=== PATIENT | female | born 1955 | race Caucasian/White ===

== ENCOUNTER 2020-06-19 12:56 | Inpatient (IN) | payer OTHER ==
[2020-06-19 14:29] LABS: BASO % 1.3 % (0-2.0); EOS % 0.1 % (0-4.5); HEMATOCRIT 44.3 % (32.4-45.2); HEMOGLOBIN 14.6 GM/dL (10.7-15.3); LYMPH % 11.9 % (8-40); MCH 26.6 pg (25.7-33.7); MCHC 32.8 g/dl (32.0-36.0); MEAN PLT VOLUME 9.9 fl (7.5-11.1); MONO % 4.5 % (3.8-10.2); NEUT % 82.2 % (42.8-82.8); PLATELET COUNT 181 K/MM3 (134-434); RBC 5.48 M/mm3 (3.60-5.2); RDW 16.2 % (11.6-15.6); WHITE BLOOD COUNT 8.1 K/mm3 (4.0-10.0)
[2020-06-19 14:37] LABS: INR 1.2 (0.83-1.09); PROTHROMBIN TIME (PATIENT) 14.4 SEC (9.7-13.0)
[2020-06-19 14:40] LABS: ACTIVATED PTT 38.9 SECONDS (25.2-36.5)
[2020-06-19 14:49] LABS: CHLORIDE 103 mmol/L (98-107); SODIUM 138 mmol/L (136-145)
[2020-06-19] MEDS ORDERED: POTASSIUM CHLORIDE ORAL LIQUID 20 MEQ/15 ML PO ONE (14:51)
[2020-06-19 14:52] LABS: ANION GAP 8 MMOL/L (8-16); BLOOD UREA NITROGEN 17.9 mg/dL (7-18); CALCIUM 7.7 mg/dL (8.5-10.1); CO2 27 mmol/L (21-32); GLUCOSE,RANDOM 138 mg/dL (74-106)
[2020-06-19 14:55] LABS: BILIRUBIN,DIRECT 0.3 mg/dL (0.0-0.2); CREATININE 1.3 mg/dL (0.55-1.3); SGOT/AST 43 U/L (15-37); SGPT/ALT 28 U/L (13-61)
[2020-06-19 14:57] LABS: BILIRUBIN,TOTAL 0.6 mg/dL (0.2-1); TOT PROT 6.7 g/dl (6.4-8.2)
[2020-06-19 14:58] LABS: ALK PHOS 88 U/L (45-117)
[2020-06-19 15:00] LABS: LDH 408 U/L (84-246)
[2020-06-19] MEDS ORDERED: DEXAMETHASONE SOD PHOSPHATE 4 MG/1 ML VIAL IVPUSH ONE (16:02)
[2020-06-19] MEDS ORDERED: POTASSIUM CHLORIDE ORAL LIQUID 20 MEQ/15 ML ONE (16:12)
[2020-06-19] MEDS ORDERED: DEXAMETHASONE SOD PHOSPHATE 10 MG/1 ML VIAL ONE (16:12)
[2020-06-19 18:26] LABS: N-TERMINAL BNP 674.1 pg/ml (5-125)
[2020-06-19] MEDS ORDERED: ALBUTEROL SO4 HFA INHALER IH PRN (21:41)
[2020-06-19] MEDS ORDERED: ACETAMINOPHEN 325 MG TABLET (FP) PO PRN (21:43)
[2020-06-19] MEDS ORDERED: AZITHROMYCIN IVPB 500 MG/250 ML BAG IVPB ONE ×2 (21:47→22:12)
[2020-06-19] MEDS ORDERED: REMDESIVIR 200 MG in SODIUM CHLORIDE 210 ML IVPB ONE (22:00)
[2020-06-19] MEDS ORDERED: ASCORBIC ACID 500 MG TABLET (FP) ONE (22:11)
[2020-06-19] MEDS ORDERED: ZINC SULFATE 220 MG CAPSULE (FP) ONE (22:12)
[2020-06-19] MEDS ORDERED: CHOLECALCIFEROL (VIT D3) 1,000 UNIT (25 MCG) TABLET ONE (22:12)
[2020-06-19] MEDS: CHOLECALCIFEROL (VIT D3) 1,000 UNIT (25 MCG) TABLET PO SCH (22:50)
[2020-06-19] MEDS: ZINC SULFATE 220 MG CAPSULE (FP) PO SCH (22:50)
[2020-06-19] MEDS: ASCORBIC ACID 500 MG TABLET (FP) PO SCH (22:51)
[2020-06-20] MEDS: BUDESONIDE/FORMETEROL FUMARATE 160/4.5 mcg INHALER IH SCH ×3 (02:57→23:19)
[2020-06-20 07:35] LABS: BASO % 0.2 % (0-2.0); HEMATOCRIT 41.9 % (32.4-45.2); MCHC 33.5 g/dl (32.0-36.0); MEAN CELL VOLUME 80.6 fl (80-96); MEAN PLT VOLUME 10.2 fl (7.5-11.1); MONO % 6.3 % (3.8-10.2); NEUT % 81.5 % (42.8-82.8); PLATELET COUNT 204 K/MM3 (134-434); RDW 16.3 % (11.6-15.6); WHITE BLOOD COUNT 8.4 K/mm3 (4.0-10.0)
[2020-06-20 08:03] LABS: CALCIUM 8.1 mg/dL (8.5-10.1)
[2020-06-20 08:04] LABS: BLOOD UREA NITROGEN 37.6 mg/dL (7-18)
[2020-06-20 08:06] LABS: CREATININE 1.5 mg/dL (0.55-1.3)
[2020-06-20 08:07] LABS: PHOSPHOROUS 3.1 mg/dL (2.5-4.9)
[2020-06-20 08:08] LABS: BILIRUBIN,TOTAL 0.6 mg/dL (0.2-1); TOT PROT 6.6 g/dl (6.4-8.2)
[2020-06-20] MEDS ORDERED: ENOXAPARIN NA (PORCINE) 40 MG/0.4 ML DISP.SYRIN SQ SCH (10:00)
[2020-06-20] MEDS: DEXAMETHASONE SOD PHOSPHATE 4 MG/1 ML VIAL IVPUSH SCH (10:04)
[2020-06-20] MEDS: ASCORBIC ACID 500 MG TABLET (FP) PO SCH ×2 (10:04→23:20)
[2020-06-20] MEDS: ZINC SULFATE 220 MG CAPSULE (FP) PO SCH ×2 (10:04→23:19)
[2020-06-20] MEDS: CHOLECALCIFEROL (VIT D3) 1,000 UNIT (25 MCG) TABLET PO SCH (10:04)
[2020-06-20] MEDS: ALBUTEROL SO4 HFA INHALER IH SCH ×4 (10:06→23:19)
[2020-06-20] MEDS ORDERED: DEXTROSE 5%-WATER - 50 ML IVPB ONE (17:09)
[2020-06-20] MEDS ORDERED: cefTRIAXone SODIUM 1 GM VIAL ONE (17:09)
[2020-06-20] MEDS: AZITHROMYCIN IVPB 500 MG/250 ML BAG IVPB SCH (17:12)
[2020-06-20] MEDS: CEFTRIAXONE 1 GM in DEXTROSE 5%-WATER - 50 ML IVPB SCH (17:12)
[2020-06-20] MEDS ORDERED: LACTATED RINGERS SOLUTION 1,000 ML/1,000 ML INFUS.BAG IV SCH ×2 (17:45→17:46)
[2020-06-20] MEDS: REMDESIVIR 100 MG in SODIUM CHLORIDE 230 ML IVPB SCH (23:19)
[2020-06-21 08:12] LABS: BASO % 0.1 % (0-2.0); HEMATOCRIT 40.7 % (32.4-45.2); HEMOGLOBIN 13.5 GM/dL (10.7-15.3); LYMPH % 6.3 % (8-40); MCH 26.7 pg (25.7-33.7); MCHC 33.2 g/dl (32.0-36.0); MEAN CELL VOLUME 80.4 fl (80-96); MEAN PLT VOLUME 10.2 fl (7.5-11.1); MONO % 6.3 % (3.8-10.2); NEUT % 87.3 % (42.8-82.8); PLATELET COUNT 223 K/MM3 (134-434); RBC 5.06 M/mm3 (3.60-5.2); RDW 16.4 % (11.6-15.6); WHITE BLOOD COUNT 14.6 K/mm3 (4.0-10.0)
[2020-06-21 08:21] LABS: CALCIUM 8.5 mg/dL (8.5-10.1)
[2020-06-21 08:22] LABS: ALBUMIN 2.9 g/dl (3.4-5.0); BLOOD UREA NITROGEN 57.3 mg/dL (7-18)
[2020-06-21 08:25] LABS: CREATININE 1.2 mg/dL (0.55-1.3)
[2020-06-21 08:26] LABS: BILIRUBIN,TOTAL 0.4 mg/dL (0.2-1); TOT PROT 6.5 g/dl (6.4-8.2)
[2020-06-21] MEDS ORDERED: DEXTROSE 5%-WATER - 50 ML IVPB ONE (09:51)
[2020-06-21] MEDS ORDERED: cefTRIAXone SODIUM 1 GM VIAL ONE (09:51)
[2020-06-21] MEDS: AZITHROMYCIN IVPB 500 MG/250 ML BAG IVPB SCH (10:06)
[2020-06-21] MEDS: ALBUTEROL SO4 HFA INHALER IH SCH ×4 (10:06→20:00)
[2020-06-21] MEDS: CEFTRIAXONE 1 GM in DEXTROSE 5%-WATER - 50 ML IVPB SCH (10:07)
[2020-06-21] MEDS: APIXABAN 5 MG TABLET PO SCH ×2 (10:07→21:55)
[2020-06-21] MEDS: CHOLECALCIFEROL (VIT D3) 1,000 UNIT (25 MCG) TABLET PO SCH (10:07)
[2020-06-21] MEDS: ASCORBIC ACID 500 MG TABLET (FP) PO SCH ×2 (10:07→21:55)
[2020-06-21] MEDS: DEXAMETHASONE SOD PHOSPHATE 4 MG/1 ML VIAL IVPUSH SCH (10:07)
[2020-06-21] MEDS: ZINC SULFATE 220 MG CAPSULE (FP) PO SCH ×2 (10:07→21:55)
[2020-06-21] MEDS: BUDESONIDE/FORMETEROL FUMARATE 160/4.5 mcg INHALER IH SCH ×2 (10:21→22:14)
[2020-06-21] MEDS: AZITHROMYCIN IVPB 250 MG in DEXTROSE 5%-WATER - 250 ML IVPB SCH (13:03)
[2020-06-21] MEDS ORDERED: PT OWN MED DRAWER 7, Y5N ONE (20:21)
[2020-06-21] MEDS: REMDESIVIR 100 MG in SODIUM CHLORIDE 230 ML IVPB SCH (21:56)
[2020-06-22 08:45] LABS: HEMATOCRIT 38.6 % (32.4-45.2); HEMOGLOBIN 12.9 GM/dL (10.7-15.3); MCH 26.9 pg (25.7-33.7); MCHC 33.4 g/dl (32.0-36.0); MEAN CELL VOLUME 80.6 fl (80-96); MEAN PLT VOLUME 10.2 fl (7.5-11.1); PLATELET COUNT 204 K/MM3 (134-434); RBC 4.79 M/mm3 (3.60-5.2); RDW 16.1 % (11.6-15.6); WHITE BLOOD COUNT 10.8 K/mm3 (4.0-10.0)
[2020-06-22 09:33] LABS: CALCIUM 8.2 mg/dL (8.5-10.1)
[2020-06-22 09:36] LABS: CREATININE 0.8 mg/dL (0.55-1.3)
[2020-06-22 09:42] LABS: BLOOD UREA NITROGEN 30.9 mg/dL (7-18)
[2020-06-22] MEDS ORDERED: cefTRIAXone SODIUM 1 GM VIAL ONE (10:07)
[2020-06-22] MEDS ORDERED: DEXTROSE 5%-WATER - 50 ML IVPB ONE (10:07)
[2020-06-22 10:10] LABS: ERYTHROCYTE SEDIMENTATION RATE 39 mm/hr (0-30)
[2020-06-22] MEDS: CEFTRIAXONE 1 GM in DEXTROSE 5%-WATER - 50 ML IVPB SCH (10:38)
[2020-06-22] MEDS: ZINC SULFATE 220 MG CAPSULE (FP) PO SCH ×2 (10:38→22:59)
[2020-06-22] MEDS: CHOLECALCIFEROL (VIT D3) 1,000 UNIT (25 MCG) TABLET PO SCH (10:38)
[2020-06-22] MEDS: ASCORBIC ACID 500 MG TABLET (FP) PO SCH ×2 (10:38→22:59)
[2020-06-22] MEDS: DULoxetine HCL 30 MG CAPSULE.DR PO SCH (10:38)
[2020-06-22] MEDS: APIXABAN 5 MG TABLET PO SCH ×2 (10:38→22:59)
[2020-06-22] MEDS: DEXAMETHASONE SOD PHOSPHATE 4 MG/1 ML VIAL IVPUSH SCH (10:38)
[2020-06-22] MEDS: COLCHICINE 0.6 MG CAP PO SCH (10:39)
[2020-06-22] MEDS: BUDESONIDE/FORMETEROL FUMARATE 160/4.5 mcg INHALER IH SCH ×2 (10:39→22:59)
[2020-06-22] MEDS: AZITHROMYCIN IVPB 250 MG in DEXTROSE 5%-WATER - 250 ML IVPB SCH (10:39)
[2020-06-22] MEDS: ALBUTEROL SO4 HFA INHALER IH SCH ×4 (10:40→22:59)
[2020-06-22] MEDS ORDERED: metoPROLOL SUCCINATE 25 MG TAB.SR.24H (FP) PO SCH (18:00)
[2020-06-22] MEDS: metoPROLOL SUCCINATE 25 MG TAB.SR.24H (FP) PO SCH (18:44)
[2020-06-22] MEDS: PANTOPRAZOLE 40 MG TABLET PO SCH (18:46)
[2020-06-22] MEDS: REMDESIVIR 100 MG in SODIUM CHLORIDE 230 ML IVPB SCH (22:59)
[2020-06-22] MEDS: ATORVASTATIN CA 20 MG TABLET (FP) PO SCH (22:59)
[2020-06-23] MEDS ORDERED: morphine CARPU-JECT 2 MG/1 ML DISP.SYRIN IVPUSH ONE (01:14)
[2020-06-23] MEDS ORDERED: MORPHINE SULFATE 2 MG/ML VIAL IVPUSH ONE ×2 (01:14→02:29)
[2020-06-23] MEDS ORDERED: MORPHINE SULFATE 2 MG/ML VIAL ONE (01:18)
[2020-06-23] MEDS ORDERED: FUROSEMIDE 40 MG/4 ML INJECTABLE VIAL IVPUSH ONE (02:29)
[2020-06-23] MEDS ORDERED: TOCILIZUMAB (ACTEMRA) 200 MG/10 ML VIAL IVPB ONE (02:50)
[2020-06-23] MEDS ORDERED: TOCILIZUMAB 800 MG in SODIUM CHLORIDE 60 ML IVPB ONE (03:15)
[2020-06-23] MEDS: ALBUTEROL SO4 HFA INHALER IH SCH ×4 (08:00→20:30)
[2020-06-23 08:18] LABS: BASO % 0.1 % (0-2.0); HEMATOCRIT 39.6 % (32.4-45.2); HEMOGLOBIN 13.1 GM/dL (10.7-15.3); LYMPH % 8.1 % (8-40); MCH 26.8 pg (25.7-33.7); MCHC 33.1 g/dl (32.0-36.0); MEAN CELL VOLUME 80.8 fl (80-96); MEAN PLT VOLUME 9.7 fl (7.5-11.1); NEUT % 83.8 % (42.8-82.8); PLATELET COUNT 235 K/MM3 (134-434); RDW 16.2 % (11.6-15.6); WHITE BLOOD COUNT 11.4 K/mm3 (4.0-10.0)
[2020-06-23 08:31] LABS: ALBUMIN 2.6 g/dl (3.4-5.0); BLOOD UREA NITROGEN 23.5 mg/dL (7-18); CALCIUM 8.1 mg/dL (8.5-10.1)
[2020-06-23 08:34] LABS: CREATININE 0.7 mg/dL (0.55-1.3)
[2020-06-23 08:36] LABS: TOT PROT 6.1 g/dl (6.4-8.2)
[2020-06-23 08:38] LABS: BILIRUBIN,TOTAL 0.6 mg/dL (0.2-1)
[2020-06-23] MEDS ORDERED: DEXTROSE 5%-WATER - 50 ML IVPB ONE (09:26)
[2020-06-23] MEDS ORDERED: cefTRIAXone SODIUM 1 GM VIAL ONE (09:26)
[2020-06-23] MEDS: metoPROLOL SUCCINATE 25 MG TAB.SR.24H (FP) PO SCH (09:29)
[2020-06-23] MEDS: CHOLECALCIFEROL (VIT D3) 1,000 UNIT (25 MCG) TABLET PO SCH (09:29)
[2020-06-23] MEDS: DULoxetine HCL 30 MG CAPSULE.DR PO SCH (09:29)
[2020-06-23] MEDS: APIXABAN 5 MG TABLET PO SCH ×2 (09:29→21:19)
[2020-06-23] MEDS: ASCORBIC ACID 500 MG TABLET (FP) PO SCH ×2 (09:29→21:20)
[2020-06-23] MEDS: PANTOPRAZOLE 40 MG TABLET PO SCH (09:30)
[2020-06-23] MEDS: DEXAMETHASONE SOD PHOSPHATE 4 MG/1 ML VIAL IVPUSH SCH (09:30)
[2020-06-23] MEDS: ZINC SULFATE 220 MG CAPSULE (FP) PO SCH ×2 (09:30→21:19)
[2020-06-23] MEDS: CEFTRIAXONE 1 GM in DEXTROSE 5%-WATER - 50 ML IVPB SCH (09:30)
[2020-06-23] MEDS: COLCHICINE 0.6 MG CAP PO SCH (10:00)
[2020-06-23] MEDS: BUDESONIDE/FORMETEROL FUMARATE 160/4.5 mcg INHALER IH SCH ×2 (11:00→21:20)
[2020-06-23] MEDS: ALPRAZolam 0.25 MG TABLET PO PRN (14:30)
[2020-06-23] MEDS: ATORVASTATIN CA 20 MG TABLET (FP) PO SCH (21:19)
[2020-06-23] MEDS: REMDESIVIR 100 MG in SODIUM CHLORIDE 230 ML IVPB SCH (21:20)
[2020-06-23] MEDS: DEXMEDETOMIDINE IN 0.9 % NACL 400 MCG/100 ML VIAL IVPB SCH (23:30)
[2020-06-24] MEDS ORDERED: FUROSEMIDE 40 MG/4 ML INJECTABLE VIAL IVPUSH ONE ×2 (04:39→13:30)
[2020-06-24] MEDS ORDERED: ENOXAPARIN NA (PORCINE) 80 MG/0.8 ML DISP.SYRIN SQ SCH (06:30)
[2020-06-24] MEDS ORDERED: morphine SULFATE 4 MG/ML VIAL IVPUSH ONE (06:39)
[2020-06-24] MEDS ORDERED: morphine SULFATE 4 MG/ML VIAL ONE (06:41)
[2020-06-24 07:26] LABS: HEMATOCRIT 41.3 % (32.4-45.2); HEMOGLOBIN 13.8 GM/dL (10.7-15.3); MCH 26.8 pg (25.7-33.7); MCHC 33.5 g/dl (32.0-36.0); MEAN PLT VOLUME 9.1 fl (7.5-11.1); PLATELET COUNT 163 K/MM3 (134-434); RBC 5.16 M/mm3 (3.60-5.2); RDW 15.8 % (11.6-15.6)
[2020-06-24 08:04] LABS: ALBUMIN 2.6 g/dl (3.4-5.0); BLOOD UREA NITROGEN 28.4 mg/dL (7-18); CALCIUM 8.3 mg/dL (8.5-10.1); MAGNESIUM 1.9 mg/dL (1.8-2.4)
[2020-06-24 08:08] LABS: BILIRUBIN,TOTAL 0.9 mg/dL (0.2-1); CREATININE 0.7 mg/dL (0.55-1.3); PHOSPHOROUS 3.6 mg/dL (2.5-4.9)
[2020-06-24] MEDS: DULoxetine HCL 30 MG CAPSULE.DR PO SCH (09:38)
[2020-06-24] MEDS: ZINC SULFATE 220 MG CAPSULE (FP) PO SCH ×2 (09:38→22:04)
[2020-06-24] MEDS: COLCHICINE 0.6 MG CAP PO SCH (09:38)
[2020-06-24] MEDS: PANTOPRAZOLE 40 MG TABLET PO SCH (09:38)
[2020-06-24] MEDS ORDERED: cefTRIAXone SODIUM 1 GM VIAL ONE (09:43)
[2020-06-24] MEDS ORDERED: DEXTROSE 5%-WATER - 50 ML IVPB ONE (09:43)
[2020-06-24] MEDS: BUDESONIDE/FORMETEROL FUMARATE 160/4.5 mcg INHALER IH SCH ×2 (09:44→22:04)
[2020-06-24] MEDS: CEFTRIAXONE 1 GM in DEXTROSE 5%-WATER - 50 ML IVPB SCH (09:44)
[2020-06-24] MEDS: CHOLECALCIFEROL (VIT D3) 1,000 UNIT (25 MCG) TABLET PO SCH (09:46)
[2020-06-24] MEDS: ASCORBIC ACID 500 MG TABLET (FP) PO SCH ×2 (09:46→22:04)
[2020-06-24] MEDS: metoPROLOL SUCCINATE 25 MG TAB.SR.24H (FP) PO SCH (09:46)
[2020-06-24] MEDS: ALBUTEROL SO4 HFA INHALER IH SCH ×4 (09:48→20:05)
[2020-06-24] MEDS: ENOXAPARIN NA (PORCINE) 80 MG/0.8 ML DISP.SYRIN SQ SCH ×2 (09:50→22:04)
[2020-06-24] MEDS: DEXAMETHASONE SOD PHOSPHATE 4 MG/1 ML VIAL IVPUSH SCH (09:50)
[2020-06-24] MEDS: ALPRAZolam 0.25 MG TABLET PO PRN ×2 (09:56→22:04)
[2020-06-24] MEDS ORDERED: RAPID SEQUENCE INTUBATION KIT NR ONE (10:35)
[2020-06-24] MEDS: DEXMEDETOMIDINE IN 0.9 % NACL 400 MCG/100 ML VIAL IVPB SCH ×2 (12:31→18:17)
[2020-06-24] MEDS ORDERED: PT OWN MED DRAWER 7, Y5N ONE (17:06)
[2020-06-24] MEDS: ATORVASTATIN CA 20 MG TABLET (FP) PO SCH (22:03)
[2020-06-25] MEDS: DEXMEDETOMIDINE IN 0.9 % NACL 400 MCG/100 ML VIAL IVPB SCH ×2 (00:12→13:32)
[2020-06-25 07:29] LABS: MCH 26.7 pg (25.7-33.7); MCHC 33.2 g/dl (32.0-36.0)
[2020-06-25 07:44] LABS: CALCIUM 8.2 mg/dL (8.5-10.1)
[2020-06-25 07:45] LABS: ALBUMIN 2.6 g/dl (3.4-5.0); BLOOD UREA NITROGEN 37.3 mg/dL (7-18)
[2020-06-25 07:46] LABS: MAGNESIUM 1.9 mg/dL (1.8-2.4)
[2020-06-25 07:48] LABS: CREATININE 0.9 mg/dL (0.55-1.3); PHOSPHOROUS 4.5 mg/dL (2.5-4.9)
[2020-06-25 07:49] LABS: BILIRUBIN,TOTAL 0.5 mg/dL (0.2-1); TOT PROT 6.1 g/dl (6.4-8.2)
[2020-06-25 08:29] LABS: BASO % 0.2 % (0-2.0); HEMATOCRIT 41.8 % (32.4-45.2); HEMOGLOBIN 13.9 GM/dL (10.7-15.3); LYMPH % 6.4 % (8-40); MEAN CELL VOLUME 80.3 fl (80-96); MEAN PLT VOLUME 9.2 fl (7.5-11.1); MONO % 4.5 % (3.8-10.2); NEUT % 87.9 % (42.8-82.8); PLATELET COUNT 168 K/MM3 (134-434); RDW 16.1 % (11.6-15.6); WHITE BLOOD COUNT 11.7 K/mm3 (4.0-10.0)
[2020-06-25] MEDS: ALBUTEROL SO4 HFA INHALER IH SCH ×4 (09:00→22:39)
[2020-06-25] MEDS ORDERED: PROPOFOL 1,000,000 MCG/100 ML VIAL ONE (09:13)
[2020-06-25] MEDS ORDERED: cefTRIAXone SODIUM 1 GM VIAL ONE (10:21)
[2020-06-25] MEDS ORDERED: DEXTROSE 5%-WATER - 50 ML IVPB ONE (10:22)
[2020-06-25] MEDS: DEXAMETHASONE SOD PHOSPHATE 4 MG/1 ML VIAL IVPUSH SCH (10:24)
[2020-06-25] MEDS: COLCHICINE 0.6 MG CAP PO SCH (10:24)
[2020-06-25] MEDS: FUROSEMIDE 40 MG/4 ML INJECTABLE VIAL IVPUSH SCH ×2 (10:24→15:13)
[2020-06-25] MEDS: ASCORBIC ACID 500 MG TABLET (FP) PO SCH ×2 (10:25→22:39)
[2020-06-25] MEDS: CHOLECALCIFEROL (VIT D3) 1,000 UNIT (25 MCG) TABLET PO SCH (10:25)
[2020-06-25] MEDS: PANTOPRAZOLE 40 MG TABLET PO SCH (10:25)
[2020-06-25] MEDS: metoPROLOL SUCCINATE 25 MG TAB.SR.24H (FP) PO SCH (10:25)
[2020-06-25] MEDS: ENOXAPARIN NA (PORCINE) 80 MG/0.8 ML DISP.SYRIN SQ SCH ×2 (10:25→22:39)
[2020-06-25] MEDS: ALPRAZolam 0.25 MG TABLET PO PRN ×3 (10:25→23:00)
[2020-06-25] MEDS: ZINC SULFATE 220 MG CAPSULE (FP) PO SCH ×2 (10:26→22:39)
[2020-06-25] MEDS: CEFTRIAXONE 1 GM in DEXTROSE 5%-WATER - 50 ML IVPB SCH (10:26)
[2020-06-25] MEDS: BUDESONIDE/FORMETEROL FUMARATE 160/4.5 mcg INHALER IH SCH ×2 (10:26→22:39)
[2020-06-25] MEDS: DULoxetine HCL 30 MG CAPSULE.DR PO SCH (10:27)
[2020-06-25] MEDS ORDERED: PT OWN MED DRAWER 7, Y5N ONE (10:51)
[2020-06-25] MEDS ORDERED: SIMETHICONE 80 MG TAB.CHEW (FP) PO ONE (15:54)
[2020-06-25] MEDS: ATORVASTATIN CA 20 MG TABLET (FP) PO SCH (22:38)
[2020-06-26 01:42] LABS: ARTERIAL BLD GAS O2 SATURATION 91.8 mmHg (95-98); ARTERIAL BLOOD GAS BASE EXCESS 7.6 mmol/L (-2-2); ARTERIAL BLOOD GAS PO2 58.1 mmHg (80-100); ARTERIAL BLOOD GAS pH 7.481 (7.350-7.450)
[2020-06-26 01:44] LABS: ALLENS TEST POSITIVE
[2020-06-26 01:45] LABS: VENT MODE SPONTANEOUS; VENT RATE 16
[2020-06-26] MEDS: FUROSEMIDE 40 MG/4 ML INJECTABLE VIAL IVPUSH SCH ×2 (05:33→13:07)
[2020-06-26 07:19] LABS: BASO % 0.1 % (0-2.0); EOS % 2.4 % (0-4.5); HEMATOCRIT 43.6 % (32.4-45.2); HEMOGLOBIN 14.3 GM/dL (10.7-15.3); LYMPH % 5.4 % (8-40); MCH 26.4 pg (25.7-33.7); MCHC 32.8 g/dl (32.0-36.0); MEAN CELL VOLUME 80.7 fl (80-96); MEAN PLT VOLUME 9.3 fl (7.5-11.1); MONO % 2.9 % (3.8-10.2); NEUT % 89.2 % (42.8-82.8); PLATELET COUNT 163 K/MM3 (134-434); RDW 16.3 % (11.6-15.6); WHITE BLOOD COUNT 13.4 K/mm3 (4.0-10.0)
[2020-06-26 07:34] LABS: ALBUMIN 2.6 g/dl (3.4-5.0); BLOOD UREA NITROGEN 35.7 mg/dL (7-18); MAGNESIUM 2.1 mg/dL (1.8-2.4)
[2020-06-26 07:37] LABS: CREATININE 0.9 mg/dL (0.55-1.3); PHOSPHOROUS 3.8 mg/dL (2.5-4.9)
[2020-06-26 07:38] LABS: BILIRUBIN,TOTAL 0.6 mg/dL (0.2-1)
[2020-06-26] MEDS: ALBUTEROL SO4 HFA INHALER IH SCH ×4 (08:00→23:27)
[2020-06-26] MEDS ORDERED: DEXTROSE 5%-WATER - 50 ML IVPB ONE (09:19)
[2020-06-26] MEDS ORDERED: cefTRIAXone SODIUM 1 GM VIAL ONE (09:19)
[2020-06-26] MEDS ORDERED: PT OWN MED DRAWER 7, Y5N ONE ×2 (09:19→12:40)
[2020-06-26] MEDS: DULoxetine HCL 30 MG CAPSULE.DR PO SCH (09:26)
[2020-06-26] MEDS: DEXAMETHASONE SOD PHOSPHATE 4 MG/1 ML VIAL IVPUSH SCH (09:30)
[2020-06-26] MEDS: ZINC SULFATE 220 MG CAPSULE (FP) PO SCH ×2 (09:31→21:13)
[2020-06-26] MEDS: metoPROLOL SUCCINATE 25 MG TAB.SR.24H (FP) PO SCH (09:31)
[2020-06-26] MEDS: ENOXAPARIN NA (PORCINE) 80 MG/0.8 ML DISP.SYRIN SQ SCH ×2 (09:31→21:13)
[2020-06-26] MEDS: CHOLECALCIFEROL (VIT D3) 1,000 UNIT (25 MCG) TABLET PO SCH (09:32)
[2020-06-26] MEDS: ASCORBIC ACID 500 MG TABLET (FP) PO SCH ×2 (09:32→21:13)
[2020-06-26] MEDS: CEFTRIAXONE 1 GM in DEXTROSE 5%-WATER - 50 ML IVPB SCH (09:33)
[2020-06-26] MEDS: PANTOPRAZOLE 40 MG TABLET PO SCH (09:33)
[2020-06-26] MEDS: BUDESONIDE/FORMETEROL FUMARATE 160/4.5 mcg INHALER IH SCH ×2 (11:00→23:27)
[2020-06-26] MEDS: COLCHICINE 0.6 MG CAP PO SCH (13:04)
[2020-06-26] MEDS: KCL 10 MEQ IVPB 10 MEQ/100 ML INFUS.BAG IVPB SCH ×2 (13:06→15:00)
[2020-06-26] MEDS ORDERED: POTASSIUM CHLORIDE TABS 20 MEQ TABLET.ER (FP) PO ONE (14:30)
[2020-06-26] MEDS: ALPRAZolam 1 MG TABLET PO PRN ×2 (15:45→21:13)
[2020-06-26] MEDS: DEXMEDETOMIDINE IN 0.9 % NACL 400 MCG/100 ML VIAL IVPB SCH (16:08)
[2020-06-26] MEDS: CEFAZOLIN 1 GM/D5W 1 GM/50 ML BAG IVPB SCH (18:06)
[2020-06-26 19:15] LABS: EPI CELLS 4 /uL (0-25.1); HYALINE CASTS 1 /uL (0-3.1); URINE APPEARANCE CLEAR; URINE BACTERIA 48 /uL (0-1359); URINE BILIRUBIN NEGATIVE (NEGATIVE); URINE COLOR YELLOW; URINE GLUCOSE (UA) NEGATIVE (NEGATIVE); URINE KETONE NEGATIVE (NEGATIVE); URINE LEUK ESTERASE NEGATIVE (NEGATIVE); URINE NITRITE NEGATIVE (NEGATIVE); URINE PROTEIN NEGATIVE (NEGATIVE); URINE RBC 26 /uL (0-23.9); URINE UROBILINOGEN 0.2 mg/dL (0.2-1.0); URINE WBC 6 /uL (0-25.8)
[2020-06-26] MEDS: ATORVASTATIN CA 20 MG TABLET (FP) PO SCH (21:13)
[2020-06-27] MEDS ORDERED: ACETAMINOPHEN 1000 MG/100 ML VIAL (NON FORMULARY) IVPB ONE (00:17)
[2020-06-27] MEDS: KCL 10 MEQ IVPB 10 MEQ/100 ML INFUS.BAG IVPB SCH ×3 (01:47→05:07)
[2020-06-27] MEDS: CEFAZOLIN 1 GM/D5W 1 GM/50 ML BAG IVPB SCH ×3 (02:50→17:14)
[2020-06-27] MEDS: ALPRAZolam 1 MG TABLET PO PRN ×4 (05:27→22:34)
[2020-06-27] MEDS: FUROSEMIDE 40 MG/4 ML INJECTABLE VIAL IVPUSH SCH (05:29)
[2020-06-27 07:09] LABS: BASO % 0.2 % (0-2.0); EOS % 2.6 % (0-4.5); HEMATOCRIT 43.7 % (32.4-45.2); HEMOGLOBIN 14.4 GM/dL (10.7-15.3); LYMPH % 4.3 % (8-40); MCH 26.6 pg (25.7-33.7); MCHC 32.9 g/dl (32.0-36.0); MEAN CELL VOLUME 80.6 fl (80-96); MEAN PLT VOLUME 9.7 fl (7.5-11.1); MONO % 2.6 % (3.8-10.2); NEUT % 90.3 % (42.8-82.8); PLATELET COUNT 174 K/MM3 (134-434); RBC 5.42 M/mm3 (3.60-5.2); RDW 16.1 % (11.6-15.6); WHITE BLOOD COUNT 15.9 K/mm3 (4.0-10.0)
[2020-06-27] MEDS: DEXMEDETOMIDINE IN 0.9 % NACL 400 MCG/100 ML VIAL IVPB SCH ×2 (08:00→22:29)
[2020-06-27 08:16] LABS: ALBUMIN 2.7 g/dl (3.4-5.0); BLOOD UREA NITROGEN 41.3 mg/dL (7-18); MAGNESIUM 2.2 mg/dL (1.8-2.4)
[2020-06-27 08:19] LABS: CREATININE 0.9 mg/dL (0.55-1.3); PHOSPHOROUS 3.8 mg/dL (2.5-4.9)
[2020-06-27 08:20] LABS: BILIRUBIN,TOTAL 0.6 mg/dL (0.2-1)
[2020-06-27 08:21] LABS: TOT PROT 6.2 g/dl (6.4-8.2)
[2020-06-27] MEDS ORDERED: PT OWN MED DRAWER 7, Y5N ONE ×3 (10:07→16:17)
[2020-06-27] MEDS: ENOXAPARIN NA (PORCINE) 80 MG/0.8 ML DISP.SYRIN SQ SCH (10:21)
[2020-06-27] MEDS: PANTOPRAZOLE 40 MG TABLET PO SCH (10:21)
[2020-06-27] MEDS: metoPROLOL SUCCINATE 25 MG TAB.SR.24H (FP) PO SCH ×2 (10:21→11:40)
[2020-06-27] MEDS: ASCORBIC ACID 500 MG TABLET (FP) PO SCH ×2 (10:21→22:34)
[2020-06-27] MEDS: ZINC SULFATE 220 MG CAPSULE (FP) PO SCH ×2 (10:21→22:34)
[2020-06-27] MEDS: DEXAMETHASONE SOD PHOSPHATE 4 MG/1 ML VIAL IVPUSH SCH (10:22)
[2020-06-27] MEDS: CHOLECALCIFEROL (VIT D3) 1,000 UNIT (25 MCG) TABLET PO SCH (10:23)
[2020-06-27] MEDS: DULoxetine HCL 30 MG CAPSULE.DR PO SCH (10:23)
[2020-06-27] MEDS: COLCHICINE 0.6 MG CAP PO SCH (10:24)
[2020-06-27] MEDS: BUDESONIDE/FORMETEROL FUMARATE 160/4.5 mcg INHALER IH SCH (10:55)
[2020-06-27] MEDS: ALBUTEROL SO4 HFA INHALER IH SCH ×3 (10:56→16:50)
[2020-06-27] MEDS: FUROSEMIDE INJECTION 100 MG in DEXTROSE 5%-WATER - 90 ML IVPB SCH (17:14)
[2020-06-27] MEDS: ATORVASTATIN CA 20 MG TABLET (FP) PO SCH (22:33)
[2020-06-27] MEDS: ENOXAPARIN NA (PORCINE) 120 MG/0.8 ML DISP.SYRIN SQ SCH (22:34)
[2020-06-28] MEDS: CEFAZOLIN 1 GM/D5W 1 GM/50 ML BAG IVPB SCH ×3 (03:15→18:23)
[2020-06-28] MEDS: DEXMEDETOMIDINE IN 0.9 % NACL 400 MCG/100 ML VIAL IVPB SCH ×3 (04:14→12:18)
[2020-06-28] MEDS: ALBUTEROL SO4 HFA INHALER IH SCH (04:14)
[2020-06-28] MEDS: BUDESONIDE/FORMETEROL FUMARATE 160/4.5 mcg INHALER IH SCH ×3 (04:15→21:23)
[2020-06-28] MEDS ORDERED: INSULIN REGULAR HUMAN 100 UNITS/ML *VIAL ONE (06:07)
[2020-06-28 07:29] LABS: BASO % 0.4 % (0-2.0); EOS % 4.7 % (0-4.5); HEMATOCRIT 43.6 % (32.4-45.2); HEMOGLOBIN 14.4 GM/dL (10.7-15.3); LYMPH % 4.9 % (8-40); MCH 26.5 pg (25.7-33.7); MCHC 32.9 g/dl (32.0-36.0); MEAN CELL VOLUME 80.5 fl (80-96); MEAN PLT VOLUME 9.1 fl (7.5-11.1); MONO % 2.3 % (3.8-10.2); NEUT % 87.7 % (42.8-82.8); PLATELET COUNT 183 K/MM3 (134-434); RBC 5.42 M/mm3 (3.60-5.2); RDW 16.2 % (11.6-15.6); WHITE BLOOD COUNT 13.8 K/mm3 (4.0-10.0)
[2020-06-28 08:19] LABS: ALBUMIN 2.6 g/dl (3.4-5.0); BILIRUBIN,TOTAL 0.5 mg/dL (0.2-1); BLOOD UREA NITROGEN 34.2 mg/dL (7-18); CALCIUM 7.9 mg/dL (8.5-10.1); CREATININE 0.8 mg/dL (0.55-1.3); TOT PROT 5.9 g/dl (6.4-8.2)
[2020-06-28] MEDS: ENOXAPARIN NA (PORCINE) 120 MG/0.8 ML DISP.SYRIN SQ SCH ×2 (11:00→21:24)
[2020-06-28] MEDS: COLCHICINE 0.6 MG CAP PO SCH (11:00)
[2020-06-28] MEDS: ZINC SULFATE 220 MG CAPSULE (FP) PO SCH ×2 (11:08→21:23)
[2020-06-28] MEDS: DEXAMETHASONE SOD PHOSPHATE 4 MG/1 ML VIAL IVPUSH SCH (11:08)
[2020-06-28] MEDS: PANTOPRAZOLE 40 MG TABLET PO SCH (11:09)
[2020-06-28] MEDS: DULoxetine HCL 30 MG CAPSULE.DR PO SCH (11:09)
[2020-06-28] MEDS: metoPROLOL SUCCINATE 25 MG TAB.SR.24H (FP) PO SCH (11:09)
[2020-06-28] MEDS: ASCORBIC ACID 500 MG TABLET (FP) PO SCH ×2 (11:09→21:24)
[2020-06-28] MEDS: CHOLECALCIFEROL (VIT D3) 1,000 UNIT (25 MCG) TABLET PO SCH (11:09)
[2020-06-28] MEDS: FUROSEMIDE INJECTION 100 MG in DEXTROSE 5%-WATER - 90 ML IVPB SCH (12:00)
[2020-06-28] MEDS ORDERED: PANTOPRAZOLE SODIUM 40 MG VIAL IVPUSH ONE (12:35)
[2020-06-28] MEDS: ALPRAZolam 1 MG TABLET PO PRN (13:09)
[2020-06-28] MEDS ORDERED: POTASSIUM CHLORIDE TABS 20 MEQ TABLET.ER (FP) PO ONE (13:45)
[2020-06-28] MEDS ORDERED: POTASSIUM CHLORIDE ORAL LIQUID 20 MEQ/15 ML PO ONE (14:47)
[2020-06-28] MEDS ORDERED: LORazepam 2 MG/ML SDV VIAL ONE (21:02)
[2020-06-28] MEDS ORDERED: LORazepam 2 MG/ML SDV VIAL IVPB ONE (21:07)
[2020-06-28] MEDS: ATORVASTATIN CA 20 MG TABLET (FP) PO SCH (21:23)
[2020-06-28] MEDS ORDERED: MORPHINE SULFATE 2 MG/ML VIAL IVPUSH ONE (23:06)
[2020-06-29] MEDS: CEFAZOLIN 1 GM/D5W 1 GM/50 ML BAG IVPB SCH ×3 (03:14→17:27)
[2020-06-29] MEDS: DEXMEDETOMIDINE IN 0.9 % NACL 400 MCG/100 ML VIAL IVPB SCH (03:14)
[2020-06-29] MEDS: ALPRAZolam 1 MG TABLET PO PRN (04:02)
[2020-06-29] MEDS ORDERED: FAMOTIDINE 20 MG/50 ML IVPB 20 MG/50 ML MG IVPB ONE (04:05)
[2020-06-29] MEDS ORDERED: LORazepam 2 MG/ML SDV VIAL IVPB ONE (05:56)
[2020-06-29] MEDS ORDERED: MORPHINE SULFATE 2 MG/ML VIAL IVPUSH ONE (06:04)
[2020-06-29 07:30] LABS: BASO % 0.4 % (0-2.0); EOS % 3.6 % (0-4.5); HEMATOCRIT 44.1 % (32.4-45.2); HEMOGLOBIN 14.3 GM/dL (10.7-15.3); LYMPH % 4.3 % (8-40); MCH 26.3 pg (25.7-33.7); MCHC 32.4 g/dl (32.0-36.0); MEAN CELL VOLUME 81.1 fl (80-96); MEAN PLT VOLUME 9.6 fl (7.5-11.1); MONO % 2.7 % (3.8-10.2); PLATELET COUNT 198 K/MM3 (134-434); RBC 5.45 M/mm3 (3.60-5.2); RDW 16.1 % (11.6-15.6); WHITE BLOOD COUNT 15.4 K/mm3 (4.0-10.0)
[2020-06-29 07:57] LABS: BLOOD UREA NITROGEN 31.4 mg/dL (7-18); CALCIUM 7.8 mg/dL (8.5-10.1)
[2020-06-29 08:01] LABS: CREATININE 0.8 mg/dL (0.55-1.3)
[2020-06-29 08:02] LABS: PHOSPHOROUS 3.3 mg/dL (2.5-4.9)
[2020-06-29] MEDS ORDERED: PT OWN MED DRAWER 7, Y5N ONE ×2 (08:44→20:10)
[2020-06-29] MEDS: DULoxetine HCL 30 MG CAPSULE.DR PO SCH (09:09)
[2020-06-29] MEDS: ASCORBIC ACID 500 MG TABLET (FP) PO SCH ×2 (09:10→23:12)
[2020-06-29] MEDS: CHOLECALCIFEROL (VIT D3) 1,000 UNIT (25 MCG) TABLET PO SCH (09:10)
[2020-06-29] MEDS: ZINC SULFATE 220 MG CAPSULE (FP) PO SCH ×2 (09:10→23:11)
[2020-06-29] MEDS: metoPROLOL SUCCINATE 25 MG TAB.SR.24H (FP) PO SCH (09:10)
[2020-06-29] MEDS: DEXAMETHASONE SOD PHOSPHATE 4 MG/1 ML VIAL IVPUSH SCH (09:10)
[2020-06-29] MEDS: BUDESONIDE/FORMETEROL FUMARATE 160/4.5 mcg INHALER IH SCH ×2 (09:11→23:12)
[2020-06-29] MEDS: COLCHICINE 0.6 MG CAP PO SCH (09:11)
[2020-06-29] MEDS: LIDOCAINE 5% TOPICAL PATCH TP SCH (09:11)
[2020-06-29] MEDS: ENOXAPARIN NA (PORCINE) 120 MG/0.8 ML DISP.SYRIN SQ SCH ×2 (09:22→23:11)
[2020-06-29] MEDS ORDERED: POTASSIUM CHLORIDE TABS 20 MEQ TABLET.ER (FP) PO ONE (09:50)
[2020-06-29] MEDS: KCL 10 MEQ IVPB 10 MEQ/100 ML INFUS.BAG IVPB SCH ×3 (10:44→12:46)
[2020-06-29] MEDS ORDERED: MORPHINE SULFATE 2 MG/ML VIAL IVPUSH PRN (12:44)
[2020-06-29] MEDS: FUROSEMIDE INJECTION 100 MG in DEXTROSE 5%-WATER - 90 ML IVPB SCH (13:00)
[2020-06-29] MEDS ORDERED: POTASSIUM CHLORIDE 20 MEQ PREMIX IVPB 100 ML IVPB ONE (20:30)
[2020-06-29 20:43] LABS: ARTERIAL BLOOD GAS BASE EXCESS 6.9 mmol/L (-2-2); ARTERIAL BLOOD GAS PO2 66.6 mmHg (80-100)
[2020-06-29 20:45] LABS: ALLENS TEST POSITIVE; VENT MODE S/T; VENT RATE 16
[2020-06-29] MEDS ORDERED: KCL 10 MEQ IVPB 20 MEQ/200 ML INFUS.BAG IVPB ONE ×2 (21:00→23:45)
[2020-06-29] MEDS: ATORVASTATIN CA 20 MG TABLET (FP) PO SCH (23:11)
[2020-06-29] MEDS: FAMOTIDINE 20 MG/50 ML IVPB 20 MG/50 ML MG IVPB SCH (23:11)
[2020-06-29] MEDS: LIDOCAINE PATCH REMOVAL MC SCH (23:11)
[2020-06-30] MEDS: DEXMEDETOMIDINE IN 0.9 % NACL 400 MCG/100 ML VIAL IVPB SCH ×3 (04:00→18:44)
[2020-06-30] MEDS: KCL 10 MEQ IVPB 10 MEQ/100 ML INFUS.BAG IVPB SCH ×2 (04:01→06:45)
[2020-06-30] MEDS: CEFAZOLIN 1 GM/D5W 1 GM/50 ML BAG IVPB SCH ×3 (04:01→17:58)
[2020-06-30] MEDS: ALPRAZolam 1 MG TABLET PO PRN ×3 (04:03→20:40)
[2020-06-30 07:18] LABS: BASO % 0.2 % (0-2.0); EOS % 1.6 % (0-4.5); HEMATOCRIT 46.6 % (32.4-45.2); LYMPH % 4.4 % (8-40); MCH 26.5 pg (25.7-33.7); MCHC 32.3 g/dl (32.0-36.0); MEAN CELL VOLUME 82.2 fl (80-96); MEAN PLT VOLUME 9.9 fl (7.5-11.1); MONO % 3.1 % (3.8-10.2); NEUT % 90.7 % (42.8-82.8); PLATELET COUNT 193 K/MM3 (134-434); RBC 5.67 M/mm3 (3.60-5.2); RDW 16.4 % (11.6-15.6); WHITE BLOOD COUNT 17.4 K/mm3 (4.0-10.0)
[2020-06-30 07:40] LABS: CALCIUM 8.3 mg/dL (8.5-10.1)
[2020-06-30 07:41] LABS: ALBUMIN 2.9 g/dl (3.4-5.0); BLOOD UREA NITROGEN 31.3 mg/dL (7-18)
[2020-06-30 07:43] LABS: BILIRUBIN,TOTAL 0.5 mg/dL (0.2-1)
[2020-06-30 07:44] LABS: CREATININE 0.8 mg/dL (0.55-1.3)
[2020-06-30] MEDS ORDERED: PT OWN MED DRAWER 7, Y5N ONE ×2 (09:54→12:51)
[2020-06-30] MEDS ORDERED: MORPHINE SULFATE 2 MG/ML VIAL IVPUSH PRN (09:56)
[2020-06-30] MEDS: FAMOTIDINE 20 MG/50 ML IVPB 20 MG/50 ML MG IVPB SCH ×2 (10:00→22:35)
[2020-06-30] MEDS: ENOXAPARIN NA (PORCINE) 120 MG/0.8 ML DISP.SYRIN SQ SCH ×2 (10:00→22:35)
[2020-06-30] MEDS: ZINC SULFATE 220 MG CAPSULE (FP) PO SCH ×2 (10:02→22:35)
[2020-06-30] MEDS: BUDESONIDE/FORMETEROL FUMARATE 160/4.5 mcg INHALER IH SCH ×2 (10:03→22:35)
[2020-06-30] MEDS: ASCORBIC ACID 500 MG TABLET (FP) PO SCH ×2 (10:03→22:35)
[2020-06-30] MEDS: metoPROLOL SUCCINATE 25 MG TAB.SR.24H (FP) PO SCH (10:03)
[2020-06-30] MEDS: CHOLECALCIFEROL (VIT D3) 1,000 UNIT (25 MCG) TABLET PO SCH (10:04)
[2020-06-30] MEDS: FUROSEMIDE INJECTION 100 MG in DEXTROSE 5%-WATER - 90 ML IVPB SCH ×2 (10:05→14:30)
[2020-06-30] MEDS: DEXAMETHASONE SOD PHOSPHATE 4 MG/1 ML VIAL IVPUSH SCH (10:08)
[2020-06-30] MEDS: COLCHICINE 0.6 MG CAP PO SCH (10:09)
[2020-06-30] MEDS: DULoxetine HCL 30 MG CAPSULE.DR PO SCH (10:09)
[2020-06-30] MEDS: LIDOCAINE 5% TOPICAL PATCH TP SCH (10:31)
[2020-06-30] MEDS: LIDOCAINE PATCH REMOVAL MC SCH (22:35)
[2020-06-30] MEDS: ATORVASTATIN CA 20 MG TABLET (FP) PO SCH (22:35)
[2020-07-01] MEDS: CEFAZOLIN 1 GM/D5W 1 GM/50 ML BAG IVPB SCH ×3 (01:41→17:16)
[2020-07-01] MEDS: DEXMEDETOMIDINE IN 0.9 % NACL 400 MCG/100 ML VIAL IVPB SCH ×2 (06:31→23:11)
[2020-07-01] MEDS: LIDOCAINE 5% TOPICAL PATCH TP SCH (09:39)
[2020-07-01] MEDS: ENOXAPARIN NA (PORCINE) 120 MG/0.8 ML DISP.SYRIN SQ SCH ×2 (09:58→22:30)
[2020-07-01] MEDS: DULoxetine HCL 30 MG CAPSULE.DR PO SCH (09:59)
[2020-07-01] MEDS: ZINC SULFATE 220 MG CAPSULE (FP) PO SCH ×2 (09:59→22:30)
[2020-07-01] MEDS: DEXAMETHASONE SOD PHOSPHATE 4 MG/1 ML VIAL IVPUSH SCH (09:59)
[2020-07-01] MEDS: FAMOTIDINE 20 MG/50 ML IVPB 20 MG/50 ML MG IVPB SCH ×2 (10:00→22:30)
[2020-07-01] MEDS: ASCORBIC ACID 500 MG TABLET (FP) PO SCH ×2 (10:02→22:30)
[2020-07-01] MEDS: metoPROLOL SUCCINATE 25 MG TAB.SR.24H (FP) PO SCH (10:05)
[2020-07-01] MEDS: CHOLECALCIFEROL (VIT D3) 1,000 UNIT (25 MCG) TABLET PO SCH (10:05)
[2020-07-01] MEDS: BUDESONIDE/FORMETEROL FUMARATE 160/4.5 mcg INHALER IH SCH (10:06)
[2020-07-01] MEDS: COLCHICINE 0.6 MG CAP PO SCH (10:08)
[2020-07-01 11:08] LABS: MCH 26.9 pg (25.7-33.7)
[2020-07-01 11:19] LABS: BASO % 0.6 % (0-2.0); HEMATOCRIT 46.2 % (32.4-45.2); HEMOGLOBIN 15.1 GM/dL (10.7-15.3); LYMPH % 5.4 % (8-40); MCHC 32.7 g/dl (32.0-36.0); MEAN CELL VOLUME 82.2 fl (80-96); MEAN PLT VOLUME 9.9 fl (7.5-11.1); MONO % 3.2 % (3.8-10.2); NEUT % 88.8 % (42.8-82.8); PLATELET COUNT 186 K/MM3 (134-434); RBC 5.62 M/mm3 (3.60-5.2); RDW 16.5 % (11.6-15.6); WHITE BLOOD COUNT 16.3 K/mm3 (4.0-10.0)
[2020-07-01 11:33] LABS: ALBUMIN 2.9 g/dl (3.4-5.0); BLOOD UREA NITROGEN 32.5 mg/dL (7-18); CALCIUM 8.4 mg/dL (8.5-10.1)
[2020-07-01 11:34] LABS: MAGNESIUM 2.3 mg/dL (1.8-2.4)
[2020-07-01 11:36] LABS: CREATININE 0.7 mg/dL (0.55-1.3)
[2020-07-01 11:38] LABS: BILIRUBIN,TOTAL 0.6 mg/dL (0.2-1); TOT PROT 5.8 g/dl (6.4-8.2)
[2020-07-01] MEDS ORDERED: PT OWN MED DRAWER 7, Y5N ONE (11:45)
[2020-07-01] MEDS: ATORVASTATIN CA 20 MG TABLET (FP) PO SCH (20:30)
[2020-07-01] MEDS: LIDOCAINE PATCH REMOVAL MC SCH (23:09)
[2020-07-01] MEDS: ALBUTEROL SO4 HFA INHALER IH SCH ×2 (23:12→23:13)
[2020-07-01] MEDS ORDERED: INSULIN REGULAR HUMAN 100 UNITS/ML *VIAL ONE (23:51)
[2020-07-02] MEDS: CEFAZOLIN 1 GM/D5W 1 GM/50 ML BAG IVPB SCH ×3 (03:10→17:43)
[2020-07-02] MEDS: DEXMEDETOMIDINE IN 0.9 % NACL 400 MCG/100 ML VIAL IVPB SCH ×2 (06:53→21:50)
[2020-07-02 06:59] LABS: BASO % 0.5 % (0-2.0); EOS % 1.7 % (0-4.5); HEMATOCRIT 46.3 % (32.4-45.2); HEMOGLOBIN 15.1 GM/dL (10.7-15.3); MCH 26.9 pg (25.7-33.7); MCHC 32.5 g/dl (32.0-36.0); MEAN CELL VOLUME 82.8 fl (80-96); MEAN PLT VOLUME 10.4 fl (7.5-11.1); MONO % 2.8 % (3.8-10.2); PLATELET COUNT 200 K/MM3 (134-434); RBC 5.59 M/mm3 (3.60-5.2); RDW 16.6 % (11.6-15.6); WHITE BLOOD COUNT 14.8 K/mm3 (4.0-10.0)
[2020-07-02 07:29] LABS: BLOOD UREA NITROGEN 27.4 mg/dL (7-18)
[2020-07-02 07:31] LABS: BILIRUBIN,TOTAL 0.7 mg/dL (0.2-1); CREATININE 0.6 mg/dL (0.55-1.3); PHOSPHOROUS 3.1 mg/dL (2.5-4.9)
[2020-07-02 07:32] LABS: TOT PROT 4.7 g/dl (6.4-8.2)
[2020-07-02 07:34] LABS: ALBUMIN 2.2 g/dl (3.4-5.0)
[2020-07-02 07:35] LABS: CALCIUM 6.8 mg/dL (8.5-10.1)
[2020-07-02] MEDS: ALBUTEROL SO4 HFA INHALER IH SCH ×5 (08:00→21:38)
[2020-07-02] MEDS ORDERED: POTASSIUM CHLORIDE ORAL LIQUID 20 MEQ/15 ML PO ONE (08:27)
[2020-07-02] MEDS ORDERED: PT OWN MED DRAWER 7, Y5N ONE ×2 (08:40→10:12)
[2020-07-02] MEDS: ENOXAPARIN NA (PORCINE) 120 MG/0.8 ML DISP.SYRIN SQ SCH ×2 (09:37→21:04)
[2020-07-02] MEDS: DULoxetine HCL 30 MG CAPSULE.DR PO SCH (09:37)
[2020-07-02] MEDS: DEXAMETHASONE SOD PHOSPHATE 4 MG/1 ML VIAL IVPUSH SCH (09:37)
[2020-07-02] MEDS: ZINC SULFATE 220 MG CAPSULE (FP) PO SCH ×2 (09:38→21:04)
[2020-07-02] MEDS: ASCORBIC ACID 500 MG TABLET (FP) PO SCH ×2 (09:39→21:04)
[2020-07-02] MEDS: CHOLECALCIFEROL (VIT D3) 1,000 UNIT (25 MCG) TABLET PO SCH (09:39)
[2020-07-02] MEDS: metoPROLOL SUCCINATE 25 MG TAB.SR.24H (FP) PO SCH (09:39)
[2020-07-02] MEDS: BUDESONIDE/FORMETEROL FUMARATE 160/4.5 mcg INHALER IH SCH ×2 (10:00→21:03)
[2020-07-02] MEDS: COLCHICINE 0.6 MG CAP PO SCH (10:18)
[2020-07-02] MEDS: FAMOTIDINE 20 MG/50 ML IVPB 20 MG/50 ML MG IVPB SCH ×2 (10:20→21:04)
[2020-07-02 11:07] LABS: MAGNESIUM 1.9 mg/dL (1.8-2.4)
[2020-07-02 16:36] LABS: BLOOD UREA NITROGEN 37.1 mg/dL (7-18)
[2020-07-02 16:39] LABS: CALCIUM 8.6 mg/dL (8.5-10.1); CREATININE 0.9 mg/dL (0.55-1.3)
[2020-07-02] MEDS: ATORVASTATIN CA 20 MG TABLET (FP) PO SCH (21:04)
[2020-07-02] MEDS: LIDOCAINE 5% TOPICAL PATCH TP SCH (21:04)
[2020-07-02] MEDS: LIDOCAINE PATCH REMOVAL MC SCH (21:04)
[2020-07-03] MEDS ORDERED: INSULIN REGULAR HUMAN 100 UNITS/ML *VIAL ONE ×3 (01:17→19:38)
[2020-07-03] MEDS: CEFAZOLIN 1 GM/D5W 1 GM/50 ML BAG IVPB SCH ×3 (02:45→18:51)
[2020-07-03] MEDS: DEXMEDETOMIDINE IN 0.9 % NACL 400 MCG/100 ML VIAL IVPB SCH ×2 (03:25→07:39)
[2020-07-03] MEDS: BUDESONIDE/FORMETEROL FUMARATE 160/4.5 mcg INHALER IH SCH ×3 (05:19→22:50)
[2020-07-03] MEDS: ALBUTEROL SO4 HFA INHALER IH SCH ×5 (05:19→22:50)
[2020-07-03 07:32] LABS: HEMOGLOBIN 13.8 GM/dL (10.7-15.3); MCH 26.6 pg (25.7-33.7); MEAN CELL VOLUME 82.9 fl (80-96); MEAN PLT VOLUME 10.3 fl (7.5-11.1); PLATELET COUNT 217 K/MM3 (134-434); RBC 5.19 M/mm3 (3.60-5.2); RDW 16.5 % (11.6-15.6); WHITE BLOOD COUNT 13.3 K/mm3 (4.0-10.0)
[2020-07-03 08:11] LABS: CALCIUM 8.1 mg/dL (8.5-10.1)
[2020-07-03 08:12] LABS: ALBUMIN 2.6 g/dl (3.4-5.0); BLOOD UREA NITROGEN 28.2 mg/dL (7-18); MAGNESIUM 2.2 mg/dL (1.8-2.4)
[2020-07-03 08:14] LABS: BILIRUBIN,TOTAL 0.5 mg/dL (0.2-1); TOT PROT 5.3 g/dl (6.4-8.2)
[2020-07-03 08:15] LABS: CREATININE 0.7 mg/dL (0.55-1.3); PHOSPHOROUS 2.8 mg/dL (2.5-4.9)
[2020-07-03] MEDS ORDERED: PT OWN MED DRAWER 7, Y5N ONE (10:53)
[2020-07-03] MEDS: ZINC SULFATE 220 MG CAPSULE (FP) PO SCH ×2 (11:25→21:26)
[2020-07-03] MEDS: DULoxetine HCL 30 MG CAPSULE.DR PO SCH (11:25)
[2020-07-03] MEDS: COLCHICINE 0.6 MG CAP PO SCH (11:27)
[2020-07-03] MEDS: metoPROLOL SUCCINATE 25 MG TAB.SR.24H (FP) PO SCH (11:27)
[2020-07-03] MEDS: CHOLECALCIFEROL (VIT D3) 1,000 UNIT (25 MCG) TABLET PO SCH (11:28)
[2020-07-03] MEDS: ASCORBIC ACID 500 MG TABLET (FP) PO SCH ×2 (11:28→21:26)
[2020-07-03] MEDS: FAMOTIDINE 20 MG/50 ML IVPB 20 MG/50 ML MG IVPB SCH ×2 (11:29→21:26)
[2020-07-03] MEDS: ENOXAPARIN NA (PORCINE) 120 MG/0.8 ML DISP.SYRIN SQ SCH ×2 (11:30→21:25)
[2020-07-03] MEDS: DEXAMETHASONE SOD PHOSPHATE 4 MG/1 ML VIAL IVPUSH SCH (11:46)
[2020-07-03] MEDS: LIDOCAINE 5% TOPICAL PATCH TP SCH (11:58)
[2020-07-03] MEDS: LIDOCAINE PATCH REMOVAL MC SCH (21:25)
[2020-07-03] MEDS: ATORVASTATIN CA 20 MG TABLET (FP) PO SCH (21:25)
[2020-07-04] MEDS: DEXMEDETOMIDINE IN 0.9 % NACL 400 MCG/100 ML VIAL IVPB SCH (03:00)
[2020-07-04] MEDS: CEFAZOLIN 1 GM/D5W 1 GM/50 ML BAG IVPB SCH ×2 (03:10→09:23)
[2020-07-04 07:18] LABS: BASO % 0.2 % (0-2.0); EOS % 1.1 % (0-4.5); HEMATOCRIT 43.3 % (32.4-45.2); LYMPH % 8.5 % (8-40); MCH 26.6 pg (25.7-33.7); MCHC 32.3 g/dl (32.0-36.0); MEAN CELL VOLUME 82.2 fl (80-96); MEAN PLT VOLUME 10.5 fl (7.5-11.1); MONO % 3.8 % (3.8-10.2); NEUT % 86.4 % (42.8-82.8); PLATELET COUNT 205 K/MM3 (134-434); RBC 5.27 M/mm3 (3.60-5.2); RDW 16.7 % (11.6-15.6); WHITE BLOOD COUNT 13.6 K/mm3 (4.0-10.0)
[2020-07-04 07:49] LABS: ALBUMIN 2.6 g/dl (3.4-5.0); BLOOD UREA NITROGEN 18.4 mg/dL (7-18); CALCIUM 8.2 mg/dL (8.5-10.1); MAGNESIUM 2.1 mg/dL (1.8-2.4)
[2020-07-04 07:52] LABS: CREATININE 0.5 mg/dL (0.55-1.3); PHOSPHOROUS 2.5 mg/dL (2.5-4.9)
[2020-07-04 07:53] LABS: BILIRUBIN,TOTAL 0.5 mg/dL (0.2-1)
[2020-07-04 07:54] LABS: TOT PROT 5.2 g/dl (6.4-8.2)
[2020-07-04] MEDS: ALBUTEROL SO4 HFA INHALER IH SCH ×4 (08:55→22:00)
[2020-07-04] MEDS ORDERED: PT OWN MED DRAWER 7, Y5N ONE (09:18)
[2020-07-04] MEDS: DEXAMETHASONE SOD PHOSPHATE 4 MG/1 ML VIAL IVPUSH SCH (09:24)
[2020-07-04] MEDS: DULoxetine HCL 30 MG CAPSULE.DR PO SCH (09:24)
[2020-07-04] MEDS: COLCHICINE 0.6 MG CAP PO SCH (09:24)
[2020-07-04] MEDS: ENOXAPARIN NA (PORCINE) 120 MG/0.8 ML DISP.SYRIN SQ SCH (09:25)
[2020-07-04] MEDS: ASCORBIC ACID 500 MG TABLET (FP) PO SCH ×2 (09:26→21:58)
[2020-07-04] MEDS: CHOLECALCIFEROL (VIT D3) 1,000 UNIT (25 MCG) TABLET PO SCH (09:26)
[2020-07-04] MEDS: ZINC SULFATE 220 MG CAPSULE (FP) PO SCH ×2 (09:27→21:58)
[2020-07-04] MEDS: FAMOTIDINE 20 MG/50 ML IVPB 20 MG/50 ML MG IVPB SCH ×2 (09:27→21:58)
[2020-07-04] MEDS: LIDOCAINE 5% TOPICAL PATCH TP SCH (10:04)
[2020-07-04] MEDS: metoPROLOL SUCCINATE 25 MG TAB.SR.24H (FP) PO SCH (10:05)
[2020-07-04] MEDS: BUDESONIDE/FORMETEROL FUMARATE 160/4.5 mcg INHALER IH SCH ×2 (10:05→21:58)
[2020-07-04] MEDS: LIDOCAINE PATCH REMOVAL MC SCH (21:57)
[2020-07-04] MEDS: ATORVASTATIN CA 20 MG TABLET (FP) PO SCH (21:58)
[2020-07-05 07:05] LABS: HEMOGLOBIN 14.5 GM/dL (10.7-15.3); MCH 26.9 pg (25.7-33.7); MCHC 32.2 g/dl (32.0-36.0); MEAN CELL VOLUME 83.5 fl (80-96); MEAN PLT VOLUME 10.2 fl (7.5-11.1); PLATELET COUNT 221 K/MM3 (134-434); RBC 5.39 M/mm3 (3.60-5.2); RDW 17.1 % (11.6-15.6); WHITE BLOOD COUNT 13.3 K/mm3 (4.0-10.0)
[2020-07-05 07:44] LABS: ALBUMIN 2.8 g/dl (3.4-5.0); CALCIUM 8.7 mg/dL (8.5-10.1)
[2020-07-05 07:45] LABS: BLOOD UREA NITROGEN 19.8 mg/dL (7-18); MAGNESIUM 2.2 mg/dL (1.8-2.4)
[2020-07-05 07:48] LABS: CREATININE 0.7 mg/dL (0.55-1.3); PHOSPHOROUS 3.4 mg/dL (2.5-4.9)
[2020-07-05 07:49] LABS: BILIRUBIN,TOTAL 0.6 mg/dL (0.2-1); TOT PROT 5.7 g/dl (6.4-8.2)
[2020-07-05] MEDS: DEXMEDETOMIDINE IN 0.9 % NACL 400 MCG/100 ML VIAL IVPB SCH (09:05)
[2020-07-05] MEDS ORDERED: PT OWN MED DRAWER 7, Y5N ONE (09:18)
[2020-07-05] MEDS: COLCHICINE 0.6 MG CAP PO SCH (09:20)
[2020-07-05] MEDS: DULoxetine HCL 30 MG CAPSULE.DR PO SCH (09:20)
[2020-07-05] MEDS: ALBUTEROL SO4 HFA INHALER IH SCH ×4 (09:20→21:11)
[2020-07-05] MEDS: ZINC SULFATE 220 MG CAPSULE (FP) PO SCH ×2 (09:21→21:12)
[2020-07-05] MEDS: FAMOTIDINE 20 MG/50 ML IVPB 20 MG/50 ML MG IVPB SCH ×2 (09:21→21:12)
[2020-07-05] MEDS: DEXAMETHASONE SOD PHOSPHATE 4 MG/1 ML VIAL IVPUSH SCH (09:21)
[2020-07-05] MEDS: CHOLECALCIFEROL (VIT D3) 1,000 UNIT (25 MCG) TABLET PO SCH (09:22)
[2020-07-05] MEDS: ASCORBIC ACID 500 MG TABLET (FP) PO SCH ×2 (09:22→21:12)
[2020-07-05] MEDS: BUDESONIDE/FORMETEROL FUMARATE 160/4.5 mcg INHALER IH SCH ×2 (09:22→21:12)
[2020-07-05] MEDS: metoPROLOL SUCCINATE 25 MG TAB.SR.24H (FP) PO SCH (09:22)
[2020-07-05] MEDS: LIDOCAINE 5% TOPICAL PATCH TP SCH (09:38)
[2020-07-05] MEDS: LIDOCAINE PATCH REMOVAL MC SCH (21:11)
[2020-07-05] MEDS: ATORVASTATIN CA 20 MG TABLET (FP) PO SCH (21:12)
[2020-07-06] MEDS: DEXMEDETOMIDINE IN 0.9 % NACL 400 MCG/100 ML VIAL IVPB SCH (07:00)
[2020-07-06] MEDS: ALBUTEROL SO4 HFA INHALER IH SCH ×4 (08:00→20:15)
[2020-07-06] MEDS: DULoxetine HCL 30 MG CAPSULE.DR PO SCH (09:59)
[2020-07-06] MEDS: metoPROLOL SUCCINATE 25 MG TAB.SR.24H (FP) PO SCH (09:59)
[2020-07-06] MEDS: CHOLECALCIFEROL (VIT D3) 1,000 UNIT (25 MCG) TABLET PO SCH (09:59)
[2020-07-06] MEDS: ASCORBIC ACID 500 MG TABLET (FP) PO SCH ×2 (09:59→22:20)
[2020-07-06] MEDS: COLCHICINE 0.6 MG CAP PO SCH (10:00)
[2020-07-06] MEDS: DEXAMETHASONE SOD PHOSPHATE 4 MG/1 ML VIAL IVPUSH SCH (10:00)
[2020-07-06] MEDS: ZINC SULFATE 220 MG CAPSULE (FP) PO SCH ×2 (10:00→22:20)
[2020-07-06] MEDS: LIDOCAINE 5% TOPICAL PATCH TP SCH (10:00)
[2020-07-06] MEDS: FAMOTIDINE 20 MG/50 ML IVPB 20 MG/50 ML MG IVPB SCH ×2 (10:01→22:20)
[2020-07-06] MEDS: BUDESONIDE/FORMETEROL FUMARATE 160/4.5 mcg INHALER IH SCH ×2 (10:15→22:21)
[2020-07-06 20:49] VITALS: BMI 42.7
[2020-07-06] MEDS: ATORVASTATIN CA 20 MG TABLET (FP) PO SCH (22:20)
[2020-07-06] MEDS: LIDOCAINE PATCH REMOVAL MC SCH (22:21)
[2020-07-07 06:31] LABS: BASO % 0.4 % (0-2.0); EOS % 0.8 % (0-4.5); HEMATOCRIT 46.3 % (32.4-45.2); HEMOGLOBIN 15.1 GM/dL (10.7-15.3); LYMPH % 9.4 % (8-40); MCHC 32.5 g/dl (32.0-36.0); MEAN CELL VOLUME 83.1 fl (80-96); MEAN PLT VOLUME 9.6 fl (7.5-11.1); MONO % 6.5 % (3.8-10.2); NEUT % 82.9 % (42.8-82.8); PLATELET COUNT 189 K/MM3 (134-434); RBC 5.58 M/mm3 (3.60-5.2); WHITE BLOOD COUNT 18.3 K/mm3 (4.0-10.0)
[2020-07-07 07:00] LABS: CALCIUM 8.8 mg/dL (8.5-10.1)
[2020-07-07 07:01] LABS: ALBUMIN 2.9 g/dl (3.4-5.0); BLOOD UREA NITROGEN 19.3 mg/dL (7-18)
[2020-07-07 07:04] LABS: CREATININE 0.6 mg/dL (0.55-1.3)
[2020-07-07 07:05] LABS: BILIRUBIN,TOTAL 0.9 mg/dL (0.2-1); TOT PROT 5.6 g/dl (6.4-8.2)
[2020-07-07] MEDS: FAMOTIDINE 20 MG/50 ML IVPB 20 MG/50 ML MG IVPB SCH ×2 (10:30→21:34)
[2020-07-07] MEDS: LIDOCAINE 5% TOPICAL PATCH TP SCH (10:30)
[2020-07-07] MEDS: CHOLECALCIFEROL (VIT D3) 1,000 UNIT (25 MCG) TABLET PO SCH (10:31)
[2020-07-07] MEDS: DULoxetine HCL 30 MG CAPSULE.DR PO SCH (10:31)
[2020-07-07] MEDS: ZINC SULFATE 220 MG CAPSULE (FP) PO SCH ×2 (10:31→21:34)
[2020-07-07] MEDS: ASCORBIC ACID 500 MG TABLET (FP) PO SCH ×2 (10:31→21:34)
[2020-07-07] MEDS: DEXAMETHASONE SOD PHOSPHATE 4 MG/1 ML VIAL IVPUSH SCH (10:31)
[2020-07-07] MEDS: BUDESONIDE/FORMETEROL FUMARATE 160/4.5 mcg INHALER IH SCH ×2 (10:32→21:10)
[2020-07-07] MEDS: ALBUTEROL SO4 HFA INHALER IH SCH ×4 (10:32→21:10)
[2020-07-07] MEDS ORDERED: PT OWN MED DRAWER 7, Y5N ONE (10:35)
[2020-07-07] MEDS: COLCHICINE 0.6 MG CAP PO SCH (10:36)
[2020-07-07] MEDS: metoPROLOL SUCCINATE 25 MG TAB.SR.24H (FP) PO SCH (10:38)
[2020-07-07] MEDS: ATORVASTATIN CA 20 MG TABLET (FP) PO SCH (21:34)
[2020-07-08 06:46] LABS: HEMATOCRIT 44.1 % (32.4-45.2); HEMOGLOBIN 14.4 GM/dL (10.7-15.3); MCH 27.2 pg (25.7-33.7); MCHC 32.8 g/dl (32.0-36.0); MEAN CELL VOLUME 82.8 fl (80-96); MEAN PLT VOLUME 9.9 fl (7.5-11.1); PLATELET COUNT 156 K/MM3 (134-434); RBC 5.32 M/mm3 (3.60-5.2); RDW 17.3 % (11.6-15.6); WHITE BLOOD COUNT 17.5 K/mm3 (4.0-10.0)
[2020-07-08 06:57] LABS: BLOOD UREA NITROGEN 21.8 mg/dL (7-18); CALCIUM 8.5 mg/dL (8.5-10.1)
[2020-07-08 07:00] LABS: CREATININE 0.6 mg/dL (0.55-1.3)
[2020-07-08 07:01] LABS: PHOSPHOROUS 3.7 mg/dL (2.5-4.9)
[2020-07-08] MEDS ORDERED: PT OWN MED DRAWER 7, Y5N ONE (09:23)
[2020-07-08] MEDS: DULoxetine HCL 30 MG CAPSULE.DR PO SCH (09:38)
[2020-07-08] MEDS: ALBUTEROL SO4 HFA INHALER IH SCH ×3 (09:38→16:39)
[2020-07-08] MEDS: ASCORBIC ACID 500 MG TABLET (FP) PO SCH ×2 (09:39→22:07)
[2020-07-08] MEDS: ZINC SULFATE 220 MG CAPSULE (FP) PO SCH ×2 (09:39→22:08)
[2020-07-08] MEDS: metoPROLOL SUCCINATE 25 MG TAB.SR.24H (FP) PO SCH (09:39)
[2020-07-08] MEDS: BUDESONIDE/FORMETEROL FUMARATE 160/4.5 mcg INHALER IH SCH ×2 (09:40→22:07)
[2020-07-08] MEDS: COLCHICINE 0.6 MG CAP PO SCH (09:40)
[2020-07-08] MEDS: CHOLECALCIFEROL (VIT D3) 1,000 UNIT (25 MCG) TABLET PO SCH (09:41)
[2020-07-08] MEDS: DEXAMETHASONE SOD PHOSPHATE 4 MG/1 ML VIAL IVPUSH SCH (09:41)
[2020-07-08] MEDS: FAMOTIDINE 20 MG/50 ML IVPB 20 MG/50 ML MG IVPB SCH ×2 (09:43→22:08)
[2020-07-08] MEDS: LIDOCAINE 5% TOPICAL PATCH TP SCH (10:06)
[2020-07-08] MEDS ORDERED: ACETAMINOPHEN 325 MG TABLET (FP) PO PRN (18:42)
[2020-07-08] MEDS: ATORVASTATIN CA 20 MG TABLET (FP) PO SCH (22:08)
[2020-07-08] MEDS: LIDOCAINE PATCH REMOVAL MC SCH (22:08)
[2020-07-09 07:21] LABS: BASO % 0.3 % (0-2.0); EOS % 1.7 % (0-4.5); HEMATOCRIT 42.3 % (32.4-45.2); HEMOGLOBIN 13.8 GM/dL (10.7-15.3); LYMPH % 9.2 % (8-40); MCH 27.1 pg (25.7-33.7); MCHC 32.7 g/dl (32.0-36.0); MEAN CELL VOLUME 82.8 fl (80-96); MEAN PLT VOLUME 9.5 fl (7.5-11.1); MONO % 6.5 % (3.8-10.2); NEUT % 82.3 % (42.8-82.8); PLATELET COUNT 122 K/MM3 (134-434); RBC 5.11 M/mm3 (3.60-5.2); RDW 16.9 % (11.6-15.6); WHITE BLOOD COUNT 16.3 K/mm3 (4.0-10.0)
[2020-07-09 07:54] LABS: CALCIUM 8.6 mg/dL (8.5-10.1)
[2020-07-09 07:55] LABS: ALBUMIN 2.7 g/dl (3.4-5.0); MAGNESIUM 1.9 mg/dL (1.8-2.4)
[2020-07-09 07:56] LABS: CREATININE 0.5 mg/dL (0.55-1.3)
[2020-07-09 07:57] LABS: BILIRUBIN,TOTAL 0.9 mg/dL (0.2-1); TOT PROT 5.3 g/dl (6.4-8.2)
[2020-07-09 07:58] LABS: PHOSPHOROUS 3.7 mg/dL (2.5-4.9)
[2020-07-09] MEDS: FAMOTIDINE 20 MG/50 ML IVPB 20 MG/50 ML MG IVPB SCH ×2 (09:34→20:59)
[2020-07-09] MEDS: ASCORBIC ACID 500 MG TABLET (FP) PO SCH ×2 (09:34→20:59)
[2020-07-09] MEDS: metoPROLOL SUCCINATE 25 MG TAB.SR.24H (FP) PO SCH (09:34)
[2020-07-09] MEDS: CHOLECALCIFEROL (VIT D3) 1,000 UNIT (25 MCG) TABLET PO SCH (09:34)
[2020-07-09] MEDS: LIDOCAINE 5% TOPICAL PATCH TP SCH (09:34)
[2020-07-09] MEDS: DEXAMETHASONE SOD PHOSPHATE 4 MG/1 ML VIAL IVPUSH SCH (09:34)
[2020-07-09] MEDS: DULoxetine HCL 30 MG CAPSULE.DR PO SCH (09:34)
[2020-07-09] MEDS: ZINC SULFATE 220 MG CAPSULE (FP) PO SCH ×2 (09:34→20:59)
[2020-07-09] MEDS: ALBUTEROL SO4 HFA INHALER IH SCH ×5 (09:35→20:19)
[2020-07-09] MEDS: BUDESONIDE/FORMETEROL FUMARATE 160/4.5 mcg INHALER IH SCH ×2 (09:36→20:59)
[2020-07-09] MEDS: COLCHICINE 0.6 MG CAP PO SCH (09:36)
[2020-07-09] MEDS ORDERED: PT OWN MED DRAWER 7, Y5N ONE ×2 (12:52→20:13)
[2020-07-09] MEDS: ENOXAPARIN NA (PORCINE) 80 MG/0.8 ML DISP.SYRIN SQ SCH (18:44)
[2020-07-09] MEDS: ATORVASTATIN CA 20 MG TABLET (FP) PO SCH (20:59)
[2020-07-09] MEDS: LIDOCAINE PATCH REMOVAL MC SCH (22:06)
[2020-07-10] MEDS: ENOXAPARIN NA (PORCINE) 80 MG/0.8 ML DISP.SYRIN SQ SCH ×2 (05:29→17:16)
[2020-07-10 07:07] LABS: BASO % 0.4 % (0-2.0); EOS % 1.1 % (0-4.5); HEMATOCRIT 40.9 % (32.4-45.2); HEMOGLOBIN 13.5 GM/dL (10.7-15.3); LYMPH % 9.2 % (8-40); MCH 27.7 pg (25.7-33.7); MEAN CELL VOLUME 83.8 fl (80-96); MEAN PLT VOLUME 9.7 fl (7.5-11.1); MONO % 6.7 % (3.8-10.2); NEUT % 82.6 % (42.8-82.8); PLATELET COUNT 119 K/MM3 (134-434); RBC 4.88 M/mm3 (3.60-5.2); RDW 17.2 % (11.6-15.6); WHITE BLOOD COUNT 15.8 K/mm3 (4.0-10.0)
[2020-07-10 07:39] LABS: ALBUMIN 2.6 g/dl (3.4-5.0); CALCIUM 8.8 mg/dL (8.5-10.1)
[2020-07-10 07:43] LABS: CREATININE 0.5 mg/dL (0.55-1.3)
[2020-07-10 07:44] LABS: BILIRUBIN,TOTAL 0.7 mg/dL (0.2-1); TOT PROT 5.2 g/dl (6.4-8.2)
[2020-07-10] MEDS: ALBUTEROL SO4 HFA INHALER IH SCH ×4 (08:51→20:00)
[2020-07-10] MEDS: metoPROLOL SUCCINATE 25 MG TAB.SR.24H (FP) PO SCH (09:48)
[2020-07-10] MEDS: ASCORBIC ACID 500 MG TABLET (FP) PO SCH ×2 (09:49→21:38)
[2020-07-10] MEDS: ZINC SULFATE 220 MG CAPSULE (FP) PO SCH ×2 (09:49→21:38)
[2020-07-10] MEDS: CHOLECALCIFEROL (VIT D3) 1,000 UNIT (25 MCG) TABLET PO SCH (09:49)
[2020-07-10] MEDS: DULoxetine HCL 30 MG CAPSULE.DR PO SCH (09:49)
[2020-07-10] MEDS: COLCHICINE 0.6 MG CAP PO SCH (09:50)
[2020-07-10] MEDS: FAMOTIDINE 20 MG/50 ML IVPB 20 MG/50 ML MG IVPB SCH ×2 (09:50→21:38)
[2020-07-10] MEDS: BUDESONIDE/FORMETEROL FUMARATE 160/4.5 mcg INHALER IH SCH ×2 (09:50→21:38)
[2020-07-10] MEDS: DEXAMETHASONE SOD PHOSPHATE 4 MG/1 ML VIAL IVPUSH SCH (09:51)
[2020-07-10] MEDS: LIDOCAINE 5% TOPICAL PATCH TP SCH (09:52)
[2020-07-10] MEDS: AMINO ACIDS/PROTEIN HYDROLYS 30 ML LIQUID.PKT PO SCH (17:15)
[2020-07-10] MEDS: ATORVASTATIN CA 20 MG TABLET (FP) PO SCH (21:38)
[2020-07-10] MEDS: LIDOCAINE PATCH REMOVAL MC SCH (21:39)
[2020-07-11] MEDS: ENOXAPARIN NA (PORCINE) 80 MG/0.8 ML DISP.SYRIN SQ SCH ×2 (06:17→17:21)
[2020-07-11] MEDS: AMINO ACIDS/PROTEIN HYDROLYS 30 ML LIQUID.PKT PO SCH ×2 (07:56→17:21)
[2020-07-11] MEDS: ALBUTEROL SO4 HFA INHALER IH SCH ×4 (07:56→23:23)
[2020-07-11] MEDS: CHOLECALCIFEROL (VIT D3) 1,000 UNIT (25 MCG) TABLET PO SCH (09:14)
[2020-07-11] MEDS: DULoxetine HCL 30 MG CAPSULE.DR PO SCH (09:14)
[2020-07-11] MEDS: COLCHICINE 0.6 MG CAP PO SCH (09:14)
[2020-07-11] MEDS: metoPROLOL SUCCINATE 25 MG TAB.SR.24H (FP) PO SCH (09:15)
[2020-07-11] MEDS: ZINC SULFATE 220 MG CAPSULE (FP) PO SCH ×2 (09:15→23:23)
[2020-07-11] MEDS: DEXAMETHASONE SOD PHOSPHATE 4 MG/1 ML VIAL IVPUSH SCH (09:15)
[2020-07-11] MEDS: ASCORBIC ACID 500 MG TABLET (FP) PO SCH ×2 (09:15→23:23)
[2020-07-11] MEDS: LIDOCAINE 5% TOPICAL PATCH TP SCH (09:16)
[2020-07-11] MEDS: FAMOTIDINE 20 MG/50 ML IVPB 20 MG/50 ML MG IVPB SCH ×2 (09:16→23:22)
[2020-07-11] MEDS: MULTIVITAMINS THER W-MINERALS COMBO TABLET (FP) PO SCH (09:17)
[2020-07-11] MEDS: BUDESONIDE/FORMETEROL FUMARATE 160/4.5 mcg INHALER IH SCH ×2 (09:17→23:23)
[2020-07-11] MEDS: ATORVASTATIN CA 20 MG TABLET (FP) PO SCH (23:22)
[2020-07-11] MEDS: LIDOCAINE PATCH REMOVAL MC SCH (23:23)
[2020-07-12] MEDS: ENOXAPARIN NA (PORCINE) 80 MG/0.8 ML DISP.SYRIN SQ SCH ×2 (07:28→16:42)
[2020-07-12] MEDS: AMINO ACIDS/PROTEIN HYDROLYS 30 ML LIQUID.PKT PO SCH ×2 (08:09→16:42)
[2020-07-12] MEDS: ALBUTEROL SO4 HFA INHALER IH SCH ×4 (08:09→22:37)
[2020-07-12] MEDS: FAMOTIDINE 20 MG/50 ML IVPB 20 MG/50 ML MG IVPB SCH ×2 (09:22→22:37)
[2020-07-12] MEDS: DEXAMETHASONE SOD PHOSPHATE 4 MG/1 ML VIAL IVPUSH SCH (09:22)
[2020-07-12] MEDS: LIDOCAINE 5% TOPICAL PATCH TP SCH (09:22)
[2020-07-12] MEDS: CHOLECALCIFEROL (VIT D3) 1,000 UNIT (25 MCG) TABLET PO SCH (09:23)
[2020-07-12] MEDS: ZINC SULFATE 220 MG CAPSULE (FP) PO SCH ×2 (09:24→22:37)
[2020-07-12] MEDS: MULTIVITAMINS THER W-MINERALS COMBO TABLET (FP) PO SCH (09:24)
[2020-07-12] MEDS: DULoxetine HCL 30 MG CAPSULE.DR PO SCH (09:24)
[2020-07-12] MEDS: metoPROLOL SUCCINATE 25 MG TAB.SR.24H (FP) PO SCH (09:24)
[2020-07-12] MEDS: ASCORBIC ACID 500 MG TABLET (FP) PO SCH ×2 (09:24→22:37)
[2020-07-12] MEDS: COLCHICINE 0.6 MG CAP PO SCH (09:24)
[2020-07-12] MEDS: BUDESONIDE/FORMETEROL FUMARATE 160/4.5 mcg INHALER IH SCH ×2 (09:24→22:37)
[2020-07-12] MEDS: LIDOCAINE PATCH REMOVAL MC SCH (22:37)
[2020-07-12] MEDS: ATORVASTATIN CA 20 MG TABLET (FP) PO SCH (22:37)
[2020-07-13 07:53] LABS: BASO % 0.2 % (0-2.0); EOS % 2.7 % (0-4.5); HEMATOCRIT 42.4 % (32.4-45.2); HEMOGLOBIN 13.9 GM/dL (10.7-15.3); LYMPH % 10.1 % (8-40); MCH 27.4 pg (25.7-33.7); MCHC 32.7 g/dl (32.0-36.0); MEAN CELL VOLUME 83.8 fl (80-96); MEAN PLT VOLUME 9.7 fl (7.5-11.1); MONO % 5.5 % (3.8-10.2); NEUT % 81.5 % (42.8-82.8); PLATELET COUNT 154 K/MM3 (134-434); RBC 5.06 M/mm3 (3.60-5.2); RDW 18.1 % (11.6-15.6); WHITE BLOOD COUNT 13.9 K/mm3 (4.0-10.0)
[2020-07-13] MEDS: ENOXAPARIN NA (PORCINE) 80 MG/0.8 ML DISP.SYRIN SQ SCH ×2 (08:03→18:04)
[2020-07-13 08:47] LABS: ALBUMIN 2.9 g/dl (3.4-5.0); BLOOD UREA NITROGEN 18.6 mg/dL (7-18)
[2020-07-13 08:48] LABS: BILIRUBIN,TOTAL 0.6 mg/dL (0.2-1); TOT PROT 5.8 g/dl (6.4-8.2)
[2020-07-13 08:49] LABS: CALCIUM 8.8 mg/dL (8.5-10.1)
[2020-07-13 08:50] LABS: CREATININE 0.5 mg/dL (0.55-1.3)
[2020-07-13] MEDS ORDERED: PT OWN MED DRAWER 7, Y5N ONE (10:25)
[2020-07-13] MEDS: FAMOTIDINE 20 MG/50 ML IVPB 20 MG/50 ML MG IVPB SCH ×2 (10:34→21:51)
[2020-07-13] MEDS: AMINO ACIDS/PROTEIN HYDROLYS 30 ML LIQUID.PKT PO SCH ×2 (10:34→18:03)
[2020-07-13] MEDS: LIDOCAINE 5% TOPICAL PATCH TP SCH ×2 (10:34→11:47)
[2020-07-13] MEDS: DULoxetine HCL 30 MG CAPSULE.DR PO SCH (10:35)
[2020-07-13] MEDS: MULTIVITAMINS THER W-MINERALS COMBO TABLET (FP) PO SCH (10:35)
[2020-07-13] MEDS: ASCORBIC ACID 500 MG TABLET (FP) PO SCH ×2 (10:35→21:51)
[2020-07-13] MEDS: ALBUTEROL SO4 HFA INHALER IH SCH ×4 (10:36→20:10)
[2020-07-13] MEDS: metoPROLOL SUCCINATE 25 MG TAB.SR.24H (FP) PO SCH (10:36)
[2020-07-13] MEDS: ZINC SULFATE 220 MG CAPSULE (FP) PO SCH ×2 (10:38→21:51)
[2020-07-13] MEDS: COLCHICINE 0.6 MG CAP PO SCH (10:38)
[2020-07-13] MEDS: DEXAMETHASONE SOD PHOSPHATE 4 MG/1 ML VIAL IVPUSH SCH (10:39)
[2020-07-13] MEDS: CHOLECALCIFEROL (VIT D3) 1,000 UNIT (25 MCG) TABLET PO SCH (10:39)
[2020-07-13] MEDS: BUDESONIDE/FORMETEROL FUMARATE 160/4.5 mcg INHALER IH SCH ×2 (11:46→21:55)
[2020-07-13] MEDS: ATORVASTATIN CA 20 MG TABLET (FP) PO SCH (21:51)
[2020-07-13] MEDS: LIDOCAINE PATCH REMOVAL MC SCH (22:02)
[2020-07-14] MEDS: ENOXAPARIN NA (PORCINE) 80 MG/0.8 ML DISP.SYRIN SQ SCH ×2 (05:53→17:31)
[2020-07-14 07:19] LABS: BASO % 0.4 % (0-2.0); EOS % 2.3 % (0-4.5); HEMATOCRIT 39.7 % (32.4-45.2); HEMOGLOBIN 12.9 GM/dL (10.7-15.3); LYMPH % 9.5 % (8-40); MCH 27.5 pg (25.7-33.7); MCHC 32.6 g/dl (32.0-36.0); MEAN CELL VOLUME 84.4 fl (80-96); MEAN PLT VOLUME 9.6 fl (7.5-11.1); MONO % 4.3 % (3.8-10.2); NEUT % 83.5 % (42.8-82.8); PLATELET COUNT 125 K/MM3 (134-434); RDW 18.6 % (11.6-15.6); WHITE BLOOD COUNT 10.3 K/mm3 (4.0-10.0)
[2020-07-14 07:40] LABS: ALBUMIN 2.6 g/dl (3.4-5.0); BLOOD UREA NITROGEN 19.6 mg/dL (7-18); CALCIUM 8.7 mg/dL (8.5-10.1)
[2020-07-14 07:44] LABS: CREATININE 0.5 mg/dL (0.55-1.3)
[2020-07-14 07:45] LABS: BILIRUBIN,TOTAL 0.5 mg/dL (0.2-1); TOT PROT 5.1 g/dl (6.4-8.2)
[2020-07-14] MEDS: ALBUTEROL SO4 HFA INHALER IH SCH ×4 (08:30→20:15)
[2020-07-14] MEDS: ZINC SULFATE 220 MG CAPSULE (FP) PO SCH ×2 (10:14→22:17)
[2020-07-14] MEDS: ASCORBIC ACID 500 MG TABLET (FP) PO SCH ×2 (10:15→22:17)
[2020-07-14] MEDS: CHOLECALCIFEROL (VIT D3) 1,000 UNIT (25 MCG) TABLET PO SCH (10:15)
[2020-07-14] MEDS: metoPROLOL SUCCINATE 25 MG TAB.SR.24H (FP) PO SCH (10:15)
[2020-07-14] MEDS: MULTIVITAMINS THER W-MINERALS COMBO TABLET (FP) PO SCH (10:15)
[2020-07-14] MEDS: DULoxetine HCL 30 MG CAPSULE.DR PO SCH (10:15)
[2020-07-14] MEDS: BUDESONIDE/FORMETEROL FUMARATE 160/4.5 mcg INHALER IH SCH ×2 (10:15→22:19)
[2020-07-14] MEDS: FAMOTIDINE 20 MG/50 ML IVPB 20 MG/50 ML MG IVPB SCH ×2 (10:15→22:17)
[2020-07-14] MEDS: LIDOCAINE 5% TOPICAL PATCH TP SCH (10:15)
[2020-07-14] MEDS: COLCHICINE 0.6 MG CAP PO SCH (10:16)
[2020-07-14] MEDS: DEXAMETHASONE SOD PHOSPHATE 4 MG/1 ML VIAL IVPUSH SCH (10:16)
[2020-07-14] MEDS: AMINO ACIDS/PROTEIN HYDROLYS 30 ML LIQUID.PKT PO SCH ×2 (10:16→17:31)
[2020-07-14] MEDS: ATORVASTATIN CA 20 MG TABLET (FP) PO SCH (22:17)
[2020-07-14] MEDS: LIDOCAINE PATCH REMOVAL MC SCH (22:51)
[2020-07-15] MEDS: ENOXAPARIN NA (PORCINE) 80 MG/0.8 ML DISP.SYRIN SQ SCH ×2 (05:07→18:49)
[2020-07-15 08:00] LABS: BASO % 0.2 % (0-2.0); EOS % 1.6 % (0-4.5); HEMATOCRIT 37.8 % (32.4-45.2); HEMOGLOBIN 12.5 GM/dL (10.7-15.3); LYMPH % 9.4 % (8-40); MCH 27.9 pg (25.7-33.7); MCHC 33.1 g/dl (32.0-36.0); MEAN CELL VOLUME 84.4 fl (80-96); MEAN PLT VOLUME 10.1 fl (7.5-11.1); MONO % 5.6 % (3.8-10.2); NEUT % 83.2 % (42.8-82.8); PLATELET COUNT 136 K/MM3 (134-434); RBC 4.48 M/mm3 (3.60-5.2); RDW 18.8 % (11.6-15.6); WHITE BLOOD COUNT 10.1 K/mm3 (4.0-10.0)
[2020-07-15] MEDS: AMINO ACIDS/PROTEIN HYDROLYS 30 ML LIQUID.PKT PO SCH ×2 (10:43→18:49)
[2020-07-15] MEDS: ALBUTEROL SO4 HFA INHALER IH SCH ×4 (11:03→22:19)
[2020-07-15] MEDS: ZINC SULFATE 220 MG CAPSULE (FP) PO SCH ×2 (11:04→22:20)
[2020-07-15] MEDS: FAMOTIDINE 20 MG/50 ML IVPB 20 MG/50 ML MG IVPB SCH ×2 (11:04→22:20)
[2020-07-15] MEDS: BUDESONIDE/FORMETEROL FUMARATE 160/4.5 mcg INHALER IH SCH ×2 (11:04→22:20)
[2020-07-15] MEDS: DEXAMETHASONE SOD PHOSPHATE 4 MG/1 ML VIAL IVPUSH SCH (11:04)
[2020-07-15] MEDS: COLCHICINE 0.6 MG CAP PO SCH (11:04)
[2020-07-15] MEDS: LIDOCAINE 5% TOPICAL PATCH TP SCH (11:04)
[2020-07-15] MEDS: DULoxetine HCL 30 MG CAPSULE.DR PO SCH (11:04)
[2020-07-15] MEDS: CHOLECALCIFEROL (VIT D3) 1,000 UNIT (25 MCG) TABLET PO SCH (11:05)
[2020-07-15] MEDS: MULTIVITAMINS THER W-MINERALS COMBO TABLET (FP) PO SCH (11:05)
[2020-07-15] MEDS: ASCORBIC ACID 500 MG TABLET (FP) PO SCH ×2 (11:05→22:20)
[2020-07-15] MEDS: metoPROLOL SUCCINATE 25 MG TAB.SR.24H (FP) PO SCH (11:05)
[2020-07-15 13:44] LABS: BASO % 0.1 % (0-2.0); EOS % 3.2 % (0-4.5); HEMATOCRIT 39.1 % (32.4-45.2); HEMOGLOBIN 12.5 GM/dL (10.7-15.3); LYMPH % 4.5 % (8-40); MCHC 31.9 g/dl (32.0-36.0); MEAN CELL VOLUME 84.7 fl (80-96); MEAN PLT VOLUME 9.8 fl (7.5-11.1); MONO % 2.7 % (3.8-10.2); NEUT % 89.5 % (42.8-82.8); PLATELET COUNT 142 K/MM3 (134-434); RBC 4.61 M/mm3 (3.60-5.2); RDW 18.3 % (11.6-15.6); WHITE BLOOD COUNT 12.1 K/mm3 (4.0-10.0)
[2020-07-15] MEDS: LIDOCAINE PATCH REMOVAL MC SCH (22:19)
[2020-07-15] MEDS: ATORVASTATIN CA 20 MG TABLET (FP) PO SCH (22:19)
[2020-07-16] MEDS: ENOXAPARIN NA (PORCINE) 80 MG/0.8 ML DISP.SYRIN SQ SCH (07:04)
[2020-07-16 07:50] LABS: CALCIUM 8.7 mg/dL (8.5-10.1)
[2020-07-16 07:51] LABS: BLOOD UREA NITROGEN 17.2 mg/dL (7-18)
[2020-07-16 07:54] LABS: CREATININE 0.4 mg/dL (0.55-1.3)
[2020-07-16] MEDS: metoPROLOL SUCCINATE 25 MG TAB.SR.24H (FP) PO SCH (10:03)
[2020-07-16] MEDS: DEXAMETHASONE SOD PHOSPHATE 4 MG/1 ML VIAL IVPUSH SCH (10:04)
[2020-07-16] MEDS: MULTIVITAMINS THER W-MINERALS COMBO TABLET (FP) PO SCH (10:04)
[2020-07-16] MEDS: FAMOTIDINE 20 MG/50 ML IVPB 20 MG/50 ML MG IVPB SCH ×2 (10:04→22:27)
[2020-07-16] MEDS: DULoxetine HCL 30 MG CAPSULE.DR PO SCH (10:04)
[2020-07-16] MEDS: ASCORBIC ACID 500 MG TABLET (FP) PO SCH ×2 (10:04→22:27)
[2020-07-16] MEDS: ZINC SULFATE 220 MG CAPSULE (FP) PO SCH ×2 (10:04→22:27)
[2020-07-16] MEDS: CHOLECALCIFEROL (VIT D3) 1,000 UNIT (25 MCG) TABLET PO SCH (10:04)
[2020-07-16] MEDS: ALBUTEROL SO4 HFA INHALER IH SCH ×4 (10:05→22:27)
[2020-07-16] MEDS: LIDOCAINE 5% TOPICAL PATCH TP SCH (10:05)
[2020-07-16] MEDS: AMINO ACIDS/PROTEIN HYDROLYS 30 ML LIQUID.PKT PO SCH ×2 (10:05→17:36)
[2020-07-16] MEDS: BUDESONIDE/FORMETEROL FUMARATE 160/4.5 mcg INHALER IH SCH ×2 (10:05→22:28)
[2020-07-16] MEDS: COLCHICINE 0.6 MG CAP PO SCH (10:07)
[2020-07-16] MEDS: ATORVASTATIN CA 20 MG TABLET (FP) PO SCH (22:27)
[2020-07-16] MEDS: LIDOCAINE PATCH REMOVAL MC SCH (22:28)
[2020-07-17] MEDS ORDERED: PT OWN MED DRAWER 7, Y5N ONE (09:38)
[2020-07-17] MEDS: DEXAMETHASONE SOD PHOSPHATE 4 MG/1 ML VIAL IVPUSH SCH (09:42)
[2020-07-17] MEDS: metoPROLOL SUCCINATE 25 MG TAB.SR.24H (FP) PO SCH (09:43)
[2020-07-17] MEDS: MULTIVITAMINS THER W-MINERALS COMBO TABLET (FP) PO SCH (09:43)
[2020-07-17] MEDS: ASCORBIC ACID 500 MG TABLET (FP) PO SCH ×2 (09:43→21:13)
[2020-07-17] MEDS: ZINC SULFATE 220 MG CAPSULE (FP) PO SCH ×2 (09:43→21:13)
[2020-07-17] MEDS: CHOLECALCIFEROL (VIT D3) 1,000 UNIT (25 MCG) TABLET PO SCH (09:43)
[2020-07-17] MEDS: APIXABAN 5 MG TABLET PO SCH ×2 (09:43→21:13)
[2020-07-17] MEDS: DULoxetine HCL 30 MG CAPSULE.DR PO SCH (09:43)
[2020-07-17] MEDS: ALBUTEROL SO4 HFA INHALER IH SCH ×4 (09:44→22:25)
[2020-07-17] MEDS: LIDOCAINE 5% TOPICAL PATCH TP SCH (09:44)
[2020-07-17] MEDS: NYSTATIN POWDER 100,000 UNITS/GM - 15 GM TOPICAL POWDER TP SCH ×2 (09:44→21:14)
[2020-07-17] MEDS: AMINO ACIDS/PROTEIN HYDROLYS 30 ML LIQUID.PKT PO SCH (09:44)
[2020-07-17] MEDS: FAMOTIDINE 20 MG TABLET PO SCH ×2 (09:44→21:13)
[2020-07-17] MEDS: COLCHICINE 0.6 MG CAP PO SCH (09:44)
[2020-07-17] MEDS: BUDESONIDE/FORMETEROL FUMARATE 160/4.5 mcg INHALER IH SCH ×2 (09:45→21:13)
[2020-07-17] MEDS: ATORVASTATIN CA 20 MG TABLET (FP) PO SCH (21:13)
[2020-07-17] MEDS: LIDOCAINE PATCH REMOVAL MC SCH (21:14)
[2020-07-18] MEDS: ALBUTEROL SO4 HFA INHALER IH SCH ×2 (09:30→22:25)
[2020-07-18] MEDS: LIDOCAINE 5% TOPICAL PATCH TP SCH ×2 (11:20→11:36)
[2020-07-18] MEDS: APIXABAN 5 MG TABLET PO SCH ×2 (11:27→22:15)
[2020-07-18] MEDS: metoPROLOL SUCCINATE 25 MG TAB.SR.24H (FP) PO SCH (11:28)
[2020-07-18] MEDS: DULoxetine HCL 30 MG CAPSULE.DR PO SCH (11:28)
[2020-07-18] MEDS: CHOLECALCIFEROL (VIT D3) 1,000 UNIT (25 MCG) TABLET PO SCH (11:28)
[2020-07-18] MEDS: MULTIVITAMINS THER W-MINERALS COMBO TABLET (FP) PO SCH (11:28)
[2020-07-18] MEDS: FAMOTIDINE 20 MG TABLET PO SCH ×2 (11:28→22:15)
[2020-07-18] MEDS: ASCORBIC ACID 500 MG TABLET (FP) PO SCH ×2 (11:29→22:15)
[2020-07-18] MEDS: ZINC SULFATE 220 MG CAPSULE (FP) PO SCH ×2 (11:30→22:15)
[2020-07-18] MEDS: DEXAMETHASONE SOD PHOSPHATE 4 MG/1 ML VIAL IVPUSH SCH (11:30)
[2020-07-18] MEDS: COLCHICINE 0.6 MG CAP PO SCH (11:31)
[2020-07-18] MEDS: NYSTATIN POWDER 100,000 UNITS/GM - 15 GM TOPICAL POWDER TP SCH ×2 (11:32→22:15)
[2020-07-18] MEDS: BUDESONIDE/FORMETEROL FUMARATE 160/4.5 mcg INHALER IH SCH ×2 (11:32→22:15)
[2020-07-18] MEDS: ATORVASTATIN CA 20 MG TABLET (FP) PO SCH (22:15)
[2020-07-18] MEDS: LIDOCAINE PATCH REMOVAL MC SCH (22:15)
[2020-07-19 07:47] LABS: BASO % 0.5 % (0-2.0); EOS % 1.8 % (0-4.5); HEMATOCRIT 41.4 % (32.4-45.2); HEMOGLOBIN 13.7 GM/dL (10.7-15.3); LYMPH % 11.7 % (8-40); MCH 27.9 pg (25.7-33.7); MEAN CELL VOLUME 84.4 fl (80-96); MEAN PLT VOLUME 9.6 fl (7.5-11.1); MONO % 6.6 % (3.8-10.2); NEUT % 79.4 % (42.8-82.8); PLATELET COUNT 190 K/MM3 (134-434); RDW 18.8 % (11.6-15.6); WHITE BLOOD COUNT 9.5 K/mm3 (4.0-10.0)
[2020-07-19 08:01] LABS: ALBUMIN 2.8 g/dl (3.4-5.0)
[2020-07-19 08:02] LABS: BLOOD UREA NITROGEN 16.7 mg/dL (7-18)
[2020-07-19 08:04] LABS: CREATININE 0.5 mg/dL (0.55-1.3)
[2020-07-19 08:05] LABS: BILIRUBIN,TOTAL 0.6 mg/dL (0.2-1); TOT PROT 5.4 g/dl (6.4-8.2)
[2020-07-19] MEDS: FAMOTIDINE 20 MG TABLET PO SCH ×2 (10:19→21:04)
[2020-07-19] MEDS: DEXAMETHASONE SOD PHOSPHATE 4 MG/1 ML VIAL IVPUSH SCH (10:19)
[2020-07-19] MEDS: LIDOCAINE 5% TOPICAL PATCH TP SCH (10:19)
[2020-07-19] MEDS: APIXABAN 5 MG TABLET PO SCH ×2 (10:20→21:04)
[2020-07-19] MEDS: CHOLECALCIFEROL (VIT D3) 1,000 UNIT (25 MCG) TABLET PO SCH (10:20)
[2020-07-19] MEDS: ASCORBIC ACID 500 MG TABLET (FP) PO SCH ×2 (10:20→21:04)
[2020-07-19] MEDS: NYSTATIN POWDER 100,000 UNITS/GM - 15 GM TOPICAL POWDER TP SCH ×2 (10:20→21:04)
[2020-07-19] MEDS: ZINC SULFATE 220 MG CAPSULE (FP) PO SCH ×2 (10:20→21:04)
[2020-07-19] MEDS: ALBUTEROL SO4 HFA INHALER IH SCH ×2 (10:20→13:36)
[2020-07-19] MEDS: metoPROLOL SUCCINATE 25 MG TAB.SR.24H (FP) PO SCH (10:20)
[2020-07-19] MEDS: MULTIVITAMINS THER W-MINERALS COMBO TABLET (FP) PO SCH (10:20)
[2020-07-19] MEDS: DULoxetine HCL 30 MG CAPSULE.DR PO SCH (10:20)
[2020-07-19] MEDS: COLCHICINE 0.6 MG CAP PO SCH (10:20)
[2020-07-19] MEDS: BUDESONIDE/FORMETEROL FUMARATE 160/4.5 mcg INHALER IH SCH ×2 (10:21→21:04)
[2020-07-19] MEDS: ATORVASTATIN CA 20 MG TABLET (FP) PO SCH (21:04)
[2020-07-20] MEDS: LIDOCAINE PATCH REMOVAL MC SCH ×2 (05:51→21:48)
[2020-07-20] MEDS ORDERED: PT OWN MED DRAWER 7, Y5N ONE ×2 (09:12→10:34)
[2020-07-20] MEDS: APIXABAN 5 MG TABLET PO SCH ×2 (10:16→21:42)
[2020-07-20] MEDS: metoPROLOL SUCCINATE 25 MG TAB.SR.24H (FP) PO SCH (10:16)
[2020-07-20] MEDS: ZINC SULFATE 220 MG CAPSULE (FP) PO SCH ×2 (10:17→21:42)
[2020-07-20] MEDS: FAMOTIDINE 20 MG TABLET PO SCH ×2 (10:17→21:42)
[2020-07-20] MEDS: CHOLECALCIFEROL (VIT D3) 1,000 UNIT (25 MCG) TABLET PO SCH (10:17)
[2020-07-20] MEDS: MULTIVITAMINS THER W-MINERALS COMBO TABLET (FP) PO SCH (10:17)
[2020-07-20] MEDS: ASCORBIC ACID 500 MG TABLET (FP) PO SCH ×2 (10:17→21:42)
[2020-07-20] MEDS: DEXAMETHASONE SOD PHOSPHATE 4 MG/1 ML VIAL IVPUSH SCH (10:17)
[2020-07-20] MEDS: COLCHICINE 0.6 MG CAP PO SCH (10:18)
[2020-07-20] MEDS: ALBUTEROL SO4 HFA INHALER IH SCH ×4 (10:19→20:42)
[2020-07-20] MEDS: BUDESONIDE/FORMETEROL FUMARATE 160/4.5 mcg INHALER IH SCH ×2 (10:19→21:43)
[2020-07-20] MEDS: NYSTATIN POWDER 100,000 UNITS/GM - 15 GM TOPICAL POWDER TP SCH ×2 (10:20→21:48)
[2020-07-20] MEDS: DULoxetine HCL 30 MG CAPSULE.DR PO SCH (10:37)
[2020-07-20] MEDS: LIDOCAINE 5% TOPICAL PATCH TP SCH (10:38)
[2020-07-20] MEDS: ATORVASTATIN CA 20 MG TABLET (FP) PO SCH (21:42)
[2020-07-21] MEDS: ALBUTEROL SO4 HFA INHALER IH SCH ×4 (09:00→21:06)
[2020-07-21] MEDS ORDERED: PT OWN MED DRAWER 7, Y5N ONE (09:12)
[2020-07-21] MEDS: DULoxetine HCL 30 MG CAPSULE.DR PO SCH (10:52)
[2020-07-21] MEDS: ZINC SULFATE 220 MG CAPSULE (FP) PO SCH ×2 (10:52→22:05)
[2020-07-21] MEDS: FAMOTIDINE 20 MG TABLET PO SCH ×2 (10:52→22:05)
[2020-07-21] MEDS: MULTIVITAMINS THER W-MINERALS COMBO TABLET (FP) PO SCH (10:52)
[2020-07-21] MEDS: ASCORBIC ACID 500 MG TABLET (FP) PO SCH ×2 (10:53→22:06)
[2020-07-21] MEDS: CHOLECALCIFEROL (VIT D3) 1,000 UNIT (25 MCG) TABLET PO SCH (10:53)
[2020-07-21] MEDS: APIXABAN 5 MG TABLET PO SCH ×2 (10:53→22:06)
[2020-07-21] MEDS: BUDESONIDE/FORMETEROL FUMARATE 160/4.5 mcg INHALER IH SCH ×2 (10:54→22:06)
[2020-07-21] MEDS: COLCHICINE 0.6 MG CAP PO SCH (10:54)
[2020-07-21] MEDS: DEXAMETHASONE SOD PHOSPHATE 4 MG/1 ML VIAL IVPUSH SCH (10:54)
[2020-07-21] MEDS: LIDOCAINE 5% TOPICAL PATCH TP SCH (10:55)
[2020-07-21] MEDS: NYSTATIN POWDER 100,000 UNITS/GM - 15 GM TOPICAL POWDER TP SCH ×2 (11:00→22:06)
[2020-07-21] MEDS: metoPROLOL SUCCINATE 25 MG TAB.SR.24H (FP) PO SCH (11:00)
[2020-07-21] MEDS: ATORVASTATIN CA 20 MG TABLET (FP) PO SCH (22:05)
[2020-07-21] MEDS: LIDOCAINE PATCH REMOVAL MC SCH (22:08)
[2020-07-22 09:23] LABS: BASO % 0.5 % (0-2.0); EOS % 1.4 % (0-4.5); HEMATOCRIT 40.4 % (32.4-45.2); HEMOGLOBIN 13.2 GM/dL (10.7-15.3); LYMPH % 9.7 % (8-40); MCH 27.5 pg (25.7-33.7); MCHC 32.8 g/dl (32.0-36.0); MEAN CELL VOLUME 83.8 fl (80-96); MEAN PLT VOLUME 9.6 fl (7.5-11.1); MONO % 5.3 % (3.8-10.2); NEUT % 83.1 % (42.8-82.8); PLATELET COUNT 194 K/MM3 (134-434); RBC 4.82 M/mm3 (3.60-5.2); RDW 19.3 % (11.6-15.6); WHITE BLOOD COUNT 11.8 K/mm3 (4.0-10.0)
[2020-07-22] MEDS ORDERED: PT OWN MED DRAWER 7, Y5N ONE (09:53)
[2020-07-22 09:59] LABS: ALBUMIN 2.7 g/dl (3.4-5.0); CALCIUM 8.9 mg/dL (8.5-10.1)
[2020-07-22 10:00] LABS: BLOOD UREA NITROGEN 20.2 mg/dL (7-18)
[2020-07-22] MEDS: LIDOCAINE 5% TOPICAL PATCH TP SCH (10:00)
[2020-07-22] MEDS: FAMOTIDINE 20 MG TABLET PO SCH ×2 (10:00→22:05)
[2020-07-22] MEDS: ASCORBIC ACID 500 MG TABLET (FP) PO SCH ×2 (10:00→22:05)
[2020-07-22] MEDS: DULoxetine HCL 30 MG CAPSULE.DR PO SCH (10:00)
[2020-07-22] MEDS: MULTIVITAMINS THER W-MINERALS COMBO TABLET (FP) PO SCH (10:00)
[2020-07-22] MEDS: ZINC SULFATE 220 MG CAPSULE (FP) PO SCH ×2 (10:00→22:04)
[2020-07-22] MEDS: CHOLECALCIFEROL (VIT D3) 1,000 UNIT (25 MCG) TABLET PO SCH (10:00)
[2020-07-22] MEDS: NYSTATIN POWDER 100,000 UNITS/GM - 15 GM TOPICAL POWDER TP SCH (10:01)
[2020-07-22] MEDS: APIXABAN 5 MG TABLET PO SCH ×2 (10:01→22:04)
[2020-07-22] MEDS: metoPROLOL SUCCINATE 25 MG TAB.SR.24H (FP) PO SCH (10:01)
[2020-07-22] MEDS: COLCHICINE 0.6 MG CAP PO SCH (10:01)
[2020-07-22] MEDS: DEXAMETHASONE SOD PHOSPHATE 4 MG/1 ML VIAL IVPUSH SCH (10:01)
[2020-07-22] MEDS: BUDESONIDE/FORMETEROL FUMARATE 160/4.5 mcg INHALER IH SCH ×2 (10:02→22:05)
[2020-07-22 10:04] LABS: CREATININE 0.5 mg/dL (0.55-1.3)
[2020-07-22 10:05] LABS: BILIRUBIN,TOTAL 0.5 mg/dL (0.2-1); TOT PROT 5.2 g/dl (6.4-8.2)
[2020-07-22 11:47] LABS: ANISOCYTOSIS 1+; MACROCYTOSIS 0; PLATELET ESTIMATE NORMAL
[2020-07-22] MEDS: ALBUTEROL SO4 HFA INHALER IH SCH (21:05)
[2020-07-22] MEDS: ATORVASTATIN CA 20 MG TABLET (FP) PO SCH (22:05)
[2020-07-22] MEDS: LIDOCAINE PATCH REMOVAL MC SCH (22:35)
[2020-07-23] MEDS: NYSTATIN POWDER 100,000 UNITS/GM - 15 GM TOPICAL POWDER TP SCH ×3 (00:05→21:51)
[2020-07-23] MEDS ORDERED: PT OWN MED DRAWER 7, Y5N ONE (09:17)
[2020-07-23] MEDS: MULTIVITAMINS THER W-MINERALS COMBO TABLET (FP) PO SCH (09:25)
[2020-07-23] MEDS: APIXABAN 5 MG TABLET PO SCH ×2 (09:25→21:50)
[2020-07-23] MEDS: FAMOTIDINE 20 MG TABLET PO SCH ×2 (09:25→21:50)
[2020-07-23] MEDS: ASCORBIC ACID 500 MG TABLET (FP) PO SCH ×2 (09:25→21:50)
[2020-07-23] MEDS: metoPROLOL SUCCINATE 25 MG TAB.SR.24H (FP) PO SCH (09:25)
[2020-07-23] MEDS: ZINC SULFATE 220 MG CAPSULE (FP) PO SCH ×2 (09:25→21:50)
[2020-07-23] MEDS: CHOLECALCIFEROL (VIT D3) 1,000 UNIT (25 MCG) TABLET PO SCH (09:25)
[2020-07-23] MEDS: DEXAMETHASONE SOD PHOSPHATE 4 MG/1 ML VIAL IVPUSH SCH (09:26)
[2020-07-23] MEDS: LIDOCAINE 5% TOPICAL PATCH TP SCH (09:26)
[2020-07-23] MEDS: DULoxetine HCL 30 MG CAPSULE.DR PO SCH (09:26)
[2020-07-23] MEDS: COLCHICINE 0.6 MG CAP PO SCH (09:26)
[2020-07-23] MEDS: BUDESONIDE/FORMETEROL FUMARATE 160/4.5 mcg INHALER IH SCH ×2 (09:27→21:52)
[2020-07-23] MEDS: ALBUTEROL SO4 HFA INHALER IH SCH (15:54)
[2020-07-23] MEDS: ATORVASTATIN CA 20 MG TABLET (FP) PO SCH (21:50)
[2020-07-23] MEDS: LIDOCAINE PATCH REMOVAL MC SCH (22:49)
[2020-07-24] MEDS: ALBUTEROL SO4 HFA INHALER IH SCH ×4 (06:48→20:26)
[2020-07-24] MEDS: metoPROLOL SUCCINATE 25 MG TAB.SR.24H (FP) PO SCH (10:20)
[2020-07-24] MEDS: DEXAMETHASONE SOD PHOSPHATE 4 MG/1 ML VIAL IVPUSH SCH (10:20)
[2020-07-24] MEDS: APIXABAN 5 MG TABLET PO SCH ×2 (10:20→21:21)
[2020-07-24] MEDS: MULTIVITAMINS THER W-MINERALS COMBO TABLET (FP) PO SCH (10:20)
[2020-07-24] MEDS: CHOLECALCIFEROL (VIT D3) 1,000 UNIT (25 MCG) TABLET PO SCH (10:21)
[2020-07-24] MEDS: COLCHICINE 0.6 MG CAP PO SCH (10:21)
[2020-07-24] MEDS: DULoxetine HCL 30 MG CAPSULE.DR PO SCH (10:21)
[2020-07-24] MEDS: ZINC SULFATE 220 MG CAPSULE (FP) PO SCH ×2 (10:21→21:21)
[2020-07-24] MEDS: ASCORBIC ACID 500 MG TABLET (FP) PO SCH ×2 (10:21→21:21)
[2020-07-24] MEDS: NYSTATIN POWDER 100,000 UNITS/GM - 15 GM TOPICAL POWDER TP SCH ×2 (10:22→21:22)
[2020-07-24] MEDS: BUDESONIDE/FORMETEROL FUMARATE 160/4.5 mcg INHALER IH SCH ×2 (10:22→21:26)
[2020-07-24] MEDS: FAMOTIDINE 20 MG TABLET PO SCH ×2 (10:22→21:21)
[2020-07-24] MEDS: LIDOCAINE 5% TOPICAL PATCH TP SCH ×2 (10:22→11:01)
[2020-07-24] MEDS: ATORVASTATIN CA 20 MG TABLET (FP) PO SCH (21:21)
[2020-07-24] MEDS: LIDOCAINE PATCH REMOVAL MC SCH (21:26)
[2020-07-25] MEDS: DEXAMETHASONE SOD PHOSPHATE 4 MG/1 ML VIAL IVPUSH SCH (10:57)
[2020-07-25] MEDS: FAMOTIDINE 20 MG TABLET PO SCH ×2 (10:57→21:29)
[2020-07-25] MEDS: ALBUTEROL SO4 HFA INHALER IH SCH ×2 (10:58→21:33)
[2020-07-25] MEDS: COLCHICINE 0.6 MG CAP PO SCH (10:58)
[2020-07-25] MEDS: ZINC SULFATE 220 MG CAPSULE (FP) PO SCH ×2 (10:58→21:29)
[2020-07-25] MEDS: MULTIVITAMINS THER W-MINERALS COMBO TABLET (FP) PO SCH (10:58)
[2020-07-25] MEDS: metoPROLOL SUCCINATE 25 MG TAB.SR.24H (FP) PO SCH (10:59)
[2020-07-25] MEDS: BUDESONIDE/FORMETEROL FUMARATE 160/4.5 mcg INHALER IH SCH ×2 (10:59→21:30)
[2020-07-25] MEDS: ASCORBIC ACID 500 MG TABLET (FP) PO SCH ×2 (10:59→21:29)
[2020-07-25] MEDS: NYSTATIN POWDER 100,000 UNITS/GM - 15 GM TOPICAL POWDER TP SCH ×2 (10:59→21:29)
[2020-07-25] MEDS: LIDOCAINE 5% TOPICAL PATCH TP SCH (10:59)
[2020-07-25] MEDS: CHOLECALCIFEROL (VIT D3) 1,000 UNIT (25 MCG) TABLET PO SCH (10:59)
[2020-07-25] MEDS: APIXABAN 5 MG TABLET PO SCH ×2 (11:00→21:29)
[2020-07-25] MEDS: DULoxetine HCL 30 MG CAPSULE.DR PO SCH (11:00)
[2020-07-25] MEDS: ATORVASTATIN CA 20 MG TABLET (FP) PO SCH (21:29)
[2020-07-25] MEDS: LIDOCAINE PATCH REMOVAL MC SCH (21:30)
[2020-07-26] MEDS: ALBUTEROL SO4 HFA INHALER IH SCH ×4 (08:30→20:15)
[2020-07-26] MEDS: FAMOTIDINE 20 MG TABLET PO SCH ×2 (10:24→21:14)
[2020-07-26] MEDS: DEXAMETHASONE SOD PHOSPHATE 4 MG/1 ML VIAL IVPUSH SCH (10:24)
[2020-07-26] MEDS: CHOLECALCIFEROL (VIT D3) 1,000 UNIT (25 MCG) TABLET PO SCH (10:24)
[2020-07-26] MEDS: APIXABAN 5 MG TABLET PO SCH ×2 (10:24→21:14)
[2020-07-26] MEDS: metoPROLOL SUCCINATE 25 MG TAB.SR.24H (FP) PO SCH (10:24)
[2020-07-26] MEDS: ASCORBIC ACID 500 MG TABLET (FP) PO SCH ×2 (10:24→21:14)
[2020-07-26] MEDS: MULTIVITAMINS THER W-MINERALS COMBO TABLET (FP) PO SCH (10:24)
[2020-07-26] MEDS: ZINC SULFATE 220 MG CAPSULE (FP) PO SCH ×2 (10:24→21:14)
[2020-07-26] MEDS: BUDESONIDE/FORMETEROL FUMARATE 160/4.5 mcg INHALER IH SCH ×2 (10:25→21:14)
[2020-07-26] MEDS: NYSTATIN POWDER 100,000 UNITS/GM - 15 GM TOPICAL POWDER TP SCH ×2 (10:25→21:14)
[2020-07-26] MEDS: LIDOCAINE 5% TOPICAL PATCH TP SCH (10:25)
[2020-07-26] MEDS: COLCHICINE 0.6 MG CAP PO SCH (10:26)
[2020-07-26] MEDS: DULoxetine HCL 30 MG CAPSULE.DR PO SCH (10:27)
[2020-07-26] MEDS: ATORVASTATIN CA 20 MG TABLET (FP) PO SCH (21:14)
[2020-07-26] MEDS: LIDOCAINE PATCH REMOVAL MC SCH (21:15)
[2020-07-27] MEDS: ALBUTEROL SO4 HFA INHALER IH SCH ×4 (09:00→22:10)
[2020-07-27 09:34] LABS: BASO % 0.6 % (0-2.0); HEMATOCRIT 42.7 % (32.4-45.2); HEMOGLOBIN 13.8 GM/dL (10.7-15.3); LYMPH % 11.3 % (8-40); MCH 27.6 pg (25.7-33.7); MCHC 32.4 g/dl (32.0-36.0); MEAN CELL VOLUME 85.3 fl (80-96); MEAN PLT VOLUME 9.2 fl (7.5-11.1); MONO % 5.2 % (3.8-10.2); NEUT % 81.9 % (42.8-82.8); PLATELET COUNT 243 K/MM3 (134-434); RBC 5.01 M/mm3 (3.60-5.2); WHITE BLOOD COUNT 14.3 K/mm3 (4.0-10.0)
[2020-07-27 10:01] LABS: ANISOCYTOSIS 0; MACROCYTOSIS 0; PLATELET ESTIMATE NORMAL
[2020-07-27] MEDS ORDERED: PT OWN MED DRAWER 7, Y5N ONE (11:12)
[2020-07-27] MEDS: ASCORBIC ACID 500 MG TABLET (FP) PO SCH ×2 (11:18→22:02)
[2020-07-27] MEDS: ZINC SULFATE 220 MG CAPSULE (FP) PO SCH ×2 (11:18→22:02)
[2020-07-27] MEDS: COLCHICINE 0.6 MG CAP PO SCH (11:19)
[2020-07-27] MEDS: metoPROLOL SUCCINATE 25 MG TAB.SR.24H (FP) PO SCH (11:19)
[2020-07-27] MEDS: FAMOTIDINE 20 MG TABLET PO SCH ×2 (11:20→22:03)
[2020-07-27] MEDS: APIXABAN 5 MG TABLET PO SCH ×2 (11:20→22:02)
[2020-07-27] MEDS: CHOLECALCIFEROL (VIT D3) 1,000 UNIT (25 MCG) TABLET PO SCH (11:20)
[2020-07-27] MEDS: BUDESONIDE/FORMETEROL FUMARATE 160/4.5 mcg INHALER IH SCH ×2 (11:20→22:11)
[2020-07-27] MEDS: MULTIVITAMINS THER W-MINERALS COMBO TABLET (FP) PO SCH (11:20)
[2020-07-27] MEDS: DULoxetine HCL 30 MG CAPSULE.DR PO SCH (11:21)
[2020-07-27] MEDS: LIDOCAINE 5% TOPICAL PATCH TP SCH (11:32)
[2020-07-27 11:38] LABS: CALCIUM 8.9 mg/dL (8.5-10.1)
[2020-07-27 11:39] LABS: BLOOD UREA NITROGEN 23.6 mg/dL (7-18)
[2020-07-27 11:42] LABS: CREATININE 0.6 mg/dL (0.55-1.3)
[2020-07-27 11:43] LABS: BILIRUBIN,TOTAL 0.6 mg/dL (0.2-1); TOT PROT 5.9 g/dl (6.4-8.2)
[2020-07-27] MEDS: DEXAMETHASONE SOD PHOSPHATE 4 MG/1 ML VIAL IVPUSH SCH (11:55)
[2020-07-27] MEDS: NYSTATIN POWDER 100,000 UNITS/GM - 15 GM TOPICAL POWDER TP SCH ×2 (16:14→22:15)
[2020-07-27] MEDS: ATORVASTATIN CA 20 MG TABLET (FP) PO SCH (22:02)
[2020-07-27] MEDS: LIDOCAINE PATCH REMOVAL MC SCH (22:14)
[2020-07-28] MEDS: ALBUTEROL SO4 HFA INHALER IH SCH ×2 (08:38→21:39)
[2020-07-28] MEDS ORDERED: PT OWN MED DRAWER 7, Y5N ONE (10:31)
[2020-07-28] MEDS: DULoxetine HCL 30 MG CAPSULE.DR PO SCH (10:39)
[2020-07-28] MEDS: ZINC SULFATE 220 MG CAPSULE (FP) PO SCH ×2 (10:40→21:32)
[2020-07-28] MEDS: CHOLECALCIFEROL (VIT D3) 1,000 UNIT (25 MCG) TABLET PO SCH (10:41)
[2020-07-28] MEDS: APIXABAN 5 MG TABLET PO SCH ×2 (10:41→21:32)
[2020-07-28] MEDS: COLCHICINE 0.6 MG CAP PO SCH (10:41)
[2020-07-28] MEDS: MULTIVITAMINS THER W-MINERALS COMBO TABLET (FP) PO SCH (10:41)
[2020-07-28] MEDS: ASCORBIC ACID 500 MG TABLET (FP) PO SCH ×2 (10:41→21:32)
[2020-07-28] MEDS: FAMOTIDINE 20 MG TABLET PO SCH ×2 (10:42→21:32)
[2020-07-28] MEDS: metoPROLOL SUCCINATE 25 MG TAB.SR.24H (FP) PO SCH (10:42)
[2020-07-28] MEDS: DEXAMETHASONE SOD PHOSPHATE 4 MG/1 ML VIAL IVPUSH SCH (10:43)
[2020-07-28] MEDS: BUDESONIDE/FORMETEROL FUMARATE 160/4.5 mcg INHALER IH SCH ×2 (10:43→21:40)
[2020-07-28] MEDS: LIDOCAINE 5% TOPICAL PATCH TP SCH (11:13)
[2020-07-28] MEDS: NYSTATIN POWDER 100,000 UNITS/GM - 15 GM TOPICAL POWDER TP SCH ×2 (11:14→21:33)
[2020-07-28] MEDS: ATORVASTATIN CA 20 MG TABLET (FP) PO SCH (21:32)
[2020-07-28] MEDS: LIDOCAINE PATCH REMOVAL MC SCH (21:33)
[2020-07-29 08:55] LABS: BASO % 0.4 % (0-2.0); EOS % 0.6 % (0-4.5); HEMATOCRIT 41.7 % (32.4-45.2); HEMOGLOBIN 13.7 GM/dL (10.7-15.3); LYMPH % 13.2 % (8-40); MCH 27.9 pg (25.7-33.7); MCHC 32.8 g/dl (32.0-36.0); MEAN CELL VOLUME 84.9 fl (80-96); MEAN PLT VOLUME 9.2 fl (7.5-11.1); MONO % 7.3 % (3.8-10.2); NEUT % 78.5 % (42.8-82.8); PLATELET COUNT 192 K/MM3 (134-434); RBC 4.91 M/mm3 (3.60-5.2); RDW 19.5 % (11.6-15.6); WHITE BLOOD COUNT 12.5 K/mm3 (4.0-10.0)
[2020-07-29 09:23] LABS: CALCIUM 8.9 mg/dL (8.5-10.1)
[2020-07-29 09:24] LABS: ALBUMIN 2.9 g/dl (3.4-5.0); BLOOD UREA NITROGEN 20.8 mg/dL (7-18)
[2020-07-29 09:27] LABS: CREATININE 0.6 mg/dL (0.55-1.3)
[2020-07-29 09:29] LABS: BILIRUBIN,TOTAL 0.5 mg/dL (0.2-1); TOT PROT 5.9 g/dl (6.4-8.2)
[2020-07-29 10:46] LABS: ANISOCYTOSIS 1+; MACROCYTOSIS 0; PLATELET ESTIMATE NORMAL
[2020-07-29] MEDS: COLCHICINE 0.6 MG CAP PO SCH (10:48)
[2020-07-29] MEDS: ALBUTEROL SO4 HFA INHALER IH SCH ×3 (10:48→20:47)
[2020-07-29] MEDS: LIDOCAINE 5% TOPICAL PATCH TP SCH (10:48)
[2020-07-29] MEDS: DEXAMETHASONE SOD PHOSPHATE 4 MG/1 ML VIAL IVPUSH SCH (10:48)
[2020-07-29] MEDS: NYSTATIN POWDER 100,000 UNITS/GM - 15 GM TOPICAL POWDER TP SCH ×2 (10:48→21:47)
[2020-07-29] MEDS: APIXABAN 5 MG TABLET PO SCH ×2 (10:48→21:47)
[2020-07-29] MEDS: DULoxetine HCL 30 MG CAPSULE.DR PO SCH (10:48)
[2020-07-29] MEDS: ZINC SULFATE 220 MG CAPSULE (FP) PO SCH ×2 (10:49→21:47)
[2020-07-29] MEDS: BUDESONIDE/FORMETEROL FUMARATE 160/4.5 mcg INHALER IH SCH ×2 (10:49→21:47)
[2020-07-29] MEDS: ASCORBIC ACID 500 MG TABLET (FP) PO SCH ×2 (10:49→21:47)
[2020-07-29] MEDS: FAMOTIDINE 20 MG TABLET PO SCH ×2 (10:49→21:47)
[2020-07-29] MEDS: MULTIVITAMINS THER W-MINERALS COMBO TABLET (FP) PO SCH (10:49)
[2020-07-29] MEDS: metoPROLOL SUCCINATE 25 MG TAB.SR.24H (FP) PO SCH (10:49)
[2020-07-29] MEDS: CHOLECALCIFEROL (VIT D3) 1,000 UNIT (25 MCG) TABLET PO SCH (10:49)
[2020-07-29] MEDS: ATORVASTATIN CA 20 MG TABLET (FP) PO SCH (21:47)
[2020-07-29] MEDS: LIDOCAINE PATCH REMOVAL MC SCH (21:47)
[2020-07-30] MEDS ORDERED: PT OWN MED DRAWER 7, Y5N ONE (10:09)
[2020-07-30] MEDS: ASCORBIC ACID 500 MG TABLET (FP) PO SCH ×2 (10:42→21:10)
[2020-07-30] MEDS: CHOLECALCIFEROL (VIT D3) 1,000 UNIT (25 MCG) TABLET PO SCH (10:42)
[2020-07-30] MEDS: MULTIVITAMINS THER W-MINERALS COMBO TABLET (FP) PO SCH (10:42)
[2020-07-30] MEDS: DULoxetine HCL 30 MG CAPSULE.DR PO SCH (10:42)
[2020-07-30] MEDS: metoPROLOL SUCCINATE 25 MG TAB.SR.24H (FP) PO SCH (10:42)
[2020-07-30] MEDS: ZINC SULFATE 220 MG CAPSULE (FP) PO SCH ×2 (10:42→21:10)
[2020-07-30] MEDS: LIDOCAINE 5% TOPICAL PATCH TP SCH (10:43)
[2020-07-30] MEDS: COLCHICINE 0.6 MG CAP PO SCH (10:43)
[2020-07-30] MEDS: APIXABAN 5 MG TABLET PO SCH ×2 (10:43→21:10)
[2020-07-30] MEDS: DEXAMETHASONE SOD PHOSPHATE 4 MG/1 ML VIAL IVPUSH SCH (10:43)
[2020-07-30] MEDS: FAMOTIDINE 20 MG TABLET PO SCH ×2 (10:43→21:10)
[2020-07-30] MEDS: NYSTATIN POWDER 100,000 UNITS/GM - 15 GM TOPICAL POWDER TP SCH ×2 (10:43→21:11)
[2020-07-30] MEDS: ALBUTEROL SO4 HFA INHALER IH SCH ×2 (10:44→20:11)
[2020-07-30] MEDS: BUDESONIDE/FORMETEROL FUMARATE 160/4.5 mcg INHALER IH SCH ×2 (10:44→21:11)
[2020-07-30] MEDS: LIDOCAINE PATCH REMOVAL MC SCH (21:10)
[2020-07-30] MEDS: ATORVASTATIN CA 20 MG TABLET (FP) PO SCH (21:10)
[2020-07-31] MEDS: ALBUTEROL SO4 HFA INHALER IH SCH ×2 (08:50→21:31)
[2020-07-31] MEDS: COLCHICINE 0.6 MG CAP PO SCH (10:51)
[2020-07-31] MEDS: DULoxetine HCL 30 MG CAPSULE.DR PO SCH (10:52)
[2020-07-31] MEDS: DEXAMETHASONE SOD PHOSPHATE 4 MG/1 ML VIAL IVPUSH SCH (10:53)
[2020-07-31] MEDS: LIDOCAINE 5% TOPICAL PATCH TP SCH (10:54)
[2020-07-31] MEDS: APIXABAN 5 MG TABLET PO SCH ×2 (10:54→21:27)
[2020-07-31] MEDS: ZINC SULFATE 220 MG CAPSULE (FP) PO SCH ×2 (10:54→21:28)
[2020-07-31] MEDS: metoPROLOL SUCCINATE 25 MG TAB.SR.24H (FP) PO SCH (10:55)
[2020-07-31] MEDS: BUDESONIDE/FORMETEROL FUMARATE 160/4.5 mcg INHALER IH SCH ×2 (10:55→21:28)
[2020-07-31] MEDS: MULTIVITAMINS THER W-MINERALS COMBO TABLET (FP) PO SCH (10:55)
[2020-07-31] MEDS: FAMOTIDINE 20 MG TABLET PO SCH ×2 (10:55→21:28)
[2020-07-31] MEDS: ASCORBIC ACID 500 MG TABLET (FP) PO SCH ×2 (10:56→21:28)
[2020-07-31] MEDS: CHOLECALCIFEROL (VIT D3) 1,000 UNIT (25 MCG) TABLET PO SCH (10:56)
[2020-07-31] MEDS: NYSTATIN POWDER 100,000 UNITS/GM - 15 GM TOPICAL POWDER TP SCH ×2 (10:59→21:28)
[2020-07-31] MEDS ORDERED: PT OWN MED DRAWER 7, Y5N ONE (21:26)
[2020-07-31] MEDS: ATORVASTATIN CA 20 MG TABLET (FP) PO SCH (21:28)
[2020-07-31] MEDS: LIDOCAINE PATCH REMOVAL MC SCH (21:47)
[2020-08-01] MEDS ORDERED: PT OWN MED DRAWER 7, Y5N ONE (10:27)
[2020-08-01] MEDS: MULTIVITAMINS THER W-MINERALS COMBO TABLET (FP) PO SCH (10:35)
[2020-08-01] MEDS: DEXAMETHASONE SOD PHOSPHATE 4 MG/1 ML VIAL IVPUSH SCH (10:35)
[2020-08-01] MEDS: ASCORBIC ACID 500 MG TABLET (FP) PO SCH ×2 (10:36→21:58)
[2020-08-01] MEDS: DULoxetine HCL 30 MG CAPSULE.DR PO SCH (10:36)
[2020-08-01] MEDS: COLCHICINE 0.6 MG CAP PO SCH (10:36)
[2020-08-01] MEDS: ZINC SULFATE 220 MG CAPSULE (FP) PO SCH ×2 (10:36→21:59)
[2020-08-01] MEDS: ALBUTEROL SO4 HFA INHALER IH SCH ×2 (10:36→20:05)
[2020-08-01] MEDS: metoPROLOL SUCCINATE 25 MG TAB.SR.24H (FP) PO SCH (10:36)
[2020-08-01] MEDS: APIXABAN 5 MG TABLET PO SCH ×2 (10:36→21:59)
[2020-08-01] MEDS: CHOLECALCIFEROL (VIT D3) 1,000 UNIT (25 MCG) TABLET PO SCH (10:36)
[2020-08-01] MEDS: FAMOTIDINE 20 MG TABLET PO SCH ×2 (10:37→21:58)
[2020-08-01] MEDS: BUDESONIDE/FORMETEROL FUMARATE 160/4.5 mcg INHALER IH SCH ×2 (10:38→21:59)
[2020-08-01] MEDS: NYSTATIN POWDER 100,000 UNITS/GM - 15 GM TOPICAL POWDER TP SCH ×2 (10:38→21:59)
[2020-08-01] MEDS: LIDOCAINE 5% TOPICAL PATCH TP SCH (10:38)
[2020-08-01] MEDS: ATORVASTATIN CA 20 MG TABLET (FP) PO SCH (21:59)
[2020-08-01] MEDS: LIDOCAINE PATCH REMOVAL MC SCH (22:15)
[2020-08-02] MEDS: ZINC SULFATE 220 MG CAPSULE (FP) PO SCH ×2 (11:00→21:43)
[2020-08-02] MEDS: MULTIVITAMINS THER W-MINERALS COMBO TABLET (FP) PO SCH (11:00)
[2020-08-02] MEDS: FAMOTIDINE 20 MG TABLET PO SCH ×2 (11:00→21:43)
[2020-08-02] MEDS: ASCORBIC ACID 500 MG TABLET (FP) PO SCH ×2 (11:00→21:43)
[2020-08-02] MEDS: APIXABAN 5 MG TABLET PO SCH ×2 (11:00→21:43)
[2020-08-02] MEDS: CHOLECALCIFEROL (VIT D3) 1,000 UNIT (25 MCG) TABLET PO SCH (11:00)
[2020-08-02] MEDS: LIDOCAINE 5% TOPICAL PATCH TP SCH (11:01)
[2020-08-02] MEDS: metoPROLOL SUCCINATE 25 MG TAB.SR.24H (FP) PO SCH (11:01)
[2020-08-02] MEDS: BUDESONIDE/FORMETEROL FUMARATE 160/4.5 mcg INHALER IH SCH ×2 (11:02→21:43)
[2020-08-02] MEDS: COLCHICINE 0.6 MG CAP PO SCH (11:02)
[2020-08-02] MEDS: ALBUTEROL SO4 HFA INHALER IH SCH ×3 (11:02→21:44)
[2020-08-02] MEDS: DULoxetine HCL 30 MG CAPSULE.DR PO SCH (11:03)
[2020-08-02] MEDS: NYSTATIN POWDER 100,000 UNITS/GM - 15 GM TOPICAL POWDER TP SCH ×2 (11:22→21:43)
[2020-08-02] MEDS ORDERED: DEXAMETHASONE 4 MG TABLET (FP) PO SCH (11:54)
[2020-08-02] MEDS: DEXAMETHASONE SOD PHOSPHATE 4 MG/1 ML VIAL IVPUSH SCH (11:55)
[2020-08-02] MEDS: DEXAMETHASONE 4 MG TABLET (FP) PO SCH (13:35)
[2020-08-02] MEDS: LIDOCAINE PATCH REMOVAL MC SCH (21:43)
[2020-08-02] MEDS: ATORVASTATIN CA 20 MG TABLET (FP) PO SCH (21:43)
[2020-08-03 09:33] LABS: BASO % 0.4 % (0-2.0); EOS % 0.1 % (0-4.5); HEMATOCRIT 41.8 % (32.4-45.2); HEMOGLOBIN 13.7 GM/dL (10.7-15.3); LYMPH % 10.4 % (8-40); MCH 27.8 pg (25.7-33.7); MCHC 32.7 g/dl (32.0-36.0); MEAN CELL VOLUME 85.1 fl (80-96); MEAN PLT VOLUME 9.3 fl (7.5-11.1); MONO % 6.7 % (3.8-10.2); NEUT % 82.4 % (42.8-82.8); PLATELET COUNT 188 K/MM3 (134-434); RBC 4.91 M/mm3 (3.60-5.2); RDW 19.8 % (11.6-15.6); WHITE BLOOD COUNT 11.6 K/mm3 (4.0-10.0)
[2020-08-03] MEDS: ZINC SULFATE 220 MG CAPSULE (FP) PO SCH ×2 (10:04→21:55)
[2020-08-03] MEDS: ASCORBIC ACID 500 MG TABLET (FP) PO SCH ×2 (10:04→21:55)
[2020-08-03] MEDS: MULTIVITAMINS THER W-MINERALS COMBO TABLET (FP) PO SCH (10:04)
[2020-08-03] MEDS: COLCHICINE 0.6 MG CAP PO SCH (10:05)
[2020-08-03] MEDS: FAMOTIDINE 20 MG TABLET PO SCH ×2 (10:05→21:55)
[2020-08-03] MEDS: DULoxetine HCL 30 MG CAPSULE.DR PO SCH (10:05)
[2020-08-03] MEDS: metoPROLOL SUCCINATE 25 MG TAB.SR.24H (FP) PO SCH (10:05)
[2020-08-03] MEDS: CHOLECALCIFEROL (VIT D3) 1,000 UNIT (25 MCG) TABLET PO SCH (10:05)
[2020-08-03] MEDS: APIXABAN 5 MG TABLET PO SCH ×2 (10:05→21:55)
[2020-08-03] MEDS: DEXAMETHASONE 4 MG TABLET (FP) PO SCH (10:05)
[2020-08-03] MEDS: BUDESONIDE/FORMETEROL FUMARATE 160/4.5 mcg INHALER IH SCH ×2 (10:06→21:55)
[2020-08-03] MEDS: LIDOCAINE 5% TOPICAL PATCH TP SCH (10:06)
[2020-08-03] MEDS: ALBUTEROL SO4 HFA INHALER IH SCH ×2 (10:06→21:55)
[2020-08-03] MEDS: NYSTATIN POWDER 100,000 UNITS/GM - 15 GM TOPICAL POWDER TP SCH ×2 (10:06→21:55)
[2020-08-03 10:09] LABS: ALBUMIN 2.9 g/dl (3.4-5.0); BLOOD UREA NITROGEN 17.7 mg/dL (7-18)
[2020-08-03 10:13] LABS: CREATININE 0.5 mg/dL (0.55-1.3)
[2020-08-03 10:14] LABS: BILIRUBIN,TOTAL 0.5 mg/dL (0.2-1); TOT PROT 5.7 g/dl (6.4-8.2)
[2020-08-03 13:05] LABS: ANISOCYTOSIS 0; MACROCYTOSIS 0; PLATELET ESTIMATE NORMAL
[2020-08-03] MEDS ORDERED: PT OWN MED DRAWER 7, Y5N ONE (20:35)
[2020-08-03] MEDS: ATORVASTATIN CA 20 MG TABLET (FP) PO SCH (21:55)
[2020-08-03] MEDS: LIDOCAINE PATCH REMOVAL MC SCH (21:55)
[2020-08-04] MEDS: ALBUTEROL SO4 HFA INHALER IH SCH ×4 (08:10→22:14)
[2020-08-04] MEDS: COLCHICINE 0.6 MG CAP PO SCH (11:04)
[2020-08-04] MEDS: DEXAMETHASONE 4 MG TABLET (FP) PO SCH (11:05)
[2020-08-04] MEDS: CHOLECALCIFEROL (VIT D3) 1,000 UNIT (25 MCG) TABLET PO SCH (11:05)
[2020-08-04] MEDS: ASCORBIC ACID 500 MG TABLET (FP) PO SCH ×2 (11:05→22:13)
[2020-08-04] MEDS: FAMOTIDINE 20 MG TABLET PO SCH ×2 (11:05→22:13)
[2020-08-04] MEDS: ZINC SULFATE 220 MG CAPSULE (FP) PO SCH ×2 (11:05→22:13)
[2020-08-04] MEDS: APIXABAN 5 MG TABLET PO SCH ×2 (11:05→22:13)
[2020-08-04] MEDS: BUDESONIDE/FORMETEROL FUMARATE 160/4.5 mcg INHALER IH SCH ×2 (11:05→22:13)
[2020-08-04] MEDS: MULTIVITAMINS THER W-MINERALS COMBO TABLET (FP) PO SCH (11:06)
[2020-08-04] MEDS: NYSTATIN POWDER 100,000 UNITS/GM - 15 GM TOPICAL POWDER TP SCH ×2 (11:07→22:14)
[2020-08-04] MEDS: metoPROLOL SUCCINATE 25 MG TAB.SR.24H (FP) PO SCH (11:07)
[2020-08-04] MEDS: LIDOCAINE 5% TOPICAL PATCH TP SCH (11:08)
[2020-08-04] MEDS: DULoxetine HCL 30 MG CAPSULE.DR PO SCH (11:14)
[2020-08-04] MEDS: ATORVASTATIN CA 20 MG TABLET (FP) PO SCH (22:13)
[2020-08-04] MEDS: ALPRAZolam 0.25 MG TABLET PO PRN (22:13)
[2020-08-04] MEDS: LIDOCAINE PATCH REMOVAL MC SCH (22:14)
[2020-08-05] MEDS ORDERED: metoPROLOL SUCCINATE 25 MG TAB.SR.24H (FP) PO ONE (05:32)
[2020-08-05] MEDS: ALBUTEROL SO4 HFA INHALER IH SCH ×4 (08:30→20:05)
[2020-08-05] MEDS ORDERED: PT OWN MED DRAWER 7, Y5N ONE (09:12)
[2020-08-05] MEDS: DULoxetine HCL 30 MG CAPSULE.DR PO SCH (09:39)
[2020-08-05] MEDS: FAMOTIDINE 20 MG TABLET PO SCH ×2 (09:40→21:05)
[2020-08-05] MEDS: DEXAMETHASONE 4 MG TABLET (FP) PO SCH (09:40)
[2020-08-05] MEDS: COLCHICINE 0.6 MG CAP PO SCH (09:40)
[2020-08-05] MEDS: ZINC SULFATE 220 MG CAPSULE (FP) PO SCH ×2 (09:40→21:05)
[2020-08-05] MEDS: CHOLECALCIFEROL (VIT D3) 1,000 UNIT (25 MCG) TABLET PO SCH (09:40)
[2020-08-05] MEDS: ASCORBIC ACID 500 MG TABLET (FP) PO SCH ×2 (09:40→21:05)
[2020-08-05] MEDS: MULTIVITAMINS THER W-MINERALS COMBO TABLET (FP) PO SCH (09:40)
[2020-08-05] MEDS: APIXABAN 5 MG TABLET PO SCH ×2 (09:40→21:05)
[2020-08-05] MEDS: NYSTATIN POWDER 100,000 UNITS/GM - 15 GM TOPICAL POWDER TP SCH ×2 (09:54→21:06)
[2020-08-05] MEDS: BUDESONIDE/FORMETEROL FUMARATE 160/4.5 mcg INHALER IH SCH ×2 (09:55→21:05)
[2020-08-05] MEDS: metoPROLOL SUCCINATE 25 MG TAB.SR.24H (FP) PO SCH (10:31)
[2020-08-05] MEDS: ATORVASTATIN CA 20 MG TABLET (FP) PO SCH (21:05)
[2020-08-05] MEDS: LIDOCAINE PATCH REMOVAL MC SCH (21:06)
[2020-08-06] MEDS: ALPRAZolam 0.25 MG TABLET PO PRN (02:31)
[2020-08-06] MEDS ORDERED: PT OWN MED DRAWER 7, Y5N ONE (09:34)
[2020-08-06] MEDS: LIDOCAINE 5% TOPICAL PATCH TP SCH (10:02)
[2020-08-06] MEDS: CHOLECALCIFEROL (VIT D3) 1,000 UNIT (25 MCG) TABLET PO SCH (10:03)
[2020-08-06] MEDS: APIXABAN 5 MG TABLET PO SCH ×2 (10:03→21:55)
[2020-08-06] MEDS: ZINC SULFATE 220 MG CAPSULE (FP) PO SCH ×2 (10:03→21:55)
[2020-08-06] MEDS: ASCORBIC ACID 500 MG TABLET (FP) PO SCH ×2 (10:03→21:55)
[2020-08-06] MEDS: DEXAMETHASONE 4 MG TABLET (FP) PO SCH (10:03)
[2020-08-06] MEDS: MULTIVITAMINS THER W-MINERALS COMBO TABLET (FP) PO SCH (10:03)
[2020-08-06] MEDS: DULoxetine HCL 30 MG CAPSULE.DR PO SCH (10:03)
[2020-08-06] MEDS: BUDESONIDE/FORMETEROL FUMARATE 160/4.5 mcg INHALER IH SCH ×2 (10:04→21:58)
[2020-08-06] MEDS: NYSTATIN POWDER 100,000 UNITS/GM - 15 GM TOPICAL POWDER TP SCH ×2 (10:04→21:58)
[2020-08-06] MEDS: COLCHICINE 0.6 MG CAP PO SCH (10:04)
[2020-08-06] MEDS: metoPROLOL SUCCINATE 25 MG TAB.SR.24H (FP) PO SCH (10:04)
[2020-08-06] MEDS: FAMOTIDINE 20 MG TABLET PO SCH ×2 (10:04→21:55)
[2020-08-06] MEDS: ALBUTEROL SO4 HFA INHALER IH SCH (20:00)
[2020-08-06] MEDS: ATORVASTATIN CA 20 MG TABLET (FP) PO SCH (21:55)
[2020-08-06] MEDS: LIDOCAINE PATCH REMOVAL MC SCH (21:58)
[2020-08-07] MEDS ORDERED: PT OWN MED DRAWER 7, Y5N ONE (09:54)
[2020-08-07] MEDS: LIDOCAINE 5% TOPICAL PATCH TP SCH (09:57)
[2020-08-07] MEDS: ZINC SULFATE 220 MG CAPSULE (FP) PO SCH ×2 (09:58→21:18)
[2020-08-07] MEDS: DULoxetine HCL 30 MG CAPSULE.DR PO SCH (09:58)
[2020-08-07] MEDS: DEXAMETHASONE 4 MG TABLET (FP) PO SCH (09:58)
[2020-08-07] MEDS: APIXABAN 5 MG TABLET PO SCH ×2 (09:58→21:18)
[2020-08-07] MEDS: FAMOTIDINE 20 MG TABLET PO SCH ×2 (09:58→21:18)
[2020-08-07] MEDS: ASCORBIC ACID 500 MG TABLET (FP) PO SCH ×2 (09:58→21:18)
[2020-08-07] MEDS: metoPROLOL SUCCINATE 25 MG TAB.SR.24H (FP) PO SCH (09:58)
[2020-08-07] MEDS: NYSTATIN POWDER 100,000 UNITS/GM - 15 GM TOPICAL POWDER TP SCH ×2 (09:59→22:18)
[2020-08-07] MEDS: CHOLECALCIFEROL (VIT D3) 1,000 UNIT (25 MCG) TABLET PO SCH (09:59)
[2020-08-07] MEDS: MULTIVITAMINS THER W-MINERALS COMBO TABLET (FP) PO SCH (09:59)
[2020-08-07] MEDS: BUDESONIDE/FORMETEROL FUMARATE 160/4.5 mcg INHALER IH SCH ×2 (09:59→21:19)
[2020-08-07] MEDS: COLCHICINE 0.6 MG CAP PO SCH (09:59)
[2020-08-07] MEDS: ALBUTEROL SO4 HFA INHALER IH SCH (21:18)
[2020-08-07] MEDS: LIDOCAINE PATCH REMOVAL MC SCH (21:18)
[2020-08-07] MEDS: ATORVASTATIN CA 20 MG TABLET (FP) PO SCH (21:18)
[2020-08-08] MEDS: ALBUTEROL SO4 HFA INHALER IH SCH ×7 (09:00→22:28)
[2020-08-08] MEDS ORDERED: PT OWN MED DRAWER 7, Y5N ONE (10:32)
[2020-08-08] MEDS: BUDESONIDE/FORMETEROL FUMARATE 160/4.5 mcg INHALER IH SCH ×3 (10:47→22:27)
[2020-08-08] MEDS: COLCHICINE 0.6 MG CAP PO SCH (10:47)
[2020-08-08] MEDS: MULTIVITAMINS THER W-MINERALS COMBO TABLET (FP) PO SCH (10:47)
[2020-08-08] MEDS: ZINC SULFATE 220 MG CAPSULE (FP) PO SCH ×2 (10:47→22:21)
[2020-08-08] MEDS: APIXABAN 5 MG TABLET PO SCH ×2 (10:48→22:21)
[2020-08-08] MEDS: DEXAMETHASONE 4 MG TABLET (FP) PO SCH (10:48)
[2020-08-08] MEDS: NYSTATIN POWDER 100,000 UNITS/GM - 15 GM TOPICAL POWDER TP SCH ×2 (10:48→22:21)
[2020-08-08] MEDS: FAMOTIDINE 20 MG TABLET PO SCH ×2 (10:48→22:21)
[2020-08-08] MEDS: CHOLECALCIFEROL (VIT D3) 1,000 UNIT (25 MCG) TABLET PO SCH (10:48)
[2020-08-08] MEDS: DULoxetine HCL 30 MG CAPSULE.DR PO SCH (10:48)
[2020-08-08] MEDS: metoPROLOL SUCCINATE 25 MG TAB.SR.24H (FP) PO SCH (10:49)
[2020-08-08] MEDS: ASCORBIC ACID 500 MG TABLET (FP) PO SCH ×2 (10:50→22:21)
[2020-08-08] MEDS: LIDOCAINE 5% TOPICAL PATCH TP SCH (11:07)
[2020-08-08] MEDS: LIDOCAINE PATCH REMOVAL MC SCH (22:21)
[2020-08-08] MEDS: ATORVASTATIN CA 20 MG TABLET (FP) PO SCH (22:21)
[2020-08-09] MEDS: ALBUTEROL SO4 HFA INHALER IH SCH ×5 (09:00→23:10)
[2020-08-09] MEDS ORDERED: PT OWN MED DRAWER 7, Y5N ONE (11:43)
[2020-08-09] MEDS: HYDROCHLOROTHIAZIDE 25 MG TABLET (FP) PO SCH (11:53)
[2020-08-09] MEDS: COLCHICINE 0.6 MG CAP PO SCH (11:53)
[2020-08-09] MEDS: DULoxetine HCL 30 MG CAPSULE.DR PO SCH (11:54)
[2020-08-09] MEDS: CHOLECALCIFEROL (VIT D3) 1,000 UNIT (25 MCG) TABLET PO SCH (11:54)
[2020-08-09] MEDS: FAMOTIDINE 20 MG TABLET PO SCH ×2 (11:54→23:09)
[2020-08-09] MEDS: DEXAMETHASONE 4 MG TABLET (FP) PO SCH (11:54)
[2020-08-09] MEDS: metoPROLOL SUCCINATE 25 MG TAB.SR.24H (FP) PO SCH (11:54)
[2020-08-09] MEDS: ZINC SULFATE 220 MG CAPSULE (FP) PO SCH ×2 (11:55→23:09)
[2020-08-09] MEDS: MULTIVITAMINS THER W-MINERALS COMBO TABLET (FP) PO SCH (11:55)
[2020-08-09] MEDS: APIXABAN 5 MG TABLET PO SCH ×2 (11:55→23:09)
[2020-08-09] MEDS: NYSTATIN POWDER 100,000 UNITS/GM - 15 GM TOPICAL POWDER TP SCH ×2 (11:55→23:09)
[2020-08-09] MEDS: BUDESONIDE/FORMETEROL FUMARATE 160/4.5 mcg INHALER IH SCH ×2 (11:55→23:10)
[2020-08-09] MEDS: ASCORBIC ACID 500 MG TABLET (FP) PO SCH ×2 (11:56→23:09)
[2020-08-09] MEDS: LIDOCAINE 5% TOPICAL PATCH TP SCH ×2 (12:18→20:56)
[2020-08-09] MEDS: LIDOCAINE PATCH REMOVAL MC SCH (23:09)
[2020-08-09] MEDS: ATORVASTATIN CA 20 MG TABLET (FP) PO SCH (23:09)
[2020-08-10] MEDS: ALBUTEROL SO4 HFA INHALER IH SCH ×4 (08:37→20:20)
[2020-08-10] MEDS ORDERED: PT OWN MED DRAWER 7, Y5N ONE (09:28)
[2020-08-10] MEDS: APIXABAN 5 MG TABLET PO SCH ×2 (09:36→21:20)
[2020-08-10] MEDS: CHOLECALCIFEROL (VIT D3) 1,000 UNIT (25 MCG) TABLET PO SCH (09:36)
[2020-08-10] MEDS: ZINC SULFATE 220 MG CAPSULE (FP) PO SCH ×2 (09:36→21:20)
[2020-08-10] MEDS: HYDROCHLOROTHIAZIDE 25 MG TABLET (FP) PO SCH (09:36)
[2020-08-10] MEDS: DULoxetine HCL 30 MG CAPSULE.DR PO SCH (09:36)
[2020-08-10] MEDS: FAMOTIDINE 20 MG TABLET PO SCH ×2 (09:36→21:20)
[2020-08-10] MEDS: metoPROLOL SUCCINATE 25 MG TAB.SR.24H (FP) PO SCH (09:36)
[2020-08-10] MEDS: MULTIVITAMINS THER W-MINERALS COMBO TABLET (FP) PO SCH (09:37)
[2020-08-10] MEDS: ASCORBIC ACID 500 MG TABLET (FP) PO SCH ×2 (09:37→21:20)
[2020-08-10] MEDS: DEXAMETHASONE 4 MG TABLET (FP) PO SCH (09:37)
[2020-08-10] MEDS: COLCHICINE 0.6 MG CAP PO SCH (09:38)
[2020-08-10] MEDS: NYSTATIN POWDER 100,000 UNITS/GM - 15 GM TOPICAL POWDER TP SCH ×2 (09:39→21:21)
[2020-08-10] MEDS: BUDESONIDE/FORMETEROL FUMARATE 160/4.5 mcg INHALER IH SCH ×2 (09:39→21:21)
[2020-08-10] MEDS: LIDOCAINE 5% TOPICAL PATCH TP SCH (09:50)
[2020-08-10] MEDS: ATORVASTATIN CA 20 MG TABLET (FP) PO SCH (21:20)
[2020-08-11] MEDS: LIDOCAINE PATCH REMOVAL MC SCH (06:01)
[2020-08-11] MEDS: ALBUTEROL SO4 HFA INHALER IH SCH ×4 (09:35→21:14)
[2020-08-11] MEDS: metoPROLOL SUCCINATE 25 MG TAB.SR.24H (FP) PO SCH (10:49)
[2020-08-11] MEDS: MULTIVITAMINS THER W-MINERALS COMBO TABLET (FP) PO SCH (10:50)
[2020-08-11] MEDS: APIXABAN 5 MG TABLET PO SCH ×2 (10:51→21:14)
[2020-08-11] MEDS: ASCORBIC ACID 500 MG TABLET (FP) PO SCH ×2 (10:51→21:14)
[2020-08-11] MEDS: FAMOTIDINE 20 MG TABLET PO SCH ×2 (10:51→21:14)
[2020-08-11] MEDS: CHOLECALCIFEROL (VIT D3) 1,000 UNIT (25 MCG) TABLET PO SCH (10:51)
[2020-08-11] MEDS: ZINC SULFATE 220 MG CAPSULE (FP) PO SCH ×2 (10:51→21:14)
[2020-08-11] MEDS: COLCHICINE 0.6 MG CAP PO SCH (10:52)
[2020-08-11] MEDS: DULoxetine HCL 30 MG CAPSULE.DR PO SCH (10:52)
[2020-08-11] MEDS: HYDROCHLOROTHIAZIDE 25 MG TABLET (FP) PO SCH (10:53)
[2020-08-11] MEDS: BUDESONIDE/FORMETEROL FUMARATE 160/4.5 mcg INHALER IH SCH ×2 (10:53→22:51)
[2020-08-11] MEDS: NYSTATIN POWDER 100,000 UNITS/GM - 15 GM TOPICAL POWDER TP SCH ×2 (10:53→21:15)
[2020-08-11] MEDS: DEXAMETHASONE 4 MG TABLET (FP) PO SCH (10:53)
[2020-08-11] MEDS: ATORVASTATIN CA 20 MG TABLET (FP) PO SCH (21:14)
[2020-08-12] MEDS: LIDOCAINE PATCH REMOVAL MC SCH ×2 (02:52→22:16)
[2020-08-12] MEDS: ALBUTEROL SO4 HFA INHALER IH SCH ×4 (08:45→22:15)
[2020-08-12] MEDS ORDERED: metoPROLOL SUCCINATE 25 MG TAB.SR.24H (FP) PO SCH (10:00)
[2020-08-12] MEDS ORDERED: PT OWN MED DRAWER 7, Y5N ONE (10:10)
[2020-08-12 10:37] LABS: BASO % 0.5 % (0-2.0); EOS % 1.4 % (0-4.5); HEMOGLOBIN 15.1 GM/dL (10.7-15.3); LYMPH % 17.4 % (8-40); MCH 28.2 pg (25.7-33.7); MCHC 32.8 g/dl (32.0-36.0); MEAN CELL VOLUME 86.1 fl (80-96); MONO % 7.5 % (3.8-10.2); NEUT % 73.2 % (42.8-82.8); PLATELET COUNT 183 K/MM3 (134-434); RBC 5.34 M/mm3 (3.60-5.2); RDW 20.7 % (11.6-15.6); WHITE BLOOD COUNT 13.8 K/mm3 (4.0-10.0)
[2020-08-12] MEDS: LIDOCAINE 5% TOPICAL PATCH TP SCH ×2 (10:45→10:48)
[2020-08-12] MEDS: DULoxetine HCL 30 MG CAPSULE.DR PO SCH (10:48)
[2020-08-12] MEDS: ZINC SULFATE 220 MG CAPSULE (FP) PO SCH ×2 (10:48→22:16)
[2020-08-12] MEDS: APIXABAN 5 MG TABLET PO SCH ×2 (10:48→22:16)
[2020-08-12] MEDS: MULTIVITAMINS THER W-MINERALS COMBO TABLET (FP) PO SCH (10:48)
[2020-08-12] MEDS: ASCORBIC ACID 500 MG TABLET (FP) PO SCH ×2 (10:48→22:16)
[2020-08-12] MEDS: HYDROCHLOROTHIAZIDE 25 MG TABLET (FP) PO SCH (10:48)
[2020-08-12] MEDS: NYSTATIN POWDER 100,000 UNITS/GM - 15 GM TOPICAL POWDER TP SCH ×2 (10:48→22:16)
[2020-08-12] MEDS: CHOLECALCIFEROL (VIT D3) 1,000 UNIT (25 MCG) TABLET PO SCH (10:48)
[2020-08-12] MEDS: DEXAMETHASONE 4 MG TABLET (FP) PO SCH (10:49)
[2020-08-12] MEDS: COLCHICINE 0.6 MG CAP PO SCH (10:49)
[2020-08-12] MEDS: FAMOTIDINE 20 MG TABLET PO SCH ×2 (10:50→22:17)
[2020-08-12] MEDS: BUDESONIDE/FORMETEROL FUMARATE 160/4.5 mcg INHALER IH SCH ×2 (10:50→22:17)
[2020-08-12 10:54] LABS: CALCIUM 9.1 mg/dL (8.5-10.1)
[2020-08-12 10:55] LABS: ALBUMIN 3.3 g/dl (3.4-5.0); BLOOD UREA NITROGEN 22.4 mg/dL (7-18)
[2020-08-12 10:58] LABS: CREATININE 0.6 mg/dL (0.55-1.3)
[2020-08-12 11:00] LABS: BILIRUBIN,TOTAL 0.6 mg/dL (0.2-1); TOT PROT 5.9 g/dl (6.4-8.2)
[2020-08-12 15:03] LABS: ANISOCYTOSIS 1+; MACROCYTOSIS 0; PLATELET ESTIMATE NORMAL; TEAR DROP CELLS 1+
[2020-08-12] MEDS ORDERED: POTASSIUM CHLORIDE TABS 10 MEQ TABLET.ER (FP) PO ONE (15:36)
[2020-08-12] MEDS ORDERED: metoPROLOL SUCCINATE 25 MG TAB.SR.24H (FP) PO ONE (21:40)
[2020-08-12] MEDS ORDERED: POTASSIUM CHLORIDE TABS 20 MEQ TABLET.ER (FP) PO ONE (21:41)
[2020-08-12] MEDS: ATORVASTATIN CA 20 MG TABLET (FP) PO SCH (22:16)
[2020-08-13] MEDS: ALBUTEROL SO4 HFA INHALER IH SCH ×4 (08:21→21:26)
[2020-08-13] MEDS: ASCORBIC ACID 500 MG TABLET (FP) PO SCH ×2 (09:08→21:27)
[2020-08-13] MEDS: APIXABAN 5 MG TABLET PO SCH ×2 (09:08→21:27)
[2020-08-13] MEDS: MULTIVITAMINS THER W-MINERALS COMBO TABLET (FP) PO SCH (09:08)
[2020-08-13] MEDS: CHOLECALCIFEROL (VIT D3) 1,000 UNIT (25 MCG) TABLET PO SCH (09:08)
[2020-08-13] MEDS: DEXAMETHASONE 4 MG TABLET (FP) PO SCH (09:09)
[2020-08-13] MEDS: COLCHICINE 0.6 MG CAP PO SCH (09:09)
[2020-08-13] MEDS: ZINC SULFATE 220 MG CAPSULE (FP) PO SCH ×2 (09:10→21:27)
[2020-08-13] MEDS: NYSTATIN POWDER 100,000 UNITS/GM - 15 GM TOPICAL POWDER TP SCH ×2 (09:10→21:28)
[2020-08-13] MEDS: FAMOTIDINE 20 MG TABLET PO SCH ×2 (09:10→21:28)
[2020-08-13] MEDS: BUDESONIDE/FORMETEROL FUMARATE 160/4.5 mcg INHALER IH SCH ×2 (09:10→21:28)
[2020-08-13] MEDS: HYDROCHLOROTHIAZIDE 25 MG TABLET (FP) PO SCH (09:19)
[2020-08-13] MEDS: LIDOCAINE 5% TOPICAL PATCH TP SCH (09:20)
[2020-08-13] MEDS: DULoxetine HCL 30 MG CAPSULE.DR PO SCH (09:56)
[2020-08-13] MEDS: LISINOPRIL 10 MG TABLET PO SCH (09:56)
[2020-08-13 10:17] LABS: BLOOD UREA NITROGEN 20.3 mg/dL (7-18); CALCIUM 9.2 mg/dL (8.5-10.1)
[2020-08-13 10:18] LABS: ALBUMIN 3.2 g/dl (3.4-5.0); MAGNESIUM 1.8 mg/dL (1.8-2.4)
[2020-08-13 10:21] LABS: CREATININE 0.5 mg/dL (0.55-1.3)
[2020-08-13 10:23] LABS: BILIRUBIN,TOTAL 0.6 mg/dL (0.2-1); TOT PROT 5.9 g/dl (6.4-8.2)
[2020-08-13 10:51] LABS: PHOSPHOROUS 3.5 mg/dL (2.5-4.9)
[2020-08-13] MEDS: CHLORTHALIDONE 25 MG TABLET PO SCH (10:57)
[2020-08-13] MEDS: LIDOCAINE PATCH REMOVAL MC SCH (21:27)
[2020-08-13] MEDS: ATORVASTATIN CA 20 MG TABLET (FP) PO SCH (21:27)
[2020-08-14] MEDS: ALBUTEROL SO4 HFA INHALER IH SCH ×4 (08:22→22:23)
[2020-08-14] MEDS: ZINC SULFATE 220 MG CAPSULE (FP) PO SCH ×2 (10:23→22:21)
[2020-08-14] MEDS: DEXAMETHASONE 4 MG TABLET (FP) PO SCH (10:23)
[2020-08-14] MEDS: MULTIVITAMINS THER W-MINERALS COMBO TABLET (FP) PO SCH (10:23)
[2020-08-14] MEDS: LIDOCAINE 5% TOPICAL PATCH TP SCH (10:24)
[2020-08-14] MEDS: APIXABAN 5 MG TABLET PO SCH ×2 (10:24→22:21)
[2020-08-14] MEDS: CHOLECALCIFEROL (VIT D3) 1,000 UNIT (25 MCG) TABLET PO SCH (10:24)
[2020-08-14] MEDS: CHLORTHALIDONE 25 MG TABLET PO SCH (10:24)
[2020-08-14] MEDS: NYSTATIN POWDER 100,000 UNITS/GM - 15 GM TOPICAL POWDER TP SCH ×2 (10:24→22:22)
[2020-08-14] MEDS: ASCORBIC ACID 500 MG TABLET (FP) PO SCH ×2 (10:24→22:21)
[2020-08-14] MEDS: DULoxetine HCL 30 MG CAPSULE.DR PO SCH (10:24)
[2020-08-14] MEDS: FAMOTIDINE 20 MG TABLET PO SCH ×2 (10:25→22:22)
[2020-08-14] MEDS: LISINOPRIL 10 MG TABLET PO SCH (10:25)
[2020-08-14] MEDS: BUDESONIDE/FORMETEROL FUMARATE 160/4.5 mcg INHALER IH SCH ×2 (10:25→22:24)
[2020-08-14] MEDS: ATORVASTATIN CA 20 MG TABLET (FP) PO SCH (22:21)
[2020-08-14] MEDS: LIDOCAINE PATCH REMOVAL MC SCH (22:23)
[2020-08-15] MEDS ORDERED: PT OWN MED DRAWER 7, Y5N ONE (09:25)
[2020-08-15] MEDS: LIDOCAINE 5% TOPICAL PATCH TP SCH (09:30)
[2020-08-15] MEDS: LISINOPRIL 10 MG TABLET PO SCH (09:30)
[2020-08-15] MEDS: DULoxetine HCL 30 MG CAPSULE.DR PO SCH (09:30)
[2020-08-15] MEDS: APIXABAN 5 MG TABLET PO SCH ×2 (09:30→21:29)
[2020-08-15] MEDS: MULTIVITAMINS THER W-MINERALS COMBO TABLET (FP) PO SCH (09:30)
[2020-08-15] MEDS: ASCORBIC ACID 500 MG TABLET (FP) PO SCH ×2 (09:31→21:29)
[2020-08-15] MEDS: ALBUTEROL SO4 HFA INHALER IH SCH ×4 (09:31→21:00)
[2020-08-15] MEDS: ZINC SULFATE 220 MG CAPSULE (FP) PO SCH ×2 (09:31→21:29)
[2020-08-15] MEDS: CHOLECALCIFEROL (VIT D3) 1,000 UNIT (25 MCG) TABLET PO SCH (09:31)
[2020-08-15] MEDS: CHLORTHALIDONE 25 MG TABLET PO SCH (09:32)
[2020-08-15] MEDS: FAMOTIDINE 20 MG TABLET PO SCH ×2 (09:32→21:29)
[2020-08-15] MEDS: DEXAMETHASONE 4 MG TABLET (FP) PO SCH (09:32)
[2020-08-15] MEDS: NYSTATIN POWDER 100,000 UNITS/GM - 15 GM TOPICAL POWDER TP SCH ×2 (09:32→21:42)
[2020-08-15] MEDS: BUDESONIDE/FORMETEROL FUMARATE 160/4.5 mcg INHALER IH SCH ×2 (09:32→21:30)
[2020-08-15] MEDS: ATORVASTATIN CA 20 MG TABLET (FP) PO SCH (21:29)
[2020-08-15] MEDS: LIDOCAINE PATCH REMOVAL MC SCH (21:38)
[2020-08-16] MEDS ORDERED: LISINOPRIL 10 MG TABLET PO SCH (06:05)
[2020-08-16] MEDS ORDERED: PT OWN MED DRAWER 7, Y5N ONE (09:37)
[2020-08-16] MEDS: APIXABAN 5 MG TABLET PO SCH (09:55)
[2020-08-16] MEDS: DULoxetine HCL 30 MG CAPSULE.DR PO SCH (09:55)
[2020-08-16] MEDS: ALBUTEROL SO4 HFA INHALER IH SCH ×3 (09:55→18:22)
[2020-08-16] MEDS: FAMOTIDINE 20 MG TABLET PO SCH (09:55)
[2020-08-16] MEDS: MULTIVITAMINS THER W-MINERALS COMBO TABLET (FP) PO SCH (09:55)
[2020-08-16] MEDS: CHLORTHALIDONE 25 MG TABLET PO SCH (09:55)
[2020-08-16] MEDS: ASCORBIC ACID 500 MG TABLET (FP) PO SCH (09:56)
[2020-08-16] MEDS: ZINC SULFATE 220 MG CAPSULE (FP) PO SCH (09:56)
[2020-08-16] MEDS: CHOLECALCIFEROL (VIT D3) 1,000 UNIT (25 MCG) TABLET PO SCH (09:56)
[2020-08-16] MEDS: LIDOCAINE 5% TOPICAL PATCH TP SCH (09:56)
[2020-08-16] MEDS: NYSTATIN POWDER 100,000 UNITS/GM - 15 GM TOPICAL POWDER TP SCH (09:56)
[2020-08-16] MEDS: DEXAMETHASONE 4 MG TABLET (FP) PO SCH (09:56)
[2020-08-16] MEDS: BUDESONIDE/FORMETEROL FUMARATE 160/4.5 mcg INHALER IH SCH (09:57)
[2020-08-16 11:41] LABS: CALCIUM 8.7 mg/dL (8.5-10.1)
[2020-08-16 11:42] LABS: ALBUMIN 3.3 g/dl (3.4-5.0); BLOOD UREA NITROGEN 20.5 mg/dL (7-18)
[2020-08-16 11:45] LABS: CREATININE 0.6 mg/dL (0.55-1.3)
[2020-08-16 11:46] LABS: BILIRUBIN,TOTAL 0.8 mg/dL (0.2-1)
[2020-08-16] MEDS ORDERED: POTASSIUM CHLORIDE TABS 20 MEQ TABLET.ER (FP) PO ONE (13:55)
[2020-08-16] MEDS ORDERED: ALPRAZolam 0.25 MG TABLET PO ONE (15:30)
[2020-08-16 20:48] VITALS: BP 133/71; PULSE 98; TEMP 97.5
== END 2020-08-16 20:22 | DRG 177 ==
LOC: JER 12:56 → JERBED 13:49 → J4W 06-20 04:13 → JICU 06-23 04:18 → J4W 07-08 21:19 → J5S 07-19 15:33
PROVIDERS: ADMIT Internal Medicine; ATTEND Internal Medicine
PROC: XW033E5 Introduction of Remdesivir Anti-infective into Peripheral Vein, Percutaneous Approach, New Technology Group 5 (ICD-10-PCS; 2020-06-19)
PROC: 8E0ZXY6 Isolation (ICD-10-PCS; 2020-06-19)
PROC: XW13325 Transfusion of Convalescent Plasma (Nonautologous) into Peripheral Vein, Percutaneous Approach, New Technology Group 5 (ICD-10-PCS; 2020-06-20)
PROC: XW033H5 Introduction of Tocilizumab into Peripheral Vein, Percutaneous Approach, New Technology Group 5 (ICD-10-PCS; principal; 2020-06-23)
PROC: 5A09557 Assistance with Respiratory Ventilation, Greater than 96 Consecutive Hours, Continuous Positive Airway Pressure (ICD-10-PCS; 2020-06-23)
DX: U07.1 COVID-19 (principal); J12.82 Pneumonia due to coronavirus disease 2019; J80 Acute respiratory distress syndrome; Z68.41 Body mass index [BMI] 40.0-44.9, adult; N17.9 Acute kidney failure, unspecified; I13.0 Hypertensive heart and chronic kidney disease with heart failure and stage 1 through stage 4 chronic kidney disease, or unspecified chronic kidney disease; N39.0 Urinary tract infection, site not specified; E87.0 Hyperosmolality and hypernatremia; J44.9 Chronic obstructive pulmonary disease, unspecified; Z88.0 Allergy status to penicillin; E66.01 Morbid (severe) obesity due to excess calories; I11.0 Hypertensive heart disease with heart failure; I50.9 Heart failure, unspecified; F41.9 Anxiety disorder, unspecified; Z86.711 Personal history of pulmonary embolism; Z85.3 Personal history of malignant neoplasm of breast; N18.9 Chronic kidney disease, unspecified; E86.0 Dehydration; E87.6 Hypokalemia; R73.03 Prediabetes; D69.6 Thrombocytopenia, unspecified; K59.00 Constipation, unspecified; R00.0 Tachycardia, unspecified
CPT/HCPCS: 36415; 36430; 36600; 70450-TC; 71045-TC-FY; 71275-TC; 80048; 80053; 80061; 80074; 81003; 82248; 82550; 82553; 82728; 82803; 82962; 83036; 83605; 83615; 83721; 83735; 83880; 84100; 84132; 84443; 84484; 85025; 85027; 85379; 85610; 85651; 85730; 86140; 86480; 86769; 86850; 86900; 86901; 87040; 87070; 87086; 87186; 87205; 87324; 87449; 87804; 87899; 93005; 93010; 93306-TC; 94010; 94660; 97116-GP; 97161-GP; 97163-GP; 99285-25; C9399; C9803; J0131; J3262; P9017; Q9967; U0003; U0005

== ENCOUNTER 2020-09-04 10:43 | Inpatient (IN) | payer OTHER ==
[2020-09-04 13:31] LABS: BASO % 0.4 % (0-2.0); EOS % 0.4 % (0-4.5); HEMATOCRIT 46.6 % (32.4-45.2); HEMOGLOBIN 15.8 GM/dL (10.7-15.3); MCH 28.9 pg (25.7-33.7); MEAN CELL VOLUME 85.2 fl (80-96); MEAN PLT VOLUME 9.1 fl (7.5-11.1); MONO % 6.1 % (3.8-10.2); NEUT % 82.1 % (42.8-82.8); PLATELET COUNT 266 K/MM3 (134-434); RBC 5.47 M/mm3 (3.60-5.2); RDW 19.5 % (11.6-15.6); WHITE BLOOD COUNT 19.2 K/mm3 (4.0-10.0)
[2020-09-04 13:42] LABS: INR 1.13 (0.83-1.09); PROTHROMBIN TIME (PATIENT) 13.6 SEC (9.7-13.0)
[2020-09-04 13:52] LABS: CHLORIDE 85 mmol/L (98-107); SODIUM 132 mmol/L (136-145)
[2020-09-04 13:55] LABS: CALCIUM 9.3 mg/dL (8.5-10.1)
[2020-09-04 13:56] LABS: ALBUMIN 3.4 g/dl (3.4-5.0); GLUCOSE,RANDOM 98 mg/dL (74-106)
[2020-09-04 13:59] LABS: CREATININE 0.6 mg/dL (0.55-1.3); SGOT/AST 36 U/L (15-37); SGPT/ALT 102 U/L (13-61)
[2020-09-04 14:00] LABS: BILIRUBIN,TOTAL 0.8 mg/dL (0.2-1)
[2020-09-04 14:01] LABS: TOT PROT 6.6 g/dl (6.4-8.2)
[2020-09-04 14:02] LABS: ALK PHOS 70 U/L (45-117)
[2020-09-04 14:04] LABS: ANISOCYTOSIS 1+; MACROCYTOSIS 0; PLATELET ESTIMATE NORMAL
[2020-09-04 14:21] LABS: ANION GAP 7 MMOL/L (8-16); CO2 40 mmol/L (21-32)
[2020-09-04] MEDS ORDERED: POTASSIUM CHLORIDE TABS 10 MEQ TABLET.ER (FP) PO ONE (14:24)
[2020-09-04] MEDS ORDERED: POTASSIUM CHLORIDE TABS 20 MEQ TABLET.ER (FP) PO ONE (14:36)
[2020-09-04 15:03] LABS: MAGNESIUM 1.8 mg/dL (1.8-2.4)
[2020-09-04] MEDS ORDERED: KCL 10 MEQ IVPB 30 MEQ/300 ML INFUS.BAG IVPB ONE (15:23)
[2020-09-04] MEDS: KCL 10 MEQ IVPB 10 MEQ/100 ML INFUS.BAG IVPB SCH ×3 (15:36→20:50)
[2020-09-04] MEDS: BUDESONIDE/FORMETEROL FUMARATE 160/4.5 mcg INHALER IH SCH (23:18)
[2020-09-04] MEDS: ZINC SULFATE 220 MG CAPSULE (FP) PO SCH (23:18)
[2020-09-04] MEDS: ASCORBIC ACID 500 MG TABLET (FP) PO SCH (23:18)
[2020-09-04] MEDS: APIXABAN 5 MG TABLET PO SCH (23:18)
[2020-09-04] MEDS: ATORVASTATIN CA 20 MG TABLET (FP) PO SCH (23:18)
[2020-09-05 07:43] LABS: BASO % 0.3 % (0-2.0); EOS % 0.9 % (0-4.5); HEMATOCRIT 43.2 % (32.4-45.2); HEMOGLOBIN 14.5 GM/dL (10.7-15.3); LYMPH % 14.4 % (8-40); MCH 28.8 pg (25.7-33.7); MCHC 33.6 g/dl (32.0-36.0); MEAN CELL VOLUME 85.7 fl (80-96); MEAN PLT VOLUME 8.6 fl (7.5-11.1); MONO % 5.9 % (3.8-10.2); NEUT % 78.5 % (42.8-82.8); PLATELET COUNT 210 K/MM3 (134-434); RBC 5.04 M/mm3 (3.60-5.2); RDW 19.4 % (11.6-15.6); WHITE BLOOD COUNT 15.2 K/mm3 (4.0-10.0)
[2020-09-05 08:00] LABS: CHLORIDE 90 mmol/L (98-107); SODIUM 136 mmol/L (136-145)
[2020-09-05 08:02] LABS: CALCIUM 8.3 mg/dL (8.5-10.1)
[2020-09-05 08:03] LABS: ANION GAP 6 MMOL/L (8-16); BLOOD UREA NITROGEN 22.1 mg/dL (7-18); CO2 39 mmol/L (21-32); GLUCOSE,RANDOM 95 mg/dL (74-106)
[2020-09-05 08:06] LABS: CREATININE 0.6 mg/dL (0.55-1.3); SGOT/AST 26 U/L (15-37); SGPT/ALT 82 U/L (13-61)
[2020-09-05 08:08] LABS: BILIRUBIN,TOTAL 0.8 mg/dL (0.2-1); TOT PROT 5.6 g/dl (6.4-8.2)
[2020-09-05 08:09] LABS: ALK PHOS 59 U/L (45-117)
[2020-09-05] MEDS ORDERED: FUROSEMIDE 40 MG/4 ML INJECTABLE VIAL IVPUSH SCH (10:00)
[2020-09-05] MEDS: ZINC SULFATE 220 MG CAPSULE (FP) PO SCH ×2 (10:58→21:48)
[2020-09-05] MEDS: LISINOPRIL 10 MG TABLET PO SCH (10:58)
[2020-09-05] MEDS: DEXAMETHASONE 4 MG TABLET (FP) PO SCH (10:58)
[2020-09-05] MEDS: APIXABAN 5 MG TABLET PO SCH ×2 (10:58→21:48)
[2020-09-05] MEDS: ASCORBIC ACID 500 MG TABLET (FP) PO SCH ×2 (10:58→21:48)
[2020-09-05] MEDS: PANTOPRAZOLE 40 MG TABLET PO SCH (10:58)
[2020-09-05] MEDS: POTASSIUM CHLORIDE TABS 20 MEQ TABLET.ER (FP) PO SCH ×2 (10:59→21:49)
[2020-09-05] MEDS: DULoxetine HCL 30 MG CAPSULE.DR PO SCH (10:59)
[2020-09-05] MEDS: TIOTROPIUM BROMIDE 2.5 MCG (SPIRIVA) RESPIMAT INHALER IH SCH (11:34)
[2020-09-05] MEDS: BUDESONIDE/FORMETEROL FUMARATE 160/4.5 mcg INHALER IH SCH ×2 (11:34→22:00)
[2020-09-05] MEDS: ALBUTEROL SO4 HFA INHALER IH SCH ×4 (11:35→20:00)
[2020-09-05 12:42] LABS: ANISOCYTOSIS 1+; MACROCYTOSIS 0; PLATELET ESTIMATE NORMAL
[2020-09-05] MEDS ORDERED: POTASSIUM CHLORIDE ORAL LIQUID 20 MEQ/15 ML PO ONE (14:25)
[2020-09-05] MEDS ORDERED: FUROSEMIDE 40 MG/4 ML INJECTABLE VIAL IVPUSH ONE (14:26)
[2020-09-05] MEDS: KCL 10 MEQ IVPB 10 MEQ/100 ML INFUS.BAG IVPB SCH ×3 (16:05→19:21)
[2020-09-05] MEDS: ATORVASTATIN CA 20 MG TABLET (FP) PO SCH (21:48)
[2020-09-06 07:16] LABS: BASO % 0.3 % (0-2.0); EOS % 0.7 % (0-4.5); HEMATOCRIT 43.6 % (32.4-45.2); HEMOGLOBIN 14.7 GM/dL (10.7-15.3); LYMPH % 13.6 % (8-40); MCH 29.2 pg (25.7-33.7); MCHC 33.8 g/dl (32.0-36.0); MEAN CELL VOLUME 86.6 fl (80-96); MEAN PLT VOLUME 8.6 fl (7.5-11.1); MONO % 6.3 % (3.8-10.2); NEUT % 79.1 % (42.8-82.8); PLATELET COUNT 226 K/MM3 (134-434); RBC 5.03 M/mm3 (3.60-5.2); RDW 19.6 % (11.6-15.6); WHITE BLOOD COUNT 17.2 K/mm3 (4.0-10.0)
[2020-09-06 07:39] LABS: ALBUMIN 2.9 g/dl (3.4-5.0); CALCIUM 8.5 mg/dL (8.5-10.1)
[2020-09-06 07:40] LABS: BLOOD UREA NITROGEN 20.4 mg/dL (7-18); MAGNESIUM 1.8 mg/dL (1.8-2.4)
[2020-09-06 07:43] LABS: BILIRUBIN,TOTAL 0.8 mg/dL (0.2-1); CREATININE 0.6 mg/dL (0.55-1.3); TOT PROT 5.7 g/dl (6.4-8.2)
[2020-09-06] MEDS: ALBUTEROL SO4 HFA INHALER IH SCH ×4 (08:44→21:21)
[2020-09-06 10:29] LABS: ANISOCYTOSIS 1+; PLATELET ESTIMATE NORMAL
[2020-09-06] MEDS ORDERED: PT OWN MED DRAWER 7, Y5N ONE (10:49)
[2020-09-06] MEDS: ASCORBIC ACID 500 MG TABLET (FP) PO SCH ×2 (10:50→21:48)
[2020-09-06] MEDS: DULoxetine HCL 30 MG CAPSULE.DR PO SCH (10:50)
[2020-09-06] MEDS: DEXAMETHASONE 4 MG TABLET (FP) PO SCH (10:50)
[2020-09-06] MEDS: LISINOPRIL 10 MG TABLET PO SCH (10:50)
[2020-09-06] MEDS: PANTOPRAZOLE 40 MG TABLET PO SCH (10:50)
[2020-09-06] MEDS: ZINC SULFATE 220 MG CAPSULE (FP) PO SCH ×2 (10:50→21:48)
[2020-09-06] MEDS: APIXABAN 5 MG TABLET PO SCH ×2 (10:50→21:48)
[2020-09-06] MEDS: FUROSEMIDE 40 MG/4 ML INJECTABLE VIAL IVPUSH SCH (10:50)
[2020-09-06] MEDS: TIOTROPIUM BROMIDE 2.5 MCG (SPIRIVA) RESPIMAT INHALER IH SCH (10:51)
[2020-09-06] MEDS: BUDESONIDE/FORMETEROL FUMARATE 160/4.5 mcg INHALER IH SCH ×2 (10:51→21:52)
[2020-09-06] MEDS: ACETAMINOPHEN 325 MG TABLET (FP) PO PRN ×2 (12:40→23:12)
[2020-09-06] MEDS: PREGABALIN 25 MG CAPSULE PO SCH ×2 (12:41→21:48)
[2020-09-06] MEDS: MINERAL OIL/PET HY-PHL TOPICAL OINTMENT 454 GM JAR TP SCH ×2 (17:14→21:52)
[2020-09-06] MEDS: NYSTATIN POWDER 100,000 UNITS/GM - 15 GM TOPICAL POWDER TP SCH ×2 (17:15→21:53)
[2020-09-06] MEDS: POTASSIUM CHLORIDE TABS 20 MEQ TABLET.ER (FP) PO SCH (17:16)
[2020-09-06] MEDS: ATORVASTATIN CA 20 MG TABLET (FP) PO SCH (21:48)
[2020-09-07 08:41] LABS: ALBUMIN 2.8 g/dl (3.4-5.0); CALCIUM 8.3 mg/dL (8.5-10.1)
[2020-09-07 08:42] LABS: BLOOD UREA NITROGEN 20.2 mg/dL (7-18)
[2020-09-07 08:45] LABS: CREATININE 0.5 mg/dL (0.55-1.3)
[2020-09-07 08:46] LABS: TOT PROT 5.4 g/dl (6.4-8.2)
[2020-09-07 08:47] LABS: BILIRUBIN,TOTAL 0.8 mg/dL (0.2-1)
[2020-09-07] MEDS: POTASSIUM CHLORIDE TABS 20 MEQ TABLET.ER (FP) PO SCH (09:21)
[2020-09-07] MEDS: DEXAMETHASONE 4 MG TABLET (FP) PO SCH (09:21)
[2020-09-07] MEDS: FUROSEMIDE 40 MG/4 ML INJECTABLE VIAL IVPUSH SCH (09:21)
[2020-09-07] MEDS: ZINC SULFATE 220 MG CAPSULE (FP) PO SCH ×2 (09:22→21:17)
[2020-09-07] MEDS: LISINOPRIL 10 MG TABLET PO SCH (09:22)
[2020-09-07] MEDS: APIXABAN 5 MG TABLET PO SCH ×2 (09:22→21:17)
[2020-09-07] MEDS: ALBUTEROL SO4 HFA INHALER IH SCH ×4 (09:23→21:23)
[2020-09-07] MEDS: MINERAL OIL/PET HY-PHL TOPICAL OINTMENT 454 GM JAR TP SCH ×2 (09:23→21:25)
[2020-09-07] MEDS: DULoxetine HCL 30 MG CAPSULE.DR PO SCH (09:24)
[2020-09-07] MEDS: PANTOPRAZOLE 40 MG TABLET PO SCH (09:24)
[2020-09-07] MEDS: PREGABALIN 25 MG CAPSULE PO SCH ×2 (09:24→21:20)
[2020-09-07] MEDS: ASCORBIC ACID 500 MG TABLET (FP) PO SCH ×2 (09:24→21:17)
[2020-09-07] MEDS: TIOTROPIUM BROMIDE 2.5 MCG (SPIRIVA) RESPIMAT INHALER IH SCH (09:25)
[2020-09-07] MEDS: BUDESONIDE/FORMETEROL FUMARATE 160/4.5 mcg INHALER IH SCH ×2 (09:25→21:23)
[2020-09-07] MEDS: NYSTATIN POWDER 100,000 UNITS/GM - 15 GM TOPICAL POWDER TP SCH ×2 (09:25→21:25)
[2020-09-07] MEDS: ATORVASTATIN CA 20 MG TABLET (FP) PO SCH (21:17)
[2020-09-08 07:50] LABS: BASO % 0.3 % (0-2.0); EOS % 1.9 % (0-4.5); HEMATOCRIT 41.4 % (32.4-45.2); HEMOGLOBIN 14.1 GM/dL (10.7-15.3); LYMPH % 14.8 % (8-40); MCH 29.1 pg (25.7-33.7); MEAN CELL VOLUME 85.7 fl (80-96); MEAN PLT VOLUME 8.4 fl (7.5-11.1); MONO % 6.3 % (3.8-10.2); NEUT % 76.7 % (42.8-82.8); PLATELET COUNT 207 K/MM3 (134-434); RBC 4.83 M/mm3 (3.60-5.2)
[2020-09-08 08:02] LABS: CALCIUM 8.3 mg/dL (8.5-10.1)
[2020-09-08 08:03] LABS: BLOOD UREA NITROGEN 17.9 mg/dL (7-18)
[2020-09-08 08:06] LABS: CREATININE 0.5 mg/dL (0.55-1.3)
[2020-09-08 08:07] LABS: BILIRUBIN,TOTAL 0.6 mg/dL (0.2-1); TOT PROT 5.6 g/dl (6.4-8.2)
[2020-09-08] MEDS ORDERED: PT OWN MED DRAWER 7, Y5N ONE (08:44)
[2020-09-08] MEDS: ALBUTEROL SO4 HFA INHALER IH SCH ×4 (08:57→20:41)
[2020-09-08] MEDS: LISINOPRIL 10 MG TABLET PO SCH (09:08)
[2020-09-08] MEDS: MINERAL OIL/PET HY-PHL TOPICAL OINTMENT 454 GM JAR TP SCH ×2 (09:08→21:25)
[2020-09-08] MEDS: ASCORBIC ACID 500 MG TABLET (FP) PO SCH ×2 (09:09→21:24)
[2020-09-08] MEDS: PANTOPRAZOLE 40 MG TABLET PO SCH (09:09)
[2020-09-08] MEDS: DEXAMETHASONE 4 MG TABLET (FP) PO SCH (09:09)
[2020-09-08] MEDS: ZINC SULFATE 220 MG CAPSULE (FP) PO SCH ×2 (09:09→21:24)
[2020-09-08] MEDS: APIXABAN 5 MG TABLET PO SCH ×2 (09:09→21:24)
[2020-09-08] MEDS: POTASSIUM CHLORIDE TABS 20 MEQ TABLET.ER (FP) PO SCH (09:10)
[2020-09-08] MEDS: DULoxetine HCL 30 MG CAPSULE.DR PO SCH (09:10)
[2020-09-08] MEDS: PREGABALIN 25 MG CAPSULE PO SCH ×2 (09:10→21:25)
[2020-09-08] MEDS: FUROSEMIDE 40 MG/4 ML INJECTABLE VIAL IVPUSH SCH (09:10)
[2020-09-08] MEDS: TIOTROPIUM BROMIDE 2.5 MCG (SPIRIVA) RESPIMAT INHALER IH SCH (09:11)
[2020-09-08] MEDS: NYSTATIN POWDER 100,000 UNITS/GM - 15 GM TOPICAL POWDER TP SCH ×2 (09:11→21:26)
[2020-09-08] MEDS: BUDESONIDE/FORMETEROL FUMARATE 160/4.5 mcg INHALER IH SCH ×2 (09:11→21:26)
[2020-09-08 10:10] LABS: ANISOCYTOSIS 1+; MACROCYTOSIS 0; PLATELET ESTIMATE NORMAL
[2020-09-08] MEDS: ATORVASTATIN CA 20 MG TABLET (FP) PO SCH (21:24)
[2020-09-09] MEDS: ALBUTEROL SO4 HFA INHALER IH SCH ×4 (08:03→20:57)
[2020-09-09] MEDS ORDERED: PT OWN MED DRAWER 7, Y5N ONE (09:25)
[2020-09-09] MEDS: DULoxetine HCL 30 MG CAPSULE.DR PO SCH (09:33)
[2020-09-09] MEDS: DEXAMETHASONE 4 MG TABLET (FP) PO SCH (09:34)
[2020-09-09] MEDS: LISINOPRIL 10 MG TABLET PO SCH (09:35)
[2020-09-09] MEDS: APIXABAN 5 MG TABLET PO SCH ×2 (09:35→22:01)
[2020-09-09] MEDS: PREGABALIN 25 MG CAPSULE PO SCH ×2 (09:35→22:01)
[2020-09-09] MEDS: ZINC SULFATE 220 MG CAPSULE (FP) PO SCH ×2 (09:35→22:01)
[2020-09-09] MEDS: FUROSEMIDE 40 MG/4 ML INJECTABLE VIAL IVPUSH SCH (09:36)
[2020-09-09] MEDS: PANTOPRAZOLE 40 MG TABLET PO SCH (09:36)
[2020-09-09] MEDS: BUDESONIDE/FORMETEROL FUMARATE 160/4.5 mcg INHALER IH SCH ×2 (09:36→22:03)
[2020-09-09] MEDS: ASCORBIC ACID 500 MG TABLET (FP) PO SCH ×2 (09:36→22:01)
[2020-09-09] MEDS: TIOTROPIUM BROMIDE 2.5 MCG (SPIRIVA) RESPIMAT INHALER IH SCH (09:36)
[2020-09-09] MEDS: MINERAL OIL/PET HY-PHL TOPICAL OINTMENT 454 GM JAR TP SCH ×2 (09:37→22:03)
[2020-09-09] MEDS: NYSTATIN POWDER 100,000 UNITS/GM - 15 GM TOPICAL POWDER TP SCH ×2 (09:37→22:03)
[2020-09-09] MEDS: FLUTICASONE PROP 0.05% 16 GM NASAL SPRAY NS SCH (12:02)
[2020-09-09] MEDS: LORATADINE 10 MG TABLET PO SCH (12:03)
[2020-09-09] MEDS: POTASSIUM CHLORIDE TABS 20 MEQ TABLET.ER (FP) PO SCH (15:27)
[2020-09-09] MEDS: ATORVASTATIN CA 20 MG TABLET (FP) PO SCH (22:01)
[2020-09-10 09:03] LABS: BASO % 0.5 % (0-2.0); EOS % 1.6 % (0-4.5); HEMATOCRIT 44.2 % (32.4-45.2); HEMOGLOBIN 14.9 GM/dL (10.7-15.3); LYMPH % 15.8 % (8-40); MCH 29.1 pg (25.7-33.7); MCHC 33.7 g/dl (32.0-36.0); MEAN CELL VOLUME 86.2 fl (80-96); MEAN PLT VOLUME 8.2 fl (7.5-11.1); MONO % 5.9 % (3.8-10.2); NEUT % 76.2 % (42.8-82.8); PLATELET COUNT 232 K/MM3 (134-434); RBC 5.13 M/mm3 (3.60-5.2); RDW 19.7 % (11.6-15.6); WHITE BLOOD COUNT 16.9 K/mm3 (4.0-10.0)
[2020-09-10 09:42] LABS: ANISOCYTOSIS 0; MACROCYTOSIS 0; PLATELET ESTIMATE NORMAL
[2020-09-10] MEDS: FUROSEMIDE 40 MG/4 ML INJECTABLE VIAL IVPUSH SCH (10:33)
[2020-09-10] MEDS: DEXAMETHASONE 4 MG TABLET (FP) PO SCH (10:33)
[2020-09-10] MEDS: POTASSIUM CHLORIDE TABS 20 MEQ TABLET.ER (FP) PO SCH (10:33)
[2020-09-10] MEDS: PREGABALIN 25 MG CAPSULE PO SCH ×2 (10:34→21:05)
[2020-09-10] MEDS: ASCORBIC ACID 500 MG TABLET (FP) PO SCH ×2 (10:34→21:05)
[2020-09-10] MEDS: DULoxetine HCL 30 MG CAPSULE.DR PO SCH (10:34)
[2020-09-10] MEDS: APIXABAN 5 MG TABLET PO SCH ×2 (10:35→21:05)
[2020-09-10] MEDS: LORATADINE 10 MG TABLET PO SCH (10:35)
[2020-09-10] MEDS: PANTOPRAZOLE 40 MG TABLET PO SCH (10:35)
[2020-09-10] MEDS: LISINOPRIL 10 MG TABLET PO SCH (10:35)
[2020-09-10] MEDS: ZINC SULFATE 220 MG CAPSULE (FP) PO SCH ×2 (10:35→21:05)
[2020-09-10] MEDS: BUDESONIDE/FORMETEROL FUMARATE 160/4.5 mcg INHALER IH SCH ×2 (10:36→21:06)
[2020-09-10] MEDS: TIOTROPIUM BROMIDE 2.5 MCG (SPIRIVA) RESPIMAT INHALER IH SCH (10:36)
[2020-09-10] MEDS: FLUTICASONE PROP 0.05% 16 GM NASAL SPRAY NS SCH (10:37)
[2020-09-10] MEDS: ALBUTEROL SO4 HFA INHALER IH SCH ×4 (10:37→21:05)
[2020-09-10 14:14] LABS: ALBUMIN 2.9 g/dl (3.4-5.0); BILIRUBIN,TOTAL 0.5 mg/dL (0.2-1); CALCIUM 8.4 mg/dL (8.5-10.1); CREATININE 0.5 mg/dL (0.55-1.3); MAGNESIUM 1.7 mg/dL (1.8-2.4); TOT PROT 5.7 g/dl (6.4-8.2)
[2020-09-10] MEDS: NYSTATIN POWDER 100,000 UNITS/GM - 15 GM TOPICAL POWDER TP SCH ×2 (16:31→21:07)
[2020-09-10] MEDS: MINERAL OIL/PET HY-PHL TOPICAL OINTMENT 454 GM JAR TP SCH ×2 (16:31→21:06)
[2020-09-10] MEDS: ATORVASTATIN CA 20 MG TABLET (FP) PO SCH (21:05)
[2020-09-11] MEDS: ACETAMINOPHEN 325 MG TABLET (FP) PO PRN (06:13)
[2020-09-11 07:51] LABS: CALCIUM 8.4 mg/dL (8.5-10.1)
[2020-09-11 07:52] LABS: ALBUMIN 2.8 g/dl (3.4-5.0)
[2020-09-11 07:54] LABS: CREATININE 0.5 mg/dL (0.55-1.3)
[2020-09-11 07:56] LABS: BILIRUBIN,TOTAL 0.8 mg/dL (0.2-1); TOT PROT 5.6 g/dl (6.4-8.2)
[2020-09-11] MEDS: ALBUTEROL SO4 HFA INHALER IH SCH ×4 (09:00→23:19)
[2020-09-11] MEDS: DULoxetine HCL 30 MG CAPSULE.DR PO SCH (10:41)
[2020-09-11 10:42] VITALS: BMI 39.9
[2020-09-11] MEDS: FUROSEMIDE 40 MG TABLET (FP) PO SCH (10:42)
[2020-09-11] MEDS: PANTOPRAZOLE 40 MG TABLET PO SCH (10:42)
[2020-09-11] MEDS: LISINOPRIL 10 MG TABLET PO SCH (10:42)
[2020-09-11] MEDS: ZINC SULFATE 220 MG CAPSULE (FP) PO SCH ×2 (10:45→23:20)
[2020-09-11] MEDS: ASCORBIC ACID 500 MG TABLET (FP) PO SCH ×2 (10:46→23:20)
[2020-09-11] MEDS: MINERAL OIL/PET HY-PHL TOPICAL OINTMENT 454 GM JAR TP SCH ×2 (10:46→23:19)
[2020-09-11] MEDS: LORATADINE 10 MG TABLET PO SCH (10:46)
[2020-09-11] MEDS: PREGABALIN 25 MG CAPSULE PO SCH ×2 (10:46→23:20)
[2020-09-11] MEDS: POTASSIUM CHLORIDE TABS 20 MEQ TABLET.ER (FP) PO SCH (10:47)
[2020-09-11] MEDS: DEXAMETHASONE 4 MG TABLET (FP) PO SCH (10:47)
[2020-09-11] MEDS: APIXABAN 5 MG TABLET PO SCH ×2 (10:47→23:20)
[2020-09-11] MEDS: TIOTROPIUM BROMIDE 2.5 MCG (SPIRIVA) RESPIMAT INHALER IH SCH (10:50)
[2020-09-11] MEDS: NYSTATIN POWDER 100,000 UNITS/GM - 15 GM TOPICAL POWDER TP SCH ×2 (10:50→23:20)
[2020-09-11] MEDS: FLUTICASONE PROP 0.05% 16 GM NASAL SPRAY NS SCH (10:50)
[2020-09-11] MEDS: BUDESONIDE/FORMETEROL FUMARATE 160/4.5 mcg INHALER IH SCH ×2 (10:50→23:20)
[2020-09-11] MEDS: AMINO ACIDS/PROTEIN HYDROLYS 30 ML LIQUID.PKT PO SCH (18:47)
[2020-09-11] MEDS ORDERED: PT OWN MED DRAWER 7, Y5N ONE (23:11)
[2020-09-11] MEDS: ATORVASTATIN CA 20 MG TABLET (FP) PO SCH (23:20)
[2020-09-12 07:04] VITALS: BP 136/90; PULSE 124; TEMP 98.3
[2020-09-12] MEDS: ALBUTEROL SO4 HFA INHALER IH SCH ×3 (08:20→18:39)
[2020-09-12] MEDS ORDERED: PT OWN MED DRAWER 7, Y5N ONE (09:29)
[2020-09-12] MEDS: ZINC SULFATE 220 MG CAPSULE (FP) PO SCH (09:30)
[2020-09-12] MEDS: MINERAL OIL/PET HY-PHL TOPICAL OINTMENT 454 GM JAR TP SCH (09:30)
[2020-09-12] MEDS: POTASSIUM CHLORIDE TABS 20 MEQ TABLET.ER (FP) PO SCH (09:30)
[2020-09-12] MEDS: LORATADINE 10 MG TABLET PO SCH (09:30)
[2020-09-12] MEDS: DULoxetine HCL 30 MG CAPSULE.DR PO SCH (09:30)
[2020-09-12] MEDS: LISINOPRIL 10 MG TABLET PO SCH (09:30)
[2020-09-12] MEDS: AMINO ACIDS/PROTEIN HYDROLYS 30 ML LIQUID.PKT PO SCH ×2 (09:30→18:40)
[2020-09-12] MEDS: FLUTICASONE PROP 0.05% 16 GM NASAL SPRAY NS SCH (09:31)
[2020-09-12] MEDS: APIXABAN 5 MG TABLET PO SCH (09:31)
[2020-09-12] MEDS: TIOTROPIUM BROMIDE 2.5 MCG (SPIRIVA) RESPIMAT INHALER IH SCH (09:31)
[2020-09-12] MEDS: PREGABALIN 25 MG CAPSULE PO SCH (09:31)
[2020-09-12] MEDS: PANTOPRAZOLE 40 MG TABLET PO SCH (09:31)
[2020-09-12] MEDS: BUDESONIDE/FORMETEROL FUMARATE 160/4.5 mcg INHALER IH SCH (09:31)
[2020-09-12] MEDS: ASCORBIC ACID 500 MG TABLET (FP) PO SCH (09:31)
[2020-09-12] MEDS: NYSTATIN POWDER 100,000 UNITS/GM - 15 GM TOPICAL POWDER TP SCH (09:31)
[2020-09-12] MEDS: FUROSEMIDE 40 MG TABLET (FP) PO SCH (09:31)
[2020-09-12] MEDS: DEXAMETHASONE 4 MG TABLET (FP) PO SCH (09:31)
[2020-09-12] MEDS ORDERED: MULTIVIT-MINERALS ORAL LIQUID PO SCH (10:00)
== END 2020-09-12 19:41 | disposition home health service (06) | DRG 177 ==
LOC: JER 10:43 → JERBED 15:16 → J8W 20:12
PROVIDERS: ADMIT Internal Medicine; ATTEND Internal Medicine
PROC: 0HBRXZZ Excision of Toe Nail, External Approach (ICD-10-PCS; principal; 2020-09-10)
DX: U07.1 COVID-19 (principal); J96.20 Acute and chronic respiratory failure, unspecified whether with hypoxia or hypercapnia; I50.33 Acute on chronic diastolic (congestive) heart failure; E87.1 Hypo-osmolality and hyponatremia; Z68.41 Body mass index [BMI] 40.0-44.9, adult; E78.5 Hyperlipidemia, unspecified; I10 Essential (primary) hypertension; G62.9 Polyneuropathy, unspecified; E87.6 Hypokalemia; E87.70 Fluid overload, unspecified; D64.9 Anemia, unspecified; Z85.3 Personal history of malignant neoplasm of breast; J44.9 Chronic obstructive pulmonary disease, unspecified; B35.1 Tinea unguium; E66.01 Morbid (severe) obesity due to excess calories; F41.8 Other specified anxiety disorders
CPT/HCPCS: 36415; 71045-TC-FY; 73630-TC-LT; 80053; 82550; 83735; 83880; 84484; 85025; 85379; 85610; 86850; 86900; 86901; 93005; 93010; 93970-TC; 94761; 97116-GP; 97161-GP; 99285-25; C9803; U0003; U0005

== ENCOUNTER 2020-12-01 21:35 | Inpatient (IN) | payer OTHER ==
[2020-12-01] MEDS ORDERED: FUROSEMIDE 40 MG/4 ML INJECTABLE VIAL IVPUSH ONE ×3 (22:08→23:10)
[2020-12-01] MEDS ORDERED: LACTATED RINGERS SOLUTION 1000 ML INFUS.BAG IV ONE ×2 (22:15→23:15)
[2020-12-01] MEDS ORDERED: FUROSEMIDE 40 MG/4 ML INJECTABLE VIAL ONE ×2 (22:16→23:17)
[2020-12-01 22:36] LABS: BASO % 1.1 % (0-2.0); EOS % 1.7 % (0-4.5); HEMATOCRIT 32.8 % (32.4-45.2); HEMOGLOBIN 10.5 GM/dL (10.7-15.3); MCH 28.4 pg (25.7-33.7); MCHC 32.1 g/dl (32.0-36.0); MEAN CELL VOLUME 88.5 fl (80-96); MEAN PLT VOLUME 9.1 fl (7.5-11.1); MONO % 5.2 % (3.8-10.2); PLATELET COUNT 244 10^3/uL (134-434); RDW 18.3 % (11.6-15.6); WHITE BLOOD COUNT 11.9 K/mm3 (4.0-10.0)
[2020-12-01 22:43] LABS: INR 1.38 (0.83-1.09); PROTHROMBIN TIME (PATIENT) 16.8 SEC (9.7-13.0)
[2020-12-01 22:57] LABS: CHLORIDE 105 mmol/L (98-107); SODIUM 147 mmol/L (136-145)
[2020-12-01 22:59] LABS: CALCIUM 8.5 mg/dL (8.5-10.1)
[2020-12-01 23:00] LABS: ANION GAP 7 MMOL/L (8-16); BLOOD UREA NITROGEN 15.9 mg/dL (7-18); CO2 35 mmol/L (21-32); GLUCOSE,RANDOM 121 mg/dL (74-106); MAGNESIUM 1.7 mg/dL (1.8-2.4)
[2020-12-01 23:03] LABS: CREATININE 0.9 mg/dL (0.55-1.3); SGOT/AST 17 U/L (15-37); SGPT/ALT 17 U/L (13-61)
[2020-12-01 23:04] LABS: BILIRUBIN,TOTAL 0.3 mg/dL (0.2-1); TOT PROT 6.9 g/dl (6.4-8.2)
[2020-12-01 23:06] LABS: ALK PHOS 85 U/L (45-117)
[2020-12-02 00:25] LABS: VENOUS BASE EXCESS 5.1 mmol/L (-2-2); VENOUS O2 SATURATION 77.8 % (70-80); VENOUS PH 7.209 (7.310-7.410)
[2020-12-02 00:26] LABS: VENOUS PCO2 91.5 mmHg (38-52)
[2020-12-02 02:14] LABS: ARTERIAL BLD GAS O2 SATURATION 99.3 % (95-98); ARTERIAL BLOOD GAS BASE EXCESS 2.8 mmol/L (-2-2); ARTERIAL BLOOD GAS PO2 239.6 mmHg (80-100)
[2020-12-02 02:16] LABS: ALLENS TEST POSITIVE
[2020-12-02 02:17] LABS: VENT MODE S/T; VENT RATE 16
[2020-12-02 02:19] LABS: ARTERIAL BLOOD GAS pH 7.167 (7.350-7.450)
[2020-12-02] MEDS ORDERED: ALBUTEROL SO4 2.5/IPRATROPIUM 0.5 INH SOL 3 ML VIAL.NEB. NEB ONE ×2 (02:56→03:26)
[2020-12-02] MEDS ORDERED: methylPREDNISolone NA SUCC 125 MG/2 ML VIAL IVPUSH ONE (02:57)
[2020-12-02] MEDS ORDERED: methylPREDNISolone NA SUCC 125 MG/2 ML VIAL ONE (03:52)
[2020-12-02] MEDS ORDERED: AZITHROMYCIN IVPB 500 MG/250 ML BAG IVPB ONE (04:08)
[2020-12-02 06:27] LABS: BASO % 0.8 % (0-2.0); EOS % 0.4 % (0-4.5); HEMATOCRIT 32.8 % (32.4-45.2); HEMOGLOBIN 10.3 GM/dL (10.7-15.3); LYMPH % 9.5 % (8-40); MCHC 31.5 g/dl (32.0-36.0); MEAN CELL VOLUME 92.2 fl (80-96); MONO % 7.7 % (3.8-10.2); NEUT % 81.6 % (42.8-82.8); PLATELET COUNT 259 10^3/uL (134-434); RBC 3.56 M/mm3 (3.60-5.2); RDW 18.4 % (11.6-15.6); WHITE BLOOD COUNT 14.3 K/mm3 (4.0-10.0)
[2020-12-02 06:40] LABS: INR 1.26 (0.83-1.09); PROTHROMBIN TIME (PATIENT) 15.4 SEC (9.7-13.0)
[2020-12-02 06:43] LABS: ACTIVATED PTT 31.9 SECONDS (25.2-36.5)
[2020-12-02 06:55] LABS: CHLORIDE 103 mmol/L (98-107); SODIUM 147 mmol/L (136-145)
[2020-12-02 06:56] LABS: CALCIUM 8.5 mg/dL (8.5-10.1)
[2020-12-02 06:57] LABS: ALBUMIN 3.4 g/dl (3.4-5.0); ANION GAP 8 MMOL/L (8-16); BLOOD UREA NITROGEN 15.2 mg/dL (7-18); CO2 37 mmol/L (21-32); GLUCOSE,RANDOM 115 mg/dL (74-106); MAGNESIUM 1.7 mg/dL (1.8-2.4)
[2020-12-02] MEDS ORDERED: ALBUTEROL SO4 2.5/IPRATROPIUM 0.5 INH SOL 3 ML VIAL.NEB. NEB PRN (06:58)
[2020-12-02 07:00] LABS: CREATININE 0.9 mg/dL (0.55-1.3); PHOSPHOROUS 6.9 mg/dL (2.5-4.9); SGOT/AST 31 U/L (15-37); SGPT/ALT 29 U/L (13-61)
[2020-12-02 07:01] LABS: BILIRUBIN,TOTAL 0.4 mg/dL (0.2-1)
[2020-12-02 07:02] LABS: TOT PROT 7.8 g/dl (6.4-8.2)
[2020-12-02 07:03] LABS: ALK PHOS 100 U/L (45-117)
[2020-12-02] MEDS ORDERED: MAGNESIUM SULF 50% (8.12 MEQ/2 ML-1 GM VIAL) IVPB ONE (08:16)
[2020-12-02] MEDS ORDERED: MAGNESIUM OXIDE 400 MG TABLET (FP) PO ONE (08:23)
[2020-12-02] MEDS ORDERED: PT OWN MED DRAWER 7, Y5N ONE (09:15)
[2020-12-02] MEDS: MUPIROCIN 2% TOPICAL OINTMENT FOR DECOLONIZATION NS SCH ×2 (09:16→21:48)
[2020-12-02] MEDS: PANTOPRAZOLE 40 MG TABLET PO SCH (09:17)
[2020-12-02] MEDS: PREGABALIN 25 MG CAPSULE PO SCH ×2 (09:17→21:48)
[2020-12-02] MEDS: DULoxetine HCL 30 MG CAPSULE.DR PO SCH (09:17)
[2020-12-02] MEDS: methylPREDNISolone NA SUCC 40 MG/1 ML VIAL IVPUSH SCH ×2 (09:41→17:23)
[2020-12-02] MEDS ORDERED: AZITHROMYCIN IVPB 250 MG in DEXTROSE 5%-WATER - 250 ML IVPB SCH (10:00)
[2020-12-02] MEDS ORDERED: FUROSEMIDE 40 MG/4 ML INJECTABLE VIAL IVPUSH SCH (10:00)
[2020-12-02] MEDS ORDERED: APIXABAN 5 MG TABLET PO SCH (10:00)
[2020-12-02] MEDS ORDERED: TIOTROPIUM BROMIDE 2.5 MCG (SPIRIVA) RESPIMAT INHALER IH SCH (10:00)
[2020-12-02] MEDS ORDERED: ENOXAPARIN NA (PORCINE) 40 MG/0.4 ML DISP.SYRIN SQ SCH (10:00)
[2020-12-02] MEDS: BUDESONIDE/FORMETEROL FUMARATE 160/4.5 mcg INHALER IH SCH ×2 (10:08→21:48)
[2020-12-02 10:24] LABS: ALLENS TEST POSITIVE; ARTERIAL BLOOD GAS BASE EXCESS 7.2 mmol/L (-2-2); ARTERIAL BLOOD GAS PO2 98.9 mmHg (80-100); ARTERIAL BLOOD GAS pH 7.507 (7.350-7.450)
[2020-12-02 10:25] LABS: PT'S TEMP 98.6; VENT RATE 20
[2020-12-02] MEDS ORDERED: METOPROLOL TARTRATE 5 MG/5 ML VIAL IVPUSH PRN (10:30)
[2020-12-02] MEDS: ALBUTEROL SO4 2.5/IPRATROPIUM 0.5 INH SOL 3 ML VIAL.NEB. NEB SCH ×3 (11:37→20:06)
[2020-12-02] MEDS: ENOXAPARIN NA (PORCINE) 40 MG/0.4 ML DISP.SYRIN SQ SCH (12:37)
[2020-12-02] MEDS: FUROSEMIDE 40 MG/4 ML INJECTABLE VIAL IVPUSH SCH (14:10)
[2020-12-02] MEDS ORDERED: DEXTROSE 5%-WATER 100 ML IVPB ONE (16:51)
[2020-12-02] MEDS: CEFTRIAXONE 2 GM in DEXTROSE 5%-WATER 2 GM/100 ML BAG IVPB SCH (17:22)
[2020-12-02] MEDS: ATORVASTATIN CA 20 MG TABLET (FP) PO SCH (21:48)
[2020-12-02] MEDS: CHLORHEXIDINE GLUCONATE 4% CLEANSER FOR DECOLONIZATION TP SCH (21:48)
[2020-12-02] MEDS ORDERED: LACTATED RINGERS SOLUTION 1000 ML INFUS.BAG IV ONE (22:45)
[2020-12-02] MEDS ORDERED: MORPHINE SULFATE 2 MG/ML VIAL IVPUSH ONE (23:14)
[2020-12-02] MEDS ORDERED: diphenhydrAMINE HCL 25 MG CAPSULE (FP) PO ONE (23:25)
[2020-12-03] MEDS: methylPREDNISolone NA SUCC 40 MG/1 ML VIAL IVPUSH SCH ×3 (02:05→17:05)
[2020-12-03] MEDS: FUROSEMIDE 40 MG/4 ML INJECTABLE VIAL IVPUSH SCH ×2 (06:53→10:05)
[2020-12-03 07:13] LABS: BASO % 0.2 % (0-2.0); HEMATOCRIT 31.3 % (32.4-45.2); HEMOGLOBIN 9.9 GM/dL (10.7-15.3); LYMPH % 6.6 % (8-40); MCH 28.9 pg (25.7-33.7); MCHC 31.7 g/dl (32.0-36.0); MEAN CELL VOLUME 91.3 fl (80-96); MEAN PLT VOLUME 9.6 fl (7.5-11.1); MONO % 4.9 % (3.8-10.2); NEUT % 88.3 % (42.8-82.8); PLATELET COUNT 236 10^3/uL (134-434); RBC 3.43 M/mm3 (3.60-5.2); RDW 18.3 % (11.6-15.6); WHITE BLOOD COUNT 10.6 K/mm3 (4.0-10.0)
[2020-12-03 07:33] LABS: BLOOD UREA NITROGEN 19.1 mg/dL (7-18); CALCIUM 8.2 mg/dL (8.5-10.1)
[2020-12-03 07:34] LABS: MAGNESIUM 2.1 mg/dL (1.8-2.4)
[2020-12-03 07:36] LABS: CREATININE 0.7 mg/dL (0.55-1.3)
[2020-12-03 07:37] LABS: BILIRUBIN,TOTAL 0.2 mg/dL (0.2-1); PHOSPHOROUS 3.6 mg/dL (2.5-4.9)
[2020-12-03] MEDS: ALBUTEROL SO4 2.5/IPRATROPIUM 0.5 INH SOL 3 ML VIAL.NEB. NEB SCH ×4 (08:16→20:49)
[2020-12-03] MEDS ORDERED: PT OWN MED DRAWER 7, Y5N ONE (09:03)
[2020-12-03] MEDS ORDERED: DEXTROSE 5%-WATER 100 ML IVPB ONE (09:04)
[2020-12-03] MEDS: CEFTRIAXONE 2 GM in DEXTROSE 5%-WATER 2 GM/100 ML BAG IVPB SCH (09:13)
[2020-12-03] MEDS: ENOXAPARIN NA (PORCINE) 40 MG/0.4 ML DISP.SYRIN SQ SCH (09:14)
[2020-12-03] MEDS: DULoxetine HCL 30 MG CAPSULE.DR PO SCH (09:14)
[2020-12-03] MEDS: AZITHROMYCIN IVPB 500 MG/250 ML BAG IVPB SCH (09:14)
[2020-12-03] MEDS: PANTOPRAZOLE 40 MG TABLET PO SCH (09:14)
[2020-12-03] MEDS: PREGABALIN 25 MG CAPSULE PO SCH ×2 (09:14→22:21)
[2020-12-03] MEDS: MUPIROCIN 2% TOPICAL OINTMENT FOR DECOLONIZATION NS SCH ×2 (09:16→22:22)
[2020-12-03] MEDS: BUDESONIDE/FORMETEROL FUMARATE 160/4.5 mcg INHALER IH SCH ×2 (09:16→22:22)
[2020-12-03 09:28] LABS: ALLENS TEST POSITIVE; ARTERIAL BLD GAS O2 SATURATION 92.7 % (95-98); ARTERIAL BLOOD GAS BASE EXCESS 12.5 mmol/L (-2-2); ARTERIAL BLOOD GAS PO2 66.9 mmHg (80-100); ARTERIAL BLOOD GAS pH 7.405 (7.350-7.450)
[2020-12-03] MEDS: ARIPiprazole 5 MG TABLET PO SCH (10:05)
[2020-12-03] MEDS: ATORVASTATIN CA 20 MG TABLET (FP) PO SCH (22:21)
[2020-12-03] MEDS: CHLORHEXIDINE GLUCONATE 4% CLEANSER FOR DECOLONIZATION TP SCH (22:22)
[2020-12-04] MEDS: methylPREDNISolone NA SUCC 40 MG/1 ML VIAL IVPUSH SCH ×3 (01:08→16:59)
[2020-12-04 03:05] LABS: ARTERIAL BLOOD GAS BASE EXCESS 9.1 mmol/L (-2-2); ARTERIAL BLOOD GAS PO2 89.2 mmHg (80-100); ARTERIAL BLOOD GAS pH 7.341 (7.350-7.450)
[2020-12-04 03:06] LABS: ALLENS TEST POSITIVE
[2020-12-04 03:07] LABS: VENT MODE NON INVASIVE; VENT RATE 14
[2020-12-04 04:35] LABS: ARTERIAL BLD GAS O2 SATURATION 96.7 % (95-98); ARTERIAL BLOOD GAS BASE EXCESS 13.8 mmol/L (-2-2); ARTERIAL BLOOD GAS pH 7.345 (7.350-7.450)
[2020-12-04 04:45] LABS: ALLENS TEST POSITIVE; VENT MODE S/T
[2020-12-04 04:46] LABS: VENT RATE 14
[2020-12-04] MEDS ORDERED: methylPREDNISolone NA SUCC 125 MG/2 ML VIAL IVPUSH ONE (04:51)
[2020-12-04 07:31] LABS: BASO % 0.2 % (0-2.0); HEMATOCRIT 32.4 % (32.4-45.2); HEMOGLOBIN 10.3 GM/dL (10.7-15.3); LYMPH % 5.9 % (8-40); MCH 28.6 pg (25.7-33.7); MCHC 31.8 g/dl (32.0-36.0); MEAN PLT VOLUME 9.4 fl (7.5-11.1); MONO % 4.7 % (3.8-10.2); NEUT % 89.2 % (42.8-82.8); PLATELET COUNT 249 10^3/uL (134-434); RDW 18.2 % (11.6-15.6); WHITE BLOOD COUNT 11.6 K/mm3 (4.0-10.0)
[2020-12-04 07:49] LABS: CALCIUM 8.8 mg/dL (8.5-10.1)
[2020-12-04 07:50] LABS: ALBUMIN 3.3 g/dl (3.4-5.0); BLOOD UREA NITROGEN 24.6 mg/dL (7-18); MAGNESIUM 2.2 mg/dL (1.8-2.4)
[2020-12-04 07:53] LABS: CREATININE 0.7 mg/dL (0.55-1.3); PHOSPHOROUS 3.6 mg/dL (2.5-4.9)
[2020-12-04 07:55] LABS: BILIRUBIN,TOTAL 0.3 mg/dL (0.2-1); TOT PROT 7.4 g/dl (6.4-8.2)
[2020-12-04] MEDS: ALBUTEROL SO4 2.5/IPRATROPIUM 0.5 INH SOL 3 ML VIAL.NEB. NEB SCH ×4 (08:00→19:48)
[2020-12-04 08:50] LABS: ARTERIAL BLD GAS O2 SATURATION 91.2 % (95-98); ARTERIAL BLOOD GAS BASE EXCESS 12.5 mmol/L (-2-2); ARTERIAL BLOOD GAS PO2 63.6 mmHg (80-100); ARTERIAL BLOOD GAS pH 7.385 (7.350-7.450)
[2020-12-04 08:59] LABS: ALLENS TEST POSITIVE
[2020-12-04 09:02] LABS: VENT MODE S/T
[2020-12-04 09:04] LABS: VENT RATE 20
[2020-12-04] MEDS ORDERED: DEXTROSE 5%-WATER 100 ML IVPB ONE (09:14)
[2020-12-04] MEDS: FUROSEMIDE 40 MG/4 ML INJECTABLE VIAL IVPUSH SCH (09:17)
[2020-12-04] MEDS: CEFTRIAXONE 2 GM in DEXTROSE 5%-WATER 2 GM/100 ML BAG IVPB SCH (09:23)
[2020-12-04] MEDS: AZITHROMYCIN IVPB 500 MG/250 ML BAG IVPB SCH (09:24)
[2020-12-04] MEDS: PREGABALIN 25 MG CAPSULE PO SCH ×2 (09:29→22:14)
[2020-12-04] MEDS: PANTOPRAZOLE 40 MG TABLET PO SCH (09:29)
[2020-12-04] MEDS: ARIPiprazole 5 MG TABLET PO SCH (09:29)
[2020-12-04] MEDS: ENOXAPARIN NA (PORCINE) 40 MG/0.4 ML DISP.SYRIN SQ SCH (09:29)
[2020-12-04] MEDS: DULoxetine HCL 30 MG CAPSULE.DR PO SCH (09:29)
[2020-12-04] MEDS: BUDESONIDE/FORMETEROL FUMARATE 160/4.5 mcg INHALER IH SCH ×2 (09:30→22:15)
[2020-12-04] MEDS: MUPIROCIN 2% TOPICAL OINTMENT FOR DECOLONIZATION NS SCH ×2 (09:31→22:15)
[2020-12-04] MEDS ORDERED: POTASSIUM CHLORIDE TABS 20 MEQ TABLET.ER (FP) PO ONE (14:00)
[2020-12-04] MEDS ORDERED: METOPROLOL TARTRATE 5 MG/5 ML VIAL IVPUSH PRN (14:35)
[2020-12-04] MEDS ORDERED: LORazepam 2 MG/ML SDV VIAL IVPUSH ONE (15:00)
[2020-12-04] MEDS ORDERED: HALOPERIDOL LACTATE 5 MG/ML IM ONE (16:42)
[2020-12-04 17:59] LABS: ALLENS TEST POSITIVE; ARTERIAL BLD GAS O2 SATURATION 95.4 % (95-98); ARTERIAL BLOOD GAS BASE EXCESS 14.7 mmol/L (-2-2); ARTERIAL BLOOD GAS PO2 77.4 mmHg (80-100); ARTERIAL BLOOD GAS pH 7.432 (7.350-7.450)
[2020-12-04 18:01] LABS: VENT MODE S/T; VENT RATE 20
[2020-12-04] MEDS: ATORVASTATIN CA 20 MG TABLET (FP) PO SCH (22:14)
[2020-12-04] MEDS: CHLORHEXIDINE GLUCONATE 4% CLEANSER FOR DECOLONIZATION TP SCH (22:15)
[2020-12-05] MEDS ORDERED: HALOPERIDOL LACTATE 5 MG/ML IM ONE (00:27)
[2020-12-05] MEDS ORDERED: QUEtiapine FUMARATE 25 MG TABLET PO ONE (00:34)
[2020-12-05] MEDS: methylPREDNISolone NA SUCC 40 MG/1 ML VIAL IVPUSH SCH ×3 (01:03→17:01)
[2020-12-05] MEDS: ALBUTEROL SO4 2.5/IPRATROPIUM 0.5 INH SOL 3 ML VIAL.NEB. NEB SCH ×4 (08:35→20:00)
[2020-12-05] MEDS ORDERED: DEXTROSE 5%-WATER 100 ML IVPB ONE (09:09)
[2020-12-05] MEDS: MUPIROCIN 2% TOPICAL OINTMENT FOR DECOLONIZATION NS SCH ×2 (09:11→21:05)
[2020-12-05] MEDS: ARIPiprazole 5 MG TABLET PO SCH (09:11)
[2020-12-05] MEDS: PANTOPRAZOLE 40 MG TABLET PO SCH (09:11)
[2020-12-05] MEDS: ENOXAPARIN NA (PORCINE) 40 MG/0.4 ML DISP.SYRIN SQ SCH (09:11)
[2020-12-05] MEDS: DULoxetine HCL 30 MG CAPSULE.DR PO SCH (09:11)
[2020-12-05] MEDS: PREGABALIN 25 MG CAPSULE PO SCH ×2 (09:11→21:05)
[2020-12-05] MEDS: FUROSEMIDE 40 MG/4 ML INJECTABLE VIAL IVPUSH SCH (09:12)
[2020-12-05] MEDS: BUDESONIDE/FORMETEROL FUMARATE 160/4.5 mcg INHALER IH SCH ×2 (09:12→21:11)
[2020-12-05] MEDS: AZITHROMYCIN IVPB 500 MG/250 ML BAG IVPB SCH (09:13)
[2020-12-05] MEDS: CEFTRIAXONE 2 GM in DEXTROSE 5%-WATER 2 GM/100 ML BAG IVPB SCH (09:14)
[2020-12-05 11:06] LABS: HEMATOCRIT 35.3 % (32.4-45.2); HEMOGLOBIN 11.3 GM/dL (10.7-15.3); LYMPH % 9.1 % (8-40); MCH 28.9 pg (25.7-33.7); MCHC 32.1 g/dl (32.0-36.0); MEAN CELL VOLUME 90.2 fl (80-96); MEAN PLT VOLUME 9.8 fl (7.5-11.1); MONO % 8.7 % (3.8-10.2); NEUT % 82.2 % (42.8-82.8); PLATELET COUNT 251 10^3/uL (134-434); RBC 3.91 M/mm3 (3.60-5.2); RDW 17.9 % (11.6-15.6); WHITE BLOOD COUNT 7.7 K/mm3 (4.0-10.0)
[2020-12-05 11:31] LABS: ALBUMIN 3.3 g/dl (3.4-5.0)
[2020-12-05 11:32] LABS: BLOOD UREA NITROGEN 25.9 mg/dL (7-18); MAGNESIUM 2.6 mg/dL (1.8-2.4)
[2020-12-05 11:36] LABS: CREATININE 0.7 mg/dL (0.55-1.3); PHOSPHOROUS 3.8 mg/dL (2.5-4.9)
[2020-12-05 11:37] LABS: BILIRUBIN,TOTAL 0.3 mg/dL (0.2-1); TOT PROT 7.1 g/dl (6.4-8.2)
[2020-12-05] MEDS: QUEtiapine FUMARATE 25 MG TABLET PO SCH ×2 (12:29→21:05)
[2020-12-05] MEDS ORDERED: LORazepam 2 MG/ML SDV VIAL ONE (17:06)
[2020-12-05] MEDS ORDERED: LORazepam 2 MG/ML SDV VIAL IVPUSH ONE ×2 (17:09→20:05)
[2020-12-05] MEDS: LORazepam 2 MG/ML SDV VIAL IVPUSH PRN (18:28)
[2020-12-05] MEDS: ATORVASTATIN CA 20 MG TABLET (FP) PO SCH (21:05)
[2020-12-05] MEDS: CHLORHEXIDINE GLUCONATE 4% CLEANSER FOR DECOLONIZATION TP SCH (21:05)
[2020-12-06] MEDS: LORazepam 2 MG/ML SDV VIAL IVPUSH PRN ×2 (00:26→04:20)
[2020-12-06] MEDS: methylPREDNISolone NA SUCC 40 MG/1 ML VIAL IVPUSH SCH ×3 (02:45→17:00)
[2020-12-06 08:15] LABS: HEMATOCRIT 37.3 % (32.4-45.2); MCH 28.9 pg (25.7-33.7); MCHC 32.1 g/dl (32.0-36.0); MEAN CELL VOLUME 89.8 fl (80-96); MEAN PLT VOLUME 9.3 fl (7.5-11.1); PLATELET COUNT 232 10^3/uL (134-434); RBC 4.16 M/mm3 (3.60-5.2); RDW 17.4 % (11.6-15.6); WHITE BLOOD COUNT 6.9 K/mm3 (4.0-10.0)
[2020-12-06] MEDS: ALBUTEROL SO4 2.5/IPRATROPIUM 0.5 INH SOL 3 ML VIAL.NEB. NEB SCH ×4 (08:15→20:10)
[2020-12-06 08:34] LABS: CALCIUM 8.7 mg/dL (8.5-10.1)
[2020-12-06 08:35] LABS: MAGNESIUM 2.5 mg/dL (1.8-2.4)
[2020-12-06 08:37] LABS: ALBUMIN 3.1 g/dl (3.4-5.0); BLOOD UREA NITROGEN 25.9 mg/dL (7-18)
[2020-12-06 08:39] LABS: CREATININE 0.7 mg/dL (0.55-1.3)
[2020-12-06 08:40] LABS: PHOSPHOROUS 4.3 mg/dL (2.5-4.9); TOT PROT 6.9 g/dl (6.4-8.2)
[2020-12-06 08:42] LABS: BILIRUBIN,TOTAL 0.3 mg/dL (0.2-1)
[2020-12-06] MEDS ORDERED: DEXTROSE 5%-WATER 100 ML IVPB ONE (09:03)
[2020-12-06] MEDS: CEFTRIAXONE 2 GM in DEXTROSE 5%-WATER 2 GM/100 ML BAG IVPB SCH (09:53)
[2020-12-06] MEDS: AZITHROMYCIN IVPB 500 MG/250 ML BAG IVPB SCH (09:53)
[2020-12-06] MEDS: ENOXAPARIN NA (PORCINE) 40 MG/0.4 ML DISP.SYRIN SQ SCH (09:57)
[2020-12-06 10:19] LABS: ARTERIAL BLD GAS O2 SATURATION 96.2 % (95-98); ARTERIAL BLOOD GAS BASE EXCESS 16.9 mmol/L (-2-2); ARTERIAL BLOOD GAS PO2 92.9 mmHg (80-100); ARTERIAL BLOOD GAS pH 7.348 (7.350-7.450)
[2020-12-06 10:21] LABS: ALLENS TEST POSITIVE; VENT MODE S/T; VENT RATE 20
[2020-12-06] MEDS: ARIPiprazole 5 MG TABLET PO SCH (11:44)
[2020-12-06] MEDS: DULoxetine HCL 30 MG CAPSULE.DR PO SCH (11:45)
[2020-12-06] MEDS: PANTOPRAZOLE 40 MG TABLET PO SCH (11:45)
[2020-12-06] MEDS: PREGABALIN 25 MG CAPSULE PO SCH ×2 (11:45→21:31)
[2020-12-06] MEDS: MUPIROCIN 2% TOPICAL OINTMENT FOR DECOLONIZATION NS SCH ×2 (11:45→21:32)
[2020-12-06] MEDS: BUDESONIDE/FORMETEROL FUMARATE 160/4.5 mcg INHALER IH SCH ×2 (11:46→21:31)
[2020-12-06] MEDS: QUEtiapine FUMARATE 25 MG TABLET PO SCH ×2 (11:46→21:31)
[2020-12-06] MEDS ORDERED: PT OWN MED DRAWER 7, Y5N ONE (16:22)
[2020-12-06] MEDS: ATORVASTATIN CA 20 MG TABLET (FP) PO SCH (21:31)
[2020-12-06] MEDS: CHLORHEXIDINE GLUCONATE 4% CLEANSER FOR DECOLONIZATION TP SCH (21:32)
[2020-12-07] MEDS: methylPREDNISolone NA SUCC 40 MG/1 ML VIAL IVPUSH SCH ×3 (02:15→18:13)
[2020-12-07 07:28] LABS: BASO % 0.2 % (0-2.0); EOS % 0.1 % (0-4.5); HEMATOCRIT 39.8 % (32.4-45.2); HEMOGLOBIN 12.5 GM/dL (10.7-15.3); LYMPH % 9.4 % (8-40); MCH 28.4 pg (25.7-33.7); MCHC 31.5 g/dl (32.0-36.0); MEAN CELL VOLUME 90.2 fl (80-96); MEAN PLT VOLUME 9.8 fl (7.5-11.1); MONO % 6.5 % (3.8-10.2); NEUT % 83.8 % (42.8-82.8); PLATELET COUNT 217 10^3/uL (134-434); RBC 4.42 M/mm3 (3.60-5.2); RDW 17.2 % (11.6-15.6); WHITE BLOOD COUNT 8.7 K/mm3 (4.0-10.0)
[2020-12-07 07:52] LABS: ALBUMIN 3.1 g/dl (3.4-5.0); BLOOD UREA NITROGEN 25.1 mg/dL (7-18); CALCIUM 8.9 mg/dL (8.5-10.1)
[2020-12-07 07:53] LABS: MAGNESIUM 2.8 mg/dL (1.8-2.4)
[2020-12-07 07:55] LABS: CREATININE 0.6 mg/dL (0.55-1.3)
[2020-12-07 07:57] LABS: BILIRUBIN,TOTAL 0.3 mg/dL (0.2-1); TOT PROT 6.8 g/dl (6.4-8.2)
[2020-12-07] MEDS: ALBUTEROL SO4 2.5/IPRATROPIUM 0.5 INH SOL 3 ML VIAL.NEB. NEB SCH ×4 (08:10→20:10)
[2020-12-07] MEDS ORDERED: DEXTROSE 5%-WATER 100 ML IVPB ONE (08:58)
[2020-12-07] MEDS ORDERED: PT OWN MED DRAWER 7, Y5N ONE ×2 (08:58→15:02)
[2020-12-07] MEDS: CEFTRIAXONE 2 GM in DEXTROSE 5%-WATER 2 GM/100 ML BAG IVPB SCH (09:25)
[2020-12-07] MEDS: DULoxetine HCL 30 MG CAPSULE.DR PO SCH (09:25)
[2020-12-07] MEDS: PREGABALIN 25 MG CAPSULE PO SCH ×2 (09:25→22:05)
[2020-12-07] MEDS: ENOXAPARIN NA (PORCINE) 40 MG/0.4 ML DISP.SYRIN SQ SCH (09:25)
[2020-12-07] MEDS: PANTOPRAZOLE 40 MG TABLET PO SCH (09:25)
[2020-12-07] MEDS: ARIPiprazole 5 MG TABLET PO SCH (09:25)
[2020-12-07] MEDS: MUPIROCIN 2% TOPICAL OINTMENT FOR DECOLONIZATION NS SCH ×2 (09:25→22:04)
[2020-12-07] MEDS: QUEtiapine FUMARATE 25 MG TABLET PO SCH ×2 (09:26→22:05)
[2020-12-07] MEDS: AZITHROMYCIN IVPB 500 MG/250 ML BAG IVPB SCH (09:26)
[2020-12-07] MEDS: KCL 10 MEQ IVPB 10 MEQ/100 ML INFUS.BAG IVPB SCH ×3 (10:19→12:58)
[2020-12-07] MEDS: BUDESONIDE/FORMETEROL FUMARATE 160/4.5 mcg INHALER IH SCH ×2 (11:19→22:06)
[2020-12-07] MEDS: FUROSEMIDE 40 MG/4 ML INJECTABLE VIAL IVPUSH SCH (11:19)
[2020-12-07] MEDS ORDERED: VANCOMYCIN/WATER BAGS 1,250 MG/250 ML BAG IVPB SCH (13:15)
[2020-12-07] MEDS: VANCOMYCIN/WATER BAGS 1,250 MG/250 ML BAG IVPB SCH (15:20)
[2020-12-07 16:11] LABS: CHLORIDE 98 mmol/L (98-107); SODIUM 149 mmol/L (136-145)
[2020-12-07 16:13] LABS: CALCIUM 8.6 mg/dL (8.5-10.1)
[2020-12-07 16:14] LABS: BLOOD UREA NITROGEN 22.4 mg/dL (7-18); GLUCOSE,RANDOM 146 mg/dL (74-106)
[2020-12-07 16:17] LABS: CREATININE 0.6 mg/dL (0.55-1.3)
[2020-12-07 16:57] LABS: ANION GAP 6 MMOL/L (8-16); CO2 > 45 mmol/L (21-32)
[2020-12-07 17:10] LABS: CHLORIDE 100 mmol/L (98-107); SODIUM 150 mmol/L (136-145)
[2020-12-07 17:11] LABS: CALCIUM 8.2 mg/dL (8.5-10.1)
[2020-12-07 17:12] LABS: BLOOD UREA NITROGEN 22.8 mg/dL (7-18); GLUCOSE,RANDOM 137 mg/dL (74-106)
[2020-12-07 17:16] LABS: CREATININE 0.6 mg/dL (0.55-1.3)
[2020-12-07 17:18] LABS: ANION GAP 5 MMOL/L (8-16); CO2 > 45 mmol/L (21-32)
[2020-12-07] MEDS: CHLORHEXIDINE GLUCONATE 4% CLEANSER FOR DECOLONIZATION TP SCH (22:05)
[2020-12-07] MEDS: ATORVASTATIN CA 20 MG TABLET (FP) PO SCH (22:05)
[2020-12-08] MEDS: VANCOMYCIN/WATER BAGS 1,250 MG/250 ML BAG IVPB SCH (02:19)
[2020-12-08] MEDS: methylPREDNISolone NA SUCC 40 MG/1 ML VIAL IVPUSH SCH ×3 (02:20→17:32)
[2020-12-08] MEDS: DEXTROSE 5%-WATER - 1,000 ML IV SCH ×2 (02:39→08:30)
[2020-12-08] MEDS ORDERED: PT OWN MED DRAWER 7, Y5N ONE (03:05)
[2020-12-08 06:51] LABS: BASO % 0.1 % (0-2.0); HEMATOCRIT 38.5 % (32.4-45.2); HEMOGLOBIN 12.5 GM/dL (10.7-15.3); MCH 28.8 pg (25.7-33.7); MCHC 32.5 g/dl (32.0-36.0); MEAN CELL VOLUME 88.6 fl (80-96); MEAN PLT VOLUME 9.2 fl (7.5-11.1); MONO % 6.8 % (3.8-10.2); NEUT % 86.1 % (42.8-82.8); PLATELET COUNT 229 10^3/uL (134-434); RBC 4.34 M/mm3 (3.60-5.2); RDW 17.1 % (11.6-15.6); WHITE BLOOD COUNT 9.2 K/mm3 (4.0-10.0)
[2020-12-08 07:04] LABS: CHLORIDE 98 mmol/L (98-107); SODIUM 148 mmol/L (136-145)
[2020-12-08 07:14] LABS: CALCIUM 8.6 mg/dL (8.5-10.1)
[2020-12-08 07:15] LABS: ALBUMIN 2.8 g/dl (3.4-5.0); BLOOD UREA NITROGEN 25.2 mg/dL (7-18); GLUCOSE,RANDOM 143 mg/dL (74-106); MAGNESIUM 2.5 mg/dL (1.8-2.4)
[2020-12-08 07:18] LABS: CREATININE 0.7 mg/dL (0.55-1.3); PHOSPHOROUS 3.3 mg/dL (2.5-4.9); SGOT/AST 13 U/L (15-37)
[2020-12-08 07:19] LABS: BILIRUBIN,TOTAL 0.4 mg/dL (0.2-1); SGPT/ALT 30 U/L (13-61)
[2020-12-08 07:20] LABS: TOT PROT 6.1 g/dl (6.4-8.2)
[2020-12-08 07:21] LABS: ALK PHOS 65 U/L (45-117)
[2020-12-08 07:34] LABS: ANION GAP 5 MMOL/L (8-16); CO2 > 45 mmol/L (21-32)
[2020-12-08] MEDS: ALBUTEROL SO4 2.5/IPRATROPIUM 0.5 INH SOL 3 ML VIAL.NEB. NEB SCH ×4 (08:11→20:11)
[2020-12-08] MEDS ORDERED: KCL 10 MEQ IVPB 10 MEQ/100 ML INFUS.BAG IVPB SCH (08:15)
[2020-12-08] MEDS ORDERED: DEXTROSE 5%-WATER 100 ML IVPB ONE (09:09)
[2020-12-08] MEDS: CEFTRIAXONE 2 GM in DEXTROSE 5%-WATER 2 GM/100 ML BAG IVPB SCH (09:34)
[2020-12-08] MEDS: KCL 10 MEQ IVPB 10 MEQ/100 ML INFUS.BAG IVPB SCH ×2 (09:34→10:36)
[2020-12-08] MEDS: PANTOPRAZOLE 40 MG TABLET PO SCH (09:40)
[2020-12-08] MEDS: DULoxetine HCL 30 MG CAPSULE.DR PO SCH (09:41)
[2020-12-08] MEDS: ARIPiprazole 5 MG TABLET PO SCH (09:41)
[2020-12-08] MEDS: PREGABALIN 25 MG CAPSULE PO SCH ×2 (09:41→22:30)
[2020-12-08] MEDS: ENOXAPARIN NA (PORCINE) 40 MG/0.4 ML DISP.SYRIN SQ SCH (09:42)
[2020-12-08] MEDS: FUROSEMIDE 40 MG/4 ML INJECTABLE VIAL IVPUSH SCH (09:42)
[2020-12-08] MEDS: QUEtiapine FUMARATE 25 MG TABLET PO SCH ×2 (09:42→22:30)
[2020-12-08] MEDS: BUDESONIDE/FORMETEROL FUMARATE 160/4.5 mcg INHALER IH SCH ×2 (10:21→22:30)
[2020-12-08] MEDS: MUPIROCIN 2% TOPICAL OINTMENT FOR DECOLONIZATION NS SCH ×2 (10:21→22:30)
[2020-12-08] MEDS: AZITHROMYCIN IVPB 500 MG/250 ML BAG IVPB SCH (10:50)
[2020-12-08 21:05] LABS: CALCIUM 8.3 mg/dL (8.5-10.1)
[2020-12-08 21:07] LABS: ALBUMIN 2.8 g/dl (3.4-5.0); BLOOD UREA NITROGEN 25.2 mg/dL (7-18)
[2020-12-08 21:10] LABS: CREATININE 0.8 mg/dL (0.55-1.3)
[2020-12-08 21:11] LABS: BILIRUBIN,TOTAL 0.3 mg/dL (0.2-1); TOT PROT 6.3 g/dl (6.4-8.2)
[2020-12-08 22:13] LABS: ALBUMIN 2.7 g/dl (3.4-5.0)
[2020-12-08 22:14] LABS: BLOOD UREA NITROGEN 24.7 mg/dL (7-18)
[2020-12-08 22:16] LABS: CREATININE 0.8 mg/dL (0.55-1.3)
[2020-12-08 22:17] LABS: BILIRUBIN,TOTAL 0.3 mg/dL (0.2-1)
[2020-12-08 22:27] LABS: CALCIUM 8.3 mg/dL (8.5-10.1)
[2020-12-08] MEDS: CHLORHEXIDINE GLUCONATE 4% CLEANSER FOR DECOLONIZATION TP SCH (22:30)
[2020-12-08] MEDS: ATORVASTATIN CA 20 MG TABLET (FP) PO SCH (22:30)
[2020-12-08] MEDS ORDERED: POTASSIUM CHLORIDE TABS 20 MEQ TABLET.ER (FP) PO ONE (23:17)
[2020-12-09] MEDS: methylPREDNISolone NA SUCC 40 MG/1 ML VIAL IVPUSH SCH ×3 (02:00→17:10)
[2020-12-09 07:52] LABS: HEMATOCRIT 39.1 % (32.4-45.2); HEMOGLOBIN 12.8 GM/dL (10.7-15.3); MCH 28.8 pg (25.7-33.7); MCHC 32.6 g/dl (32.0-36.0); MEAN CELL VOLUME 88.2 fl (80-96); MEAN PLT VOLUME 9.7 fl (7.5-11.1); PLATELET COUNT 222 10^3/uL (134-434); RBC 4.44 M/mm3 (3.60-5.2); WHITE BLOOD COUNT 9.8 K/mm3 (4.0-10.0)
[2020-12-09 08:21] LABS: CALCIUM 8.3 mg/dL (8.5-10.1)
[2020-12-09 08:22] LABS: ALBUMIN 2.6 g/dl (3.4-5.0); BLOOD UREA NITROGEN 24.4 mg/dL (7-18); MAGNESIUM 1.9 mg/dL (1.8-2.4)
[2020-12-09 08:25] LABS: CREATININE 0.5 mg/dL (0.55-1.3); PHOSPHOROUS 2.2 mg/dL (2.5-4.9)
[2020-12-09 08:26] LABS: BILIRUBIN,TOTAL 0.3 mg/dL (0.2-1); TOT PROT 5.7 g/dl (6.4-8.2)
[2020-12-09] MEDS ORDERED: POTASSIUM CHLORIDE TABS 20 MEQ TABLET.ER (FP) PO ONE ×2 (08:30→20:30)
[2020-12-09] MEDS ORDERED: DEXTROSE 5%-WATER 100 ML IVPB ONE (08:31)
[2020-12-09] MEDS: ALBUTEROL SO4 2.5/IPRATROPIUM 0.5 INH SOL 3 ML VIAL.NEB. NEB SCH ×4 (09:04→20:34)
[2020-12-09] MEDS: CEFTRIAXONE 2 GM in DEXTROSE 5%-WATER 2 GM/100 ML BAG IVPB SCH (09:50)
[2020-12-09] MEDS: AZITHROMYCIN IVPB 500 MG/250 ML BAG IVPB SCH (09:50)
[2020-12-09] MEDS: DULoxetine HCL 30 MG CAPSULE.DR PO SCH (09:51)
[2020-12-09] MEDS: PANTOPRAZOLE 40 MG TABLET PO SCH (09:52)
[2020-12-09] MEDS: ENOXAPARIN NA (PORCINE) 40 MG/0.4 ML DISP.SYRIN SQ SCH (09:52)
[2020-12-09] MEDS: PREGABALIN 25 MG CAPSULE PO SCH ×2 (09:52→22:52)
[2020-12-09] MEDS: FUROSEMIDE 40 MG/4 ML INJECTABLE VIAL IVPUSH SCH (09:52)
[2020-12-09] MEDS: ARIPiprazole 5 MG TABLET PO SCH (09:52)
[2020-12-09] MEDS: QUEtiapine FUMARATE 25 MG TABLET PO SCH ×2 (09:53→22:51)
[2020-12-09] MEDS: BUDESONIDE/FORMETEROL FUMARATE 160/4.5 mcg INHALER IH SCH ×2 (10:51→22:52)
[2020-12-09] MEDS: MUPIROCIN 2% TOPICAL OINTMENT FOR DECOLONIZATION NS SCH (10:52)
[2020-12-09] MEDS ORDERED: KCL 10 MEQ IVPB 10 MEQ/100 ML INFUS.BAG IVPB SCH (13:50)
[2020-12-09] MEDS: NAPH,MB-DB/K PH,MBDB POWDER PACKET PO SCH ×2 (15:58→22:52)
[2020-12-09] MEDS: CHLORHEXIDINE GLUCONATE 4% CLEANSER FOR DECOLONIZATION TP SCH (22:52)
[2020-12-09] MEDS: ATORVASTATIN CA 20 MG TABLET (FP) PO SCH (22:52)
[2020-12-10] MEDS: methylPREDNISolone NA SUCC 40 MG/1 ML VIAL IVPUSH SCH ×3 (02:00→17:59)
[2020-12-10 07:01] LABS: BASO % 0.2 % (0-2.0); EOS % 0.1 % (0-4.5); HEMATOCRIT 40.7 % (32.4-45.2); HEMOGLOBIN 13.3 GM/dL (10.7-15.3); MCH 28.8 pg (25.7-33.7); MCHC 32.7 g/dl (32.0-36.0); MEAN CELL VOLUME 88.1 fl (80-96); MEAN PLT VOLUME 9.7 fl (7.5-11.1); MONO % 7.8 % (3.8-10.2); NEUT % 84.9 % (42.8-82.8); PLATELET COUNT 220 10^3/uL (134-434); RBC 4.62 M/mm3 (3.60-5.2); RDW 17.4 % (11.6-15.6); WHITE BLOOD COUNT 9.6 K/mm3 (4.0-10.0)
[2020-12-10 07:26] LABS: CALCIUM 8.4 mg/dL (8.5-10.1)
[2020-12-10 07:27] LABS: ALBUMIN 2.7 g/dl (3.4-5.0)
[2020-12-10 07:31] LABS: BILIRUBIN,TOTAL 0.3 mg/dL (0.2-1); CREATININE 0.6 mg/dL (0.55-1.3); PHOSPHOROUS 3.2 mg/dL (2.5-4.9)
[2020-12-10 07:32] LABS: TOT PROT 5.8 g/dl (6.4-8.2)
[2020-12-10] MEDS: ALBUTEROL SO4 2.5/IPRATROPIUM 0.5 INH SOL 3 ML VIAL.NEB. NEB SCH ×4 (08:05→20:10)
[2020-12-10] MEDS ORDERED: POTASSIUM CHLORIDE TABS 20 MEQ TABLET.ER (FP) PO ONE (08:06)
[2020-12-10] MEDS ORDERED: DEXTROSE 5%-WATER 100 ML IVPB ONE (09:55)
[2020-12-10] MEDS: FUROSEMIDE 40 MG/4 ML INJECTABLE VIAL IVPUSH SCH ×2 (10:01→10:44)
[2020-12-10] MEDS: CEFTRIAXONE 2 GM in DEXTROSE 5%-WATER 2 GM/100 ML BAG IVPB SCH (10:01)
[2020-12-10] MEDS: PANTOPRAZOLE 40 MG TABLET PO SCH (10:02)
[2020-12-10] MEDS: ENOXAPARIN NA (PORCINE) 40 MG/0.4 ML DISP.SYRIN SQ SCH (10:02)
[2020-12-10] MEDS: DULoxetine HCL 30 MG CAPSULE.DR PO SCH (10:02)
[2020-12-10] MEDS: NAPH,MB-DB/K PH,MBDB POWDER PACKET PO SCH ×2 (10:02→21:14)
[2020-12-10] MEDS: ARIPiprazole 5 MG TABLET PO SCH (10:02)
[2020-12-10] MEDS: BUDESONIDE/FORMETEROL FUMARATE 160/4.5 mcg INHALER IH SCH ×2 (10:03→21:14)
[2020-12-10] MEDS: PREGABALIN 25 MG CAPSULE PO SCH ×2 (10:03→21:14)
[2020-12-10] MEDS: QUEtiapine FUMARATE 25 MG TABLET PO SCH ×2 (10:22→21:14)
[2020-12-10] MEDS: AZITHROMYCIN IVPB 500 MG/250 ML BAG IVPB SCH (10:44)
[2020-12-10 15:10] VITALS: BMI 41.5
[2020-12-10] MEDS: ATORVASTATIN CA 20 MG TABLET (FP) PO SCH (21:13)
[2020-12-10] MEDS: CHLORHEXIDINE GLUCONATE 4% CLEANSER FOR DECOLONIZATION TP SCH (21:14)
[2020-12-11] MEDS: methylPREDNISolone NA SUCC 40 MG/1 ML VIAL IVPUSH SCH ×3 (02:32→17:37)
[2020-12-11] MEDS: ALBUTEROL SO4 2.5/IPRATROPIUM 0.5 INH SOL 3 ML VIAL.NEB. NEB SCH ×4 (07:15→20:11)
[2020-12-11] MEDS ORDERED: PT OWN MED DRAWER 7, Y5N ONE (10:27)
[2020-12-11] MEDS ORDERED: DEXTROSE 5%-WATER 100 ML IVPB ONE (10:27)
[2020-12-11] MEDS: CEFTRIAXONE 2 GM in DEXTROSE 5%-WATER 2 GM/100 ML BAG IVPB SCH (10:36)
[2020-12-11] MEDS: DULoxetine HCL 30 MG CAPSULE.DR PO SCH (10:37)
[2020-12-11] MEDS: NAPH,MB-DB/K PH,MBDB POWDER PACKET PO SCH ×2 (10:37→21:50)
[2020-12-11] MEDS: ENOXAPARIN NA (PORCINE) 40 MG/0.4 ML DISP.SYRIN SQ SCH (10:37)
[2020-12-11] MEDS: PANTOPRAZOLE 40 MG TABLET PO SCH (10:38)
[2020-12-11] MEDS: PREGABALIN 25 MG CAPSULE PO SCH ×2 (10:38→21:50)
[2020-12-11] MEDS: ARIPiprazole 5 MG TABLET PO SCH (10:38)
[2020-12-11] MEDS: BUDESONIDE/FORMETEROL FUMARATE 160/4.5 mcg INHALER IH SCH ×2 (10:39→22:15)
[2020-12-11] MEDS: QUEtiapine FUMARATE 25 MG TABLET PO SCH ×2 (10:39→21:50)
[2020-12-11] MEDS: AZITHROMYCIN IVPB 500 MG/250 ML BAG IVPB SCH (11:50)
[2020-12-11] MEDS: ACETAMINOPHEN 325 MG TABLET (FP) PO PRN (12:29)
[2020-12-11 12:31] LABS: BASO % 0.1 % (0-2.0); EOS % 0.4 % (0-4.5); HEMATOCRIT 42.3 % (32.4-45.2); HEMOGLOBIN 13.3 GM/dL (10.7-15.3); MCH 27.9 pg (25.7-33.7); MCHC 31.5 g/dl (32.0-36.0); MEAN CELL VOLUME 88.6 fl (80-96); MEAN PLT VOLUME 9.7 fl (7.5-11.1); MONO % 7.1 % (3.8-10.2); NEUT % 86.4 % (42.8-82.8); PLATELET COUNT 203 10^3/uL (134-434); RBC 4.77 M/mm3 (3.60-5.2); RDW 17.3 % (11.6-15.6)
[2020-12-11 12:52] LABS: ALBUMIN 2.6 g/dl (3.4-5.0); BLOOD UREA NITROGEN 22.1 mg/dL (7-18); CALCIUM 8.9 mg/dL (8.5-10.1)
[2020-12-11] MEDS: FUROSEMIDE 40 MG/4 ML INJECTABLE VIAL IVPUSH SCH (12:55)
[2020-12-11 12:56] LABS: CREATININE 0.6 mg/dL (0.55-1.3)
[2020-12-11 12:57] LABS: BILIRUBIN,TOTAL 0.3 mg/dL (0.2-1); TOT PROT 5.8 g/dl (6.4-8.2)
[2020-12-11] MEDS ORDERED: METOPROLOL TARTRATE 5 MG/5 ML VIAL IVPUSH PRN (19:56)
[2020-12-11] MEDS: ATORVASTATIN CA 20 MG TABLET (FP) PO SCH (21:50)
[2020-12-11] MEDS ORDERED: CHLORHEXIDINE GLUCONATE 4% CLEANSER FOR DECOLONIZATION TP SCH (22:00)
[2020-12-12] MEDS: methylPREDNISolone NA SUCC 40 MG/1 ML VIAL IVPUSH SCH ×3 (01:52→18:31)
[2020-12-12] MEDS: ALBUTEROL SO4 2.5/IPRATROPIUM 0.5 INH SOL 3 ML VIAL.NEB. NEB SCH ×4 (07:45→20:21)
[2020-12-12 07:46] LABS: BASO % 0.1 % (0-2.0); HEMOGLOBIN 13.1 GM/dL (10.7-15.3); LYMPH % 5.4 % (8-40); MCH 28.2 pg (25.7-33.7); MCHC 31.9 g/dl (32.0-36.0); MEAN CELL VOLUME 88.2 fl (80-96); MEAN PLT VOLUME 10.3 fl (7.5-11.1); MONO % 4.5 % (3.8-10.2); PLATELET COUNT 188 10^3/uL (134-434); RBC 4.65 M/mm3 (3.60-5.2); RDW 17.7 % (11.6-15.6); WHITE BLOOD COUNT 9.9 K/mm3 (4.0-10.0)
[2020-12-12 07:54] LABS: ALBUMIN 2.6 g/dl (3.4-5.0); BLOOD UREA NITROGEN 24.8 mg/dL (7-18); CALCIUM 8.6 mg/dL (8.5-10.1)
[2020-12-12 07:57] LABS: CREATININE 0.6 mg/dL (0.55-1.3)
[2020-12-12 07:59] LABS: BILIRUBIN,TOTAL 0.2 mg/dL (0.2-1); TOT PROT 5.8 g/dl (6.4-8.2)
[2020-12-12] MEDS ORDERED: FUROSEMIDE 40 MG/4 ML INJECTABLE VIAL IVPUSH SCH (10:00)
[2020-12-12] MEDS ORDERED: DEXTROSE 5%-WATER 100 ML IVPB ONE (10:07)
[2020-12-12] MEDS ORDERED: PT OWN MED DRAWER 7, Y5N ONE ×2 (10:19→20:53)
[2020-12-12] MEDS: CEFTRIAXONE 2 GM in DEXTROSE 5%-WATER 2 GM/100 ML BAG IVPB SCH (10:38)
[2020-12-12] MEDS: AZITHROMYCIN IVPB 500 MG/250 ML BAG IVPB SCH (10:38)
[2020-12-12] MEDS: ENOXAPARIN NA (PORCINE) 40 MG/0.4 ML DISP.SYRIN SQ SCH (10:39)
[2020-12-12] MEDS: ARIPiprazole 5 MG TABLET PO SCH (10:39)
[2020-12-12] MEDS: PANTOPRAZOLE 40 MG TABLET PO SCH (10:40)
[2020-12-12] MEDS: PREGABALIN 25 MG CAPSULE PO SCH ×2 (10:40→21:43)
[2020-12-12] MEDS: NAPH,MB-DB/K PH,MBDB POWDER PACKET PO SCH ×2 (10:40→21:43)
[2020-12-12] MEDS: QUEtiapine FUMARATE 25 MG TABLET PO SCH ×2 (10:40→21:42)
[2020-12-12] MEDS: BUDESONIDE/FORMETEROL FUMARATE 160/4.5 mcg INHALER IH SCH ×2 (10:41→22:51)
[2020-12-12] MEDS ORDERED: POTASSIUM CHLORIDE TABS 20 MEQ TABLET.ER (FP) PO ONE (13:15)
[2020-12-12] MEDS: FUROSEMIDE 40 MG/4 ML INJECTABLE VIAL IVPUSH SCH (14:49)
[2020-12-12] MEDS: DULoxetine HCL 30 MG CAPSULE.DR PO SCH (14:50)
[2020-12-12] MEDS: ATORVASTATIN CA 20 MG TABLET (FP) PO SCH (21:43)
[2020-12-13] MEDS: methylPREDNISolone NA SUCC 40 MG/1 ML VIAL IVPUSH SCH ×3 (02:50→22:23)
[2020-12-13] MEDS: FUROSEMIDE 40 MG/4 ML INJECTABLE VIAL IVPUSH SCH (06:03)
[2020-12-13 07:56] LABS: CALCIUM 8.4 mg/dL (8.5-10.1)
[2020-12-13 07:57] LABS: ALBUMIN 2.6 g/dl (3.4-5.0); BLOOD UREA NITROGEN 28.4 mg/dL (7-18)
[2020-12-13 08:00] LABS: CREATININE 0.7 mg/dL (0.55-1.3)
[2020-12-13 08:01] LABS: BILIRUBIN,TOTAL 0.3 mg/dL (0.2-1); TOT PROT 5.7 g/dl (6.4-8.2)
[2020-12-13] MEDS: ALBUTEROL SO4 2.5/IPRATROPIUM 0.5 INH SOL 3 ML VIAL.NEB. NEB SCH ×4 (08:18→20:10)
[2020-12-13] MEDS ORDERED: DEXTROSE 5%-WATER 100 ML IVPB ONE (09:20)
[2020-12-13] MEDS: PANTOPRAZOLE 40 MG TABLET PO SCH (09:35)
[2020-12-13] MEDS: PREGABALIN 25 MG CAPSULE PO SCH ×2 (09:35→22:22)
[2020-12-13] MEDS: NAPH,MB-DB/K PH,MBDB POWDER PACKET PO SCH (09:35)
[2020-12-13] MEDS: DULoxetine HCL 30 MG CAPSULE.DR PO SCH (09:36)
[2020-12-13] MEDS: ENOXAPARIN NA (PORCINE) 40 MG/0.4 ML DISP.SYRIN SQ SCH (09:36)
[2020-12-13] MEDS: QUEtiapine FUMARATE 25 MG TABLET PO SCH ×2 (09:36→22:22)
[2020-12-13] MEDS: CEFTRIAXONE 2 GM in DEXTROSE 5%-WATER 2 GM/100 ML BAG IVPB SCH (09:37)
[2020-12-13] MEDS: AZITHROMYCIN IVPB 500 MG/250 ML BAG IVPB SCH (09:37)
[2020-12-13] MEDS: BUDESONIDE/FORMETEROL FUMARATE 160/4.5 mcg INHALER IH SCH ×2 (09:37→22:00)
[2020-12-13] MEDS: ARIPiprazole 5 MG TABLET PO SCH (12:18)
[2020-12-13] MEDS: SPIRONOLACTONE 25 MG TABLET PO SCH (17:27)
[2020-12-13] MEDS: ATORVASTATIN CA 20 MG TABLET (FP) PO SCH (22:22)
[2020-12-13] MEDS: CEPHALEXIN MONOHYDRATE 500 MG CAPSULE (UD) PO SCH (22:22)
[2020-12-14] MEDS: FUROSEMIDE 40 MG TABLET (FP) PO SCH ×2 (06:42→16:25)
[2020-12-14] MEDS: ALBUTEROL SO4 2.5/IPRATROPIUM 0.5 INH SOL 3 ML VIAL.NEB. NEB SCH ×4 (07:20→20:15)
[2020-12-14 08:30] LABS: CALCIUM 8.6 mg/dL (8.5-10.1)
[2020-12-14 08:31] LABS: ALBUMIN 2.7 g/dl (3.4-5.0); BLOOD UREA NITROGEN 26.2 mg/dL (7-18)
[2020-12-14 08:35] LABS: CREATININE 0.7 mg/dL (0.55-1.3)
[2020-12-14 08:36] LABS: BILIRUBIN,TOTAL 0.4 mg/dL (0.2-1); TOT PROT 5.7 g/dl (6.4-8.2)
[2020-12-14] MEDS: ACETAMINOPHEN 325 MG TABLET (FP) PO PRN ×2 (09:17→21:23)
[2020-12-14] MEDS: ENOXAPARIN NA (PORCINE) 40 MG/0.4 ML DISP.SYRIN SQ SCH (09:18)
[2020-12-14] MEDS: QUEtiapine FUMARATE 25 MG TABLET PO SCH ×2 (09:18→21:22)
[2020-12-14] MEDS: DULoxetine HCL 30 MG CAPSULE.DR PO SCH (09:18)
[2020-12-14] MEDS: PANTOPRAZOLE 40 MG TABLET PO SCH (09:18)
[2020-12-14] MEDS: PREGABALIN 25 MG CAPSULE PO SCH ×2 (09:18→21:22)
[2020-12-14] MEDS: CEPHALEXIN MONOHYDRATE 500 MG CAPSULE (UD) PO SCH ×2 (09:19→21:25)
[2020-12-14] MEDS: ARIPiprazole 5 MG TABLET PO SCH (09:19)
[2020-12-14] MEDS: methylPREDNISolone NA SUCC 40 MG/1 ML VIAL IVPUSH SCH ×2 (09:19→21:31)
[2020-12-14] MEDS: BUDESONIDE/FORMETEROL FUMARATE 160/4.5 mcg INHALER IH SCH ×2 (09:20→21:28)
[2020-12-14] MEDS: ATORVASTATIN CA 20 MG TABLET (FP) PO SCH (21:22)
[2020-12-15] MEDS: FUROSEMIDE 40 MG TABLET (FP) PO SCH ×2 (06:30→14:19)
[2020-12-15] MEDS: ALBUTEROL SO4 2.5/IPRATROPIUM 0.5 INH SOL 3 ML VIAL.NEB. NEB SCH ×4 (08:07→20:15)
[2020-12-15] MEDS: SPIRONOLACTONE 25 MG TABLET PO SCH (10:45)
[2020-12-15] MEDS: PREGABALIN 25 MG CAPSULE PO SCH ×2 (10:45→21:43)
[2020-12-15] MEDS: ENOXAPARIN NA (PORCINE) 40 MG/0.4 ML DISP.SYRIN SQ SCH (10:45)
[2020-12-15] MEDS: CEPHALEXIN MONOHYDRATE 500 MG CAPSULE (UD) PO SCH ×2 (10:45→21:42)
[2020-12-15] MEDS: DULoxetine HCL 30 MG CAPSULE.DR PO SCH (10:45)
[2020-12-15] MEDS: QUEtiapine FUMARATE 25 MG TABLET PO SCH ×2 (10:45→21:43)
[2020-12-15] MEDS: methylPREDNISolone NA SUCC 40 MG/1 ML VIAL IVPUSH SCH (10:45)
[2020-12-15] MEDS: ARIPiprazole 5 MG TABLET PO SCH (10:45)
[2020-12-15] MEDS: PANTOPRAZOLE 40 MG TABLET PO SCH (10:45)
[2020-12-15] MEDS: BUDESONIDE/FORMETEROL FUMARATE 160/4.5 mcg INHALER IH SCH ×2 (10:46→21:51)
[2020-12-15] MEDS: FUROSEMIDE 40 MG/4 ML INJECTABLE VIAL IVPUSH SCH (10:52)
[2020-12-15] MEDS: ATORVASTATIN CA 20 MG TABLET (FP) PO SCH (21:42)
[2020-12-16] MEDS: FUROSEMIDE 40 MG TABLET (FP) PO SCH (06:19)
[2020-12-16 07:31] LABS: HEMATOCRIT 37.8 % (32.4-45.2); HEMOGLOBIN 12.3 GM/dL (10.7-15.3); MCH 28.5 pg (25.7-33.7); MCHC 32.7 g/dl (32.0-36.0); MEAN CELL VOLUME 87.2 fl (80-96); MEAN PLT VOLUME 10.1 fl (7.5-11.1); PLATELET COUNT 174 10^3/uL (134-434); RBC 4.33 M/mm3 (3.60-5.2); RDW 17.6 % (11.6-15.6)
[2020-12-16] MEDS: ALBUTEROL SO4 2.5/IPRATROPIUM 0.5 INH SOL 3 ML VIAL.NEB. NEB SCH ×3 (07:40→15:23)
[2020-12-16 07:58] LABS: ALBUMIN 2.6 g/dl (3.4-5.0); BLOOD UREA NITROGEN 25.4 mg/dL (7-18); CALCIUM 8.4 mg/dL (8.5-10.1)
[2020-12-16 07:59] LABS: CREATININE 0.7 mg/dL (0.55-1.3)
[2020-12-16 08:00] LABS: TOT PROT 5.3 g/dl (6.4-8.2)
[2020-12-16 08:03] LABS: BILIRUBIN,TOTAL 0.3 mg/dL (0.2-1)
[2020-12-16 09:17] LABS: ANISOCYTOSIS 0; HELMET CELLS 0; HOWELL-JOLLY BODIES 0; MACROCYTOSIS 0; OVALOCYTE 0; PLATELET ESTIMATE NORMAL; ROULEAU 0; SICKELED CELLS 0; TARGET CELLS 0; TEAR DROP CELLS 0; TOXIC GRANULATION 0
[2020-12-16] MEDS ORDERED: predniSONE 20 MG TABLET (UD) PO SCH (10:00)
[2020-12-16] MEDS: PANTOPRAZOLE 40 MG TABLET PO SCH (10:12)
[2020-12-16] MEDS: ARIPiprazole 5 MG TABLET PO SCH (10:12)
[2020-12-16] MEDS: QUEtiapine FUMARATE 25 MG TABLET PO SCH ×2 (10:12→21:15)
[2020-12-16] MEDS: CEPHALEXIN MONOHYDRATE 500 MG CAPSULE (UD) PO SCH ×2 (10:12→21:15)
[2020-12-16] MEDS: DULoxetine HCL 30 MG CAPSULE.DR PO SCH (10:12)
[2020-12-16] MEDS: ENOXAPARIN NA (PORCINE) 40 MG/0.4 ML DISP.SYRIN SQ SCH (10:13)
[2020-12-16] MEDS: BUDESONIDE/FORMETEROL FUMARATE 160/4.5 mcg INHALER IH SCH ×2 (10:13→21:22)
[2020-12-16] MEDS: PREGABALIN 25 MG CAPSULE PO SCH ×2 (10:13→21:15)
[2020-12-16] MEDS ORDERED: FUROSEMIDE 40 MG TABLET (FP) PO SCH (13:25)
[2020-12-16] MEDS ORDERED: POTASSIUM CHLORIDE TABS 20 MEQ TABLET.ER (FP) PO SCH (13:30)
[2020-12-16] MEDS: ATORVASTATIN CA 20 MG TABLET (FP) PO SCH (21:15)
[2020-12-16 23:38] VITALS: BP 117/61; PULSE 83; TEMP 98.3
== END 2020-12-16 23:55 | disposition home or self-care (01) | DRG 291 ==
LOC: JER 21:35 → JERBED 22:17 → JICU 12-02 05:28 → J4W 12-11 18:43
PROVIDERS: ADMIT Internal Medicine; ATTEND Internal Medicine
DX: I11.0 Hypertensive heart disease with heart failure (principal); J96.21 Acute and chronic respiratory failure with hypoxia; J96.22 Acute and chronic respiratory failure with hypercapnia; J18.9 Pneumonia, unspecified organism; J44.1 Chronic obstructive pulmonary disease with (acute) exacerbation; E87.2 Acidosis; E87.0 Hyperosmolality and hypernatremia; J44.9 Chronic obstructive pulmonary disease, unspecified; I50.33 Acute on chronic diastolic (congestive) heart failure; E78.5 Hyperlipidemia, unspecified; E66.9 Obesity, unspecified; Z68.39 Body mass index [BMI] 39.0-39.9, adult; K21.9 Gastro-esophageal reflux disease without esophagitis; I25.10 Atherosclerotic heart disease of native coronary artery without angina pectoris; F41.8 Other specified anxiety disorders; E87.6 Hypokalemia; E87.70 Fluid overload, unspecified; F17.210 Nicotine dependence, cigarettes, uncomplicated; Z85.3 Personal history of malignant neoplasm of breast; Z88.0 Allergy status to penicillin; Z99.81 Dependence on supplemental oxygen
CPT/HCPCS: 36415; 36600; 71045-TC-FY; 80048; 80053; 80061; 82550; 82803; 83735; 83880; 84100; 84484; 85025; 85027; 85610; 85730; 87040; 87070; 87186; 87205; 87899; 93005; 93010; 94640; 94660; 97116-GP; 97163-GP; 99285-25; C9803; U0003; U0005

== ENCOUNTER 2021-02-02 13:00 | Inpatient (IN) | payer OTHER ==
[2021-02-02] MEDS ORDERED: FUROSEMIDE 40 MG/4 ML INJECTABLE VIAL IVPUSH ONE (14:22)
[2021-02-02] MEDS ORDERED: FUROSEMIDE 40 MG/4 ML INJECTABLE VIAL ONE ×2 (14:29→14:31)
[2021-02-02 14:48] LABS: EOS % 11.6 % (0-4.5); HEMATOCRIT 37.6 % (32.4-45.2); LYMPH % 15.1 % (8-40); MCH 26.9 pg (25.7-33.7); MCHC 31.8 g/dl (32.0-36.0); MEAN CELL VOLUME 84.7 fl (80-96); MEAN PLT VOLUME 9.2 fl (7.5-11.1); MONO % 5.7 % (3.8-10.2); NEUT % 66.6 % (42.8-82.8); PLATELET COUNT 221 10^3/uL (134-434); RBC 4.44 M/mm3 (3.60-5.2); RDW 18.8 % (11.6-15.6); WHITE BLOOD COUNT 9.4 K/mm3 (4.0-10.0)
[2021-02-02 14:52] LABS: CHLORIDE 106 mmol/L (98-107); SODIUM 147 mmol/L (136-145)
[2021-02-02 14:55] LABS: ALBUMIN 2.8 g/dl (3.4-5.0); ANION GAP 5 MMOL/L (8-16); BLOOD UREA NITROGEN 12.4 mg/dL (7-18); CO2 36 mmol/L (21-32); GLUCOSE,RANDOM 94 mg/dL (74-106)
[2021-02-02 14:58] LABS: CREATININE 0.8 mg/dL (0.55-1.3); SGOT/AST 16 U/L (15-37); SGPT/ALT 15 U/L (13-61)
[2021-02-02 15:00] LABS: TOT PROT 6.5 g/dl (6.4-8.2)
[2021-02-02 15:01] LABS: ALK PHOS 87 U/L (45-117)
[2021-02-02 15:03] LABS: N-TERMINAL BNP 575.8 pg/ml (5-125)
[2021-02-02 15:07] LABS: BILIRUBIN,TOTAL 0.3 mg/dL (0.2-1)
[2021-02-02] MEDS ORDERED: dilTIAZem HCL 125 MG/25 ML - 25 ML VIAL ONE (15:54)
[2021-02-02] MEDS ORDERED: dilTIAZem HCL 50 MG/10 ML - 10 ML VIAL IVPUSH ONE ×2 (15:55→15:56)
[2021-02-02] MEDS ORDERED: IBUPROFEN 400 MG TABLET (FP) PO ONE ×2 (16:35→16:43)
[2021-02-03 06:54] LABS: BASO % 0.9 % (0-2.0); EOS % 11.2 % (0-4.5); HEMATOCRIT 38.7 % (32.4-45.2); HEMOGLOBIN 12.5 GM/dL (10.7-15.3); LYMPH % 16.9 % (8-40); MCH 27.1 pg (25.7-33.7); MCHC 32.4 g/dl (32.0-36.0); MEAN CELL VOLUME 83.9 fl (80-96); MONO % 6.3 % (3.8-10.2); NEUT % 64.7 % (42.8-82.8); PLATELET COUNT 239 10^3/uL (134-434); RBC 4.61 M/mm3 (3.60-5.2); RDW 18.7 % (11.6-15.6); WHITE BLOOD COUNT 9.8 K/mm3 (4.0-10.0)
[2021-02-03] MEDS ORDERED: FUROSEMIDE 40 MG/4 ML INJECTABLE VIAL ONE ×2 (07:17→18:16)
[2021-02-03 07:19] LABS: ALBUMIN 2.9 g/dl (3.4-5.0); BLOOD UREA NITROGEN 11.3 mg/dL (7-18); CALCIUM 9.5 mg/dL (8.5-10.1)
[2021-02-03] MEDS: FUROSEMIDE 40 MG/4 ML INJECTABLE VIAL IVPUSH SCH ×2 (07:19→14:30)
[2021-02-03 07:23] LABS: CREATININE 0.7 mg/dL (0.55-1.3)
[2021-02-03 07:24] LABS: BILIRUBIN,TOTAL 0.5 mg/dL (0.2-1); TOT PROT 6.7 g/dl (6.4-8.2)
[2021-02-03] MEDS ORDERED: PANTOPRAZOLE 40 MG TABLET ONE ×2 (09:17→09:33)
[2021-02-03] MEDS ORDERED: PREGABALIN 25 MG CAPSULE ONE (09:17)
[2021-02-03] MEDS ORDERED: amLODIPine BESYLATE 5 MG TABLET (FP) ONE (09:17)
[2021-02-03] MEDS ORDERED: ARIPiprazole 5 MG TABLET ONE (09:18)
[2021-02-03] MEDS ORDERED: LISINOPRIL 5 MG TABLET ONE (09:18)
[2021-02-03] MEDS ORDERED: DULoxetine HCL 30 MG CAPSULE.DR PO ONE (09:18)
[2021-02-03] MEDS ORDERED: POTASSIUM CHLORIDE ORAL LIQUID 20 MEQ/15 ML ONE (09:19)
[2021-02-03] MEDS ORDERED: ENOXAPARIN NA (PORCINE) 40 MG/0.4 ML DISP.SYRIN SQ ONE (09:19)
[2021-02-03] MEDS: DULoxetine HCL 30 MG CAPSULE.DR PO SCH (09:39)
[2021-02-03] MEDS: ARIPiprazole 5 MG TABLET PO SCH (09:39)
[2021-02-03] MEDS: POTASSIUM CHLORIDE TABS 20 MEQ TABLET.ER (FP) PO SCH ×2 (09:39→23:05)
[2021-02-03] MEDS: PREGABALIN 25 MG CAPSULE PO SCH ×2 (09:40→23:05)
[2021-02-03] MEDS: PANTOPRAZOLE 40 MG TABLET PO SCH (09:40)
[2021-02-03] MEDS ORDERED: ENOXAPARIN NA (PORCINE) 40 MG/0.4 ML DISP.SYRIN SQ SCH (10:00)
[2021-02-03] MEDS ORDERED: LISINOPRIL 10 MG TABLET PO SCH (10:00)
[2021-02-03] MEDS ORDERED: amLODIPine BESYLATE 5 MG TABLET (FP) PO SCH (10:00)
[2021-02-03] MEDS: BUDESONIDE/FORMETEROL FUMARATE 160/4.5 mcg INHALER IH SCH (10:48)
[2021-02-03] MEDS: FLUTICASONE PROP 0.05% 16 GM NASAL SPRAY NS SCH (10:49)
[2021-02-03] MEDS: SPIRONOLACTONE 25 MG TABLET PO SCH (14:45)
[2021-02-03] MEDS: LISINOPRIL 20 MG TABLET PO SCH (15:30)
[2021-02-03] MEDS ORDERED: SPIRONOLACTONE 25 MG TABLET ONE (18:17)
[2021-02-03] MEDS ORDERED: LISINOPRIL 20 MG TABLET ONE (18:17)
[2021-02-03] MEDS: ATORVASTATIN CA 20 MG TABLET (FP) PO SCH (23:05)
[2021-02-03] MEDS: ALBUTEROL SO4 2.5/IPRATROPIUM 0.5 INH SOL 3 ML VIAL.NEB. NEB PRN (23:45)
[2021-02-04] MEDS: BUDESONIDE/FORMETEROL FUMARATE 160/4.5 mcg INHALER IH SCH ×3 (00:13→21:37)
[2021-02-04] MEDS: ALBUTEROL SO4 2.5/IPRATROPIUM 0.5 INH SOL 3 ML VIAL.NEB. NEB PRN (05:50)
[2021-02-04] MEDS: FUROSEMIDE 40 MG/4 ML INJECTABLE VIAL IVPUSH SCH ×2 (06:26→13:18)
[2021-02-04 08:21] LABS: BASO % 0.7 % (0-2.0); EOS % 11.2 % (0-4.5); HEMATOCRIT 34.5 % (32.4-45.2); HEMOGLOBIN 11.1 GM/dL (10.7-15.3); LYMPH % 18.8 % (8-40); MCH 26.7 pg (25.7-33.7); MCHC 32.1 g/dl (32.0-36.0); MEAN CELL VOLUME 83.4 fl (80-96); MEAN PLT VOLUME 9.2 fl (7.5-11.1); MONO % 6.4 % (3.8-10.2); NEUT % 62.9 % (42.8-82.8); PLATELET COUNT 228 10^3/uL (134-434); RBC 4.14 M/mm3 (3.60-5.2); RDW 18.8 % (11.6-15.6); WHITE BLOOD COUNT 10.7 K/mm3 (4.0-10.0)
[2021-02-04 08:34] LABS: ALBUMIN 2.7 g/dl (3.4-5.0); BLOOD UREA NITROGEN 10.4 mg/dL (7-18); MAGNESIUM 1.7 mg/dL (1.8-2.4)
[2021-02-04 08:37] LABS: CREATININE 0.7 mg/dL (0.55-1.3)
[2021-02-04 08:38] LABS: BILIRUBIN,TOTAL 0.5 mg/dL (0.2-1)
[2021-02-04 08:39] LABS: TOT PROT 6.1 g/dl (6.4-8.2)
[2021-02-04] MEDS: POTASSIUM CHLORIDE TABS 20 MEQ TABLET.ER (FP) PO SCH ×2 (09:54→21:36)
[2021-02-04] MEDS: APIXABAN 5 MG TABLET PO SCH ×2 (09:54→21:36)
[2021-02-04] MEDS: DULoxetine HCL 30 MG CAPSULE.DR PO SCH (09:54)
[2021-02-04] MEDS: SPIRONOLACTONE 25 MG TABLET PO SCH (09:54)
[2021-02-04] MEDS: PREGABALIN 25 MG CAPSULE PO SCH ×2 (09:54→21:36)
[2021-02-04] MEDS: LISINOPRIL 20 MG TABLET PO SCH (09:54)
[2021-02-04] MEDS: PANTOPRAZOLE 40 MG TABLET PO SCH (09:54)
[2021-02-04] MEDS: FLUTICASONE PROP 0.05% 16 GM NASAL SPRAY NS SCH (10:03)
[2021-02-04] MEDS: ARIPiprazole 5 MG TABLET PO SCH (11:04)
[2021-02-04] MEDS ORDERED: MAGNESIUM SULF 50% (8.12 MEQ/2 ML-1 GM VIAL) IVPB ONE (14:28)
[2021-02-04] MEDS: KCL 10 MEQ IVPB 10 MEQ/100 ML INFUS.BAG IVPB SCH ×2 (15:34→17:47)
[2021-02-04] MEDS: ATORVASTATIN CA 20 MG TABLET (FP) PO SCH (21:36)
[2021-02-05] MEDS: FUROSEMIDE 40 MG/4 ML INJECTABLE VIAL IVPUSH SCH ×2 (06:23→13:53)
[2021-02-05 07:49] LABS: ALBUMIN 2.6 g/dl (3.4-5.0); BLOOD UREA NITROGEN 10.4 mg/dL (7-18)
[2021-02-05 07:53] LABS: CREATININE 0.5 mg/dL (0.55-1.3)
[2021-02-05 07:54] LABS: BILIRUBIN,TOTAL 0.4 mg/dL (0.2-1)
[2021-02-05 07:56] LABS: MAGNESIUM 2.2 mg/dL (1.8-2.4)
[2021-02-05] MEDS ORDERED: PT OWN MED DRAWER 7, Y5N ONE (10:10)
[2021-02-05] MEDS: POTASSIUM CHLORIDE TABS 20 MEQ TABLET.ER (FP) PO SCH ×2 (10:28→21:04)
[2021-02-05] MEDS: DULoxetine HCL 30 MG CAPSULE.DR PO SCH (10:28)
[2021-02-05] MEDS: PANTOPRAZOLE 40 MG TABLET PO SCH (10:28)
[2021-02-05] MEDS: APIXABAN 5 MG TABLET PO SCH ×2 (10:29→21:04)
[2021-02-05] MEDS: LISINOPRIL 20 MG TABLET PO SCH (10:29)
[2021-02-05] MEDS: PREGABALIN 25 MG CAPSULE PO SCH ×2 (10:29→21:08)
[2021-02-05] MEDS: SPIRONOLACTONE 25 MG TABLET PO SCH (10:29)
[2021-02-05] MEDS: ARIPiprazole 5 MG TABLET PO SCH (10:29)
[2021-02-05] MEDS: BUDESONIDE/FORMETEROL FUMARATE 160/4.5 mcg INHALER IH SCH ×2 (10:30→21:08)
[2021-02-05] MEDS: FLUTICASONE PROP 0.05% 16 GM NASAL SPRAY NS SCH (10:30)
[2021-02-05] MEDS: ALBUTEROL SO4 2.5/IPRATROPIUM 0.5 INH SOL 3 ML VIAL.NEB. NEB PRN (11:00)
[2021-02-05] MEDS ORDERED: ACETAMINOPHEN 325 MG TABLET (FP) PO PRN (13:45)
[2021-02-05 15:06] VITALS: BMI 35.3
[2021-02-05] MEDS: ATORVASTATIN CA 20 MG TABLET (FP) PO SCH (21:04)
[2021-02-06] MEDS: FUROSEMIDE 40 MG/4 ML INJECTABLE VIAL IVPUSH SCH ×2 (06:42→13:09)
[2021-02-06 06:55] LABS: BASO % 0.9 % (0-2.0); EOS % 12.9 % (0-4.5); HEMATOCRIT 35.3 % (32.4-45.2); HEMOGLOBIN 11.3 GM/dL (10.7-15.3); LYMPH % 20.9 % (8-40); MEAN CELL VOLUME 84.5 fl (80-96); MEAN PLT VOLUME 9.6 fl (7.5-11.1); MONO % 6.6 % (3.8-10.2); NEUT % 58.7 % (42.8-82.8); PLATELET COUNT 244 10^3/uL (134-434); RBC 4.18 M/mm3 (3.60-5.2); RDW 19.1 % (11.6-15.6)
[2021-02-06 07:08] LABS: CALCIUM 9.1 mg/dL (8.5-10.1)
[2021-02-06 07:09] LABS: ALBUMIN 2.7 g/dl (3.4-5.0); BLOOD UREA NITROGEN 15.4 mg/dL (7-18)
[2021-02-06 07:12] LABS: CREATININE 0.7 mg/dL (0.55-1.3)
[2021-02-06 07:13] LABS: BILIRUBIN,TOTAL 0.5 mg/dL (0.2-1); TOT PROT 6.4 g/dl (6.4-8.2)
[2021-02-06] MEDS ORDERED: PT OWN MED DRAWER 7, Y5N ONE (08:49)
[2021-02-06 09:32] LABS: MAGNESIUM 1.9 mg/dL (1.8-2.4)
[2021-02-06] MEDS: ARIPiprazole 5 MG TABLET PO SCH (09:33)
[2021-02-06] MEDS: POTASSIUM CHLORIDE TABS 20 MEQ TABLET.ER (FP) PO SCH ×2 (09:34→21:37)
[2021-02-06] MEDS: SPIRONOLACTONE 25 MG TABLET PO SCH (09:34)
[2021-02-06] MEDS: PANTOPRAZOLE 40 MG TABLET PO SCH (09:35)
[2021-02-06] MEDS: APIXABAN 5 MG TABLET PO SCH ×2 (09:35→21:37)
[2021-02-06] MEDS: DULoxetine HCL 30 MG CAPSULE.DR PO SCH (09:35)
[2021-02-06 09:36] LABS: PHOSPHOROUS 4.9 mg/dL (2.5-4.9)
[2021-02-06] MEDS: LISINOPRIL 20 MG TABLET PO SCH (09:36)
[2021-02-06] MEDS: PREGABALIN 25 MG CAPSULE PO SCH ×2 (09:36→21:37)
[2021-02-06] MEDS: FLUTICASONE PROP 0.05% 16 GM NASAL SPRAY NS SCH (09:37)
[2021-02-06] MEDS: BUDESONIDE/FORMETEROL FUMARATE 160/4.5 mcg INHALER IH SCH ×2 (09:38→21:38)
[2021-02-06] MEDS: ATORVASTATIN CA 20 MG TABLET (FP) PO SCH (21:37)
[2021-02-07] MEDS: FUROSEMIDE 40 MG/4 ML INJECTABLE VIAL IVPUSH SCH (05:41)
[2021-02-07] MEDS ORDERED: PT OWN MED DRAWER 7, Y5N ONE (08:10)
[2021-02-07] MEDS: DULoxetine HCL 30 MG CAPSULE.DR PO SCH (10:26)
[2021-02-07] MEDS: PREGABALIN 25 MG CAPSULE PO SCH ×2 (10:26→22:04)
[2021-02-07] MEDS: LISINOPRIL 20 MG TABLET PO SCH (10:26)
[2021-02-07] MEDS: ARIPiprazole 5 MG TABLET PO SCH (10:26)
[2021-02-07] MEDS: APIXABAN 5 MG TABLET PO SCH ×2 (10:26→22:04)
[2021-02-07] MEDS: FLUTICASONE PROP 0.05% 16 GM NASAL SPRAY NS SCH (10:26)
[2021-02-07] MEDS: POTASSIUM CHLORIDE TABS 20 MEQ TABLET.ER (FP) PO SCH ×2 (10:26→22:04)
[2021-02-07] MEDS: SPIRONOLACTONE 25 MG TABLET PO SCH (10:26)
[2021-02-07] MEDS: BUDESONIDE/FORMETEROL FUMARATE 160/4.5 mcg INHALER IH SCH ×2 (10:27→22:04)
[2021-02-07] MEDS: PANTOPRAZOLE 40 MG TABLET PO SCH (10:27)
[2021-02-07] MEDS: FUROSEMIDE 40 MG TABLET (FP) PO SCH (13:09)
[2021-02-07] MEDS: KCL 10 MEQ IVPB 10 MEQ/100 ML INFUS.BAG IVPB SCH ×2 (17:08→18:59)
[2021-02-07] MEDS: ATORVASTATIN CA 20 MG TABLET (FP) PO SCH (22:04)
[2021-02-08] MEDS: FUROSEMIDE 40 MG TABLET (FP) PO SCH ×2 (06:43→14:21)
[2021-02-08 09:06] LABS: ALBUMIN 2.8 g/dl (3.4-5.0); CALCIUM 8.9 mg/dL (8.5-10.1)
[2021-02-08 09:07] LABS: BLOOD UREA NITROGEN 13.6 mg/dL (7-18)
[2021-02-08 09:10] LABS: CREATININE 0.6 mg/dL (0.55-1.3)
[2021-02-08 09:11] LABS: BILIRUBIN,TOTAL 0.5 mg/dL (0.2-1); TOT PROT 6.6 g/dl (6.4-8.2)
[2021-02-08] MEDS ORDERED: PT OWN MED DRAWER 7, Y5N ONE (09:46)
[2021-02-08] MEDS: ARIPiprazole 5 MG TABLET PO SCH (09:57)
[2021-02-08] MEDS: DULoxetine HCL 30 MG CAPSULE.DR PO SCH (09:58)
[2021-02-08] MEDS: LISINOPRIL 20 MG TABLET PO SCH (09:58)
[2021-02-08] MEDS: SPIRONOLACTONE 25 MG TABLET PO SCH (09:58)
[2021-02-08] MEDS: POTASSIUM CHLORIDE TABS 20 MEQ TABLET.ER (FP) PO SCH ×2 (09:58→21:34)
[2021-02-08] MEDS: PANTOPRAZOLE 40 MG TABLET PO SCH (09:58)
[2021-02-08] MEDS: PREGABALIN 25 MG CAPSULE PO SCH ×2 (09:59→21:35)
[2021-02-08] MEDS: APIXABAN 5 MG TABLET PO SCH ×2 (09:59→21:34)
[2021-02-08] MEDS: FLUTICASONE PROP 0.05% 16 GM NASAL SPRAY NS SCH (10:56)
[2021-02-08] MEDS: BUDESONIDE/FORMETEROL FUMARATE 160/4.5 mcg INHALER IH SCH ×2 (10:56→21:36)
[2021-02-08] MEDS: ATORVASTATIN CA 20 MG TABLET (FP) PO SCH (21:35)
[2021-02-09] MEDS: FUROSEMIDE 40 MG TABLET (FP) PO SCH ×2 (06:27→14:26)
[2021-02-09] MEDS ORDERED: PT OWN MED DRAWER 7, Y5N ONE (10:13)
[2021-02-09] MEDS: ARIPiprazole 5 MG TABLET PO SCH (10:21)
[2021-02-09] MEDS: DULoxetine HCL 30 MG CAPSULE.DR PO SCH (10:21)
[2021-02-09] MEDS: LISINOPRIL 20 MG TABLET PO SCH (10:21)
[2021-02-09] MEDS: APIXABAN 5 MG TABLET PO SCH ×2 (10:22→21:31)
[2021-02-09] MEDS: SPIRONOLACTONE 25 MG TABLET PO SCH (10:22)
[2021-02-09] MEDS: POTASSIUM CHLORIDE TABS 20 MEQ TABLET.ER (FP) PO SCH ×2 (10:22→21:31)
[2021-02-09] MEDS: BUDESONIDE/FORMETEROL FUMARATE 160/4.5 mcg INHALER IH SCH ×2 (10:23→21:31)
[2021-02-09] MEDS: FLUTICASONE PROP 0.05% 16 GM NASAL SPRAY NS SCH (10:23)
[2021-02-09] MEDS: PANTOPRAZOLE 40 MG TABLET PO SCH (10:23)
[2021-02-09] MEDS: PREGABALIN 25 MG CAPSULE PO SCH ×2 (10:23→21:31)
[2021-02-09 21:14] VITALS: TEMP 97.8
[2021-02-09] MEDS: ATORVASTATIN CA 20 MG TABLET (FP) PO SCH (21:31)
[2021-02-10] MEDS: FUROSEMIDE 40 MG TABLET (FP) PO SCH (06:59)
[2021-02-10 10:24] VITALS: BP 128/81; PULSE 89
[2021-02-10] MEDS ORDERED: PT OWN MED DRAWER 7, Y5N ONE (10:27)
[2021-02-10] MEDS: DULoxetine HCL 30 MG CAPSULE.DR PO SCH (10:28)
[2021-02-10] MEDS: SPIRONOLACTONE 25 MG TABLET PO SCH (10:28)
[2021-02-10] MEDS: ARIPiprazole 5 MG TABLET PO SCH (10:28)
[2021-02-10] MEDS: LISINOPRIL 20 MG TABLET PO SCH (10:29)
[2021-02-10] MEDS: POTASSIUM CHLORIDE TABS 20 MEQ TABLET.ER (FP) PO SCH (10:29)
[2021-02-10] MEDS: APIXABAN 5 MG TABLET PO SCH (10:29)
[2021-02-10] MEDS: BUDESONIDE/FORMETEROL FUMARATE 160/4.5 mcg INHALER IH SCH (10:29)
[2021-02-10] MEDS: PANTOPRAZOLE 40 MG TABLET PO SCH (10:29)
[2021-02-10] MEDS: FLUTICASONE PROP 0.05% 16 GM NASAL SPRAY NS SCH (10:29)
== END 2021-02-10 11:58 | DRG 291 ==
LOC: JER 13:00 → JERBED 16:47 → J4W 02-03 22:46
PROVIDERS: ADMIT Internal Medicine; ATTEND Internal Medicine
DX: I11.0 Hypertensive heart disease with heart failure (principal); J96.21 Acute and chronic respiratory failure with hypoxia; I50.33 Acute on chronic diastolic (congestive) heart failure; J96.22 Acute and chronic respiratory failure with hypercapnia; J44.1 Chronic obstructive pulmonary disease with (acute) exacerbation; N17.9 Acute kidney failure, unspecified; I47.1 Supraventricular tachycardia; I48.91 Unspecified atrial fibrillation; E78.5 Hyperlipidemia, unspecified; K21.9 Gastro-esophageal reflux disease without esophagitis; F41.8 Other specified anxiety disorders; E87.6 Hypokalemia; G62.9 Polyneuropathy, unspecified; F31.9 Bipolar disorder, unspecified; E87.70 Fluid overload, unspecified; E66.9 Obesity, unspecified; Z68.39 Body mass index [BMI] 39.0-39.9, adult; Z85.3 Personal history of malignant neoplasm of breast; Z99.81 Dependence on supplemental oxygen; Z86.711 Personal history of pulmonary embolism
CPT/HCPCS: 36415; 71045-TC-FY; 80053; 82550; 83036; 83735; 83880; 84100; 84443; 84478; 84484; 85025; 85379; 93005; 93010; 94640; 97116-GP; 97162-GP; 99285-25; C9803; U0003; U0005

== ENCOUNTER 2021-02-18 16:41 | Inpatient (IN) | payer OTHER ==
[2021-02-18 17:22] VITALS: BMI 39.1
[2021-02-18 18:29] LABS: BASO % 1.1 % (0-2.0); EOS % 1.3 % (0-4.5); HEMATOCRIT 35.3 % (32.4-45.2); HEMOGLOBIN 11.5 GM/dL (10.7-15.3); LYMPH % 23.2 % (8-40); MCH 26.5 pg (25.7-33.7); MCHC 32.4 g/dl (32.0-36.0); MEAN CELL VOLUME 81.7 fl (80-96); MEAN PLT VOLUME 10.1 fl (7.5-11.1); MONO % 12.9 % (3.8-10.2); NEUT % 61.5 % (42.8-82.8); PLATELET COUNT 272 10^3/uL (134-434); RBC 4.32 M/mm3 (3.60-5.2); RDW 18.7 % (11.6-15.6); WHITE BLOOD COUNT 10.1 K/mm3 (4.0-10.0)
[2021-02-18 19:01] LABS: CALCIUM 8.8 mg/dL (8.5-10.1)
[2021-02-18 19:04] LABS: CREATININE 3.8 mg/dL (0.55-1.3)
[2021-02-18 19:05] LABS: BILIRUBIN,TOTAL 0.4 mg/dL (0.2-1)
[2021-02-18 19:06] LABS: TOT PROT 6.9 g/dl (6.4-8.2)
[2021-02-18 19:09] LABS: N-TERMINAL BNP 5327.6 pg/ml (5-125)
[2021-02-18 19:20] LABS: URINE APPEARANCE CLEAR; URINE BILIRUBIN NEGATIVE (NEGATIVE); URINE COLOR DK YELLOW; URINE GLUCOSE (UA) NEGATIVE (NEGATIVE); URINE KETONE NEGATIVE (NEGATIVE); URINE LEUK ESTERASE NEGATIVE (NEGATIVE); URINE NITRITE NEGATIVE (NEGATIVE); URINE PROTEIN NEGATIVE (NEGATIVE); URINE UROBILINOGEN 0.2 mg/dL (0.2-1.0)
[2021-02-18 19:30] LABS: BLOOD UREA NITROGEN 60.6 mg/dL (7-18)
[2021-02-18] MEDS ORDERED: ALBUTEROL SO4 2.5/IPRATROPIUM 0.5 INH SOL 3 ML VIAL.NEB. NEB ONE ×2 (19:41→19:42)
[2021-02-18 19:54] LABS: URINE BARBITURATES NEGATIVE (NEGATIVE); URINE BENZODIAZEPINES NEGATIVE (NEGATIVE)
[2021-02-18 19:55] LABS: COCAINE, UR NEGATIVE (NEGATIVE); METHADONE, UR NEGATIVE (NEGATIVE); OPIATES, URI NEGATIVE (NEGATIVE); PHENCYCLIDINE,URINE NEGATIVE (NEGATIVE)
[2021-02-18 19:56] LABS: URINE AMPHETAMINES NEGATIVE (NEGATIVE)
[2021-02-18] MEDS ORDERED: LORazepam 2 MG/ML SDV VIAL ONE (20:02)
[2021-02-18] MEDS ORDERED: LORazepam 2 MG/ML SDV VIAL IVPUSH ONE (20:06)
[2021-02-18] MEDS ORDERED: SODIUM CHLORIDE 1,000 ML IV SCH (23:00)
[2021-02-18 23:25] LABS: VENOUS BASE EXCESS -2.1 mmol/L (-2-2); VENOUS O2 SATURATION 71.8 % (70-80); VENOUS PCO2 68.9 mmHg (38-52); VENOUS PH 7.219 (7.310-7.410)
[2021-02-19] MEDS ORDERED: ALBUTEROL SO4 HFA INHALER IH PRN (00:45)
[2021-02-19 01:34] LABS: ARTERIAL BLD GAS O2 SATURATION 91.2 % (95-98); ARTERIAL BLOOD GAS BASE EXCESS 0.8 mmol/L (-2-2); ARTERIAL BLOOD GAS PO2 69.7 mmHg (80-100); ARTERIAL BLOOD GAS pH 7.272 (7.350-7.450)
[2021-02-19 01:43] LABS: ALLENS TEST POSITIVE
[2021-02-19 08:30] LABS: BASO % 1.1 % (0-2.0); EOS % 9.2 % (0-4.5); HEMATOCRIT 33.9 % (32.4-45.2); HEMOGLOBIN 11.2 GM/dL (10.7-15.3); LYMPH % 21.9 % (8-40); MEAN CELL VOLUME 81.9 fl (80-96); MEAN PLT VOLUME 9.4 fl (7.5-11.1); MONO % 11.7 % (3.8-10.2); NEUT % 56.1 % (42.8-82.8); PLATELET COUNT 251 10^3/uL (134-434); RBC 4.13 M/mm3 (3.60-5.2); RDW 18.9 % (11.6-15.6); WHITE BLOOD COUNT 8.5 K/mm3 (4.0-10.0)
[2021-02-19 08:49] LABS: ALBUMIN 2.9 g/dl (3.4-5.0); BLOOD UREA NITROGEN 64.6 mg/dL (7-18); CALCIUM 8.4 mg/dL (8.5-10.1)
[2021-02-19 08:53] LABS: BILIRUBIN,TOTAL 0.4 mg/dL (0.2-1); CREATININE 3.1 mg/dL (0.55-1.3)
[2021-02-19 08:55] LABS: TOT PROT 6.6 g/dl (6.4-8.2)
[2021-02-19] MEDS: PANTOPRAZOLE 20 MG TABLET PO SCH (10:25)
[2021-02-19] MEDS: BUDESONIDE/FORMETEROL FUMARATE 80/4.5 mcg INHALER IH SCH ×2 (10:25→21:42)
[2021-02-19] MEDS ORDERED: SODIUM CHLORIDE 0.45% 1,000 ML IV SCH (13:00)
[2021-02-19] MEDS ORDERED: ALBUTEROL SO4 2.5/IPRATROPIUM 0.5 INH SOL 3 ML VIAL.NEB. NEB PRN (17:22)
[2021-02-19] MEDS: methylPREDNISolone NA SUCC 40 MG/1 ML VIAL IVPUSH SCH (18:40)
[2021-02-19] MEDS ORDERED: methylPREDNISolone NA SUCC 40 MG/1 ML VIAL ONE (18:41)
[2021-02-19] MEDS: ALBUTEROL SO4 2.5/IPRATROPIUM 0.5 INH SOL 3 ML VIAL.NEB. NEB SCH (20:07)
[2021-02-19 21:10] LABS: ARTERIAL BLD GAS O2 SATURATION 95.1 % (95-98); ARTERIAL BLOOD GAS BASE EXCESS 0.5 mmol/L (-2-2); ARTERIAL BLOOD GAS PO2 82.9 mmHg (80-100)
[2021-02-19 21:11] LABS: VENT RATE 14
[2021-02-19] MEDS: ATORVASTATIN CA 20 MG TABLET (FP) PO SCH (21:42)
[2021-02-19] MEDS: APIXABAN 5 MG TABLET PO SCH ×2 (21:42→22:41)
[2021-02-20] MEDS: methylPREDNISolone NA SUCC 40 MG/1 ML VIAL IVPUSH SCH ×3 (01:38→17:11)
[2021-02-20] MEDS: ALBUTEROL SO4 2.5/IPRATROPIUM 0.5 INH SOL 3 ML VIAL.NEB. NEB SCH ×3 (07:30→20:20)
[2021-02-20 08:05] LABS: BASO % 0.7 % (0-2.0); EOS % 0.1 % (0-4.5); HEMOGLOBIN 11.6 GM/dL (10.7-15.3); LYMPH % 12.5 % (8-40); MCH 26.7 pg (25.7-33.7); MCHC 32.2 g/dl (32.0-36.0); MEAN CELL VOLUME 83.1 fl (80-96); MEAN PLT VOLUME 10.2 fl (7.5-11.1); MONO % 1.4 % (3.8-10.2); NEUT % 85.3 % (42.8-82.8); PLATELET COUNT 278 10^3/uL (134-434); RBC 4.33 M/mm3 (3.60-5.2); RDW 18.9 % (11.6-15.6); WHITE BLOOD COUNT 5.4 K/mm3 (4.0-10.0)
[2021-02-20 08:33] LABS: CALCIUM 9.1 mg/dL (8.5-10.1)
[2021-02-20 08:34] LABS: BLOOD UREA NITROGEN 51.6 mg/dL (7-18)
[2021-02-20 08:37] LABS: CREATININE 1.3 mg/dL (0.55-1.3)
[2021-02-20 08:38] LABS: BILIRUBIN,TOTAL 0.7 mg/dL (0.2-1)
[2021-02-20 08:42] LABS: TOT PROT 6.8 g/dl (6.4-8.2)
[2021-02-20] MEDS ORDERED: PT OWN MED DRAWER 7, Y5N ONE ×2 (09:49→10:47)
[2021-02-20] MEDS: PANTOPRAZOLE 20 MG TABLET PO SCH (09:53)
[2021-02-20] MEDS: APIXABAN 5 MG TABLET PO SCH ×2 (09:53→21:58)
[2021-02-20] MEDS ORDERED: SODIUM ZIRCONIUM CYCLOSILICATE (LOKELMA) 5 GM PACKET PO ONE (10:31)
[2021-02-20] MEDS ORDERED: SODIUM CHLORIDE 0.45% 1,000 ML IV SCH (10:45)
[2021-02-20] MEDS: BUDESONIDE/FORMETEROL FUMARATE 80/4.5 mcg INHALER IH SCH ×2 (12:21→21:58)
[2021-02-20] MEDS: ATORVASTATIN CA 20 MG TABLET (FP) PO SCH (21:58)
[2021-02-21] MEDS: methylPREDNISolone NA SUCC 40 MG/1 ML VIAL IVPUSH SCH ×3 (01:07→17:04)
[2021-02-21 07:04] LABS: BASO % 0.1 % (0-2.0); HEMATOCRIT 34.7 % (32.4-45.2); HEMOGLOBIN 11.2 GM/dL (10.7-15.3); LYMPH % 7.2 % (8-40); MCH 26.7 pg (25.7-33.7); MCHC 32.4 g/dl (32.0-36.0); MEAN CELL VOLUME 82.5 fl (80-96); MEAN PLT VOLUME 10.3 fl (7.5-11.1); NEUT % 89.7 % (42.8-82.8); PLATELET COUNT 290 10^3/uL (134-434); RBC 4.21 M/mm3 (3.60-5.2); RDW 18.8 % (11.6-15.6); WHITE BLOOD COUNT 10.7 K/mm3 (4.0-10.0)
[2021-02-21 07:29] LABS: BLOOD UREA NITROGEN 55.7 mg/dL (7-18); CALCIUM 9.1 mg/dL (8.5-10.1)
[2021-02-21 07:32] LABS: CREATININE 1.2 mg/dL (0.55-1.3)
[2021-02-21 07:34] LABS: BILIRUBIN,TOTAL 0.4 mg/dL (0.2-1); TOT PROT 6.6 g/dl (6.4-8.2)
[2021-02-21] MEDS: ALBUTEROL SO4 2.5/IPRATROPIUM 0.5 INH SOL 3 ML VIAL.NEB. NEB SCH ×3 (07:40→19:55)
[2021-02-21] MEDS: PANTOPRAZOLE 20 MG TABLET PO SCH (09:14)
[2021-02-21] MEDS: BUDESONIDE/FORMETEROL FUMARATE 80/4.5 mcg INHALER IH SCH ×2 (09:14→21:48)
[2021-02-21] MEDS: APIXABAN 5 MG TABLET PO SCH ×2 (09:14→21:48)
[2021-02-21] MEDS: ATORVASTATIN CA 20 MG TABLET (FP) PO SCH (21:48)
[2021-02-22] MEDS: methylPREDNISolone NA SUCC 40 MG/1 ML VIAL IVPUSH SCH ×2 (01:41→09:22)
[2021-02-22] MEDS: ALBUTEROL SO4 2.5/IPRATROPIUM 0.5 INH SOL 3 ML VIAL.NEB. NEB SCH ×3 (07:55→20:30)
[2021-02-22 08:17] LABS: CALCIUM 9.9 mg/dL (8.5-10.1)
[2021-02-22 08:18] LABS: BLOOD UREA NITROGEN 48.7 mg/dL (7-18)
[2021-02-22] MEDS: BUDESONIDE/FORMETEROL FUMARATE 80/4.5 mcg INHALER IH SCH ×2 (09:22→21:17)
[2021-02-22] MEDS: APIXABAN 5 MG TABLET PO SCH ×2 (09:22→21:17)
[2021-02-22] MEDS: PANTOPRAZOLE 20 MG TABLET PO SCH (09:22)
[2021-02-22] MEDS: predniSONE 20 MG TABLET (UD) PO SCH (13:45)
[2021-02-22] MEDS: ATORVASTATIN CA 20 MG TABLET (FP) PO SCH (21:17)
[2021-02-23] MEDS: ALBUTEROL SO4 2.5/IPRATROPIUM 0.5 INH SOL 3 ML VIAL.NEB. NEB SCH ×3 (08:00→20:12)
[2021-02-23] MEDS: APIXABAN 5 MG TABLET PO SCH ×2 (10:42→21:35)
[2021-02-23] MEDS: PANTOPRAZOLE 20 MG TABLET PO SCH (10:42)
[2021-02-23] MEDS: predniSONE 20 MG TABLET (UD) PO SCH (10:42)
[2021-02-23] MEDS: BUDESONIDE/FORMETEROL FUMARATE 80/4.5 mcg INHALER IH SCH ×2 (10:44→21:35)
[2021-02-23] MEDS: ATORVASTATIN CA 20 MG TABLET (FP) PO SCH (21:35)
[2021-02-24] MEDS: ALBUTEROL SO4 2.5/IPRATROPIUM 0.5 INH SOL 3 ML VIAL.NEB. NEB SCH ×2 (07:25→14:26)
[2021-02-24] MEDS: predniSONE 20 MG TABLET (UD) PO SCH (09:53)
[2021-02-24] MEDS: PANTOPRAZOLE 20 MG TABLET PO SCH (09:53)
[2021-02-24] MEDS: APIXABAN 5 MG TABLET PO SCH ×2 (09:54→21:30)
[2021-02-24] MEDS: BUDESONIDE/FORMETEROL FUMARATE 80/4.5 mcg INHALER IH SCH ×2 (09:54→21:30)
[2021-02-24] MEDS: ATORVASTATIN CA 20 MG TABLET (FP) PO SCH (21:30)
[2021-02-25] MEDS: BUDESONIDE/FORMETEROL FUMARATE 80/4.5 mcg INHALER IH SCH (09:12)
[2021-02-25] MEDS: APIXABAN 5 MG TABLET PO SCH (09:12)
[2021-02-25] MEDS: PANTOPRAZOLE 20 MG TABLET PO SCH (09:12)
[2021-02-25] MEDS: predniSONE 20 MG TABLET (UD) PO SCH (09:12)
[2021-02-25] MEDS ORDERED: DULoxetine HCL 20 MG CAPSULE.DR PO SCH (10:00)
[2021-02-25 23:06] VITALS: BP 132/79; PULSE 62; TEMP 97.8
== END 2021-02-25 20:00 | DRG 682 ==
LOC: JER 16:41 → JERBED 22:56 → J4S 02-19 20:18
PROVIDERS: ADMIT Internal Medicine; ATTEND Internal Medicine
DX: N17.9 Acute kidney failure, unspecified (principal); J96.21 Acute and chronic respiratory failure with hypoxia; J96.22 Acute and chronic respiratory failure with hypercapnia; G93.41 Metabolic encephalopathy; J44.1 Chronic obstructive pulmonary disease with (acute) exacerbation; I13.0 Hypertensive heart and chronic kidney disease with heart failure and stage 1 through stage 4 chronic kidney disease, or unspecified chronic kidney disease; I50.32 Chronic diastolic (congestive) heart failure; R41.82 Altered mental status, unspecified; I48.0 Paroxysmal atrial fibrillation; E78.5 Hyperlipidemia, unspecified; F31.9 Bipolar disorder, unspecified; K21.9 Gastro-esophageal reflux disease without esophagitis; Z85.3 Personal history of malignant neoplasm of breast; I25.119 Atherosclerotic heart disease of native coronary artery with unspecified angina pectoris; N18.9 Chronic kidney disease, unspecified; E66.9 Obesity, unspecified; Z68.39 Body mass index [BMI] 39.0-39.9, adult; E87.5 Hyperkalemia; F41.8 Other specified anxiety disorders
CPT/HCPCS: 36415; 36600; 70450-TC; 71045-TC-FY; 76775-TC; 80048; 80053; 80307; 81003; 82550; 82553; 82570; 82607; 82746; 82803; 83880; 84300; 84443; 84484; 84540; 85025; 86780; 87086; 87804; 93005; 93010; 94640; 94660; 97116-GP; 97161-GP; 99285-25; C9803; U0003; U0005

== ENCOUNTER 2021-08-20 15:49 | Inpatient (IN) | payer OTHER ==
[2021-08-20] MEDS: ALBUTEROL SO4 2.5/IPRATROPIUM 0.5 INH SOL 3 ML VIAL.NEB. NEB SCH ×4 (16:45→17:30)
[2021-08-20] MEDS ORDERED: ALBUTEROL SO4 2.5/IPRATROPIUM 0.5 INH SOL 3 ML VIAL.NEB. NEB ONE (17:13)
[2021-08-20] MEDS ORDERED: morphine CARPU-JECT 4 MG/1 ML DISP.SYRIN IVPUSH ONE (17:54)
[2021-08-20 18:36] LABS: VENOUS BASE EXCESS 4.6 mmol/L (-2-2); VENOUS O2 SATURATION 39.4 % (70-80); VENOUS PH 7.216 (7.310-7.410)
[2021-08-20 18:38] LABS: BASO % 0.5 % (0-2.0); EOS % 0.4 % (0-4.5); HEMATOCRIT 38.8 % (32.4-45.2); HEMOGLOBIN 12.5 GM/dL (10.7-15.3); LYMPH % 7.4 % (8-40); MCH 27.6 pg (25.7-33.7); MCHC 32.1 g/dl (32.0-36.0); MEAN CELL VOLUME 85.9 fl (80-96); MEAN PLT VOLUME 9.7 fl (7.5-11.1); MONO % 4.9 % (3.8-10.2); NEUT % 86.8 % (42.8-82.8); PLATELET COUNT 230 10^3/uL (134-434); RBC 4.52 M/mm3 (3.60-5.2); RDW 18.6 % (11.6-15.6); WHITE BLOOD COUNT 10.9 K/mm3 (4.0-10.0)
[2021-08-20 18:42] LABS: VENOUS PCO2 89.8 mmHg (38-52)
[2021-08-20] MEDS ORDERED: methylPREDNISolone NA SUCC 125 MG/2 ML VIAL IVPB ONE (18:51)
[2021-08-20] MEDS ORDERED: MAGNESIUM SULF 50% (8.12 MEQ/2 ML-1 GM VIAL) IVPB ONE (18:52)
[2021-08-20 19:08] LABS: ALBUMIN 3.5 g/dl (3.4-5.0); BLOOD UREA NITROGEN 31.7 mg/dL (7-18)
[2021-08-20] MEDS ORDERED: MAGNESIUM SULFATE IN WATER 2 GM/50 ML IVPB IVPB ONE (19:11)
[2021-08-20] MEDS ORDERED: methylPREDNISolone NA SUCC 125 MG/2 ML VIAL ONE (19:11)
[2021-08-20 19:12] LABS: BILIRUBIN,TOTAL 0.3 mg/dL (0.2-1)
[2021-08-20 19:13] LABS: TOT PROT 6.8 g/dl (6.4-8.2)
[2021-08-20 19:16] LABS: N-TERMINAL BNP 419.7 pg/ml (5-125)
[2021-08-20 19:19] LABS: VENOUS BASE EXCESS 2.2 mmol/L (-2-2); VENOUS O2 SATURATION 89.6 % (70-80); VENOUS PCO2 49.8 mmHg (38-52); VENOUS PH 7.372 (7.310-7.410)
[2021-08-20 19:20] LABS: CREATININE 1.1 mg/dL (0.55-1.3)
[2021-08-20] MEDS ORDERED: FUROSEMIDE 40 MG/4 ML INJECTABLE VIAL IVPUSH ONE (19:22)
[2021-08-20] MEDS ORDERED: CEFTRIAXONE 1 GM in DEXTROSE 5%-WATER - 50 ML IVPB ONE (19:24)
[2021-08-20] MEDS ORDERED: AZITHROMYCIN IVPB 500 MG in DEXTROSE 5%-WATER - 250 ML IVPB ONE (19:25)
[2021-08-20 19:52] LABS: URINE APPEARANCE CLEAR; URINE BILIRUBIN NEGATIVE (NEGATIVE); URINE COLOR YELLOW; URINE GLUCOSE (UA) NEGATIVE (NEGATIVE); URINE KETONE NEGATIVE (NEGATIVE); URINE LEUK ESTERASE NEGATIVE (NEGATIVE); URINE NITRITE NEGATIVE (NEGATIVE); URINE PROTEIN NEGATIVE (NEGATIVE); URINE UROBILINOGEN 0.2 mg/dL (0.2-1.0)
[2021-08-20] MEDS ORDERED: MIDAZOLAM HCL 2 MG/2 ML SINGLE DOSE VIAL IVPUSH ONE ×2 (20:10→20:28)
[2021-08-20] MEDS ORDERED: MIDAZOLAM HCL 2 MG/2 ML SINGLE DOSE VIAL ONE ×2 (20:13→20:28)
[2021-08-20] MEDS ORDERED: HALOPERIDOL LACTATE 5 MG/ML ONE (20:45)
[2021-08-20] MEDS ORDERED: CEFTRIAXONE 1 GM/50 ML BAG ONE (20:51)
[2021-08-20] MEDS ORDERED: AZITHROMYCIN IVPB 500 MG/250 ML BAG IVPB ONE ×2 (20:51→20:55)
[2021-08-20] MEDS ORDERED: FUROSEMIDE 40 MG/4 ML INJECTABLE VIAL ONE (20:55)
[2021-08-20 21:37] LABS: VENOUS BASE EXCESS 1.4 mmol/L (-2-2); VENOUS O2 SATURATION 63.8 % (70-80)
[2021-08-20 21:39] LABS: VENOUS PCO2 90.6 mmHg (38-52); VENOUS PH 7.175 (7.310-7.410)
[2021-08-20] MEDS ORDERED: HALOPERIDOL LACTATE 5 MG/ML IV ONE (22:47)
[2021-08-20 23:25] LABS: ARTERIAL BLD GAS O2 SATURATION 92.1 % (95-98); ARTERIAL BLOOD GAS BASE EXCESS 5.1 mmol/L (-2-2); ARTERIAL BLOOD GAS PO2 68.7 mmHg (80-100); ARTERIAL BLOOD GAS pH 7.333 (7.350-7.450)
[2021-08-20 23:27] LABS: ALLENS TEST POSITIVE; VENT MODE S/T; VENT RATE 30
[2021-08-21] MEDS ORDERED: FUROSEMIDE 40 MG/4 ML INJECTABLE VIAL IVPUSH ONE (00:01)
[2021-08-21 06:48] LABS: HEMATOCRIT 43.4 % (32.4-45.2); HEMOGLOBIN 13.7 GM/dL (10.7-15.3); MCH 27.4 pg (25.7-33.7); MCHC 31.6 g/dl (32.0-36.0); MEAN CELL VOLUME 86.6 fl (80-96); PLATELET COUNT 191 10^3/uL (134-434); RBC 5.02 M/mm3 (3.60-5.2); RDW 18.6 % (11.6-15.6); WHITE BLOOD COUNT 13.1 K/mm3 (4.0-10.0)
[2021-08-21 07:11] LABS: ALBUMIN 3.3 g/dl (3.4-5.0); CALCIUM 9.3 mg/dL (8.5-10.1); MAGNESIUM 2.6 mg/dL (1.8-2.4)
[2021-08-21 07:14] LABS: CREATININE 0.9 mg/dL (0.55-1.3); PHOSPHOROUS 4.6 mg/dL (2.5-4.9)
[2021-08-21 07:16] LABS: BILIRUBIN,TOTAL 0.7 mg/dL (0.2-1); TOT PROT 6.9 g/dl (6.4-8.2)
[2021-08-21 07:39] LABS: ARTERIAL BLD GAS O2 SATURATION 97.3 % (95-98); ARTERIAL BLOOD GAS BASE EXCESS 7.7 mmol/L (-2-2); ARTERIAL BLOOD GAS PO2 94.1 mmHg (80-100); ARTERIAL BLOOD GAS pH 7.431 (7.350-7.450)
[2021-08-21 07:43] LABS: ALLENS TEST POSITIVE
[2021-08-21 07:44] LABS: VENT RATE 30
[2021-08-21] MEDS: ALBUTEROL SO4 2.5/IPRATROPIUM 0.5 INH SOL 3 ML VIAL.NEB. NEB SCH ×4 (08:36→20:03)
[2021-08-21 08:39] LABS: ANISOCYTOSIS 1+; MACROCYTOSIS 0; PLATELET ESTIMATE NORMAL
[2021-08-21] MEDS ORDERED: DEXTROSE 5%-WATER - 50 ML IVPB ONE (09:22)
[2021-08-21] MEDS ORDERED: cefTRIAXone SODIUM 1 GM VIAL ONE (09:22)
[2021-08-21] MEDS: ENOXAPARIN NA (PORCINE) 40 MG/0.4 ML DISP.SYRIN SQ SCH (09:57)
[2021-08-21] MEDS: MUPIROCIN 2% TOPICAL OINTMENT FOR DECOLONIZATION NS SCH ×2 (09:58→21:18)
[2021-08-21] MEDS ORDERED: CEFTRIAXONE 1 GM in DEXTROSE 5%-WATER - 50 ML IVPB ONE (10:00)
[2021-08-21] MEDS ORDERED: AZITHROMYCIN IVPB 250 MG/125 ML BAG IVPB ONE (10:00)
[2021-08-21] MEDS ORDERED: MUPIROCIN 2% TOPICAL OINTMENT FOR DECOLONIZATION NS SCH (10:00)
[2021-08-21] MEDS ORDERED: ALBUTEROL SO4 0.083% IH SOL 2.5 MG/3 ML VIAL.NEB. NEB PRN (10:54)
[2021-08-21] MEDS ORDERED: ALPRAZolam 0.25 MG TABLET PO PRN (11:25)
[2021-08-21] MEDS: methylPREDNISolone NA SUCC 40 MG/1 ML VIAL IVPUSH SCH (20:17)
[2021-08-21] MEDS: PREGABALIN 25 MG CAPSULE PO SCH (21:18)
[2021-08-21] MEDS ORDERED: ATORVASTATIN CA 20 MG TABLET (FP) PO SCH (22:00)
[2021-08-21] MEDS ORDERED: CHLORHEXIDINE GLUCONATE 4% CLEANSER FOR DECOLONIZATION TP SCH ×2 (22:00)
[2021-08-22] MEDS: methylPREDNISolone NA SUCC 40 MG/1 ML VIAL IVPUSH SCH ×3 (04:14→20:21)
[2021-08-22 07:19] LABS: HEMATOCRIT 37.5 % (32.4-45.2); HEMOGLOBIN 11.8 GM/dL (10.7-15.3); MCH 27.2 pg (25.7-33.7); MCHC 31.4 g/dl (32.0-36.0); MEAN CELL VOLUME 86.4 fl (80-96); MEAN PLT VOLUME 10.1 fl (7.5-11.1); PLATELET COUNT 226 10^3/uL (134-434); RBC 4.34 M/mm3 (3.60-5.2); RDW 17.9 % (11.6-15.6); WHITE BLOOD COUNT 13.9 K/mm3 (4.0-10.0)
[2021-08-22] MEDS: ALBUTEROL SO4 2.5/IPRATROPIUM 0.5 INH SOL 3 ML VIAL.NEB. NEB SCH ×4 (08:05→19:58)
[2021-08-22 08:19] LABS: CALCIUM 9.1 mg/dL (8.5-10.1)
[2021-08-22 08:20] LABS: ALBUMIN 3.1 g/dl (3.4-5.0); BLOOD UREA NITROGEN 27.3 mg/dL (7-18); MAGNESIUM 2.5 mg/dL (1.8-2.4)
[2021-08-22 08:22] LABS: CREATININE 0.8 mg/dL (0.55-1.3); PHOSPHOROUS 3.8 mg/dL (2.5-4.9)
[2021-08-22 08:23] LABS: BILIRUBIN,TOTAL 0.5 mg/dL (0.2-1)
[2021-08-22 08:25] LABS: TOT PROT 5.9 g/dl (6.4-8.2)
[2021-08-22] MEDS ORDERED: DEXTROSE 5%-WATER - 50 ML IVPB ONE (08:42)
[2021-08-22] MEDS ORDERED: cefTRIAXone SODIUM 1 GM VIAL ONE (08:42)
[2021-08-22 09:03] LABS: ANISOCYTOSIS 0; HELMET CELLS 0; HOWELL-JOLLY BODIES 0; MACROCYTOSIS 0; OVALOCYTE 0; ROULEAU 0; SICKELED CELLS 0; TARGET CELLS 0; TEAR DROP CELLS 0; TOXIC GRANULATION 0
[2021-08-22] MEDS ORDERED: ARIPiprazole 5 MG TABLET ONE (09:58)
[2021-08-22] MEDS ORDERED: BUDESONIDE/FORMETEROL FUMARATE 80/4.5 mcg INHALER IH SCH (10:00)
[2021-08-22] MEDS ORDERED: AZITHROMYCIN IVPB 250 MG in DEXTROSE 5%-WATER - 250 ML IVPB SCH (10:00)
[2021-08-22] MEDS ORDERED: CEFTRIAXONE 1,000 GM in DEXTROSE 5%-WATER - 50 ML IVPB SCH (10:00)
[2021-08-22] MEDS ORDERED: ARIPiprazole 10 MG TABLET PO SCH (10:00)
[2021-08-22] MEDS: LISINOPRIL 10 MG TABLET PO SCH (10:23)
[2021-08-22] MEDS: SPIRONOLACTONE 25 MG TABLET PO SCH (10:24)
[2021-08-22] MEDS: FUROSEMIDE 20 MG TABLET (FP) PO SCH (10:24)
[2021-08-22] MEDS: SERTRALINE HCL 50 MG TABLET (FP) PO SCH (10:24)
[2021-08-22] MEDS: PREGABALIN 25 MG CAPSULE PO SCH ×2 (10:24→22:01)
[2021-08-22] MEDS: MUPIROCIN 2% TOPICAL OINTMENT FOR DECOLONIZATION NS SCH (10:25)
[2021-08-22] MEDS: CEFTRIAXONE 1 GM in DEXTROSE 5%-WATER - 50 ML IVPB SCH (10:25)
[2021-08-22] MEDS: ENOXAPARIN NA (PORCINE) 40 MG/0.4 ML DISP.SYRIN SQ SCH (10:27)
[2021-08-22] MEDS ORDERED: ALBUTEROL SO4 0.083% IH SOL 2.5 MG/3 ML VIAL.NEB. NEB PRN (14:45)
[2021-08-22] MEDS: ATORVASTATIN CA 20 MG TABLET (FP) PO SCH (21:30)
[2021-08-22] MEDS: BUDESONIDE/FORMETEROL FUMARATE 80/4.5 mcg INHALER IH SCH (21:32)
[2021-08-23] MEDS: methylPREDNISolone NA SUCC 40 MG/1 ML VIAL IVPUSH SCH ×3 (03:23→20:30)
[2021-08-23 07:37] LABS: HEMATOCRIT 37.8 % (32.4-45.2); MCH 27.4 pg (25.7-33.7); MCHC 31.8 g/dl (32.0-36.0); MEAN CELL VOLUME 86.3 fl (80-96); MEAN PLT VOLUME 9.9 fl (7.5-11.1); PLATELET COUNT 238 10^3/uL (134-434); RBC 4.39 M/mm3 (3.60-5.2); RDW 17.7 % (11.6-15.6); WHITE BLOOD COUNT 14.1 K/mm3 (4.0-10.0)
[2021-08-23 08:02] LABS: ALBUMIN 3.1 g/dl (3.4-5.0)
[2021-08-23] MEDS ORDERED: cefTRIAXone SODIUM 1 GM VIAL ONE (08:02)
[2021-08-23] MEDS ORDERED: DEXTROSE 5%-WATER - 50 ML IVPB ONE (08:02)
[2021-08-23 08:04] LABS: CALCIUM 9.2 mg/dL (8.5-10.1)
[2021-08-23 08:05] LABS: MAGNESIUM 2.4 mg/dL (1.8-2.4)
[2021-08-23 08:08] LABS: CREATININE 0.8 mg/dL (0.55-1.3); PHOSPHOROUS 3.5 mg/dL (2.5-4.9)
[2021-08-23 08:09] LABS: BILIRUBIN,TOTAL 0.4 mg/dL (0.2-1)
[2021-08-23 08:11] LABS: TOT PROT 6.1 g/dl (6.4-8.2)
[2021-08-23 08:47] LABS: ANISOCYTOSIS 1+; MACROCYTOSIS 0; PLATELET ESTIMATE NORMAL
[2021-08-23] MEDS ORDERED: ARIPiprazole 5 MG TABLET ONE (09:12)
[2021-08-23] MEDS: ALBUTEROL SO4 2.5/IPRATROPIUM 0.5 INH SOL 3 ML VIAL.NEB. NEB SCH ×4 (09:28→20:29)
[2021-08-23] MEDS: CEFTRIAXONE 1 GM in DEXTROSE 5%-WATER - 50 ML IVPB SCH (09:32)
[2021-08-23] MEDS: SPIRONOLACTONE 25 MG TABLET PO SCH (09:33)
[2021-08-23] MEDS: SERTRALINE HCL 50 MG TABLET (FP) PO SCH (09:33)
[2021-08-23] MEDS: FUROSEMIDE 20 MG TABLET (FP) PO SCH (09:33)
[2021-08-23] MEDS: ENOXAPARIN NA (PORCINE) 40 MG/0.4 ML DISP.SYRIN SQ SCH (09:33)
[2021-08-23] MEDS: BUDESONIDE/FORMETEROL FUMARATE 80/4.5 mcg INHALER IH SCH ×2 (09:34→22:12)
[2021-08-23] MEDS: PREGABALIN 25 MG CAPSULE PO SCH ×2 (09:34→22:12)
[2021-08-23] MEDS: ARIPiprazole 10 MG TABLET PO SCH (09:34)
[2021-08-23] MEDS: LISINOPRIL 10 MG TABLET PO SCH (09:34)
[2021-08-23] MEDS: AZITHROMYCIN IVPB 250 MG in DEXTROSE 5%-WATER - 250 ML IVPB SCH (09:34)
[2021-08-23] MEDS: ALPRAZolam 0.25 MG TABLET PO PRN (09:34)
[2021-08-23] MEDS: ATORVASTATIN CA 20 MG TABLET (FP) PO SCH (22:12)
[2021-08-24] MEDS: methylPREDNISolone NA SUCC 40 MG/1 ML VIAL IVPUSH SCH ×2 (04:05→17:13)
[2021-08-24] MEDS: ALBUTEROL SO4 2.5/IPRATROPIUM 0.5 INH SOL 3 ML VIAL.NEB. NEB SCH ×4 (08:21→20:24)
[2021-08-24] MEDS ORDERED: ARIPiprazole 5 MG TABLET ONE (09:20)
[2021-08-24] MEDS ORDERED: cefTRIAXone SODIUM 1 GM VIAL ONE (09:20)
[2021-08-24] MEDS ORDERED: DEXTROSE 5%-WATER - 50 ML IVPB ONE (09:21)
[2021-08-24] MEDS: ARIPiprazole 10 MG TABLET PO SCH (10:05)
[2021-08-24] MEDS: ENOXAPARIN NA (PORCINE) 40 MG/0.4 ML DISP.SYRIN SQ SCH (10:06)
[2021-08-24] MEDS: SPIRONOLACTONE 25 MG TABLET PO SCH (10:06)
[2021-08-24] MEDS: LISINOPRIL 10 MG TABLET PO SCH (10:06)
[2021-08-24] MEDS: PREGABALIN 25 MG CAPSULE PO SCH ×2 (10:06→21:34)
[2021-08-24] MEDS: FUROSEMIDE 20 MG TABLET (FP) PO SCH (10:06)
[2021-08-24] MEDS: SERTRALINE HCL 50 MG TABLET (FP) PO SCH (10:07)
[2021-08-24] MEDS: BUDESONIDE/FORMETEROL FUMARATE 80/4.5 mcg INHALER IH SCH ×2 (10:08→21:34)
[2021-08-24] MEDS: CEFTRIAXONE 1 GM in DEXTROSE 5%-WATER - 50 ML IVPB SCH (10:59)
[2021-08-24] MEDS: AZITHROMYCIN IVPB 250 MG in DEXTROSE 5%-WATER - 250 ML IVPB SCH (12:43)
[2021-08-24] MEDS: ATORVASTATIN CA 20 MG TABLET (FP) PO SCH (21:34)
[2021-08-24] MEDS: ALPRAZolam 0.25 MG TABLET PO PRN (21:34)
[2021-08-25] MEDS: methylPREDNISolone NA SUCC 40 MG/1 ML VIAL IVPUSH SCH ×2 (04:14→17:51)
[2021-08-25] MEDS: ALBUTEROL SO4 2.5/IPRATROPIUM 0.5 INH SOL 3 ML VIAL.NEB. NEB SCH ×4 (08:12→20:43)
[2021-08-25] MEDS ORDERED: cefTRIAXone SODIUM 1 GM VIAL ONE ×2 (09:46→09:50)
[2021-08-25] MEDS: SPIRONOLACTONE 25 MG TABLET PO SCH (10:03)
[2021-08-25] MEDS: PREGABALIN 25 MG CAPSULE PO SCH ×2 (10:03→22:01)
[2021-08-25] MEDS: SERTRALINE HCL 50 MG TABLET (FP) PO SCH (10:03)
[2021-08-25] MEDS: LISINOPRIL 10 MG TABLET PO SCH (10:03)
[2021-08-25] MEDS: FUROSEMIDE 20 MG TABLET (FP) PO SCH (10:03)
[2021-08-25] MEDS: CEFTRIAXONE 1 GM in DEXTROSE 5%-WATER - 50 ML IVPB SCH (10:04)
[2021-08-25] MEDS: ENOXAPARIN NA (PORCINE) 40 MG/0.4 ML DISP.SYRIN SQ SCH (10:05)
[2021-08-25] MEDS: BUDESONIDE/FORMETEROL FUMARATE 80/4.5 mcg INHALER IH SCH ×2 (10:06→22:01)
[2021-08-25] MEDS: ARIPiprazole 5 MG TABLET PO SCH (10:06)
[2021-08-25] MEDS: AZITHROMYCIN IVPB 250 MG in DEXTROSE 5%-WATER - 250 ML IVPB SCH (10:59)
[2021-08-25 20:07] LABS: SARS-CoV-2 NAA Not Detected (Not Detected)
[2021-08-25] MEDS: ATORVASTATIN CA 20 MG TABLET (FP) PO SCH (22:01)
[2021-08-26] MEDS: methylPREDNISolone NA SUCC 40 MG/1 ML VIAL IVPUSH SCH (05:15)
[2021-08-26] MEDS: ALBUTEROL SO4 2.5/IPRATROPIUM 0.5 INH SOL 3 ML VIAL.NEB. NEB SCH ×4 (07:35→20:06)
[2021-08-26] MEDS ORDERED: DEXTROSE 5%-WATER - 50 ML IVPB ONE (10:13)
[2021-08-26] MEDS ORDERED: cefTRIAXone SODIUM 1 GM VIAL ONE (10:13)
[2021-08-26] MEDS: predniSONE 20 MG TABLET (UD) PO SCH ×2 (10:26→21:30)
[2021-08-26] MEDS: SPIRONOLACTONE 25 MG TABLET PO SCH (10:26)
[2021-08-26] MEDS: ARIPiprazole 5 MG TABLET PO SCH (10:27)
[2021-08-26] MEDS: SERTRALINE HCL 50 MG TABLET (FP) PO SCH (10:27)
[2021-08-26] MEDS: PREGABALIN 25 MG CAPSULE PO SCH ×2 (10:27→21:30)
[2021-08-26] MEDS: FUROSEMIDE 20 MG TABLET (FP) PO SCH (10:27)
[2021-08-26] MEDS: LISINOPRIL 10 MG TABLET PO SCH (10:27)
[2021-08-26] MEDS: ENOXAPARIN NA (PORCINE) 40 MG/0.4 ML DISP.SYRIN SQ SCH (10:29)
[2021-08-26] MEDS: CEFTRIAXONE 1 GM in DEXTROSE 5%-WATER - 50 ML IVPB SCH (10:31)
[2021-08-26] MEDS: BUDESONIDE/FORMETEROL FUMARATE 80/4.5 mcg INHALER IH SCH ×2 (10:32→21:31)
[2021-08-26] MEDS: AZITHROMYCIN IVPB 250 MG in DEXTROSE 5%-WATER - 250 ML IVPB SCH (10:34)
[2021-08-26] MEDS: ATORVASTATIN CA 20 MG TABLET (FP) PO SCH (21:30)
[2021-08-27] MEDS: ALBUTEROL SO4 2.5/IPRATROPIUM 0.5 INH SOL 3 ML VIAL.NEB. NEB SCH ×4 (08:00→20:33)
[2021-08-27] MEDS ORDERED: cefTRIAXone SODIUM 1 GM VIAL ONE (09:24)
[2021-08-27] MEDS ORDERED: DEXTROSE 5%-WATER - 50 ML IVPB ONE (09:25)
[2021-08-27] MEDS: LISINOPRIL 10 MG TABLET PO SCH (09:42)
[2021-08-27] MEDS: ENOXAPARIN NA (PORCINE) 40 MG/0.4 ML DISP.SYRIN SQ SCH (09:42)
[2021-08-27] MEDS: SPIRONOLACTONE 25 MG TABLET PO SCH (09:42)
[2021-08-27] MEDS: predniSONE 20 MG TABLET (UD) PO SCH ×2 (09:43→21:28)
[2021-08-27] MEDS: PREGABALIN 25 MG CAPSULE PO SCH ×2 (09:43→21:28)
[2021-08-27] MEDS: SERTRALINE HCL 50 MG TABLET (FP) PO SCH (09:43)
[2021-08-27] MEDS: CEFTRIAXONE 1 GM in DEXTROSE 5%-WATER - 50 ML IVPB SCH (09:43)
[2021-08-27] MEDS: FUROSEMIDE 20 MG TABLET (FP) PO SCH (09:43)
[2021-08-27] MEDS: ARIPiprazole 5 MG TABLET PO SCH (09:46)
[2021-08-27] MEDS: BUDESONIDE/FORMETEROL FUMARATE 80/4.5 mcg INHALER IH SCH ×2 (10:07→21:27)
[2021-08-27] MEDS: AZITHROMYCIN IVPB 250 MG in DEXTROSE 5%-WATER - 250 ML IVPB SCH (10:08)
[2021-08-27 11:00] LABS: BASO % 0.4 % (0-2.0); EOS % 0.1 % (0-4.5); HEMATOCRIT 39.8 % (32.4-45.2); HEMOGLOBIN 12.7 GM/dL (10.7-15.3); LYMPH % 8.4 % (8-40); MCH 27.5 pg (25.7-33.7); MCHC 31.9 g/dl (32.0-36.0); MEAN CELL VOLUME 86.2 fl (80-96); NEUT % 84.1 % (42.8-82.8); PLATELET COUNT 228 10^3/uL (134-434); RBC 4.62 M/mm3 (3.60-5.2); RDW 18.2 % (11.6-15.6); WHITE BLOOD COUNT 10.4 K/mm3 (4.0-10.0)
[2021-08-27 11:28] LABS: CALCIUM 8.7 mg/dL (8.5-10.1)
[2021-08-27 11:30] LABS: ALBUMIN 2.8 g/dl (3.4-5.0); BLOOD UREA NITROGEN 37.2 mg/dL (7-18)
[2021-08-27 11:32] LABS: CREATININE 0.8 mg/dL (0.55-1.3)
[2021-08-27 11:34] LABS: BILIRUBIN,TOTAL 0.3 mg/dL (0.2-1)
[2021-08-27 11:35] LABS: TOT PROT 5.3 g/dl (6.4-8.2)
[2021-08-27 11:37] LABS: N-TERMINAL BNP 331.4 pg/ml (5-125)
[2021-08-27] MEDS: FUROSEMIDE 40 MG/4 ML INJECTABLE VIAL IVPUSH SCH (13:31)
[2021-08-27 18:03] VITALS: BMI 40.3
[2021-08-27] MEDS: ATORVASTATIN CA 20 MG TABLET (FP) PO SCH (21:28)
[2021-08-28] MEDS: FUROSEMIDE 40 MG/4 ML INJECTABLE VIAL IVPUSH SCH ×3 (05:58→15:15)
[2021-08-28] MEDS: ALBUTEROL SO4 2.5/IPRATROPIUM 0.5 INH SOL 3 ML VIAL.NEB. NEB SCH ×4 (07:36→20:16)
[2021-08-28 08:01] LABS: BLOOD UREA NITROGEN 31.7 mg/dL (7-18)
[2021-08-28 08:03] LABS: CREATININE 0.8 mg/dL (0.55-1.3)
[2021-08-28] MEDS ORDERED: cefTRIAXone SODIUM 1 GM VIAL ONE (09:25)
[2021-08-28] MEDS ORDERED: DEXTROSE 5%-WATER - 50 ML IVPB ONE (09:27)
[2021-08-28] MEDS: ENOXAPARIN NA (PORCINE) 40 MG/0.4 ML DISP.SYRIN SQ SCH (09:46)
[2021-08-28] MEDS: LISINOPRIL 10 MG TABLET PO SCH (09:47)
[2021-08-28] MEDS: SERTRALINE HCL 50 MG TABLET (FP) PO SCH (09:47)
[2021-08-28] MEDS: ARIPiprazole 5 MG TABLET PO SCH (09:47)
[2021-08-28] MEDS: SPIRONOLACTONE 25 MG TABLET PO SCH (09:47)
[2021-08-28] MEDS: predniSONE 20 MG TABLET (UD) PO SCH ×2 (09:47→23:17)
[2021-08-28] MEDS: PREGABALIN 25 MG CAPSULE PO SCH ×2 (09:47→23:17)
[2021-08-28] MEDS: AZITHROMYCIN IVPB 250 MG in DEXTROSE 5%-WATER - 250 ML IVPB SCH (09:48)
[2021-08-28] MEDS: CEFTRIAXONE 1 GM in DEXTROSE 5%-WATER - 50 ML IVPB SCH (09:48)
[2021-08-28] MEDS: BUDESONIDE/FORMETEROL FUMARATE 80/4.5 mcg INHALER IH SCH ×2 (09:49→23:34)
[2021-08-28] MEDS ORDERED: SODIUM CHLORIDE 250 ML IV ONE (15:00)
[2021-08-28] MEDS ORDERED: traMADol HCL 50 MG TABLET PO ONE (19:46)
[2021-08-28] MEDS: CEFUROXIME AXETIL 500 MG TABLET PO SCH (23:17)
[2021-08-28] MEDS: ATORVASTATIN CA 20 MG TABLET (FP) PO SCH (23:17)
[2021-08-29] MEDS: ALBUTEROL SO4 2.5/IPRATROPIUM 0.5 INH SOL 3 ML VIAL.NEB. NEB SCH ×5 (08:00→20:21)
[2021-08-29 08:53] LABS: EOS % 0.2 % (0-4.5); HEMATOCRIT 41.4 % (32.4-45.2); HEMOGLOBIN 13.5 GM/dL (10.7-15.3); MCH 27.6 pg (25.7-33.7); MCHC 32.6 g/dl (32.0-36.0); MEAN CELL VOLUME 84.8 fl (80-96); MEAN PLT VOLUME 10.4 fl (7.5-11.1); MONO % 5.2 % (3.8-10.2); NEUT % 88.6 % (42.8-82.8); PLATELET COUNT 218 10^3/uL (134-434); RBC 4.88 M/mm3 (3.60-5.2); RDW 17.6 % (11.6-15.6); WHITE BLOOD COUNT 10.8 K/mm3 (4.0-10.0)
[2021-08-29 09:00] LABS: ALBUMIN 2.8 g/dl (3.4-5.0); CALCIUM 8.9 mg/dL (8.5-10.1)
[2021-08-29 09:03] LABS: CREATININE 0.9 mg/dL (0.55-1.3)
[2021-08-29 09:06] LABS: BILIRUBIN,TOTAL 0.5 mg/dL (0.2-1); TOT PROT 5.8 g/dl (6.4-8.2)
[2021-08-29] MEDS ORDERED: FUROSEMIDE 40 MG TABLET (FP) PO SCH (10:00)
[2021-08-29] MEDS: predniSONE 20 MG TABLET (UD) PO SCH ×2 (10:18→21:06)
[2021-08-29] MEDS: ENOXAPARIN NA (PORCINE) 40 MG/0.4 ML DISP.SYRIN SQ SCH (10:18)
[2021-08-29] MEDS: SERTRALINE HCL 50 MG TABLET (FP) PO SCH (10:18)
[2021-08-29] MEDS: PREGABALIN 25 MG CAPSULE PO SCH ×2 (10:18→21:06)
[2021-08-29] MEDS: CEFUROXIME AXETIL 500 MG TABLET PO SCH ×2 (10:19→21:06)
[2021-08-29] MEDS: ARIPiprazole 5 MG TABLET PO SCH (10:19)
[2021-08-29] MEDS: BUDESONIDE/FORMETEROL FUMARATE 80/4.5 mcg INHALER IH SCH (10:19)
[2021-08-29] MEDS: ATORVASTATIN CA 20 MG TABLET (FP) PO SCH (21:06)
[2021-08-29 21:10] VITALS: BP 96/59; PULSE 72; TEMP 97.7
== END 2021-08-29 21:44 | DRG 193 ==
LOC: JER 15:49 → JERBED 23:15 → JICU 08-21 00:03 → J4W 08-24 14:59
PROVIDERS: ADMIT Internal Medicine Pulmonary Disease; ATTEND Family Medicine
PROC: 5A09557 Assistance with Respiratory Ventilation, Greater than 96 Consecutive Hours, Continuous Positive Airway Pressure (ICD-10-PCS; principal; 2021-08-20)
DX: J18.9 Pneumonia, unspecified organism (principal); J96.21 Acute and chronic respiratory failure with hypoxia; I50.33 Acute on chronic diastolic (congestive) heart failure; G92.8 Other toxic encephalopathy; J96.22 Acute and chronic respiratory failure with hypercapnia; J44.1 Chronic obstructive pulmonary disease with (acute) exacerbation; Z68.41 Body mass index [BMI] 40.0-44.9, adult; I13.0 Hypertensive heart and chronic kidney disease with heart failure and stage 1 through stage 4 chronic kidney disease, or unspecified chronic kidney disease; K21.9 Gastro-esophageal reflux disease without esophagitis; E78.5 Hyperlipidemia, unspecified; F41.8 Other specified anxiety disorders; I48.0 Paroxysmal atrial fibrillation; Z85.3 Personal history of malignant neoplasm of breast; G47.33 Obstructive sleep apnea (adult) (pediatric); E66.9 Obesity, unspecified; D72.829 Elevated white blood cell count, unspecified; Z88.0 Allergy status to penicillin; N18.9 Chronic kidney disease, unspecified
CPT/HCPCS: 36415; 36600; 70450-TC; 71045-TC-FY; 71275-TC; 72125-TC; 80048; 80053; 81003; 82803; 83605; 83735; 83880; 84100; 84484; 85025; 87040; 87899; 93005; 93010; 93306-TC; 94640; 94660; 97116-GP; 97162-GP; 99291; C9803-CS; Q9967; U0003; U0005

== ENCOUNTER 2021-10-31 03:48 | Inpatient (IN) | payer OTHER ==
[2021-10-31] MEDS: ALBUTEROL SO4 2.5/IPRATROPIUM 0.5 INH SOL 3 ML VIAL.NEB. NEB SCH ×3 (04:21→04:55)
[2021-10-31 04:47] LABS: VENOUS BASE EXCESS 7.5 mmol/L (-2-2); VENOUS O2 SATURATION 44.1 % (70-80); VENOUS PH 7.32 (7.310-7.410)
[2021-10-31 04:56] LABS: INR 1.18 (0.83-1.09); PROTHROMBIN TIME (PATIENT) 13.6 SEC (9.7-13.0)
[2021-10-31 04:58] LABS: ACTIVATED PTT 26.7 SECONDS (25.2-36.5)
[2021-10-31 05:08] LABS: VENOUS PCO2 72.6 mmHg (38-52)
[2021-10-31 05:11] LABS: HEMATOCRIT 41.5 % (32.4-45.2); HEMOGLOBIN 13.6 GM/dL (10.7-15.3); MCH 28.9 pg (25.7-33.7); MCHC 32.9 g/dl (32.0-36.0); MEAN CELL VOLUME 87.7 fl (80-96); MEAN PLT VOLUME 10.1 fl (7.5-11.1); PLATELET COUNT 157 10^3/uL (134-434); RBC 4.73 M/mm3 (3.60-5.2); WHITE BLOOD COUNT 10.5 K/mm3 (4.0-10.0)
[2021-10-31] MEDS ORDERED: VANCOMYCIN 1 GM in D5W (PRE-DOCKED) 1,000 MG/250 ML IVPB ONE (05:31)
[2021-10-31] MEDS ORDERED: PIPERACILLIN/TAZOB 4.5 GM 4.5 GM in DEXTROSE 5%-WATER 100 ML IVPB ONE (05:31)
[2021-10-31 05:44] LABS: N-TERMINAL BNP 821.3 pg/ml (5-125)
[2021-10-31] MEDS ORDERED: PIPERACILLIN/TAZOB 3.375 GM 3.375 GM/50 ML BAG IVPB ONE (06:15)
[2021-10-31] MEDS ORDERED: VANCOMYCIN 1 GRAM (PRE-DOCKED) 1,000 MG/250 ML BAG IVPB ONE (06:15)
[2021-10-31] MEDS ORDERED: PIPERACILLIN/TAZOB 4.5 GM 4.5 GM/100 ML BAG IVPB ONE (06:17)
[2021-10-31 06:33] LABS: ALBUMIN 3.6 g/dl (3.4-5.0); BLOOD UREA NITROGEN 34.1 mg/dL (7-18)
[2021-10-31 06:34] LABS: MAGNESIUM 1.8 mg/dL (1.8-2.4)
[2021-10-31 06:37] LABS: CREATININE 1.4 mg/dL (0.55-1.3); PHOSPHOROUS 4.1 mg/dL (2.5-4.9)
[2021-10-31 06:38] LABS: BILIRUBIN,TOTAL 1.1 mg/dL (0.2-1); TOT PROT 6.5 g/dl (6.4-8.2)
[2021-10-31 07:20] LABS: ARTERIAL BLD GAS O2 SATURATION 97.4 % (95-98); ARTERIAL BLOOD GAS BASE EXCESS 2.6 mmol/L (-2-2); ARTERIAL BLOOD GAS PO2 103.8 mmHg (80-100)
[2021-10-31 07:30] LABS: VENT MODE S/T; VENT RATE 16
[2021-10-31 08:16] LABS: URINE APPEARANCE CLEAR; URINE BILIRUBIN NEGATIVE (NEGATIVE); URINE COLOR YELLOW; URINE GLUCOSE (UA) NEGATIVE (NEGATIVE); URINE KETONE NEGATIVE (NEGATIVE); URINE LEUK ESTERASE NEGATIVE (NEGATIVE); URINE NITRITE NEGATIVE (NEGATIVE); URINE PROTEIN NEGATIVE (NEGATIVE); URINE UROBILINOGEN 0.2 mg/dL (0.2-1.0)
[2021-10-31] MEDS ORDERED: POTASSIUM CHLORIDE 20 MEQ PREMIX IVPB 100 ML IVPB ONE (08:18)
[2021-10-31] MEDS ORDERED: KCL 10 MEQ IVPB 10 MEQ/100 ML INFUS.BAG IVPB ONE ×2 (08:33→09:24)
[2021-10-31 08:38] LABS: COCAINE, UR NEGATIVE (NEGATIVE); METHADONE, UR NEGATIVE (NEGATIVE); OPIATES, URI NEGATIVE (NEGATIVE); PHENCYCLIDINE,URINE NEGATIVE (NEGATIVE); URINE AMPHETAMINES NEGATIVE (NEGATIVE); URINE BARBITURATES NEGATIVE (NEGATIVE); URINE BENZODIAZEPINES NEGATIVE (NEGATIVE)
[2021-10-31] MEDS: KCL 10 MEQ IVPB 10 MEQ/100 ML INFUS.BAG IVPB SCH ×2 (08:41→10:14)
[2021-10-31 08:45] LABS: ANISOCYTOSIS 2+; MACROCYTOSIS 2+; OVALOCYTE 2+
[2021-10-31] MEDS ORDERED: NITROGLYCERIN 2% OINTMENT - 1GM PACKET TD ONE ×2 (10:57→11:11)
[2021-10-31 10:59] LABS: VENOUS BASE EXCESS 5.1 mmol/L (-2-2); VENOUS O2 SATURATION 97.1 % (70-80); VENOUS PCO2 50.2 mmHg (38-52); VENOUS PH 7.408 (7.310-7.410)
[2021-10-31] MEDS ORDERED: FUROSEMIDE 40 MG/4 ML INJECTABLE VIAL IVPUSH ONE (10:59)
[2021-10-31] MEDS ORDERED: FUROSEMIDE 40 MG/4 ML INJECTABLE VIAL ONE (11:12)
[2021-10-31 13:06] LABS: ARTERIAL BLD GAS O2 SATURATION 98.5 % (95-98); ARTERIAL BLOOD GAS BASE EXCESS 3.5 mmol/L (-2-2); ARTERIAL BLOOD GAS PO2 127.2 mmHg (80-100); ARTERIAL BLOOD GAS pH 7.414 (7.350-7.450)
[2021-10-31 13:07] LABS: ALLENS TEST POSITIVE
[2021-10-31 13:08] LABS: VENT RATE EPAP6
[2021-10-31] MEDS: HEPARIN NA (PORCINE) 5,000 UNITS/ML 1ML VIAL SQ SCH ×2 (14:55→21:28)
[2021-10-31] MEDS ORDERED: PIPERACILLIN/TAZOB 3.375 GM 3.375 GM in DEXTROSE 5%-WATER - 50 ML IVPB SCH (18:00)
[2021-10-31] MEDS ORDERED: DEXTROSE 5%-WATER - 50 ML IVPB ONE (18:09)
[2021-10-31] MEDS ORDERED: PIPERACILLIN/TAZOBACTAM 3.375 GM VIAL IVPB ONE (18:09)
[2021-10-31] MEDS: PIPERACILLIN/TAZOB 3.375 GM 3.375 GM in DEXTROSE 5%-WATER - 50 ML IVPB SCH (18:16)
[2021-10-31] MEDS: FUROSEMIDE 40 MG/4 ML INJECTABLE VIAL IVPUSH SCH (18:16)
[2021-10-31] MEDS: CHLORHEXIDINE GLUCONATE 4% CLEANSER FOR DECOLONIZATION TP SCH (21:28)
[2021-10-31] MEDS: MUPIROCIN 2% TOPICAL OINTMENT FOR DECOLONIZATION NS SCH (21:28)
[2021-10-31] MEDS: ATORVASTATIN CA 20 MG TABLET (FP) PO SCH (22:09)
[2021-11-01] MEDS: PIPERACILLIN/TAZOB 3.375 GM 3.375 GM in DEXTROSE 5%-WATER - 50 ML IVPB SCH ×2 (02:27→09:32)
[2021-11-01] MEDS ORDERED: DEXTROSE 5%-WATER - 50 ML IVPB ONE ×2 (03:20→09:21)
[2021-11-01] MEDS ORDERED: PIPERACILLIN/TAZOBACTAM 3.375 GM VIAL IVPB ONE ×2 (03:20→09:20)
[2021-11-01] MEDS: FUROSEMIDE 40 MG/4 ML INJECTABLE VIAL IVPUSH SCH (05:43)
[2021-11-01] MEDS: HEPARIN NA (PORCINE) 5,000 UNITS/ML 1ML VIAL SQ SCH ×3 (05:43→21:29)
[2021-11-01 07:45] LABS: BASO % 0.9 % (0-2.0); EOS % 3.3 % (0-4.5); HEMATOCRIT 41.9 % (32.4-45.2); HEMOGLOBIN 13.9 GM/dL (10.7-15.3); LYMPH % 11.3 % (8-40); MCH 28.9 pg (25.7-33.7); MCHC 33.1 g/dl (32.0-36.0); MEAN CELL VOLUME 87.4 fl (80-96); MEAN PLT VOLUME 9.8 fl (7.5-11.1); MONO % 5.7 % (3.8-10.2); NEUT % 78.8 % (42.8-82.8); PLATELET COUNT 155 10^3/uL (134-434); RDW 19.8 % (11.6-15.6); WHITE BLOOD COUNT 8.6 K/mm3 (4.0-10.0)
[2021-11-01 08:06] LABS: CHLORIDE 104 mmol/L (98-107); SODIUM 148 mmol/L (136-145)
[2021-11-01 08:14] LABS: ALBUMIN 3.4 g/dl (3.4-5.0); BLOOD UREA NITROGEN 24.2 mg/dL (7-18); CALCIUM 8.5 mg/dL (8.5-10.1); CO2 36 mmol/L (21-32); GLUCOSE,RANDOM 80 mg/dL (74-106); MAGNESIUM 1.9 mg/dL (1.8-2.4)
[2021-11-01 08:17] LABS: CREATININE 0.8 mg/dL (0.55-1.3); PHOSPHOROUS 3.4 mg/dL (2.5-4.9); SGOT/AST 20 U/L (15-37); SGPT/ALT 30 U/L (13-61)
[2021-11-01 08:19] LABS: BILIRUBIN,TOTAL 1.4 mg/dL (0.2-1); TOT PROT 6.1 g/dl (6.4-8.2)
[2021-11-01 08:20] LABS: ALK PHOS 62 U/L (45-117)
[2021-11-01 08:28] LABS: ANION GAP 9 MMOL/L (8-16)
[2021-11-01 08:30] LABS: INR 1.09 (0.83-1.09); PROTHROMBIN TIME (PATIENT) 12.6 SEC (9.7-13.0)
[2021-11-01 08:33] LABS: ACTIVATED PTT 26.8 SECONDS (25.2-36.5)
[2021-11-01 09:03] LABS: ARTERIAL BLD GAS O2 SATURATION 89.3 % (95-98); ARTERIAL BLOOD GAS BASE EXCESS 10.2 mmol/L (-2-2); ARTERIAL BLOOD GAS PO2 53.9 mmHg (80-100); ARTERIAL BLOOD GAS pH 7.465 (7.350-7.450)
[2021-11-01 09:04] LABS: ALLENS TEST POSITIVE
[2021-11-01] MEDS: MUPIROCIN 2% TOPICAL OINTMENT FOR DECOLONIZATION NS SCH ×2 (09:32→21:30)
[2021-11-01] MEDS: SPIRONOLACTONE 25 MG TABLET PO SCH (09:32)
[2021-11-01] MEDS ORDERED: FUROSEMIDE 40 MG/4 ML INJECTABLE VIAL IVPUSH SCH (10:00)
[2021-11-01] MEDS ORDERED: VANCOMYCIN 1 GM in D5W (PRE-DOCKED) 1,000 MG/250 ML IVPB SCH (10:00)
[2021-11-01] MEDS ORDERED: FAMOTIDINE 20 MG/50 ML IVPB 20 MG/50 ML MG IVPB SCH (10:00)
[2021-11-01] MEDS ORDERED: POTASSIUM CHLORIDE TABS 20 MEQ TABLET.ER (FP) PO ONE (10:14)
[2021-11-01] MEDS: CHLORHEXIDINE GLUCONATE 4% CLEANSER FOR DECOLONIZATION TP SCH (21:30)
[2021-11-02] MEDS: HEPARIN NA (PORCINE) 5,000 UNITS/ML 1ML VIAL SQ SCH ×3 (05:33→21:17)
[2021-11-02] MEDS: FUROSEMIDE 40 MG TABLET (FP) PO SCH ×2 (05:34→14:58)
[2021-11-02] MEDS: FAMOTIDINE 20 MG TABLET PO SCH (09:50)
[2021-11-02] MEDS: SPIRONOLACTONE 25 MG TABLET PO SCH (09:50)
[2021-11-02] MEDS: MUPIROCIN 2% TOPICAL OINTMENT FOR DECOLONIZATION NS SCH ×2 (09:50→21:18)
[2021-11-02] MEDS ORDERED: POTASSIUM CHLORIDE TABS 20 MEQ TABLET.ER (FP) PO ONE (10:20)
[2021-11-02] MEDS: POTASSIUM CHLORIDE ORAL LIQUID 20 MEQ/15 ML PO ONE ×2 (10:42→12:17)
[2021-11-02] MEDS: MAGNESIUM 1GM/D5W - 1 GM/100 ML IVPB IVPB ONE ×2 (10:42→12:11)
[2021-11-02] MEDS: KCL 10 MEQ IVPB 10 MEQ/100 ML INFUS.BAG IVPB SCH ×3 (10:43→14:56)
[2021-11-02 11:10] VITALS: BMI 39.1
[2021-11-02 13:04] LABS: BASO % 0.7 % (0-2.0); EOS % 2.9 % (0-4.5); HEMOGLOBIN 13.6 GM/dL (10.7-15.3); LYMPH % 10.8 % (8-40); MCHC 33.1 g/dl (32.0-36.0); MEAN CELL VOLUME 87.4 fl (80-96); MONO % 6.5 % (3.8-10.2); NEUT % 79.1 % (42.8-82.8); PLATELET COUNT 145 10^3/uL (134-434); RBC 4.69 M/mm3 (3.60-5.2); RDW 20.2 % (11.6-15.6); WHITE BLOOD COUNT 8.6 K/mm3 (4.0-10.0)
[2021-11-02 13:27] LABS: CALCIUM 8.6 mg/dL (8.5-10.1)
[2021-11-02 13:28] LABS: BLOOD UREA NITROGEN 19.4 mg/dL (7-18); MAGNESIUM 1.9 mg/dL (1.8-2.4)
[2021-11-02 13:31] LABS: CREATININE 0.9 mg/dL (0.55-1.3); PHOSPHOROUS 1.8 mg/dL (2.5-4.9)
[2021-11-02 13:32] LABS: BILIRUBIN,TOTAL 0.8 mg/dL (0.2-1); TOT PROT 5.8 g/dl (6.4-8.2)
[2021-11-02] MEDS: CHLORHEXIDINE GLUCONATE 4% CLEANSER FOR DECOLONIZATION TP SCH (21:18)
[2021-11-02] MEDS: ATORVASTATIN CA 20 MG TABLET (FP) PO SCH (21:18)
[2021-11-03] MEDS: FUROSEMIDE 40 MG TABLET (FP) PO SCH ×2 (05:08→14:39)
[2021-11-03] MEDS: HEPARIN NA (PORCINE) 5,000 UNITS/ML 1ML VIAL SQ SCH ×3 (05:08→22:33)
[2021-11-03 08:06] LABS: BASO % 0.7 % (0-2.0); EOS % 3.6 % (0-4.5); HEMATOCRIT 39.3 % (32.4-45.2); HEMOGLOBIN 13.1 GM/dL (10.7-15.3); LYMPH % 13.4 % (8-40); MCH 29.2 pg (25.7-33.7); MCHC 33.3 g/dl (32.0-36.0); MEAN CELL VOLUME 87.5 fl (80-96); MEAN PLT VOLUME 9.9 fl (7.5-11.1); MONO % 6.9 % (3.8-10.2); NEUT % 75.4 % (42.8-82.8); PLATELET COUNT 149 10^3/uL (134-434); RBC 4.49 M/mm3 (3.60-5.2); WHITE BLOOD COUNT 8.9 K/mm3 (4.0-10.0)
[2021-11-03 08:46] LABS: ALBUMIN 2.9 g/dl (3.4-5.0); CALCIUM 8.3 mg/dL (8.5-10.1)
[2021-11-03 08:47] LABS: BLOOD UREA NITROGEN 14.8 mg/dL (7-18)
[2021-11-03 08:49] LABS: PHOSPHOROUS 2.4 mg/dL (2.5-4.9)
[2021-11-03 08:51] LABS: BILIRUBIN,TOTAL 0.7 mg/dL (0.2-1); TOT PROT 5.6 g/dl (6.4-8.2)
[2021-11-03 08:52] LABS: CREATININE 0.7 mg/dL (0.55-1.3)
[2021-11-03] MEDS: FAMOTIDINE 20 MG TABLET PO SCH (09:17)
[2021-11-03] MEDS: SPIRONOLACTONE 25 MG TABLET PO SCH (09:17)
[2021-11-03] MEDS: MUPIROCIN 2% TOPICAL OINTMENT FOR DECOLONIZATION NS SCH ×2 (09:17→22:33)
[2021-11-03] MEDS ORDERED: POTASSIUM CHLORIDE TABS 20 MEQ TABLET.ER (FP) PO ONE (09:21)
[2021-11-03] MEDS: POTASSIUM CHLORIDE TABS 20 MEQ TABLET.ER (FP) PO SCH (10:50)
[2021-11-03] MEDS: ALBUTEROL SO4 2.5/IPRATROPIUM 0.5 INH SOL 3 ML VIAL.NEB. NEB SCH ×2 (14:12→20:27)
[2021-11-03] MEDS: CHLORHEXIDINE GLUCONATE 4% CLEANSER FOR DECOLONIZATION TP SCH (22:33)
[2021-11-03] MEDS: ATORVASTATIN CA 20 MG TABLET (FP) PO SCH (22:33)
[2021-11-03] MEDS ORDERED: ALBUTEROL SO4 2.5/IPRATROPIUM 0.5 INH SOL 3 ML VIAL.NEB. NEB ONE (23:50)
[2021-11-04] MEDS: FUROSEMIDE 40 MG TABLET (FP) PO SCH ×2 (07:00→15:00)
[2021-11-04] MEDS: HEPARIN NA (PORCINE) 5,000 UNITS/ML 1ML VIAL SQ SCH ×3 (07:00→21:48)
[2021-11-04] MEDS: ALBUTEROL SO4 2.5/IPRATROPIUM 0.5 INH SOL 3 ML VIAL.NEB. NEB SCH ×3 (08:00→20:16)
[2021-11-04] MEDS: SPIRONOLACTONE 25 MG TABLET PO SCH (09:17)
[2021-11-04] MEDS: FAMOTIDINE 20 MG TABLET PO SCH (09:17)
[2021-11-04] MEDS: MUPIROCIN 2% TOPICAL OINTMENT FOR DECOLONIZATION NS SCH ×2 (09:17→22:18)
[2021-11-04] MEDS: POTASSIUM CHLORIDE TABS 20 MEQ TABLET.ER (FP) PO SCH (09:17)
[2021-11-04] MEDS: NAPH,MB-DB/K PH,MBDB POWDER PACKET PO SCH ×2 (16:25→21:48)
[2021-11-04] MEDS: ATORVASTATIN CA 20 MG TABLET (FP) PO SCH (21:47)
[2021-11-04] MEDS: CHLORHEXIDINE GLUCONATE 4% CLEANSER FOR DECOLONIZATION TP SCH (22:18)
[2021-11-05] MEDS: FUROSEMIDE 40 MG TABLET (FP) PO SCH ×2 (05:38→13:35)
[2021-11-05] MEDS: HEPARIN NA (PORCINE) 5,000 UNITS/ML 1ML VIAL SQ SCH ×3 (05:38→22:30)
[2021-11-05] MEDS: ALBUTEROL SO4 2.5/IPRATROPIUM 0.5 INH SOL 3 ML VIAL.NEB. NEB SCH ×3 (08:40→20:15)
[2021-11-05 09:06] LABS: ALBUMIN 2.8 g/dl (3.4-5.0); CALCIUM 8.8 mg/dL (8.5-10.1)
[2021-11-05 09:07] LABS: BLOOD UREA NITROGEN 13.7 mg/dL (7-18); MAGNESIUM 2.1 mg/dL (1.8-2.4)
[2021-11-05 09:09] LABS: PHOSPHOROUS 3.9 mg/dL (2.5-4.9)
[2021-11-05 09:10] LABS: BILIRUBIN,TOTAL 0.9 mg/dL (0.2-1); CREATININE 0.8 mg/dL (0.55-1.3)
[2021-11-05 09:11] LABS: TOT PROT 5.9 g/dl (6.4-8.2)
[2021-11-05] MEDS: SPIRONOLACTONE 25 MG TABLET PO SCH (09:40)
[2021-11-05] MEDS: POTASSIUM CHLORIDE TABS 20 MEQ TABLET.ER (FP) PO SCH (09:40)
[2021-11-05] MEDS: FAMOTIDINE 20 MG TABLET PO SCH (09:40)
[2021-11-05] MEDS ORDERED: ATORVASTATIN CA 20 MG TABLET (FP) PO SCH (22:00)
[2021-11-06 03:38] VITALS: PULSE 83
[2021-11-06] MEDS: FUROSEMIDE 40 MG TABLET (FP) PO SCH (06:16)
[2021-11-06] MEDS: HEPARIN NA (PORCINE) 5,000 UNITS/ML 1ML VIAL SQ SCH (06:16)
[2021-11-06] MEDS: ALBUTEROL SO4 2.5/IPRATROPIUM 0.5 INH SOL 3 ML VIAL.NEB. NEB SCH ×2 (07:16→13:03)
[2021-11-06 09:21] VITALS: BP 107/61; TEMP 97.9
[2021-11-06] MEDS: FAMOTIDINE 20 MG TABLET PO SCH (09:25)
[2021-11-06] MEDS: SPIRONOLACTONE 25 MG TABLET PO SCH (09:25)
[2021-11-06] MEDS: POTASSIUM CHLORIDE TABS 20 MEQ TABLET.ER (FP) PO SCH (09:25)
== END 2021-11-06 13:39 | disposition home health service (06) | DRG 291 ==
LOC: JER 03:48 → JERBED 06:41 → JICU 13:50 → J6S 11-04 20:55
PROVIDERS: ADMIT Family Medicine; ATTEND Family Medicine
DX: I13.0 Hypertensive heart and chronic kidney disease with heart failure and stage 1 through stage 4 chronic kidney disease, or unspecified chronic kidney disease (principal); J96.22 Acute and chronic respiratory failure with hypercapnia; I50.33 Acute on chronic diastolic (congestive) heart failure; J96.21 Acute and chronic respiratory failure with hypoxia; J18.9 Pneumonia, unspecified organism; N17.9 Acute kidney failure, unspecified; L03.116 Cellulitis of left lower limb; J44.1 Chronic obstructive pulmonary disease with (acute) exacerbation; I69.354 Hemiplegia and hemiparesis following cerebral infarction affecting left non-dominant side; E87.0 Hyperosmolality and hypernatremia; Z99.81 Dependence on supplemental oxygen; E78.5 Hyperlipidemia, unspecified; E87.6 Hypokalemia; I48.0 Paroxysmal atrial fibrillation; F41.9 Anxiety disorder, unspecified; Z86.16 Personal history of COVID-19; K21.9 Gastro-esophageal reflux disease without esophagitis; F31.9 Bipolar disorder, unspecified; G47.33 Obstructive sleep apnea (adult) (pediatric); N18.9 Chronic kidney disease, unspecified; E66.01 Morbid (severe) obesity due to excess calories; I25.10 Atherosclerotic heart disease of native coronary artery without angina pectoris
CPT/HCPCS: 0241U-QW; 36415; 36600; 70450-TC; 71045-TC-FY; 76604; 80053; 80307; 81003; 82803; 83605; 83735; 83880; 84100; 84443; 84484; 85025; 85610; 85730; 86850; 86900; 86901; 87040; 87086; 93005; 93010; 93308; 93971-TC; 94640; 94660; 97116-GP; 97162-GP; 99291; J1644

== ENCOUNTER 2021-11-16 16:53 | Inpatient (IN) | payer OTHER ==
[2021-11-16] MEDS ORDERED: ALBUTEROL SO4 2.5/IPRATROPIUM 0.5 INH SOL 3 ML VIAL.NEB. NEB ONE (17:02)
[2021-11-16 17:25] LABS: INR 1.12 (0.83-1.09); PROTHROMBIN TIME (PATIENT) 12.9 SEC (9.7-13.0)
[2021-11-16 17:26] LABS: HEMOGLOBIN 12.1 GM/dL (10.7-15.3); MCH 28.8 pg (25.7-33.7); MEAN PLT VOLUME 9.2 fl (7.5-11.1); PLATELET COUNT 297 10^3/uL (134-434); RBC 4.22 M/mm3 (3.60-5.2); RDW 20.5 % (11.6-15.6); WHITE BLOOD COUNT 13.9 K/mm3 (4.0-10.0)
[2021-11-16 17:28] LABS: ACTIVATED PTT 31.2 SECONDS (25.2-36.5)
[2021-11-16 17:40] LABS: ALBUMIN 2.9 g/dl (3.4-5.0); BLOOD UREA NITROGEN 25.1 mg/dL (7-18); MAGNESIUM 2.1 mg/dL (1.8-2.4)
[2021-11-16 17:42] LABS: VENOUS BASE EXCESS -0.9 mmol/L (-2-2); VENOUS O2 SATURATION 29.4 % (70-80); VENOUS PCO2 66.9 mmHg (38-52); VENOUS PH 7.23 (7.310-7.410)
[2021-11-16 17:43] LABS: CREATININE 2.1 mg/dL (0.55-1.3)
[2021-11-16 17:45] LABS: BILIRUBIN,TOTAL 0.5 mg/dL (0.2-1)
[2021-11-16 17:48] LABS: N-TERMINAL BNP 3271.8 pg/ml (5-125)
[2021-11-16 17:51] LABS: TOT PROT 6.2 g/dl (6.4-8.2)
[2021-11-16] MEDS ORDERED: HEPARIN NA (PORCINE) 5,000 UNITS/ML 1ML VIAL IVPUSH ONE (18:21)
[2021-11-16] MEDS ORDERED: HEPARIN NA (PORCINE) 5,000 UNITS/ML 1ML VIAL ONE (19:08)
[2021-11-16 19:20] LABS: ANISOCYTOSIS 1+; MACROCYTOSIS 0; OVALOCYTE 1+; PLATELET ESTIMATE NORMAL
[2021-11-16] MEDS ORDERED: HEPARIN NA (PORCINE) 5,000 UNITS/ML 1ML VIAL IVPUSH PRN ×4 (19:53→19:59)
[2021-11-16] MEDS ORDERED: HEPARIN SOD,PORK IN 0.45% NACL 25,000 UNITS/500 ML INFUS.BAG IVPB SCH (20:00)
[2021-11-16] MEDS ORDERED: HEPARIN INFUSION - 25,000 UNITS/500 ML INFUS.BAG IVPB SCH (20:00)
[2021-11-16] MEDS ORDERED: HEPARIN INFUSION - 25,000 UNITS/500 ML INFUS.BAG IVPB ONE (21:11)
[2021-11-16] MEDS: FUROSEMIDE INJECTION 100 MG in SODIUM CHLORIDE 90 ML IVPB SCH (23:30)
[2021-11-17 00:56] LABS: EPI CELLS 8 /uL (0-25.1); HYALINE CASTS 6 /uL (0-3.1); URINE APPEARANCE CLOUDY; URINE BACTERIA >9,000 /uL (0-1359); URINE BILIRUBIN NEGATIVE (NEGATIVE); URINE COLOR YELLOW; URINE GLUCOSE (UA) NEGATIVE (NEGATIVE); URINE KETONE NEGATIVE (NEGATIVE); URINE LEUK ESTERASE 1+ (NEGATIVE); URINE NITRITE POSITIVE (NEGATIVE); URINE PROTEIN NEGATIVE (NEGATIVE); URINE RBC 8 /uL (0-23.9); URINE UROBILINOGEN 0.2 mg/dL (0.2-1.0); URINE WBC 158 /uL (0-25.8)
[2021-11-17] MEDS: DOPAMINE 400 MG/D5W - 400,000 MCG/250 ML INFUS.BAG IVPB SCH ×2 (03:30→22:00)
[2021-11-17] MEDS ORDERED: DOPAMINE 400 MG/D5W - 400,000 MCG/250 ML INFUS.BAG IVPB SCH ×2 (03:45→07:15)
[2021-11-17] MEDS ORDERED: HEPARIN INFUSION - 25,000 UNITS/500 ML INFUS.BAG IVPB SCH (07:20)
[2021-11-17 07:26] LABS: HEMATOCRIT 37.7 % (32.4-45.2); HEMOGLOBIN 12.1 GM/dL (10.7-15.3); MCH 28.8 pg (25.7-33.7); MEAN CELL VOLUME 89.9 fl (80-96); PLATELET COUNT 121 10^3/uL (134-434); RBC 4.19 M/mm3 (3.60-5.2); RDW 20.4 % (11.6-15.6); WHITE BLOOD COUNT 14.4 K/mm3 (4.0-10.0)
[2021-11-17] MEDS: FUROSEMIDE INJECTION 100 MG in SODIUM CHLORIDE 90 ML IVPB SCH (07:30)
[2021-11-17 07:32] LABS: INR 1.23 (0.83-1.09); PROTHROMBIN TIME (PATIENT) 14.2 SEC (9.7-13.0)
[2021-11-17 07:56] LABS: ACTIVATED PTT 193.7 SECONDS (25.2-36.5)
[2021-11-17] MEDS: MUPIROCIN 2% TOPICAL OINTMENT FOR DECOLONIZATION NS SCH ×2 (09:09→22:00)
[2021-11-17 09:33] LABS: BLOOD UREA NITROGEN 28.3 mg/dL (7-18); CALCIUM 8.6 mg/dL (8.5-10.1); CREATININE 2.2 mg/dL (0.55-1.3); N-TERMINAL BNP 10100.7 pg/ml (5-125); PHOSPHOROUS 6.3 mg/dL (2.5-4.9)
[2021-11-17] MEDS ORDERED: CEFTRIAXONE 1 GM in DEXTROSE 5%-WATER - 50 ML IVPB SCH (11:15)
[2021-11-17 13:45] LABS: INR 1.21 (0.83-1.09)
[2021-11-17 13:48] LABS: ARTERIAL BLD GAS O2 SATURATION 98.9 % (95-98); ARTERIAL BLOOD GAS BASE EXCESS 0.7 mmol/L (-2-2); ARTERIAL BLOOD GAS PO2 177.6 mmHg (80-100); ARTERIAL BLOOD GAS pH 7.232 (7.350-7.450)
[2021-11-17 13:49] LABS: ACTIVATED PTT > 400.0 SECONDS (25.2-36.5)
[2021-11-17 13:52] LABS: VENT MODE BIPAP
[2021-11-17] MEDS ORDERED: cefTRIAXone SODIUM 1 GM VIAL ONE (13:56)
[2021-11-17] MEDS ORDERED: DEXTROSE 5%-WATER - 50 ML IVPB ONE (13:56)
[2021-11-17] MEDS ORDERED: HEPARIN NA (PORCINE) 5,000 UNITS/ML 1ML VIAL IVPUSH PRN ×2 (21:30)
[2021-11-17] MEDS ORDERED: HEPARIN SOD,PORK IN 0.45% NACL 25,000 UNITS/500 ML INFUS.BAG IVPB SCH (21:30)
[2021-11-17] MEDS: CHLORHEXIDINE GLUCONATE 4% CLEANSER FOR DECOLONIZATION TP SCH (21:59)
[2021-11-17] MEDS ORDERED: MELATONIN 5 MG TABLETS PO ONE (22:38)
[2021-11-17] MEDS ORDERED: LORazepam 2 MG/ML SDV VIAL IVPUSH ONE (23:21)
[2021-11-18] MEDS ORDERED: HALOPERIDOL LACTATE 5 MG/ML IM ONE (01:44)
[2021-11-18] MEDS ORDERED: methylPREDNISolone NA SUCC 40 MG/1 ML VIAL IVPUSH ONE (01:52)
[2021-11-18] MEDS ORDERED: LORazepam 2 MG/ML SDV VIAL IVPUSH ONE (02:09)
[2021-11-18] MEDS: DEXMEDETOMIDINE IN 0.9 % NACL 400 MCG/100 ML VIAL IVPB SCH ×2 (02:49→21:58)
[2021-11-18 07:26] LABS: HEMATOCRIT 28.7 % (32.4-45.2); HEMOGLOBIN 9.3 GM/dL (10.7-15.3); MCH 29.1 pg (25.7-33.7); MCHC 32.3 g/dl (32.0-36.0); MEAN CELL VOLUME 89.8 fl (80-96); MEAN PLT VOLUME 8.3 fl (7.5-11.1); PLATELET COUNT 78 10^3/uL (134-434); RBC 3.19 M/mm3 (3.60-5.2); RDW 19.6 % (11.6-15.6); WHITE BLOOD COUNT 12.1 K/mm3 (4.0-10.0)
[2021-11-18 07:48] LABS: CALCIUM 8.7 mg/dL (8.5-10.1)
[2021-11-18 07:49] LABS: ALBUMIN 2.5 g/dl (3.4-5.0); BLOOD UREA NITROGEN 35.9 mg/dL (7-18)
[2021-11-18 07:50] LABS: CREATININE 2.4 mg/dL (0.55-1.3); PHOSPHOROUS 6.7 mg/dL (2.5-4.9)
[2021-11-18 07:52] LABS: TOT PROT 5.8 g/dl (6.4-8.2)
[2021-11-18 07:56] LABS: BILIRUBIN,TOTAL 0.4 mg/dL (0.2-1)
[2021-11-18] MEDS: DOPAMINE 400 MG/D5W - 400,000 MCG/250 ML INFUS.BAG IVPB SCH ×2 (08:30→21:56)
[2021-11-18] MEDS ORDERED: CALCIUM GLUCONATE 10% - 1,000 MG/10 ML VIAL IVPUSH ONE (08:33)
[2021-11-18] MEDS ORDERED: FUROSEMIDE 40 MG/4 ML INJECTABLE VIAL IVPUSH ONE (08:33)
[2021-11-18] MEDS ORDERED: DEXTROSE 50%-WATER - 25 GM/50 ML VIAL IVPUSH ONE (08:56)
[2021-11-18] MEDS ORDERED: CALCIUM GLUCONATE IN NACL 1 GM/50 ML BAG IVPB ONE (09:15)
[2021-11-18] MEDS ORDERED: INSULIN REGULAR HUMAN 100 UNITS/ML *VIAL IVPUSH ONE (09:15)
[2021-11-18] MEDS ORDERED: DEXTROSE 50%-WATER 25 GM/50 ML DISP.SYRIN ONE (09:31)
[2021-11-18] MEDS: MUPIROCIN 2% TOPICAL OINTMENT FOR DECOLONIZATION NS SCH ×2 (09:34→21:56)
[2021-11-18 09:52] LABS: ANISOCYTOSIS 2+; MACROCYTOSIS 1+
[2021-11-18 10:26] LABS: ARTERIAL BLD GAS O2 SATURATION 97.5 % (95-98); ARTERIAL BLOOD GAS PO2 109.8 mmHg (80-100); ARTERIAL BLOOD GAS pH 7.292 (7.350-7.450)
[2021-11-18 10:28] LABS: ALLENS TEST POSITIVE
[2021-11-18 10:29] LABS: VENT RATE 20
[2021-11-18 10:30] LABS: VENT MODE S/T
[2021-11-18] MEDS ORDERED: CEFTRIAXONE 1 GM in DEXTROSE 5%-WATER - 50 ML IVPB SCH (10:30)
[2021-11-18] MEDS: methylPREDNISolone NA SUCC 40 MG/1 ML VIAL IVPUSH SCH ×2 (11:25→17:35)
[2021-11-18 12:16] LABS: BASO % 0.4 % (0-2.0); EOS % 0.2 % (0-4.5); HEMATOCRIT 34.9 % (32.4-45.2); HEMOGLOBIN 11.6 GM/dL (10.7-15.3); MCHC 33.2 g/dl (32.0-36.0); MEAN CELL VOLUME 87.5 fl (80-96); MEAN PLT VOLUME 7.9 fl (7.5-11.1); MONO % 2.7 % (3.8-10.2); NEUT % 89.7 % (42.8-82.8); PLATELET COUNT 62 10^3/uL (134-434); RBC 3.98 M/mm3 (3.60-5.2); RDW 19.3 % (11.6-15.6); WHITE BLOOD COUNT 8.7 K/mm3 (4.0-10.0)
[2021-11-18 12:40] LABS: CALCIUM 9.2 mg/dL (8.5-10.1); MAGNESIUM 2.2 mg/dL (1.8-2.4)
[2021-11-18 12:43] LABS: PHOSPHOROUS 6.3 mg/dL (2.5-4.9)
[2021-11-18 12:44] LABS: CREATININE 2.4 mg/dL (0.55-1.3)
[2021-11-18] MEDS: ARGATROBAN - 250,000 MCG in SODIUM CHLORIDE 247.5 ML IVPB SCH (14:44)
[2021-11-18] MEDS ORDERED: ALTEPLASE 50MG 50 MG in SODIUM CHLORIDE 500 ML IV ONE (15:45)
[2021-11-18 19:08] LABS: BASO % 0.5 % (0-2.0); EOS % 0.1 % (0-4.5); HEMATOCRIT 36.1 % (32.4-45.2); HEMOGLOBIN 11.8 GM/dL (10.7-15.3); LYMPH % 6.8 % (8-40); MCH 28.5 pg (25.7-33.7); MCHC 32.6 g/dl (32.0-36.0); MEAN CELL VOLUME 87.5 fl (80-96); MEAN PLT VOLUME 8.4 fl (7.5-11.1); MONO % 2.6 % (3.8-10.2); PLATELET COUNT 66 10^3/uL (134-434); RBC 4.13 M/mm3 (3.60-5.2); RDW 19.2 % (11.6-15.6); WHITE BLOOD COUNT 9.2 K/mm3 (4.0-10.0)
[2021-11-18 20:20] LABS: BLOOD UREA NITROGEN 36.7 mg/dL (7-18); CREATININE 2.1 mg/dL (0.55-1.3); MAGNESIUM 2.3 mg/dL (1.8-2.4); PHOSPHOROUS 5.5 mg/dL (2.5-4.9)
[2021-11-18] MEDS: CHLORHEXIDINE GLUCONATE 4% CLEANSER FOR DECOLONIZATION TP SCH (21:55)
[2021-11-19] MEDS: methylPREDNISolone NA SUCC 40 MG/1 ML VIAL IVPUSH SCH ×3 (01:40→17:57)
[2021-11-19] MEDS: DEXMEDETOMIDINE IN 0.9 % NACL 400 MCG/100 ML VIAL IVPB SCH ×4 (03:13→22:30)
[2021-11-19] MEDS ORDERED: LORazepam 2 MG/ML SDV VIAL IVPUSH ONE ×3 (07:18→16:36)
[2021-11-19] MEDS: DOPAMINE 400 MG/D5W - 400,000 MCG/250 ML INFUS.BAG IVPB SCH (07:51)
[2021-11-19] MEDS ORDERED: DEXTROSE 5%-WATER - 50 ML IVPB ONE (08:52)
[2021-11-19] MEDS ORDERED: ceFAZolin SODIUM 1 GM VIAL ONE (08:52)
[2021-11-19] MEDS: MUPIROCIN 2% TOPICAL OINTMENT FOR DECOLONIZATION NS SCH ×2 (09:00→22:03)
[2021-11-19] MEDS ORDERED: CEFAZOLIN 1 GM in DEXTROSE 5%-WATER - 50 ML IVPB SCH (10:00)
[2021-11-19 17:45] LABS: VENOUS BASE EXCESS -0.3 mmol/L (-2-2); VENOUS PCO2 36.1 mmHg (38-52); VENOUS PH 7.434 (7.310-7.410)
[2021-11-19 18:20] LABS: BASO % 0.1 % (0-2.0); EOS % 0.1 % (0-4.5); HEMOGLOBIN 10.8 GM/dL (10.7-15.3); LYMPH % 4.7 % (8-40); MCH 28.2 pg (25.7-33.7); MCHC 32.6 g/dl (32.0-36.0); MEAN CELL VOLUME 86.6 fl (80-96); MEAN PLT VOLUME 9.5 fl (7.5-11.1); MONO % 3.2 % (3.8-10.2); NEUT % 91.9 % (42.8-82.8); PLATELET COUNT 71 10^3/uL (134-434); RBC 3.81 M/mm3 (3.60-5.2); RDW 19.5 % (11.6-15.6); WHITE BLOOD COUNT 11.9 K/mm3 (4.0-10.0)
[2021-11-19 18:32] LABS: CALCIUM 8.7 mg/dL (8.5-10.1)
[2021-11-19 18:33] LABS: ALBUMIN 2.4 g/dl (3.4-5.0); MAGNESIUM 2.3 mg/dL (1.8-2.4)
[2021-11-19 18:36] LABS: CREATININE 1.7 mg/dL (0.55-1.3); PHOSPHOROUS 4.7 mg/dL (2.5-4.9)
[2021-11-19 18:37] LABS: TOT PROT 5.5 g/dl (6.4-8.2)
[2021-11-19 18:38] LABS: BILIRUBIN,TOTAL 0.4 mg/dL (0.2-1)
[2021-11-19 18:46] LABS: ANISOCYTOSIS 2+; MACROCYTOSIS 0; OVALOCYTE 1+; TARGET CELLS 0
[2021-11-19] MEDS: ARGATROBAN - 250,000 MCG in SODIUM CHLORIDE 247.5 ML IVPB SCH (20:05)
[2021-11-19] MEDS: CHLORHEXIDINE GLUCONATE 4% CLEANSER FOR DECOLONIZATION TP SCH (22:03)
[2021-11-20] MEDS: methylPREDNISolone NA SUCC 40 MG/1 ML VIAL IVPUSH SCH ×3 (01:37→17:22)
[2021-11-20] MEDS: DEXMEDETOMIDINE IN 0.9 % NACL 400 MCG/100 ML VIAL IVPB SCH ×2 (05:15→05:43)
[2021-11-20 07:25] LABS: HEMATOCRIT 34.3 % (32.4-45.2); HEMOGLOBIN 11.4 GM/dL (10.7-15.3); MCH 29.1 pg (25.7-33.7); MCHC 33.2 g/dl (32.0-36.0); MEAN CELL VOLUME 87.5 fl (80-96); MEAN PLT VOLUME 9.4 fl (7.5-11.1); PLATELET COUNT 76 10^3/uL (134-434); RBC 3.92 M/mm3 (3.60-5.2); RDW 19.7 % (11.6-15.6); WHITE BLOOD COUNT 9.9 K/mm3 (4.0-10.0)
[2021-11-20 08:31] LABS: ALBUMIN 2.5 g/dl (3.4-5.0); BILIRUBIN,TOTAL 0.3 mg/dL (0.2-1); BLOOD UREA NITROGEN 48.8 mg/dL (7-18); CREATININE 1.5 mg/dL (0.55-1.3); MAGNESIUM 2.6 mg/dL (1.8-2.4); PHOSPHOROUS 4.5 mg/dL (2.5-4.9); TOT PROT 5.7 g/dl (6.4-8.2)
[2021-11-20 08:42] LABS: ANISOCYTOSIS 1+; MACROCYTOSIS 0; PLATELET ESTIMATE DECREASED
[2021-11-20 09:59] LABS: ARTERIAL BLD GAS O2 SATURATION 94.8 % (95-98); ARTERIAL BLOOD GAS BASE EXCESS 1.4 mmol/L (-2-2); ARTERIAL BLOOD GAS PO2 78.9 mmHg (80-100); ARTERIAL BLOOD GAS pH 7.341 (7.350-7.450)
[2021-11-20] MEDS ORDERED: FUROSEMIDE 40 MG/4 ML INJECTABLE VIAL IVPUSH ONE (10:08)
[2021-11-20 10:16] LABS: ALLENS TEST POSITIVE
[2021-11-20 10:17] LABS: VENT MODE S/T
[2021-11-20] MEDS: MUPIROCIN 2% TOPICAL OINTMENT FOR DECOLONIZATION NS SCH ×2 (10:56→21:19)
[2021-11-20] MEDS: DOPAMINE 400 MG/D5W - 400,000 MCG/250 ML INFUS.BAG IVPB SCH (10:57)
[2021-11-20 18:13] LABS: INR 2.06 (0.83-1.09); PROTHROMBIN TIME (PATIENT) 23.9 SEC (9.7-13.0)
[2021-11-20 18:16] LABS: ACTIVATED PTT 91.2 SECONDS (25.2-36.5)
[2021-11-20] MEDS ORDERED: ARGATROBAN - 250,000 MCG in SODIUM CHLORIDE 247.5 ML IVPB SCH (19:00)
[2021-11-20] MEDS: CHLORHEXIDINE GLUCONATE 4% CLEANSER FOR DECOLONIZATION TP SCH (21:19)
[2021-11-21] MEDS: methylPREDNISolone NA SUCC 40 MG/1 ML VIAL IVPUSH SCH ×3 (01:28→17:23)
[2021-11-21] MEDS: DEXMEDETOMIDINE IN 0.9 % NACL 400 MCG/100 ML VIAL IVPB SCH ×2 (05:24→17:24)
[2021-11-21 07:18] LABS: HEMATOCRIT 34.3 % (32.4-45.2); HEMOGLOBIN 11.2 GM/dL (10.7-15.3); MCH 28.9 pg (25.7-33.7); MCHC 32.8 g/dl (32.0-36.0); MEAN PLT VOLUME 9.8 fl (7.5-11.1); PLATELET COUNT 109 10^3/uL (134-434); RDW 19.8 % (11.6-15.6); WHITE BLOOD COUNT 10.3 K/mm3 (4.0-10.0)
[2021-11-21 07:34] LABS: BLOOD UREA NITROGEN 50.4 mg/dL (7-18); CALCIUM 9.2 mg/dL (8.5-10.1); MAGNESIUM 2.8 mg/dL (1.8-2.4)
[2021-11-21 07:37] LABS: CREATININE 1.4 mg/dL (0.55-1.3)
[2021-11-21 07:38] LABS: PHOSPHOROUS 3.5 mg/dL (2.5-4.9)
[2021-11-21 09:09] LABS: ANISOCYTOSIS 2+; MACROCYTOSIS 0; OVALOCYTE 2+
[2021-11-21] MEDS: ARGATROBAN - 250,000 MCG in SODIUM CHLORIDE 247.5 ML IVPB SCH (09:10)
[2021-11-21] MEDS: MUPIROCIN 2% TOPICAL OINTMENT FOR DECOLONIZATION NS SCH ×2 (09:18→22:11)
[2021-11-21] MEDS: FUROSEMIDE 40 MG/4 ML INJECTABLE VIAL IVPUSH SCH (12:38)
[2021-11-21] MEDS ORDERED: AMINO ACIDS 4.25%/D5W 1,000 ML IV SCH (14:00)
[2021-11-21] MEDS: CHLORHEXIDINE GLUCONATE 4% CLEANSER FOR DECOLONIZATION TP SCH (22:11)
[2021-11-22] MEDS: methylPREDNISolone NA SUCC 40 MG/1 ML VIAL IVPUSH SCH ×3 (02:00→18:13)
[2021-11-22] MEDS: DEXMEDETOMIDINE IN 0.9 % NACL 400 MCG/100 ML VIAL IVPB SCH ×3 (05:31→23:50)
[2021-11-22 08:31] LABS: HEMATOCRIT 34.5 % (32.4-45.2); HEMOGLOBIN 11.2 GM/dL (10.7-15.3); MCH 28.6 pg (25.7-33.7); MCHC 32.6 g/dl (32.0-36.0); MEAN CELL VOLUME 87.8 fl (80-96); MEAN PLT VOLUME 9.5 fl (7.5-11.1); PLATELET COUNT 111 10^3/uL (134-434); RBC 3.92 M/mm3 (3.60-5.2); RDW 19.7 % (11.6-15.6); WHITE BLOOD COUNT 10.3 K/mm3 (4.0-10.0)
[2021-11-22 08:44] LABS: CALCIUM 8.7 mg/dL (8.5-10.1)
[2021-11-22 08:45] LABS: ALBUMIN 2.7 g/dl (3.4-5.0); BLOOD UREA NITROGEN 52.2 mg/dL (7-18); MAGNESIUM 2.9 mg/dL (1.8-2.4)
[2021-11-22 08:48] LABS: CREATININE 1.4 mg/dL (0.55-1.3); PHOSPHOROUS 3.6 mg/dL (2.5-4.9)
[2021-11-22 08:49] LABS: TOT PROT 5.7 g/dl (6.4-8.2)
[2021-11-22 08:50] LABS: BILIRUBIN,TOTAL 0.4 mg/dL (0.2-1)
[2021-11-22] MEDS: FUROSEMIDE 40 MG/4 ML INJECTABLE VIAL IVPUSH SCH (09:02)
[2021-11-22 11:28] LABS: ANISOCYTOSIS 1+; MACROCYTOSIS 0; OVALOCYTE 1+
[2021-11-22] MEDS: ARGATROBAN - 250,000 MCG in SODIUM CHLORIDE 247.5 ML IVPB SCH (17:59)
[2021-11-22 21:49] VITALS: BMI 40.4
[2021-11-22] MEDS: CHLORHEXIDINE GLUCONATE 4% CLEANSER FOR DECOLONIZATION TP SCH (22:38)
[2021-11-23] MEDS: methylPREDNISolone NA SUCC 40 MG/1 ML VIAL IVPUSH SCH ×3 (01:29→21:56)
[2021-11-23] MEDS: DEXMEDETOMIDINE IN 0.9 % NACL 400 MCG/100 ML VIAL IVPB SCH (05:30)
[2021-11-23] MEDS: FUROSEMIDE 40 MG/4 ML INJECTABLE VIAL IVPUSH SCH (09:13)
[2021-11-23] MEDS ORDERED: APIXABAN 5 MG TABLET PO ONE (14:00)
[2021-11-23] MEDS: ARGATROBAN - 250,000 MCG in SODIUM CHLORIDE 247.5 ML IVPB SCH (19:03)
[2021-11-23] MEDS: CHLORHEXIDINE GLUCONATE 4% CLEANSER FOR DECOLONIZATION TP SCH (21:56)
[2021-11-24] MEDS: DEXMEDETOMIDINE IN 0.9 % NACL 400 MCG/100 ML VIAL IVPB SCH (05:17)
[2021-11-24 08:10] LABS: HEMATOCRIT 35.3 % (32.4-45.2); HEMOGLOBIN 11.6 GM/dL (10.7-15.3); MCH 28.7 pg (25.7-33.7); MCHC 32.9 g/dl (32.0-36.0); MEAN CELL VOLUME 87.3 fl (80-96); MEAN PLT VOLUME 8.9 fl (7.5-11.1); PLATELET COUNT 169 10^3/uL (134-434); RBC 4.04 M/mm3 (3.60-5.2); RDW 19.4 % (11.6-15.6); WHITE BLOOD COUNT 15.4 K/mm3 (4.0-10.0)
[2021-11-24 08:32] LABS: CALCIUM 8.7 mg/dL (8.5-10.1); MAGNESIUM 2.6 mg/dL (1.8-2.4)
[2021-11-24 08:33] LABS: ALBUMIN 2.7 g/dl (3.4-5.0)
[2021-11-24 08:34] LABS: BLOOD UREA NITROGEN 40.8 mg/dL (7-18)
[2021-11-24 08:36] LABS: PHOSPHOROUS 2.9 mg/dL (2.5-4.9)
[2021-11-24 08:37] LABS: BILIRUBIN,TOTAL 0.4 mg/dL (0.2-1); TOT PROT 5.5 g/dl (6.4-8.2)
[2021-11-24 08:39] LABS: INR 1.54 (0.83-1.09); PROTHROMBIN TIME (PATIENT) 17.8 SEC (9.7-13.0)
[2021-11-24 08:40] LABS: ACTIVATED PTT 28.7 SECONDS (25.2-36.5)
[2021-11-24] MEDS: methylPREDNISolone NA SUCC 40 MG/1 ML VIAL IVPUSH SCH (09:56)
[2021-11-24] MEDS: FUROSEMIDE 40 MG/4 ML INJECTABLE VIAL IVPUSH SCH (09:56)
[2021-11-24] MEDS ORDERED: APIXABAN 5 MG TABLET PO SCH (10:00)
[2021-11-24] MEDS ORDERED: DEXMEDETOMIDINE IN 0.9 % NACL 400 MCG/100 ML VIAL IVPB SCH (21:41)
[2021-11-24] MEDS ORDERED: CHLORHEXIDINE GLUCONATE 4% CLEANSER FOR DECOLONIZATION TP SCH (22:00)
[2021-11-24] MEDS: APIXABAN 5 MG TABLET PO SCH (22:20)
[2021-11-25] MEDS ORDERED: ACETAMINOPHEN 325 MG TABLET (FP) PO PRN (04:16)
[2021-11-25 07:58] LABS: HEMATOCRIT 36.5 % (32.4-45.2); MCH 28.6 pg (25.7-33.7); MCHC 32.8 g/dl (32.0-36.0); MEAN CELL VOLUME 87.4 fl (80-96); MEAN PLT VOLUME 9.7 fl (7.5-11.1); PLATELET COUNT 217 10^3/uL (134-434); RBC 4.18 M/mm3 (3.60-5.2)
[2021-11-25 08:23] LABS: CALCIUM 8.6 mg/dL (8.5-10.1)
[2021-11-25 08:24] LABS: ALBUMIN 2.6 g/dl (3.4-5.0); BLOOD UREA NITROGEN 34.5 mg/dL (7-18); MAGNESIUM 2.5 mg/dL (1.8-2.4)
[2021-11-25 08:27] LABS: CREATININE 0.7 mg/dL (0.55-1.3); PHOSPHOROUS 2.4 mg/dL (2.5-4.9)
[2021-11-25 08:28] LABS: BILIRUBIN,TOTAL 0.4 mg/dL (0.2-1); TOT PROT 5.4 g/dl (6.4-8.2)
[2021-11-25 08:59] LABS: ANISOCYTOSIS 0; MACROCYTOSIS 0
[2021-11-25] MEDS: ALBUTEROL SO4 2.5/IPRATROPIUM 0.5 INH SOL 3 ML VIAL.NEB. NEB SCH ×3 (09:11→20:05)
[2021-11-25] MEDS: SERTRALINE HCL 50 MG TABLET (FP) PO SCH (09:12)
[2021-11-25] MEDS: APIXABAN 5 MG TABLET PO SCH ×2 (09:12→21:38)
[2021-11-25] MEDS: FUROSEMIDE 40 MG/4 ML INJECTABLE VIAL IVPUSH SCH (09:12)
[2021-11-25] MEDS: ATORVASTATIN CA 20 MG TABLET (FP) PO SCH (21:39)
[2021-11-25] MEDS ORDERED: SODIUM CHLORIDE NASAL SPRAY 44 ML BOTTLE NS PRN (22:04)
[2021-11-26] MEDS: ALBUTEROL SO4 2.5/IPRATROPIUM 0.5 INH SOL 3 ML VIAL.NEB. NEB SCH ×4 (08:12→20:48)
[2021-11-26] MEDS: SERTRALINE HCL 50 MG TABLET (FP) PO SCH (09:57)
[2021-11-26] MEDS: FUROSEMIDE 40 MG/4 ML INJECTABLE VIAL IVPUSH SCH (09:57)
[2021-11-26] MEDS: APIXABAN 5 MG TABLET PO SCH ×2 (09:57→21:20)
[2021-11-26 11:31] LABS: ARTERIAL BLD GAS O2 SATURATION 97.9 % (95-98); ARTERIAL BLOOD GAS BASE EXCESS 12.4 mmol/L (-2-2); ARTERIAL BLOOD GAS PO2 107.8 mmHg (80-100); ARTERIAL BLOOD GAS pH 7.422 (7.350-7.450)
[2021-11-26 11:32] LABS: ALLENS TEST POSITIVE
[2021-11-26] MEDS: metoPROLOL SUCCINATE 25 MG TAB.SR.24H (FP) PO SCH (13:53)
[2021-11-26] MEDS: ATORVASTATIN CA 20 MG TABLET (FP) PO SCH (21:20)
[2021-11-27] MEDS: ALBUTEROL SO4 2.5/IPRATROPIUM 0.5 INH SOL 3 ML VIAL.NEB. NEB SCH ×4 (07:44→20:05)
[2021-11-27] MEDS: FUROSEMIDE 40 MG/4 ML INJECTABLE VIAL IVPUSH SCH (09:01)
[2021-11-27] MEDS: SERTRALINE HCL 50 MG TABLET (FP) PO SCH (09:01)
[2021-11-27] MEDS: metoPROLOL SUCCINATE 25 MG TAB.SR.24H (FP) PO SCH (09:01)
[2021-11-27] MEDS: APIXABAN 5 MG TABLET PO SCH ×2 (09:36→21:47)
[2021-11-27] MEDS: ATORVASTATIN CA 20 MG TABLET (FP) PO SCH (21:47)
[2021-11-28] MEDS: ALBUTEROL SO4 2.5/IPRATROPIUM 0.5 INH SOL 3 ML VIAL.NEB. NEB SCH ×4 (07:31→20:09)
[2021-11-28 08:47] LABS: HEMATOCRIT 35.5 % (32.4-45.2); HEMOGLOBIN 11.5 GM/dL (10.7-15.3); MCH 28.6 pg (25.7-33.7); MCHC 32.5 g/dl (32.0-36.0); MEAN PLT VOLUME 9.6 fl (7.5-11.1); PLATELET COUNT 228 10^3/uL (134-434); RBC 4.03 M/mm3 (3.60-5.2); RDW 19.2 % (11.6-15.6)
[2021-11-28 08:58] LABS: CALCIUM 8.1 mg/dL (8.5-10.1)
[2021-11-28 08:59] LABS: ALBUMIN 2.2 g/dl (3.4-5.0); BLOOD UREA NITROGEN 14.5 mg/dL (7-18)
[2021-11-28 09:02] LABS: CREATININE 0.5 mg/dL (0.55-1.3)
[2021-11-28] MEDS: metoPROLOL SUCCINATE 25 MG TAB.SR.24H (FP) PO SCH (09:02)
[2021-11-28] MEDS: FUROSEMIDE 40 MG/4 ML INJECTABLE VIAL IVPUSH SCH (09:02)
[2021-11-28] MEDS: SERTRALINE HCL 50 MG TABLET (FP) PO SCH (09:03)
[2021-11-28] MEDS: APIXABAN 5 MG TABLET PO SCH ×2 (09:03→21:14)
[2021-11-28 09:04] LABS: BILIRUBIN,TOTAL 0.6 mg/dL (0.2-1); TOT PROT 4.9 g/dl (6.4-8.2)
[2021-11-28 09:22] LABS: ANISOCYTOSIS 0; HELMET CELLS 0; HOWELL-JOLLY BODIES 0; MACROCYTOSIS 0; OVALOCYTE 0; ROULEAU 0; SICKELED CELLS 0; TARGET CELLS 0; TEAR DROP CELLS 0; TOXIC GRANULATION 0
[2021-11-28] MEDS ORDERED: POTASSIUM CHLORIDE TABS 20 MEQ TABLET.ER (FP) PO ONE (10:19)
[2021-11-28] MEDS: KCL 10 MEQ IVPB 10 MEQ/100 ML INFUS.BAG IVPB SCH ×2 (11:30→12:49)
[2021-11-28 13:09] LABS: BASO % 0.4 % (0-2.0); HEMATOCRIT 37.4 % (32.4-45.2); HEMOGLOBIN 12.1 GM/dL (10.7-15.3); LYMPH % 7.1 % (8-40); MCH 28.4 pg (25.7-33.7); MCHC 32.4 g/dl (32.0-36.0); MEAN CELL VOLUME 87.6 fl (80-96); MEAN PLT VOLUME 9.2 fl (7.5-11.1); MONO % 5.8 % (3.8-10.2); NEUT % 82.7 % (42.8-82.8); PLATELET COUNT 247 10^3/uL (134-434); RBC 4.27 M/mm3 (3.60-5.2); RDW 18.6 % (11.6-15.6); WHITE BLOOD COUNT 15.1 K/mm3 (4.0-10.0)
[2021-11-28] MEDS: ATORVASTATIN CA 20 MG TABLET (FP) PO SCH (21:14)
[2021-11-29] MEDS: ALBUTEROL SO4 2.5/IPRATROPIUM 0.5 INH SOL 3 ML VIAL.NEB. NEB SCH ×4 (07:45→20:10)
[2021-11-29] MEDS: SERTRALINE HCL 50 MG TABLET (FP) PO SCH (09:14)
[2021-11-29] MEDS: metoPROLOL SUCCINATE 25 MG TAB.SR.24H (FP) PO SCH (09:14)
[2021-11-29] MEDS: APIXABAN 5 MG TABLET PO SCH ×2 (09:14→21:48)
[2021-11-29] MEDS: POTASSIUM CHLORIDE TABS 20 MEQ TABLET.ER (FP) PO SCH (09:14)
[2021-11-29] MEDS: FUROSEMIDE 40 MG/4 ML INJECTABLE VIAL IVPUSH SCH (09:14)
[2021-11-29 13:45] LABS: BASO % 0.2 % (0-2.0); EOS % 3.3 % (0-4.5); HEMATOCRIT 36.3 % (32.4-45.2); HEMOGLOBIN 11.8 GM/dL (10.7-15.3); LYMPH % 5.8 % (8-40); MCH 28.6 pg (25.7-33.7); MCHC 32.5 g/dl (32.0-36.0); MEAN CELL VOLUME 87.9 fl (80-96); MEAN PLT VOLUME 8.8 fl (7.5-11.1); MONO % 5.5 % (3.8-10.2); NEUT % 85.2 % (42.8-82.8); PLATELET COUNT 295 10^3/uL (134-434); RBC 4.13 M/mm3 (3.60-5.2); RDW 18.8 % (11.6-15.6); WHITE BLOOD COUNT 15.3 K/mm3 (4.0-10.0)
[2021-11-29 14:15] LABS: ALBUMIN 2.6 g/dl (3.4-5.0); BLOOD UREA NITROGEN 13.8 mg/dL (7-18); CALCIUM 8.4 mg/dL (8.5-10.1); MAGNESIUM 1.9 mg/dL (1.8-2.4)
[2021-11-29 14:19] LABS: CREATININE 0.7 mg/dL (0.55-1.3)
[2021-11-29 14:20] LABS: BILIRUBIN,TOTAL 0.6 mg/dL (0.2-1); TOT PROT 5.7 g/dl (6.4-8.2)
[2021-11-29] MEDS ORDERED: clonazePAM 0.5 MG TABLET PO ONE (15:30)
[2021-11-29] MEDS: BACITRACIN 15 GM TUBE TOPICAL OINTMENT TP SCH (21:48)
[2021-11-29] MEDS: ATORVASTATIN CA 20 MG TABLET (FP) PO SCH (21:48)
[2021-11-29] MEDS: clonazePAM 0.5 MG TABLET PO SCH (21:48)
[2021-11-30 08:15] LABS: HEMOGLOBIN 10.9 GM/dL (10.7-15.3); MCHC 33.1 g/dl (32.0-36.0); MEAN CELL VOLUME 87.5 fl (80-96); PLATELET COUNT 262 10^3/uL (134-434); RBC 3.77 M/mm3 (3.60-5.2); RDW 18.5 % (11.6-15.6); WHITE BLOOD COUNT 12.9 K/mm3 (4.0-10.0)
[2021-11-30 08:26] LABS: ALBUMIN 2.4 g/dl (3.4-5.0); CALCIUM 8.5 mg/dL (8.5-10.1)
[2021-11-30 08:27] LABS: BLOOD UREA NITROGEN 13.2 mg/dL (7-18)
[2021-11-30 08:31] LABS: BILIRUBIN,TOTAL 0.8 mg/dL (0.2-1); TOT PROT 5.2 g/dl (6.4-8.2)
[2021-11-30 08:33] LABS: CREATININE 0.6 mg/dL (0.55-1.3)
[2021-11-30] MEDS: metoPROLOL SUCCINATE 25 MG TAB.SR.24H (FP) PO SCH (10:58)
[2021-11-30] MEDS: clonazePAM 0.5 MG TABLET PO SCH ×2 (10:58→21:17)
[2021-11-30] MEDS: APIXABAN 5 MG TABLET PO SCH ×2 (10:58→21:17)
[2021-11-30] MEDS: SERTRALINE HCL 50 MG TABLET (FP) PO SCH (10:59)
[2021-11-30] MEDS: FUROSEMIDE 40 MG/4 ML INJECTABLE VIAL IVPUSH SCH (10:59)
[2021-11-30] MEDS: BACITRACIN 15 GM TUBE TOPICAL OINTMENT TP SCH ×2 (10:59→21:17)
[2021-11-30] MEDS: POTASSIUM CHLORIDE TABS 20 MEQ TABLET.ER (FP) PO SCH (10:59)
[2021-11-30 11:10] LABS: ANISOCYTOSIS 0; MACROCYTOSIS 0; PLATELET ESTIMATE NORMAL
[2021-11-30] MEDS: ATORVASTATIN CA 20 MG TABLET (FP) PO SCH (21:17)
[2021-12-01 10:06] LABS: CALCIUM 8.3 mg/dL (8.5-10.1)
[2021-12-01 10:07] LABS: BLOOD UREA NITROGEN 12.2 mg/dL (7-18); MAGNESIUM 1.7 mg/dL (1.8-2.4)
[2021-12-01 10:10] LABS: CREATININE 0.6 mg/dL (0.55-1.3)
[2021-12-01] MEDS: clonazePAM 0.5 MG TABLET PO SCH ×2 (11:02→21:19)
[2021-12-01] MEDS: metoPROLOL SUCCINATE 25 MG TAB.SR.24H (FP) PO SCH (11:02)
[2021-12-01] MEDS: POTASSIUM CHLORIDE TABS 20 MEQ TABLET.ER (FP) PO SCH (11:02)
[2021-12-01] MEDS: APIXABAN 5 MG TABLET PO SCH ×2 (11:02→21:19)
[2021-12-01] MEDS: FUROSEMIDE 40 MG/4 ML INJECTABLE VIAL IVPUSH SCH (11:03)
[2021-12-01] MEDS: SERTRALINE HCL 50 MG TABLET (FP) PO SCH (11:03)
[2021-12-01] MEDS: BACITRACIN 15 GM TUBE TOPICAL OINTMENT TP SCH ×2 (11:03→21:19)
[2021-12-01] MEDS ORDERED: MAGNESIUM 1GM/D5W 100ML - 100 ML IVPB IVPB ONE (14:30)
[2021-12-01] MEDS ORDERED: POTASSIUM CHLORIDE TABS 20 MEQ TABLET.ER (FP) PO ONE (15:00)
[2021-12-01] MEDS: ATORVASTATIN CA 20 MG TABLET (FP) PO SCH (21:19)
[2021-12-02] MEDS ORDERED: ONDANSETRON *ODT* 4 MG TABLET SL ONE (00:06)
[2021-12-02] MEDS: clonazePAM 0.5 MG TABLET PO SCH ×2 (09:16→21:37)
[2021-12-02] MEDS: POTASSIUM CHLORIDE TABS 20 MEQ TABLET.ER (FP) PO SCH (09:16)
[2021-12-02] MEDS: SERTRALINE HCL 50 MG TABLET (FP) PO SCH (09:16)
[2021-12-02] MEDS: APIXABAN 5 MG TABLET PO SCH ×2 (09:16→21:37)
[2021-12-02] MEDS: metoPROLOL SUCCINATE 25 MG TAB.SR.24H (FP) PO SCH (09:16)
[2021-12-02] MEDS: FUROSEMIDE 40 MG/4 ML INJECTABLE VIAL IVPUSH SCH (09:17)
[2021-12-02] MEDS: BACITRACIN 15 GM TUBE TOPICAL OINTMENT TP SCH ×2 (09:17→21:37)
[2021-12-02] MEDS: ATORVASTATIN CA 20 MG TABLET (FP) PO SCH (21:37)
[2021-12-03] MEDS: clonazePAM 0.5 MG TABLET PO SCH ×2 (09:07→21:42)
[2021-12-03] MEDS: BACITRACIN 15 GM TUBE TOPICAL OINTMENT TP SCH ×2 (09:07→21:42)
[2021-12-03] MEDS: SERTRALINE HCL 50 MG TABLET (FP) PO SCH (09:07)
[2021-12-03] MEDS: metoPROLOL SUCCINATE 25 MG TAB.SR.24H (FP) PO SCH (09:07)
[2021-12-03] MEDS: POTASSIUM CHLORIDE TABS 20 MEQ TABLET.ER (FP) PO SCH (09:07)
[2021-12-03] MEDS: APIXABAN 5 MG TABLET PO SCH ×2 (09:07→21:42)
[2021-12-03] MEDS: FUROSEMIDE 40 MG/4 ML INJECTABLE VIAL IVPUSH SCH (09:08)
[2021-12-03 14:58] LABS: ALBUMIN 2.5 g/dl (3.4-5.0); BILIRUBIN,TOTAL 0.4 mg/dL (0.2-1); BLOOD UREA NITROGEN 13.1 mg/dL (7-18); CALCIUM 8.5 mg/dL (8.5-10.1); CREATININE 0.7 mg/dL (0.55-1.3); MAGNESIUM 1.9 mg/dL (1.8-2.4); TOT PROT 5.5 g/dl (6.4-8.2)
[2021-12-03] MEDS: ATORVASTATIN CA 20 MG TABLET (FP) PO SCH (21:42)
[2021-12-04 07:13] LABS: CALCIUM 8.6 mg/dL (8.5-10.1)
[2021-12-04 07:14] LABS: ALBUMIN 2.5 g/dl (3.4-5.0); BLOOD UREA NITROGEN 12.2 mg/dL (7-18); MAGNESIUM 1.8 mg/dL (1.8-2.4)
[2021-12-04 07:17] LABS: CREATININE 0.6 mg/dL (0.55-1.3)
[2021-12-04 07:18] LABS: BILIRUBIN,TOTAL 0.6 mg/dL (0.2-1)
[2021-12-04 07:19] LABS: TOT PROT 5.4 g/dl (6.4-8.2)
[2021-12-04] MEDS: POTASSIUM CHLORIDE TABS 20 MEQ TABLET.ER (FP) PO SCH (09:37)
[2021-12-04] MEDS: APIXABAN 5 MG TABLET PO SCH ×2 (09:37→21:48)
[2021-12-04] MEDS: clonazePAM 0.5 MG TABLET PO SCH ×2 (09:37→21:48)
[2021-12-04] MEDS: metoPROLOL SUCCINATE 25 MG TAB.SR.24H (FP) PO SCH (09:37)
[2021-12-04] MEDS: SERTRALINE HCL 50 MG TABLET (FP) PO SCH (09:37)
[2021-12-04] MEDS: BACITRACIN 15 GM TUBE TOPICAL OINTMENT TP SCH ×2 (09:40→21:49)
[2021-12-04] MEDS: FUROSEMIDE 40 MG/4 ML INJECTABLE VIAL IVPUSH SCH (15:00)
[2021-12-04] MEDS: ATORVASTATIN CA 20 MG TABLET (FP) PO SCH (21:48)
[2021-12-05 09:19] VITALS: BP 118/73; PULSE 77; RESP 28; TEMP 98.1
[2021-12-05] MEDS: APIXABAN 5 MG TABLET PO SCH (09:42)
[2021-12-05] MEDS: BACITRACIN 15 GM TUBE TOPICAL OINTMENT TP SCH (09:42)
[2021-12-05] MEDS: clonazePAM 0.5 MG TABLET PO SCH (09:42)
[2021-12-05] MEDS: FUROSEMIDE 40 MG/4 ML INJECTABLE VIAL IVPUSH SCH (09:42)
[2021-12-05] MEDS: metoPROLOL SUCCINATE 25 MG TAB.SR.24H (FP) PO SCH (09:42)
[2021-12-05] MEDS: POTASSIUM CHLORIDE TABS 20 MEQ TABLET.ER (FP) PO SCH (09:42)
[2021-12-05] MEDS: SERTRALINE HCL 50 MG TABLET (FP) PO SCH (09:42)
== END 2021-12-05 11:58 | DRG 166 ==
LOC: JER 16:53 → JERBED 17:05 → JICU 22:23 → J4S 11-24 20:41
PROVIDERS: ADMIT Internal Medicine Pulmonary Disease; ATTEND Family Medicine
PROC: 02FR3Z0 Fragmentation of Left Pulmonary Artery, Percutaneous Approach, Ultrasonic (ICD-10-PCS; principal; 2021-11-18)
PROC: 02FQ3Z0 Fragmentation of Right Pulmonary Artery, Percutaneous Approach, Ultrasonic (ICD-10-PCS; 2021-11-18)
PROC: 3E05317 Introduction of Other Thrombolytic into Peripheral Artery, Percutaneous Approach (ICD-10-PCS; 2021-11-18)
DX: I26.99 Other pulmonary embolism without acute cor pulmonale (principal); J96.21 Acute and chronic respiratory failure with hypoxia; I50.33 Acute on chronic diastolic (congestive) heart failure; I82.409 Acute embolism and thrombosis of unspecified deep veins of unspecified lower extremity; Z68.41 Body mass index [BMI] 40.0-44.9, adult; N39.0 Urinary tract infection, site not specified; N17.9 Acute kidney failure, unspecified; I13.0 Hypertensive heart and chronic kidney disease with heart failure and stage 1 through stage 4 chronic kidney disease, or unspecified chronic kidney disease; K21.9 Gastro-esophageal reflux disease without esophagitis; E78.5 Hyperlipidemia, unspecified; E87.6 Hypokalemia; D69.6 Thrombocytopenia, unspecified; E66.9 Obesity, unspecified; E87.5 Hyperkalemia; I48.0 Paroxysmal atrial fibrillation; J44.9 Chronic obstructive pulmonary disease, unspecified; D72.829 Elevated white blood cell count, unspecified; F31.9 Bipolar disorder, unspecified; F41.8 Other specified anxiety disorders; N18.2 Chronic kidney disease, stage 2 (mild)
CPT/HCPCS: 0241U-QW; 36415; 36600; 37187; 37212; 71045-TC-FY; 71250-TC; 71275-TC; 75743-TC-FY; 80048; 80053; 81003; 82542; 82550; 82803; 82962; 83735; 83880; 84100; 84484; 85025; 85027; 85032; 85379; 85610; 85730; 86022; 87040; 87086; 87186; 93005; 93010; 93306-TC; 93971-TC; 94640; 94660; 97116-GP; 97161-GP; 99285-25; C9803-CS; J0883; J1644; J2997; Q0162; Q9967; U0003; U0005

== ENCOUNTER 2022-02-12 13:01 | Inpatient (IN) | payer SELFPAY ==
[2022-02-12 14:39] LABS: VENOUS BASE EXCESS 8.3 mmol/L (-2-2); VENOUS O2 SATURATION 53.5 % (70-80); VENOUS PCO2 54.2 mmHg (38-52); VENOUS PH 7.419 (7.310-7.410)
[2022-02-12 14:40] LABS: BASO % 1.1 % (0-2.0); EOS % 5.2 % (0-4.5); HEMATOCRIT 34.9 % (32.4-45.2); HEMOGLOBIN 10.9 GM/dL (10.7-15.3); LYMPH % 12.4 % (8-40); MCH 25.4 pg (25.7-33.7); MCHC 31.1 g/dl (32.0-36.0); MEAN CELL VOLUME 81.8 fl (80-96); MEAN PLT VOLUME 9.4 fl (7.5-11.1); MONO % 7.5 % (3.8-10.2); NEUT % 73.8 % (42.8-82.8); PLATELET COUNT 270 10^3/uL (134-434); RBC 4.27 M/mm3 (3.60-5.2); RDW 17.4 % (11.6-15.6); WHITE BLOOD COUNT 8.6 K/mm3 (4.0-10.0)
[2022-02-12 14:47] LABS: INR 1.46 (0.83-1.09); PROTHROMBIN TIME (PATIENT) 16.8 SEC (9.7-13.0)
[2022-02-12 14:50] LABS: ACTIVATED PTT 35.8 SECONDS (25.2-36.5)
[2022-02-12 15:04] LABS: PH,URINE 6.5 (5.0-8.0); URINE APPEARANCE CLEAR; URINE BILIRUBIN NEGATIVE (NEGATIVE); URINE COLOR YELLOW; URINE GLUCOSE (UA) NEGATIVE (NEGATIVE); URINE KETONE NEGATIVE (NEGATIVE); URINE LEUK ESTERASE NEGATIVE (NEGATIVE); URINE NITRITE NEGATIVE (NEGATIVE); URINE PROTEIN NEGATIVE (NEGATIVE); URINE UROBILINOGEN 0.2 mg/dL (0.2-1.0)
[2022-02-12] MEDS ORDERED: CLINDAMYCIN 600MG PREMIX IVPB 600 MG/50 ML BAG IVPB ONE ×2 (15:04→15:13)
[2022-02-12 15:06] LABS: CALCIUM 9.3 mg/dL (8.5-10.1)
[2022-02-12 15:07] LABS: BLOOD UREA NITROGEN 9.8 mg/dL (7-18)
[2022-02-12 15:10] LABS: CREATININE 0.8 mg/dL (0.55-1.3)
[2022-02-12 15:11] LABS: TOT PROT 6.7 g/dl (6.4-8.2)
[2022-02-12 15:12] LABS: BILIRUBIN,TOTAL 0.7 mg/dL (0.2-1)
[2022-02-12 15:15] LABS: N-TERMINAL BNP 521.1 pg/ml (5-125)
[2022-02-12] MEDS ORDERED: POTASSIUM CHLORIDE ORAL LIQUID 20 MEQ/15 ML PO ONE (16:52)
[2022-02-12] MEDS ORDERED: AZITHROMYCIN IVPB 500 MG in DEXTROSE 5%-WATER - 250 ML IVPB ONE (17:05)
[2022-02-12] MEDS ORDERED: CEFTRIAXONE 1 GM in DEXTROSE 5%-WATER - 100 ML IVPB ONE (17:05)
[2022-02-12] MEDS ORDERED: POTASSIUM CHLORIDE ORAL LIQUID 20 MEQ/15 ML ONE (17:41)
[2022-02-12] MEDS ORDERED: AZITHROMYCIN IVPB 500 MG/250 ML BAG IVPB ONE (17:41)
[2022-02-12] MEDS ORDERED: CEFTRIAXONE 1 GM/50 ML BAG ONE (17:41)
[2022-02-12 18:14] LABS: VENOUS BASE EXCESS 8.6 mmol/L (-2-2); VENOUS O2 SATURATION 55.3 % (70-80); VENOUS PH 7.389 (7.310-7.410)
[2022-02-12] MEDS ORDERED: ALBUTEROL SO4 0.083% IH SOL 2.5 MG/3 ML VIAL.NEB. NEB ONE ×2 (18:26→18:44)
[2022-02-12] MEDS ORDERED: KCL 10 MEQ IVPB 20 MEQ/200 ML INFUS.BAG IVPB ONE (18:33)
[2022-02-12] MEDS: KCL 10 MEQ IVPB 10 MEQ/100 ML INFUS.BAG IVPB SCH ×2 (18:54→20:11)
[2022-02-13] MEDS ORDERED: ACETAMINOPHEN 325 MG TABLET (FP) PO ONE (05:07)
[2022-02-13 07:40] LABS: BASO % 0.6 % (0-2.0); HEMOGLOBIN 9.9 GM/dL (10.7-15.3); LYMPH % 9.2 % (8-40); MCHC 31.9 g/dl (32.0-36.0); MEAN CELL VOLUME 81.4 fl (80-96); MEAN PLT VOLUME 9.6 fl (7.5-11.1); MONO % 6.4 % (3.8-10.2); NEUT % 78.8 % (42.8-82.8); PLATELET COUNT 232 10^3/uL (134-434); RBC 3.81 M/mm3 (3.60-5.2); RDW 17.2 % (11.6-15.6); WHITE BLOOD COUNT 9.8 K/mm3 (4.0-10.0)
[2022-02-13 07:58] LABS: CHLORIDE 96 mmol/L (98-107); SODIUM 144 mmol/L (136-145)
[2022-02-13 08:01] LABS: ALBUMIN 2.7 g/dl (3.4-5.0); BLOOD UREA NITROGEN 8.1 mg/dL (7-18); CALCIUM 8.8 mg/dL (8.5-10.1); CO2 39 mmol/L (21-32); GLUCOSE,RANDOM 89 mg/dL (74-106); MAGNESIUM 1.6 mg/dL (1.8-2.4)
[2022-02-13 08:06] LABS: BILIRUBIN,TOTAL 0.5 mg/dL (0.2-1); CREATININE 0.7 mg/dL (0.55-1.3); PHOSPHOROUS 5.6 mg/dL (2.5-4.9); SGOT/AST 15 U/L (15-37); SGPT/ALT 11 U/L (13-61); TOT PROT 5.8 g/dl (6.4-8.2)
[2022-02-13 08:08] LABS: ALK PHOS 79 U/L (45-117)
[2022-02-13 08:10] LABS: ANION GAP 8 MMOL/L (8-16)
[2022-02-13] MEDS ORDERED: MAGNESIUM 2GM/50ML STERILE WATER IVPB IVPB ONE (08:13)
[2022-02-13] MEDS ORDERED: POTASSIUM CHLORIDE TABS 20 MEQ TABLET.ER (FP) PO ONE (08:13)
[2022-02-13] MEDS: KCL 10 MEQ IVPB 10 MEQ/100 ML INFUS.BAG IVPB SCH ×3 (09:54→11:26)
[2022-02-13] MEDS: ENOXAPARIN NA (PORCINE) 100 MG/1 ML DISP.SYRIN SQ SCH ×2 (09:54→21:36)
[2022-02-13] MEDS ORDERED: AZITHROMYCIN IVPB 250 MG in DEXTROSE 5%-WATER - 250 ML IVPB SCH (10:00)
[2022-02-13] MEDS ORDERED: CEFTRIAXONE 1 GM in DEXTROSE 5%-WATER - 50 ML IVPB SCH (10:00)
[2022-02-13] MEDS ORDERED: ENOXAPARIN NA (PORCINE) 40 MG/0.4 ML DISP.SYRIN SQ SCH (10:00)
[2022-02-14] MEDS: MELATONIN 5 MG TABLETS PO PRN ×2 (02:25→21:05)
[2022-02-14] MEDS ORDERED: LORazepam 2 MG/ML SDV VIAL IVPUSH ONE (05:15)
[2022-02-14] MEDS ORDERED: FUROSEMIDE 40 MG/4 ML INJECTABLE VIAL IVPUSH ONE (05:24)
[2022-02-14] MEDS ORDERED: ALBUTEROL SO4 2.5/IPRATROPIUM 0.5 INH SOL 3 ML VIAL.NEB. NEB ONE (05:24)
[2022-02-14 08:52] LABS: BASO % 0.5 % (0-2.0); EOS % 8.5 % (0-4.5); HEMATOCRIT 32.5 % (32.4-45.2); HEMOGLOBIN 10.2 GM/dL (10.7-15.3); LYMPH % 9.7 % (8-40); MCH 25.2 pg (25.7-33.7); MCHC 31.4 g/dl (32.0-36.0); MEAN CELL VOLUME 80.3 fl (80-96); MEAN PLT VOLUME 9.4 fl (7.5-11.1); MONO % 6.3 % (3.8-10.2); PLATELET COUNT 233 10^3/uL (134-434); RBC 4.04 M/mm3 (3.60-5.2); RDW 17.5 % (11.6-15.6); WHITE BLOOD COUNT 10.3 K/mm3 (4.0-10.0)
[2022-02-14] MEDS: ENOXAPARIN NA (PORCINE) 100 MG/1 ML DISP.SYRIN SQ SCH ×2 (09:05→21:06)
[2022-02-14 09:08] LABS: CHLORIDE 91 mmol/L (98-107); SODIUM 141 mmol/L (136-145)
[2022-02-14 09:12] LABS: ALBUMIN 2.8 g/dl (3.4-5.0)
[2022-02-14 09:14] LABS: BLOOD UREA NITROGEN 5.8 mg/dL (7-18); CALCIUM 8.8 mg/dL (8.5-10.1); CO2 41 mmol/L (21-32); GLUCOSE,RANDOM 82 mg/dL (74-106)
[2022-02-14 09:15] LABS: CREATININE 0.6 mg/dL (0.55-1.3); SGPT/ALT 12 U/L (13-61)
[2022-02-14 09:16] LABS: SGOT/AST 16 U/L (15-37)
[2022-02-14 09:17] LABS: BILIRUBIN,TOTAL 0.7 mg/dL (0.2-1)
[2022-02-14 09:18] LABS: ALK PHOS 87 U/L (45-117)
[2022-02-14 09:20] LABS: TOT PROT 6.4 g/dl (6.4-8.2)
[2022-02-14 09:21] LABS: ANION GAP 9 MMOL/L (8-16)
[2022-02-14] MEDS ORDERED: SPIRONOLACTONE 25 MG TABLET PO ONE (10:05)
[2022-02-14] MEDS ORDERED: MAGNESIUM SULF 50% (8.12 MEQ/2 ML-1 GM VIAL) IVPB ONE (10:15)
[2022-02-14] MEDS ORDERED: POTASSIUM CHLORIDE TABS 20 MEQ TABLET.ER (FP) PO SCH ×2 (10:15→16:26)
[2022-02-14] MEDS: KCL 10 MEQ IVPB 10 MEQ/100 ML INFUS.BAG IVPB SCH ×8 (10:25→20:02)
[2022-02-14] MEDS ORDERED: POTASSIUM CHLORIDE TABS 20 MEQ TABLET.ER (FP) PO ONE (12:32)
[2022-02-14 15:34] LABS: ALLENS TEST POSITIVE; ARTERIAL BLOOD GAS BASE EXCESS 18.1 mmol/L (-2-2); ARTERIAL BLOOD GAS PO2 108.1 mmHg (80-100); ARTERIAL BLOOD GAS pH 7.458 (7.350-7.450)
[2022-02-14 15:35] LABS: PT'S TEMP 98.6; VENT MODE IPAP-10; VENT RATE 12
[2022-02-14 15:36] LABS: CHLORIDE 90 mmol/L (98-107); SODIUM 140 mmol/L (136-145)
[2022-02-14 15:39] LABS: ALBUMIN 2.7 g/dl (3.4-5.0); BLOOD UREA NITROGEN 6.6 mg/dL (7-18); CO2 42 mmol/L (21-32); GLUCOSE,RANDOM 97 mg/dL (74-106); MAGNESIUM 2.1 mg/dL (1.8-2.4)
[2022-02-14 15:43] LABS: CREATININE 0.7 mg/dL (0.55-1.3); SGOT/AST 16 U/L (15-37); SGPT/ALT 11 U/L (13-61)
[2022-02-14 15:44] LABS: BILIRUBIN,TOTAL 0.6 mg/dL (0.2-1); TOT PROT 6.3 g/dl (6.4-8.2)
[2022-02-14 15:45] LABS: ALK PHOS 82 U/L (45-117)
[2022-02-14 15:47] LABS: ANION GAP 8 MMOL/L (8-16)
[2022-02-14] MEDS: POTASSIUM CHLORIDE TABS 20 MEQ TABLET.ER (FP) PO SCH (16:50)
[2022-02-14] MEDS: ALBUTEROL SO4 2.5/IPRATROPIUM 0.5 INH SOL 3 ML VIAL.NEB. NEB PRN ×2 (17:08→20:31)
[2022-02-14] MEDS: SPIRONOLACTONE 25 MG TABLET PO SCH (21:05)
[2022-02-14 21:42] LABS: CALCIUM 8.7 mg/dL (8.5-10.1)
[2022-02-14 21:43] LABS: ALBUMIN 2.6 g/dl (3.4-5.0); MAGNESIUM 2.1 mg/dL (1.8-2.4)
[2022-02-14 21:46] LABS: CREATININE 0.7 mg/dL (0.55-1.3)
[2022-02-14 21:48] LABS: BILIRUBIN,TOTAL 0.5 mg/dL (0.2-1); TOT PROT 6.1 g/dl (6.4-8.2)
[2022-02-15] MEDS: ALBUTEROL SO4 2.5/IPRATROPIUM 0.5 INH SOL 3 ML VIAL.NEB. NEB PRN ×5 (02:23→19:35)
[2022-02-15] MEDS: ACETAMINOPHEN 325 MG TABLET (FP) PO PRN ×3 (02:30→20:33)
[2022-02-15 08:05] LABS: BASO % 0.5 % (0-2.0); EOS % 6.8 % (0-4.5); HEMATOCRIT 30.7 % (32.4-45.2); HEMOGLOBIN 9.9 GM/dL (10.7-15.3); MCH 26.1 pg (25.7-33.7); MCHC 32.2 g/dl (32.0-36.0); MEAN CELL VOLUME 80.9 fl (80-96); MEAN PLT VOLUME 9.5 fl (7.5-11.1); MONO % 7.1 % (3.8-10.2); NEUT % 75.6 % (42.8-82.8); PLATELET COUNT 220 10^3/uL (134-434); RBC 3.79 M/mm3 (3.60-5.2); RDW 16.8 % (11.6-15.6); WHITE BLOOD COUNT 9.5 K/mm3 (4.0-10.0)
[2022-02-15 08:19] LABS: ALBUMIN 2.6 g/dl (3.4-5.0); BLOOD UREA NITROGEN 6.4 mg/dL (7-18)
[2022-02-15 08:22] LABS: CREATININE 0.6 mg/dL (0.55-1.3)
[2022-02-15 08:24] LABS: BILIRUBIN,TOTAL 0.6 mg/dL (0.2-1); TOT PROT 6.1 g/dl (6.4-8.2)
[2022-02-15 08:56] LABS: ARTERIAL BLD GAS O2 SATURATION 98.1 % (95-98); ARTERIAL BLOOD GAS PO2 117.5 mmHg (80-100); ARTERIAL BLOOD GAS pH 7.403 (7.350-7.450)
[2022-02-15 08:59] LABS: ALLENS TEST POSITIVE
[2022-02-15 09:00] LABS: VENT RATE 12
[2022-02-15] MEDS ORDERED: MAGNESIUM SULF 50% (8.12 MEQ/2 ML-1 GM VIAL) IVPB ONE (09:09)
[2022-02-15] MEDS: SPIRONOLACTONE 25 MG TABLET PO SCH ×2 (10:15→21:13)
[2022-02-15] MEDS: KCL 10 MEQ IVPB 10 MEQ/100 ML INFUS.BAG IVPB SCH ×4 (10:15→17:24)
[2022-02-15] MEDS: POTASSIUM CHLORIDE TABS 20 MEQ TABLET.ER (FP) PO SCH (10:15)
[2022-02-15] MEDS: ENOXAPARIN NA (PORCINE) 100 MG/1 ML DISP.SYRIN SQ SCH ×2 (10:15→21:14)
[2022-02-15] MEDS ORDERED: FUROSEMIDE 40 MG/4 ML INJECTABLE VIAL IVPUSH ONE (12:30)
[2022-02-15] MEDS ORDERED: KCL 10 MEQ IVPB 10 MEQ/100 ML INFUS.BAG IVPB SCH (17:15)
[2022-02-15] MEDS: clonazePAM 0.5 MG TABLET PO PRN (20:34)
[2022-02-15] MEDS ORDERED: POTASSIUM CHLORIDE TABS 20 MEQ TABLET.ER (FP) PO ONE (22:00)
[2022-02-16] MEDS: ALBUTEROL SO4 2.5/IPRATROPIUM 0.5 INH SOL 3 ML VIAL.NEB. NEB PRN ×2 (00:17→10:07)
[2022-02-16 07:17] LABS: HEMATOCRIT 31.4 % (32.4-45.2); HEMOGLOBIN 9.9 GM/dL (10.7-15.3); MCH 25.5 pg (25.7-33.7); MCHC 31.4 g/dl (32.0-36.0); MEAN CELL VOLUME 81.4 fl (80-96); MEAN PLT VOLUME 9.3 fl (7.5-11.1); PLATELET COUNT 253 10^3/uL (134-434); RBC 3.86 M/mm3 (3.60-5.2); RDW 16.9 % (11.6-15.6); WHITE BLOOD COUNT 8.6 K/mm3 (4.0-10.0)
[2022-02-16 07:40] LABS: CALCIUM 9.3 mg/dL (8.5-10.1)
[2022-02-16 07:41] LABS: ALBUMIN 2.6 g/dl (3.4-5.0); BLOOD UREA NITROGEN 6.8 mg/dL (7-18)
[2022-02-16 07:44] LABS: CREATININE 0.7 mg/dL (0.55-1.3)
[2022-02-16 07:45] LABS: BILIRUBIN,TOTAL 0.5 mg/dL (0.2-1); TOT PROT 6.1 g/dl (6.4-8.2)
[2022-02-16] MEDS: clonazePAM 0.5 MG TABLET PO PRN ×2 (10:17→21:24)
[2022-02-16] MEDS: POTASSIUM CHLORIDE TABS 20 MEQ TABLET.ER (FP) PO SCH (10:17)
[2022-02-16] MEDS: ENOXAPARIN NA (PORCINE) 100 MG/1 ML DISP.SYRIN SQ SCH ×2 (10:17→21:24)
[2022-02-16] MEDS: SPIRONOLACTONE 25 MG TABLET PO SCH ×2 (10:17→21:25)
[2022-02-16] MEDS ORDERED: FUROSEMIDE 40 MG/4 ML INJECTABLE VIAL IVPUSH ONE (11:21)
[2022-02-16] MEDS: KCL 10 MEQ IVPB 10 MEQ/100 ML INFUS.BAG IVPB SCH ×3 (12:21→17:58)
[2022-02-16] MEDS ORDERED: METOPROLOL TARTRATE 5 MG/5 ML VIAL IVPUSH ONE (12:53)
[2022-02-16] MEDS: metoPROLOL SUCCINATE 25 MG TAB.SR.24H (FP) PO SCH (14:08)
[2022-02-16] MEDS: ACETAMINOPHEN 325 MG TABLET (FP) PO PRN (15:20)
[2022-02-16] MEDS: MELATONIN 5 MG TABLETS PO PRN (21:25)
[2022-02-16] MEDS ORDERED: POTASSIUM CHLORIDE TABS 20 MEQ TABLET.ER (FP) PO ONE (22:00)
[2022-02-17 07:21] LABS: BASO % 1.1 % (0-2.0); EOS % 11.4 % (0-4.5); HEMATOCRIT 32.4 % (32.4-45.2); HEMOGLOBIN 10.4 GM/dL (10.7-15.3); LYMPH % 13.9 % (8-40); MCH 26.6 pg (25.7-33.7); MEAN CELL VOLUME 83.1 fl (80-96); MEAN PLT VOLUME 9.6 fl (7.5-11.1); MONO % 8.1 % (3.8-10.2); NEUT % 65.5 % (42.8-82.8); PLATELET COUNT 232 10^3/uL (134-434); RDW 17.4 % (11.6-15.6); WHITE BLOOD COUNT 8.9 K/mm3 (4.0-10.0)
[2022-02-17] MEDS ORDERED: POTASSIUM CHLORIDE TABS 20 MEQ TABLET.ER (FP) PO ONE (07:26)
[2022-02-17] MEDS ORDERED: FUROSEMIDE 40 MG/4 ML INJECTABLE VIAL IVPUSH ONE (07:26)
[2022-02-17 07:48] LABS: ALBUMIN 2.7 g/dl (3.4-5.0); CALCIUM 9.4 mg/dL (8.5-10.1)
[2022-02-17 07:49] LABS: BLOOD UREA NITROGEN 9.8 mg/dL (7-18); MAGNESIUM 1.9 mg/dL (1.8-2.4)
[2022-02-17 07:50] LABS: CREATININE 0.7 mg/dL (0.55-1.3); PHOSPHOROUS 4.1 mg/dL (2.5-4.9)
[2022-02-17 07:52] LABS: BILIRUBIN,TOTAL 0.4 mg/dL (0.2-1); TOT PROT 6.4 g/dl (6.4-8.2)
[2022-02-17] MEDS: POTASSIUM CHLORIDE TABS 20 MEQ TABLET.ER (FP) PO SCH (09:42)
[2022-02-17] MEDS: SPIRONOLACTONE 25 MG TABLET PO SCH ×2 (09:42→21:43)
[2022-02-17] MEDS: clonazePAM 0.5 MG TABLET PO PRN ×2 (09:42→17:42)
[2022-02-17] MEDS: ENOXAPARIN NA (PORCINE) 100 MG/1 ML DISP.SYRIN SQ SCH ×2 (09:42→21:45)
[2022-02-17] MEDS: metoPROLOL SUCCINATE 25 MG TAB.SR.24H (FP) PO SCH ×2 (09:42→21:45)
[2022-02-17 15:35] LABS: ARTERIAL BLD GAS O2 SATURATION 95.9 % (95-98); ARTERIAL BLOOD GAS BASE EXCESS 11.5 mmol/L (-2-2); ARTERIAL BLOOD GAS PO2 82.4 mmHg (80-100); ARTERIAL BLOOD GAS pH 7.408 (7.350-7.450)
[2022-02-17 15:37] LABS: ALLENS TEST POSITIVE
[2022-02-17] MEDS: MELATONIN 5 MG TABLETS PO PRN (21:43)
[2022-02-17] MEDS: ALBUTEROL SO4 2.5/IPRATROPIUM 0.5 INH SOL 3 ML VIAL.NEB. NEB PRN (23:10)
[2022-02-17] MEDS ORDERED: clonazePAM 0.5 MG TABLET PO ONE (23:30)
[2022-02-18] MEDS: ACETAMINOPHEN 325 MG TABLET (FP) PO PRN (01:14)
[2022-02-18] MEDS: ALBUTEROL SO4 2.5/IPRATROPIUM 0.5 INH SOL 3 ML VIAL.NEB. NEB PRN ×2 (03:32→07:35)
[2022-02-18] MEDS: APIXABAN 5 MG TABLET PO SCH ×2 (10:13→21:02)
[2022-02-18] MEDS: metoPROLOL SUCCINATE 25 MG TAB.SR.24H (FP) PO SCH ×2 (10:13→21:02)
[2022-02-18] MEDS: SPIRONOLACTONE 25 MG TABLET PO SCH ×2 (10:13→21:02)
[2022-02-18] MEDS: TORSEMIDE 20 MG TABLET (FP) PO SCH (10:14)
[2022-02-18] MEDS: POTASSIUM CHLORIDE TABS 20 MEQ TABLET.ER (FP) PO SCH (10:14)
[2022-02-18] MEDS: MELATONIN 5 MG TABLETS PO PRN (21:02)
[2022-02-18] MEDS: clonazePAM 0.5 MG TABLET PO PRN (21:02)
[2022-02-19] MEDS: ALBUTEROL SO4 2.5/IPRATROPIUM 0.5 INH SOL 3 ML VIAL.NEB. NEB PRN ×2 (07:30→19:28)
[2022-02-19 07:35] LABS: BASO % 0.8 % (0-2.0); EOS % 6.7 % (0-4.5); HEMATOCRIT 34.8 % (32.4-45.2); HEMOGLOBIN 10.9 GM/dL (10.7-15.3); LYMPH % 12.1 % (8-40); MCH 25.5 pg (25.7-33.7); MCHC 31.4 g/dl (32.0-36.0); MEAN CELL VOLUME 81.4 fl (80-96); MEAN PLT VOLUME 9.7 fl (7.5-11.1); NEUT % 73.4 % (42.8-82.8); PLATELET COUNT 274 10^3/uL (134-434); RBC 4.28 M/mm3 (3.60-5.2); RDW 17.2 % (11.6-15.6); WHITE BLOOD COUNT 10.6 K/mm3 (4.0-10.0)
[2022-02-19 07:53] LABS: ALBUMIN 2.9 g/dl (3.4-5.0); BLOOD UREA NITROGEN 13.6 mg/dL (7-18); MAGNESIUM 1.6 mg/dL (1.8-2.4)
[2022-02-19 07:54] LABS: CALCIUM 9.4 mg/dL (8.5-10.1)
[2022-02-19 07:56] LABS: CREATININE 0.9 mg/dL (0.55-1.3)
[2022-02-19 07:58] LABS: BILIRUBIN,TOTAL 0.4 mg/dL (0.2-1)
[2022-02-19 08:00] LABS: TOT PROT 6.6 g/dl (6.4-8.2)
[2022-02-19] MEDS: APIXABAN 5 MG TABLET PO SCH ×2 (09:20→22:54)
[2022-02-19] MEDS: SPIRONOLACTONE 25 MG TABLET PO SCH ×2 (09:20→22:55)
[2022-02-19] MEDS: TORSEMIDE 20 MG TABLET (FP) PO SCH (09:20)
[2022-02-19] MEDS: POTASSIUM CHLORIDE TABS 20 MEQ TABLET.ER (FP) PO SCH (09:21)
[2022-02-19] MEDS: metoPROLOL SUCCINATE 25 MG TAB.SR.24H (FP) PO SCH ×2 (09:21→22:56)
[2022-02-19] MEDS: clonazePAM 0.5 MG TABLET PO PRN (11:47)
[2022-02-19] MEDS: MELATONIN 5 MG TABLETS PO PRN (23:12)
[2022-02-20] MEDS ORDERED: MAGNESIUM 2GM/50ML STERILE WATER IVPB IVPB ONE ×2 (09:03→14:51)
[2022-02-20] MEDS: TORSEMIDE 20 MG TABLET (FP) PO SCH (09:44)
[2022-02-20] MEDS: APIXABAN 5 MG TABLET PO SCH ×2 (09:45→21:43)
[2022-02-20] MEDS: POTASSIUM CHLORIDE TABS 20 MEQ TABLET.ER (FP) PO SCH (09:45)
[2022-02-20] MEDS: metoPROLOL SUCCINATE 25 MG TAB.SR.24H (FP) PO SCH ×2 (09:45→21:43)
[2022-02-20] MEDS: ACETAMINOPHEN 325 MG TABLET (FP) PO PRN ×2 (09:48→23:18)
[2022-02-20] MEDS: clonazePAM 0.5 MG TABLET PO PRN ×2 (09:51→21:43)
[2022-02-20] MEDS: ALBUTEROL SO4 2.5/IPRATROPIUM 0.5 INH SOL 3 ML VIAL.NEB. NEB PRN ×2 (09:52→20:26)
[2022-02-20] MEDS: SPIRONOLACTONE 25 MG TABLET PO SCH ×2 (09:52→21:43)
[2022-02-20] MEDS: MELATONIN 5 MG TABLETS PO PRN (21:42)
[2022-02-21] MEDS: APIXABAN 5 MG TABLET PO SCH ×2 (10:16→21:29)
[2022-02-21] MEDS: TORSEMIDE 20 MG TABLET (FP) PO SCH (10:16)
[2022-02-21] MEDS: POTASSIUM CHLORIDE TABS 20 MEQ TABLET.ER (FP) PO SCH (10:17)
[2022-02-21] MEDS: metoPROLOL SUCCINATE 25 MG TAB.SR.24H (FP) PO SCH ×2 (10:18→21:30)
[2022-02-21] MEDS: SPIRONOLACTONE 25 MG TABLET PO SCH ×2 (10:20→21:29)
[2022-02-21] MEDS ORDERED: clonazePAM 0.5 MG TABLET PO ONE (18:42)
[2022-02-21] MEDS: MELATONIN 5 MG TABLETS PO PRN (21:29)
[2022-02-21] MEDS: ACETAMINOPHEN 325 MG TABLET (FP) PO PRN (21:33)
[2022-02-21] MEDS: ALBUTEROL SO4 2.5/IPRATROPIUM 0.5 INH SOL 3 ML VIAL.NEB. NEB PRN (21:55)
[2022-02-22] MEDS: ALBUTEROL SO4 2.5/IPRATROPIUM 0.5 INH SOL 3 ML VIAL.NEB. NEB PRN ×3 (06:30→20:32)
[2022-02-22] MEDS: TORSEMIDE 20 MG TABLET (FP) PO SCH (10:17)
[2022-02-22] MEDS: APIXABAN 5 MG TABLET PO SCH ×2 (10:17→21:45)
[2022-02-22] MEDS: metoPROLOL SUCCINATE 25 MG TAB.SR.24H (FP) PO SCH ×2 (10:17→21:45)
[2022-02-22] MEDS: SPIRONOLACTONE 25 MG TABLET PO SCH ×2 (10:17→21:45)
[2022-02-22] MEDS: POTASSIUM CHLORIDE TABS 20 MEQ TABLET.ER (FP) PO SCH (10:18)
[2022-02-22] MEDS: ACETAMINOPHEN 325 MG TABLET (FP) PO PRN (17:07)
[2022-02-22] MEDS: MELATONIN 5 MG TABLETS PO PRN (21:45)
[2022-02-23] MEDS: TORSEMIDE 20 MG TABLET (FP) PO SCH (10:22)
[2022-02-23] MEDS: metoPROLOL SUCCINATE 25 MG TAB.SR.24H (FP) PO SCH ×2 (10:23→22:06)
[2022-02-23] MEDS: POTASSIUM CHLORIDE TABS 20 MEQ TABLET.ER (FP) PO SCH (10:23)
[2022-02-23] MEDS: SPIRONOLACTONE 25 MG TABLET PO SCH ×2 (10:23→22:06)
[2022-02-23 11:11] LABS: BASO % 0.9 % (0-2.0); EOS % 6.8 % (0-4.5); HEMATOCRIT 36.4 % (32.4-45.2); HEMOGLOBIN 11.6 GM/dL (10.7-15.3); LYMPH % 10.3 % (8-40); MCH 25.5 pg (25.7-33.7); MCHC 31.8 g/dl (32.0-36.0); MEAN CELL VOLUME 80.2 fl (80-96); MEAN PLT VOLUME 9.3 fl (7.5-11.1); MONO % 7.3 % (3.8-10.2); NEUT % 74.7 % (42.8-82.8); PLATELET COUNT 297 10^3/uL (134-434); RBC 4.54 M/mm3 (3.60-5.2); RDW 17.7 % (11.6-15.6); WHITE BLOOD COUNT 12.6 K/mm3 (4.0-10.0)
[2022-02-23 11:37] LABS: ALBUMIN 2.9 g/dl (3.4-5.0); BLOOD UREA NITROGEN 20.7 mg/dL (7-18)
[2022-02-23 11:39] LABS: CREATININE 0.9 mg/dL (0.55-1.3)
[2022-02-23 11:41] LABS: BILIRUBIN,TOTAL 0.4 mg/dL (0.2-1); TOT PROT 7.1 g/dl (6.4-8.2)
[2022-02-23] MEDS: APIXABAN 5 MG TABLET PO SCH ×2 (11:41→22:06)
[2022-02-23] MEDS: MELATONIN 5 MG TABLETS PO PRN (22:06)
[2022-02-23] MEDS ORDERED: clonazePAM 0.5 MG TABLET PO ONE (23:08)
[2022-02-23] MEDS ORDERED: ALBUTEROL SO4 2.5/IPRATROPIUM 0.5 INH SOL 3 ML VIAL.NEB. NEB ONE (23:37)
[2022-02-23] MEDS: SERTRALINE HCL 50 MG TABLET (FP) PO SCH (23:40)
[2022-02-24 08:51] LABS: BLOOD UREA NITROGEN 21.7 mg/dL (7-18); CALCIUM 10.1 mg/dL (8.5-10.1)
[2022-02-24 08:56] LABS: TOT PROT 7.6 g/dl (6.4-8.2)
[2022-02-24 08:58] LABS: BILIRUBIN,TOTAL 0.5 mg/dL (0.2-1)
[2022-02-24] MEDS: SERTRALINE HCL 50 MG TABLET (FP) PO SCH (10:08)
[2022-02-24] MEDS: POTASSIUM CHLORIDE TABS 20 MEQ TABLET.ER (FP) PO SCH (10:09)
[2022-02-24] MEDS: TORSEMIDE 20 MG TABLET (FP) PO SCH (10:09)
[2022-02-24] MEDS: APIXABAN 5 MG TABLET PO SCH ×2 (10:09→21:48)
[2022-02-24] MEDS: metoPROLOL SUCCINATE 25 MG TAB.SR.24H (FP) PO SCH ×2 (10:11→21:48)
[2022-02-24] MEDS: SPIRONOLACTONE 25 MG TABLET PO SCH ×2 (10:11→21:48)
[2022-02-24] MEDS: ALBUTEROL SO4 2.5/IPRATROPIUM 0.5 INH SOL 3 ML VIAL.NEB. NEB PRN (21:00)
[2022-02-24] MEDS: MELATONIN 5 MG TABLETS PO PRN (23:37)
[2022-02-24] MEDS: clonazePAM 0.5 MG TABLET PO PRN (23:37)
[2022-02-25] MEDS: ALBUTEROL SO4 2.5/IPRATROPIUM 0.5 INH SOL 3 ML VIAL.NEB. NEB PRN (06:30)
[2022-02-25] MEDS: POTASSIUM CHLORIDE TABS 20 MEQ TABLET.ER (FP) PO SCH (09:25)
[2022-02-25] MEDS: metoPROLOL SUCCINATE 25 MG TAB.SR.24H (FP) PO SCH ×2 (09:26→21:59)
[2022-02-25] MEDS: SPIRONOLACTONE 25 MG TABLET PO SCH ×2 (09:26→21:59)
[2022-02-25] MEDS: SERTRALINE HCL 50 MG TABLET (FP) PO SCH (09:26)
[2022-02-25] MEDS: APIXABAN 5 MG TABLET PO SCH ×2 (09:26→21:59)
[2022-02-25] MEDS: ALBUTEROL SO4 2.5/IPRATROPIUM 0.5 INH SOL 3 ML VIAL.NEB. NEB SCH ×3 (11:14→20:25)
[2022-02-25] MEDS: clonazePAM 0.5 MG TABLET PO PRN ×2 (14:16→19:32)
[2022-02-25] MEDS: FUROSEMIDE 100 MG/10 ML INJECTABLE VIAL IVPB SCH (14:16)
[2022-02-26] MEDS: MELATONIN 5 MG TABLETS PO PRN ×2 (00:11→21:28)
[2022-02-26] MEDS: ACETAMINOPHEN 325 MG TABLET (FP) PO PRN ×2 (01:06→10:55)
[2022-02-26] MEDS: FUROSEMIDE 100 MG/10 ML INJECTABLE VIAL IVPB SCH ×2 (06:12→14:55)
[2022-02-26 07:41] LABS: CALCIUM 10.1 mg/dL (8.5-10.1)
[2022-02-26 07:42] LABS: BLOOD UREA NITROGEN 30.3 mg/dL (7-18)
[2022-02-26 07:45] LABS: CREATININE 1.1 mg/dL (0.55-1.3)
[2022-02-26] MEDS: ALBUTEROL SO4 2.5/IPRATROPIUM 0.5 INH SOL 3 ML VIAL.NEB. NEB SCH ×4 (08:25→20:15)
[2022-02-26] MEDS: SPIRONOLACTONE 25 MG TABLET PO SCH ×2 (10:53→21:28)
[2022-02-26] MEDS: POTASSIUM CHLORIDE TABS 20 MEQ TABLET.ER (FP) PO SCH (10:54)
[2022-02-26] MEDS: APIXABAN 5 MG TABLET PO SCH ×2 (10:54→21:28)
[2022-02-26] MEDS: clonazePAM 0.5 MG TABLET PO PRN ×2 (10:54→21:28)
[2022-02-26] MEDS: metoPROLOL SUCCINATE 25 MG TAB.SR.24H (FP) PO SCH ×2 (10:54→21:28)
[2022-02-26] MEDS: SERTRALINE HCL 50 MG TABLET (FP) PO SCH (10:58)
[2022-02-27] MEDS: clonazePAM 0.5 MG TABLET PO PRN ×2 (03:38→21:11)
[2022-02-27] MEDS: FUROSEMIDE 100 MG/10 ML INJECTABLE VIAL IVPB SCH ×2 (06:30→13:18)
[2022-02-27] MEDS: ACETAMINOPHEN 325 MG TABLET (FP) PO PRN (06:30)
[2022-02-27] MEDS: ALBUTEROL SO4 2.5/IPRATROPIUM 0.5 INH SOL 3 ML VIAL.NEB. NEB SCH ×4 (07:15→20:05)
[2022-02-27 09:06] LABS: BASO % 1.3 % (0-2.0); EOS % 7.1 % (0-4.5); HEMOGLOBIN 11.6 GM/dL (10.7-15.3); LYMPH % 5.6 % (8-40); MCH 25.4 pg (25.7-33.7); MCHC 32.3 g/dl (32.0-36.0); MEAN CELL VOLUME 78.8 fl (80-96); MEAN PLT VOLUME 10.1 fl (7.5-11.1); MONO % 7.4 % (3.8-10.2); NEUT % 78.6 % (42.8-82.8); PLATELET COUNT 410 10^3/uL (134-434); RBC 4.57 M/mm3 (3.60-5.2); RDW 17.5 % (11.6-15.6); WHITE BLOOD COUNT 17.8 K/mm3 (4.0-10.0)
[2022-02-27] MEDS: APIXABAN 5 MG TABLET PO SCH ×2 (09:33→21:11)
[2022-02-27] MEDS: SPIRONOLACTONE 25 MG TABLET PO SCH ×2 (09:33→21:11)
[2022-02-27] MEDS: POTASSIUM CHLORIDE TABS 20 MEQ TABLET.ER (FP) PO SCH (09:34)
[2022-02-27 09:35] LABS: TOT PROT 7.7 g/dl (6.4-8.2)
[2022-02-27] MEDS: metoPROLOL SUCCINATE 25 MG TAB.SR.24H (FP) PO SCH ×2 (09:35→21:11)
[2022-02-27 09:36] LABS: BILIRUBIN,TOTAL 0.5 mg/dL (0.2-1)
[2022-02-27] MEDS: SERTRALINE HCL 50 MG TABLET (FP) PO SCH (09:36)
[2022-02-27 09:37] LABS: CALCIUM 9.6 mg/dL (8.5-10.1)
[2022-02-27 09:38] LABS: ALBUMIN 2.8 g/dl (3.4-5.0); BLOOD UREA NITROGEN 34.8 mg/dL (7-18)
[2022-02-27] MEDS: BUDESONIDE/FORMETEROL FUMARATE 160/4.5 mcg INHALER IH SCH ×3 (13:26→22:35)
[2022-02-27] MEDS: MELATONIN 5 MG TABLETS PO PRN (21:11)
[2022-02-28] MEDS: FUROSEMIDE 100 MG/10 ML INJECTABLE VIAL IVPB SCH ×2 (06:44→14:20)
[2022-02-28 07:21] LABS: BASO % 0.9 % (0-2.0); EOS % 9.2 % (0-4.5); HEMATOCRIT 38.9 % (32.4-45.2); HEMOGLOBIN 12.2 GM/dL (10.7-15.3); LYMPH % 6.3 % (8-40); MCHC 31.5 g/dl (32.0-36.0); MEAN CELL VOLUME 79.5 fl (80-96); MEAN PLT VOLUME 10.8 fl (7.5-11.1); MONO % 7.4 % (3.8-10.2); NEUT % 76.2 % (42.8-82.8); PLATELET COUNT 441 10^3/uL (134-434); RBC 4.89 M/mm3 (3.60-5.2); RDW 17.5 % (11.6-15.6); WHITE BLOOD COUNT 17.5 K/mm3 (4.0-10.0)
[2022-02-28] MEDS: ALBUTEROL SO4 2.5/IPRATROPIUM 0.5 INH SOL 3 ML VIAL.NEB. NEB SCH ×4 (07:25→20:04)
[2022-02-28 07:46] LABS: CALCIUM 10.1 mg/dL (8.5-10.1)
[2022-02-28 07:48] LABS: ALBUMIN 2.8 g/dl (3.4-5.0); BLOOD UREA NITROGEN 38.5 mg/dL (7-18)
[2022-02-28 07:52] LABS: BILIRUBIN,TOTAL 0.5 mg/dL (0.2-1); TOT PROT 7.8 g/dl (6.4-8.2)
[2022-02-28] MEDS: SERTRALINE HCL 50 MG TABLET (FP) PO SCH (09:48)
[2022-02-28] MEDS: SPIRONOLACTONE 25 MG TABLET PO SCH ×2 (09:49→21:43)
[2022-02-28] MEDS: POTASSIUM CHLORIDE TABS 20 MEQ TABLET.ER (FP) PO SCH (09:49)
[2022-02-28] MEDS: clonazePAM 0.5 MG TABLET PO PRN ×3 (09:49→21:43)
[2022-02-28] MEDS: metoPROLOL SUCCINATE 25 MG TAB.SR.24H (FP) PO SCH ×2 (09:49→21:43)
[2022-02-28] MEDS: APIXABAN 5 MG TABLET PO SCH ×2 (09:49→21:40)
[2022-02-28] MEDS: BUDESONIDE/FORMETEROL FUMARATE 160/4.5 mcg INHALER IH SCH ×2 (09:49→21:37)
[2022-02-28] MEDS ORDERED: DEXMEDETOMIDINE PREMIX 400 MCG/100 ML BAG IVPB SCH (13:30)
[2022-02-28] MEDS: methylPREDNISolone NA SUCC 40 MG/1 ML VIAL IVPUSH SCH ×2 (14:19→18:05)
[2022-02-28] MEDS ORDERED: LORazepam 2 MG/ML SDV VIAL IVPUSH ONE (19:12)
[2022-02-28] MEDS: MELATONIN 5 MG TABLETS PO PRN (21:44)
[2022-03-01] MEDS: methylPREDNISolone NA SUCC 40 MG/1 ML VIAL IVPUSH SCH ×3 (03:36→18:01)
[2022-03-01] MEDS: FUROSEMIDE 100 MG/10 ML INJECTABLE VIAL IVPB SCH ×2 (06:36→13:09)
[2022-03-01 07:45] LABS: BASO % 0.6 % (0-2.0); EOS % 0.1 % (0-4.5); HEMATOCRIT 37.2 % (32.4-45.2); HEMOGLOBIN 12.1 GM/dL (10.7-15.3); LYMPH % 6.9 % (8-40); MCH 25.5 pg (25.7-33.7); MCHC 32.4 g/dl (32.0-36.0); MEAN CELL VOLUME 78.6 fl (80-96); MEAN PLT VOLUME 10.2 fl (7.5-11.1); MONO % 2.8 % (3.8-10.2); NEUT % 89.6 % (42.8-82.8); PLATELET COUNT 463 10^3/uL (134-434); RBC 4.73 M/mm3 (3.60-5.2); RDW 17.5 % (11.6-15.6); WHITE BLOOD COUNT 12.5 K/mm3 (4.0-10.0)
[2022-03-01 07:59] LABS: CALCIUM 10.3 mg/dL (8.5-10.1)
[2022-03-01 08:01] LABS: ALBUMIN 2.8 g/dl (3.4-5.0); BLOOD UREA NITROGEN 54.8 mg/dL (7-18)
[2022-03-01 08:04] LABS: CREATININE 1.1 mg/dL (0.55-1.3)
[2022-03-01 08:05] LABS: BILIRUBIN,TOTAL 0.5 mg/dL (0.2-1); TOT PROT 8.2 g/dl (6.4-8.2)
[2022-03-01] MEDS: ALBUTEROL SO4 2.5/IPRATROPIUM 0.5 INH SOL 3 ML VIAL.NEB. NEB SCH ×4 (09:00→20:48)
[2022-03-01] MEDS: POTASSIUM CHLORIDE TABS 20 MEQ TABLET.ER (FP) PO SCH (11:03)
[2022-03-01] MEDS: APIXABAN 5 MG TABLET PO SCH ×2 (11:04→20:59)
[2022-03-01] MEDS: SERTRALINE HCL 50 MG TABLET (FP) PO SCH (11:04)
[2022-03-01] MEDS: SPIRONOLACTONE 25 MG TABLET PO SCH ×2 (11:04→21:01)
[2022-03-01] MEDS: BUDESONIDE/FORMETEROL FUMARATE 160/4.5 mcg INHALER IH SCH ×2 (11:05→21:02)
[2022-03-01] MEDS: metoPROLOL SUCCINATE 25 MG TAB.SR.24H (FP) PO SCH ×2 (11:05→21:02)
[2022-03-01] MEDS: MELATONIN 5 MG TABLETS PO PRN (20:57)
[2022-03-02] MEDS ORDERED: ALBUTEROL SO4 2.5/IPRATROPIUM 0.5 INH SOL 3 ML VIAL.NEB. NEB PRN
[2022-03-02] MEDS: methylPREDNISolone NA SUCC 40 MG/1 ML VIAL IVPUSH SCH ×3 (02:51→21:12)
[2022-03-02] MEDS: FUROSEMIDE 100 MG/10 ML INJECTABLE VIAL IVPB SCH (06:27)
[2022-03-02 06:59] LABS: HEMATOCRIT 39.5 % (32.4-45.2); HEMOGLOBIN 12.6 GM/dL (10.7-15.3); MCH 25.4 pg (25.7-33.7); MCHC 31.9 g/dl (32.0-36.0); MEAN CELL VOLUME 79.4 fl (80-96); MEAN PLT VOLUME 9.6 fl (7.5-11.1); PLATELET COUNT 534 10^3/uL (134-434); RBC 4.97 M/mm3 (3.60-5.2); RDW 17.9 % (11.6-15.6); WHITE BLOOD COUNT 21.6 K/mm3 (4.0-10.0)
[2022-03-02 07:14] LABS: CALCIUM 10.4 mg/dL (8.5-10.1)
[2022-03-02 07:15] LABS: BLOOD UREA NITROGEN 75.5 mg/dL (7-18); MAGNESIUM 2.9 mg/dL (1.8-2.4)
[2022-03-02 07:18] LABS: PHOSPHOROUS 4.7 mg/dL (2.5-4.9)
[2022-03-02] MEDS: ALBUTEROL SO4 2.5/IPRATROPIUM 0.5 INH SOL 3 ML VIAL.NEB. NEB SCH ×4 (08:00→20:24)
[2022-03-02 08:40] LABS: ANISOCYTOSIS 0; HELMET CELLS 0; HOWELL-JOLLY BODIES 0; MACROCYTOSIS 0; OVALOCYTE 0; ROULEAU 0; SICKELED CELLS 0; TARGET CELLS 0; TEAR DROP CELLS 0; TOXIC GRANULATION 0
[2022-03-02] MEDS: APIXABAN 5 MG TABLET PO SCH ×2 (10:14→21:12)
[2022-03-02] MEDS: SPIRONOLACTONE 25 MG TABLET PO SCH ×2 (10:15→21:12)
[2022-03-02] MEDS: POTASSIUM CHLORIDE TABS 20 MEQ TABLET.ER (FP) PO SCH (10:15)
[2022-03-02] MEDS: metoPROLOL SUCCINATE 25 MG TAB.SR.24H (FP) PO SCH ×2 (10:15→21:12)
[2022-03-02] MEDS: SERTRALINE HCL 50 MG TABLET (FP) PO SCH (10:15)
[2022-03-02] MEDS: TORSEMIDE 20 MG TABLET (FP) PO SCH (10:15)
[2022-03-02] MEDS: BUDESONIDE/FORMETEROL FUMARATE 160/4.5 mcg INHALER IH SCH ×2 (10:16→21:12)
[2022-03-02] MEDS: CEFEPIME 1 GM in DEXTROSE 5%-WATER 100 ML IVPB SCH (14:41)
[2022-03-02] MEDS: MELATONIN 5 MG TABLETS PO PRN (21:12)
[2022-03-02] MEDS: clonazePAM 0.5 MG TABLET PO PRN (21:12)
[2022-03-02] MEDS: DOXYCYCLINE INJECTION 100 MG in DEXTROSE 5%-WATER 100 ML IVPB SCH (21:13)
[2022-03-03] MEDS: CEFEPIME 1 GM in DEXTROSE 5%-WATER 100 ML IVPB SCH ×3 (01:12→17:41)
[2022-03-03] MEDS: ALBUTEROL SO4 2.5/IPRATROPIUM 0.5 INH SOL 3 ML VIAL.NEB. NEB SCH ×4 (08:30→20:36)
[2022-03-03] MEDS: POTASSIUM CHLORIDE TABS 20 MEQ TABLET.ER (FP) PO SCH (09:21)
[2022-03-03] MEDS: APIXABAN 5 MG TABLET PO SCH ×2 (09:21→21:29)
[2022-03-03] MEDS: SPIRONOLACTONE 25 MG TABLET PO SCH ×2 (09:21→21:29)
[2022-03-03] MEDS: TORSEMIDE 20 MG TABLET (FP) PO SCH (09:21)
[2022-03-03] MEDS: SERTRALINE HCL 50 MG TABLET (FP) PO SCH (09:22)
[2022-03-03] MEDS: clonazePAM 0.5 MG TABLET PO PRN (09:22)
[2022-03-03] MEDS: methylPREDNISolone NA SUCC 40 MG/1 ML VIAL IVPUSH SCH ×2 (09:22→21:32)
[2022-03-03] MEDS: metoPROLOL SUCCINATE 25 MG TAB.SR.24H (FP) PO SCH ×2 (09:22→21:30)
[2022-03-03] MEDS: BUDESONIDE/FORMETEROL FUMARATE 160/4.5 mcg INHALER IH SCH ×2 (09:38→21:30)
[2022-03-03] MEDS: DOXYCYCLINE INJECTION 100 MG in DEXTROSE 5%-WATER 100 ML IVPB SCH ×2 (10:25→21:30)
[2022-03-04] MEDS: CEFEPIME 1 GM in DEXTROSE 5%-WATER 100 ML IVPB SCH ×3 (01:59→19:37)
[2022-03-04] MEDS: ALBUTEROL SO4 2.5/IPRATROPIUM 0.5 INH SOL 3 ML VIAL.NEB. NEB SCH ×4 (07:50→20:06)
[2022-03-04] MEDS: POTASSIUM CHLORIDE TABS 20 MEQ TABLET.ER (FP) PO SCH (09:22)
[2022-03-04] MEDS: DOXYCYCLINE INJECTION 100 MG in DEXTROSE 5%-WATER 100 ML IVPB SCH ×2 (09:22→21:05)
[2022-03-04] MEDS: SPIRONOLACTONE 25 MG TABLET PO SCH ×2 (09:22→21:04)
[2022-03-04] MEDS: SERTRALINE HCL 50 MG TABLET (FP) PO SCH (09:23)
[2022-03-04] MEDS: methylPREDNISolone NA SUCC 40 MG/1 ML VIAL IVPUSH SCH ×2 (09:23→21:04)
[2022-03-04] MEDS: APIXABAN 5 MG TABLET PO SCH ×2 (09:23→21:04)
[2022-03-04] MEDS: metoPROLOL SUCCINATE 25 MG TAB.SR.24H (FP) PO SCH ×2 (09:23→21:04)
[2022-03-04] MEDS: TORSEMIDE 20 MG TABLET (FP) PO SCH (09:32)
[2022-03-04] MEDS: BUDESONIDE/FORMETEROL FUMARATE 160/4.5 mcg INHALER IH SCH ×2 (09:40→21:05)
[2022-03-04] MEDS: clonazePAM 0.5 MG TABLET PO PRN (19:51)
[2022-03-04] MEDS: MELATONIN 5 MG TABLETS PO PRN (21:04)
[2022-03-05] MEDS: CEFEPIME 1 GM in DEXTROSE 5%-WATER 100 ML IVPB SCH ×3 (01:13→18:05)
[2022-03-05 07:27] LABS: HEMATOCRIT 44.3 % (32.4-45.2); MCH 25.4 pg (25.7-33.7); MCHC 31.5 g/dl (32.0-36.0); MEAN CELL VOLUME 80.4 fl (80-96); PLATELET COUNT 422 10^3/uL (134-434); RBC 5.52 M/mm3 (3.60-5.2); RDW 17.5 % (11.6-15.6); WHITE BLOOD COUNT 20.6 K/mm3 (4.0-10.0)
[2022-03-05 07:46] LABS: CALCIUM 10.4 mg/dL (8.5-10.1)
[2022-03-05 07:47] LABS: BLOOD UREA NITROGEN 85.3 mg/dL (7-18)
[2022-03-05 07:51] LABS: BILIRUBIN,TOTAL 0.3 mg/dL (0.2-1); TOT PROT 7.8 g/dl (6.4-8.2)
[2022-03-05] MEDS: ALBUTEROL SO4 2.5/IPRATROPIUM 0.5 INH SOL 3 ML VIAL.NEB. NEB SCH ×4 (08:05→20:28)
[2022-03-05 09:02] LABS: ANISOCYTOSIS 0; MACROCYTOSIS 0
[2022-03-05] MEDS: APIXABAN 5 MG TABLET PO SCH ×2 (09:47→21:23)
[2022-03-05] MEDS: SERTRALINE HCL 50 MG TABLET (FP) PO SCH (09:48)
[2022-03-05] MEDS: BUDESONIDE/FORMETEROL FUMARATE 160/4.5 mcg INHALER IH SCH ×2 (09:48→21:23)
[2022-03-05] MEDS: metoPROLOL SUCCINATE 25 MG TAB.SR.24H (FP) PO SCH ×2 (09:48→21:23)
[2022-03-05] MEDS: SPIRONOLACTONE 25 MG TABLET PO SCH (09:48)
[2022-03-05] MEDS: predniSONE 20 MG TABLET (UD) PO SCH ×2 (09:53→21:23)
[2022-03-05] MEDS: SODIUM ZIRCONIUM CYCLOSILICATE (LOKELMA) 5 GM PACKET PO SCH (09:54)
[2022-03-05] MEDS: TORSEMIDE 20 MG TABLET (FP) PO SCH (09:54)
[2022-03-05] MEDS: POLYETHYLENE GLYCOL (HEALTHYLAX) 3350 17 GM PACKET PO SCH ×2 (09:54→21:23)
[2022-03-05] MEDS: DOXYCYCLINE INJECTION 100 MG in DEXTROSE 5%-WATER 100 ML IVPB SCH ×2 (10:02→21:22)
[2022-03-05] MEDS: clonazePAM 0.5 MG TABLET PO PRN (21:23)
[2022-03-05] MEDS: MELATONIN 5 MG TABLETS PO PRN (21:23)
[2022-03-06] MEDS: CEFEPIME 1 GM in DEXTROSE 5%-WATER 100 ML IVPB SCH ×3 (01:27→17:37)
[2022-03-06] MEDS: ALBUTEROL SO4 2.5/IPRATROPIUM 0.5 INH SOL 3 ML VIAL.NEB. NEB SCH ×4 (07:16→20:16)
[2022-03-06 07:41] LABS: HEMATOCRIT 41.6 % (32.4-45.2); HEMOGLOBIN 13.2 GM/dL (10.7-15.3); MCH 25.5 pg (25.7-33.7); MCHC 31.8 g/dl (32.0-36.0); MEAN PLT VOLUME 10.1 fl (7.5-11.1); PLATELET COUNT 369 10^3/uL (134-434); RDW 17.4 % (11.6-15.6)
[2022-03-06 08:10] LABS: CALCIUM 9.9 mg/dL (8.5-10.1)
[2022-03-06 08:12] LABS: ALBUMIN 2.8 g/dl (3.4-5.0); BLOOD UREA NITROGEN 74.6 mg/dL (7-18)
[2022-03-06 08:15] LABS: CREATININE 0.9 mg/dL (0.55-1.3)
[2022-03-06 08:17] LABS: BILIRUBIN,TOTAL 0.4 mg/dL (0.2-1); TOT PROT 7.1 g/dl (6.4-8.2)
[2022-03-06 09:06] LABS: ANISOCYTOSIS 3+; MACROCYTOSIS 0; OVALOCYTE 1+; TEAR DROP CELLS 1+
[2022-03-06] MEDS: DOXYCYCLINE INJECTION 100 MG in DEXTROSE 5%-WATER 100 ML IVPB SCH ×2 (10:02→21:17)
[2022-03-06] MEDS: metoPROLOL SUCCINATE 25 MG TAB.SR.24H (FP) PO SCH ×2 (10:03→21:17)
[2022-03-06] MEDS: APIXABAN 5 MG TABLET PO SCH ×2 (10:03→21:17)
[2022-03-06] MEDS: POLYETHYLENE GLYCOL (HEALTHYLAX) 3350 17 GM PACKET PO SCH ×2 (10:03→21:17)
[2022-03-06] MEDS: SODIUM ZIRCONIUM CYCLOSILICATE (LOKELMA) 5 GM PACKET PO SCH (10:03)
[2022-03-06] MEDS: predniSONE 10 MG TABLET (UD) PO SCH ×3 (10:04→21:17)
[2022-03-06] MEDS: TORSEMIDE 20 MG TABLET (FP) PO SCH (10:05)
[2022-03-06] MEDS: SERTRALINE HCL 50 MG TABLET (FP) PO SCH (10:05)
[2022-03-06] MEDS: BUDESONIDE/FORMETEROL FUMARATE 160/4.5 mcg INHALER IH SCH ×2 (10:05→21:17)
[2022-03-06] MEDS: SPIRONOLACTONE 25 MG TABLET PO SCH (13:17)
[2022-03-06] MEDS: clonazePAM 0.5 MG TABLET PO PRN (13:26)
[2022-03-06 16:35] VITALS: BMI 36.2
[2022-03-06] MEDS: MELATONIN 5 MG TABLETS PO PRN (21:17)
[2022-03-07] MEDS: clonazePAM 0.5 MG TABLET PO PRN ×3 (00:30→19:34)
[2022-03-07] MEDS: CEFEPIME 1 GM in DEXTROSE 5%-WATER 100 ML IVPB SCH ×3 (01:36→17:47)
[2022-03-07 07:33] LABS: HEMATOCRIT 42.2 % (32.4-45.2); HEMOGLOBIN 13.5 GM/dL (10.7-15.3); MCH 25.8 pg (25.7-33.7); MCHC 32.1 g/dl (32.0-36.0); MEAN CELL VOLUME 80.3 fl (80-96); MEAN PLT VOLUME 9.9 fl (7.5-11.1); PLATELET COUNT 342 10^3/uL (134-434); RBC 5.25 M/mm3 (3.60-5.2); RDW 17.9 % (11.6-15.6); WHITE BLOOD COUNT 26.3 K/mm3 (4.0-10.0)
[2022-03-07 07:56] LABS: ALBUMIN 2.7 g/dl (3.4-5.0); BLOOD UREA NITROGEN 63.8 mg/dL (7-18); CALCIUM 9.7 mg/dL (8.5-10.1)
[2022-03-07 07:59] LABS: CREATININE 0.9 mg/dL (0.55-1.3)
[2022-03-07 08:01] LABS: BILIRUBIN,TOTAL 0.5 mg/dL (0.2-1); TOT PROT 7.1 g/dl (6.4-8.2)
[2022-03-07 08:59] LABS: ANISOCYTOSIS 3+; MACROCYTOSIS 0
[2022-03-07] MEDS: predniSONE 10 MG TABLET (UD) PO SCH ×2 (11:00→21:21)
[2022-03-07] MEDS: SODIUM ZIRCONIUM CYCLOSILICATE (LOKELMA) 5 GM PACKET PO SCH (11:00)
[2022-03-07] MEDS: APIXABAN 5 MG TABLET PO SCH ×2 (11:00→21:19)
[2022-03-07] MEDS: SPIRONOLACTONE 25 MG TABLET PO SCH (11:00)
[2022-03-07] MEDS: SIMETHICONE 80 MG TAB.CHEW (FP) PO SCH ×4 (11:00→21:19)
[2022-03-07] MEDS: TORSEMIDE 20 MG TABLET (FP) PO SCH (11:00)
[2022-03-07] MEDS: POLYETHYLENE GLYCOL (HEALTHYLAX) 3350 17 GM PACKET PO SCH ×2 (11:01→21:19)
[2022-03-07] MEDS: metoPROLOL SUCCINATE 25 MG TAB.SR.24H (FP) PO SCH ×2 (11:03→21:20)
[2022-03-07] MEDS: SERTRALINE HCL 50 MG TABLET (FP) PO SCH (11:03)
[2022-03-07] MEDS: DOXYCYCLINE INJECTION 100 MG in DEXTROSE 5%-WATER 100 ML IVPB SCH ×2 (11:05→21:20)
[2022-03-07] MEDS: TIOTROPIUM BROMIDE 2.5 MCG (SPIRIVA) RESPIMAT INHALER IH SCH (11:06)
[2022-03-07] MEDS: BUDESONIDE/FORMETEROL FUMARATE 160/4.5 mcg INHALER IH SCH ×2 (11:06→21:19)
[2022-03-07] MEDS: ALBUTEROL SO4 2.5/IPRATROPIUM 0.5 INH SOL 3 ML VIAL.NEB. NEB PRN (19:28)
[2022-03-07] MEDS: ACETAMINOPHEN 325 MG TABLET (FP) PO PRN (21:20)
[2022-03-07] MEDS: MELATONIN 5 MG TABLETS PO PRN (21:20)
[2022-03-08] MEDS: CEFEPIME 1 GM in DEXTROSE 5%-WATER 100 ML IVPB SCH ×3 (01:10→18:14)
[2022-03-08 07:41] LABS: BASO % 0.2 % (0-2.0); HEMATOCRIT 44.9 % (32.4-45.2); HEMOGLOBIN 14.1 GM/dL (10.7-15.3); LYMPH % 5.1 % (8-40); MCH 24.9 pg (25.7-33.7); MCHC 31.4 g/dl (32.0-36.0); MEAN CELL VOLUME 79.3 fl (80-96); MEAN PLT VOLUME 10.8 fl (7.5-11.1); MONO % 5.9 % (3.8-10.2); NEUT % 86.8 % (42.8-82.8); PLATELET COUNT 333 10^3/uL (134-434); RBC 5.67 M/mm3 (3.60-5.2); RDW 18.1 % (11.6-15.6); WHITE BLOOD COUNT 23.4 K/mm3 (4.0-10.0)
[2022-03-08 07:44] LABS: CALCIUM 9.8 mg/dL (8.5-10.1)
[2022-03-08 07:45] LABS: BLOOD UREA NITROGEN 66.8 mg/dL (7-18)
[2022-03-08 07:48] LABS: CREATININE 0.8 mg/dL (0.55-1.3)
[2022-03-08 08:47] LABS: ANISOCYTOSIS 1+; MACROCYTOSIS 0
[2022-03-08] MEDS: DOXYCYCLINE INJECTION 100 MG in DEXTROSE 5%-WATER 100 ML IVPB SCH ×2 (10:23→21:04)
[2022-03-08] MEDS: POLYETHYLENE GLYCOL (HEALTHYLAX) 3350 17 GM PACKET PO SCH ×2 (10:25→21:04)
[2022-03-08] MEDS: SODIUM ZIRCONIUM CYCLOSILICATE (LOKELMA) 5 GM PACKET PO SCH (10:25)
[2022-03-08] MEDS: predniSONE 10 MG TABLET (UD) PO SCH ×2 (10:26→21:04)
[2022-03-08] MEDS: TORSEMIDE 20 MG TABLET (FP) PO SCH (10:26)
[2022-03-08] MEDS: metoPROLOL SUCCINATE 25 MG TAB.SR.24H (FP) PO SCH ×2 (10:26→21:04)
[2022-03-08] MEDS: SERTRALINE HCL 50 MG TABLET (FP) PO SCH (10:26)
[2022-03-08] MEDS: SPIRONOLACTONE 25 MG TABLET PO SCH (10:27)
[2022-03-08] MEDS: APIXABAN 5 MG TABLET PO SCH ×2 (10:27→21:04)
[2022-03-08] MEDS: TIOTROPIUM BROMIDE 2.5 MCG (SPIRIVA) RESPIMAT INHALER IH SCH (10:27)
[2022-03-08] MEDS: BUDESONIDE/FORMETEROL FUMARATE 160/4.5 mcg INHALER IH SCH ×2 (10:27→21:04)
[2022-03-08] MEDS: SENNOSIDES 8.6MG TABLET (FP) PO SCH (10:32)
[2022-03-08] MEDS: ALBUTEROL SO4 2.5/IPRATROPIUM 0.5 INH SOL 3 ML VIAL.NEB. NEB PRN ×2 (11:26→20:31)
[2022-03-08] MEDS: clonazePAM 0.5 MG TABLET PO PRN ×2 (11:28→21:03)
[2022-03-08] MEDS: MELATONIN 5 MG TABLETS PO PRN (21:04)
[2022-03-09] MEDS: CEFEPIME 1 GM in DEXTROSE 5%-WATER 100 ML IVPB SCH ×2 (01:25→09:26)
[2022-03-09] MEDS: ALBUTEROL SO4 2.5/IPRATROPIUM 0.5 INH SOL 3 ML VIAL.NEB. NEB PRN ×3 (04:13→20:05)
[2022-03-09 07:36] LABS: HEMATOCRIT 42.3 % (32.4-45.2); HEMOGLOBIN 13.7 GM/dL (10.7-15.3); MCH 25.5 pg (25.7-33.7); MCHC 32.4 g/dl (32.0-36.0); MEAN CELL VOLUME 78.8 fl (80-96); MEAN PLT VOLUME 10.7 fl (7.5-11.1); PLATELET COUNT 295 10^3/uL (134-434); RBC 5.37 M/mm3 (3.60-5.2); RDW 18.6 % (11.6-15.6); WHITE BLOOD COUNT 23.7 K/mm3 (4.0-10.0)
[2022-03-09 08:03] LABS: CALCIUM 9.8 mg/dL (8.5-10.1)
[2022-03-09 08:04] LABS: BLOOD UREA NITROGEN 73.8 mg/dL (7-18)
[2022-03-09 08:07] LABS: CREATININE 0.8 mg/dL (0.55-1.3)
[2022-03-09] MEDS: APIXABAN 5 MG TABLET PO SCH ×2 (09:26→21:06)
[2022-03-09] MEDS: predniSONE 10 MG TABLET (UD) PO SCH ×2 (09:26→21:06)
[2022-03-09] MEDS: POLYETHYLENE GLYCOL (HEALTHYLAX) 3350 17 GM PACKET PO SCH ×2 (09:26→21:06)
[2022-03-09] MEDS: TORSEMIDE 20 MG TABLET (FP) PO SCH (09:26)
[2022-03-09] MEDS: SPIRONOLACTONE 25 MG TABLET PO SCH (09:26)
[2022-03-09] MEDS: SERTRALINE HCL 50 MG TABLET (FP) PO SCH (09:27)
[2022-03-09] MEDS: metoPROLOL SUCCINATE 25 MG TAB.SR.24H (FP) PO SCH ×2 (09:27→21:06)
[2022-03-09] MEDS: SENNOSIDES 8.6MG TABLET (FP) PO SCH (09:27)
[2022-03-09 09:33] LABS: ANISOCYTOSIS 3+; MACROCYTOSIS 0
[2022-03-09] MEDS: BUDESONIDE/FORMETEROL FUMARATE 160/4.5 mcg INHALER IH SCH ×2 (09:38→21:06)
[2022-03-09] MEDS: TIOTROPIUM BROMIDE 2.5 MCG (SPIRIVA) RESPIMAT INHALER IH SCH (09:38)
[2022-03-09] MEDS: DOXYCYCLINE INJECTION 100 MG in DEXTROSE 5%-WATER 100 ML IVPB SCH (10:04)
[2022-03-09] MEDS: SIMETHICONE 80 MG TAB.CHEW (FP) PO PRN (10:08)
[2022-03-09] MEDS: ACETAMINOPHEN 325 MG TABLET (FP) PO PRN (11:16)
[2022-03-09] MEDS: clonazePAM 0.5 MG TABLET PO PRN ×2 (11:16→21:06)
[2022-03-09] MEDS: MELATONIN 5 MG TABLETS PO PRN (21:06)
[2022-03-10] MEDS: ALBUTEROL SO4 2.5/IPRATROPIUM 0.5 INH SOL 3 ML VIAL.NEB. NEB PRN ×4 (02:35→22:59)
[2022-03-10 07:33] LABS: HEMATOCRIT 42.2 % (32.4-45.2); HEMOGLOBIN 13.5 GM/dL (10.7-15.3); MCH 25.1 pg (25.7-33.7); MCHC 31.9 g/dl (32.0-36.0); MEAN CELL VOLUME 78.7 fl (80-96); MEAN PLT VOLUME 10.4 fl (7.5-11.1); PLATELET COUNT 283 10^3/uL (134-434); RBC 5.36 M/mm3 (3.60-5.2); RDW 18.4 % (11.6-15.6); WHITE BLOOD COUNT 21.1 K/mm3 (4.0-10.0)
[2022-03-10 07:37] LABS: CALCIUM 9.4 mg/dL (8.5-10.1)
[2022-03-10 07:38] LABS: BLOOD UREA NITROGEN 67.6 mg/dL (7-18)
[2022-03-10 07:41] LABS: CREATININE 0.8 mg/dL (0.55-1.3)
[2022-03-10 09:49] LABS: ANISOCYTOSIS 2+; MACROCYTOSIS 0
[2022-03-10] MEDS: POLYETHYLENE GLYCOL (HEALTHYLAX) 3350 17 GM PACKET PO SCH ×2 (10:52→22:24)
[2022-03-10] MEDS: BUDESONIDE/FORMETEROL FUMARATE 160/4.5 mcg INHALER IH SCH ×2 (10:52→22:24)
[2022-03-10] MEDS: TORSEMIDE 20 MG TABLET (FP) PO SCH (10:52)
[2022-03-10] MEDS: TIOTROPIUM BROMIDE 2.5 MCG (SPIRIVA) RESPIMAT INHALER IH SCH (10:52)
[2022-03-10] MEDS: APIXABAN 5 MG TABLET PO SCH ×2 (10:52→22:23)
[2022-03-10] MEDS: predniSONE 10 MG TABLET (UD) PO SCH ×2 (10:52→22:23)
[2022-03-10] MEDS: SENNOSIDES 8.6MG TABLET (FP) PO SCH (10:52)
[2022-03-10] MEDS: SPIRONOLACTONE 25 MG TABLET PO SCH (10:52)
[2022-03-10] MEDS: SERTRALINE HCL 50 MG TABLET (FP) PO SCH (10:53)
[2022-03-10] MEDS: metoPROLOL SUCCINATE 25 MG TAB.SR.24H (FP) PO SCH ×2 (10:53→22:24)
[2022-03-10] MEDS: ACETAMINOPHEN 325 MG TABLET (FP) PO PRN (11:36)
[2022-03-10] MEDS: SIMETHICONE 80 MG TAB.CHEW (FP) PO PRN (11:36)
[2022-03-10] MEDS: MELATONIN 5 MG TABLETS PO PRN (22:24)
[2022-03-10] MEDS: clonazePAM 0.5 MG TABLET PO PRN (22:24)
[2022-03-10] MEDS ORDERED: SIMETHICONE 80 MG TAB.CHEW (FP) PO PRN (22:56)
[2022-03-11] MEDS: ALBUTEROL SO4 2.5/IPRATROPIUM 0.5 INH SOL 3 ML VIAL.NEB. NEB PRN ×3 (01:47→18:15)
[2022-03-11] MEDS: predniSONE 10 MG TABLET (UD) PO SCH ×2 (09:37→22:17)
[2022-03-11] MEDS: SERTRALINE HCL 50 MG TABLET (FP) PO SCH (09:37)
[2022-03-11] MEDS: metoPROLOL SUCCINATE 25 MG TAB.SR.24H (FP) PO SCH ×2 (09:37→22:17)
[2022-03-11] MEDS: TORSEMIDE 20 MG TABLET (FP) PO SCH (09:37)
[2022-03-11] MEDS: APIXABAN 5 MG TABLET PO SCH ×2 (09:38→22:17)
[2022-03-11] MEDS: POLYETHYLENE GLYCOL (HEALTHYLAX) 3350 17 GM PACKET PO SCH ×2 (09:38→22:17)
[2022-03-11] MEDS: SPIRONOLACTONE 25 MG TABLET PO SCH (09:38)
[2022-03-11] MEDS: SENNOSIDES 8.6MG TABLET (FP) PO SCH (09:38)
[2022-03-11] MEDS: TIOTROPIUM BROMIDE 2.5 MCG (SPIRIVA) RESPIMAT INHALER IH SCH (10:01)
[2022-03-11] MEDS: BUDESONIDE/FORMETEROL FUMARATE 160/4.5 mcg INHALER IH SCH ×2 (10:01→22:38)
[2022-03-11] MEDS: ACETAMINOPHEN 325 MG TABLET (FP) PO PRN (15:36)
[2022-03-11] MEDS: clonazePAM 0.5 MG TABLET PO PRN (19:58)
[2022-03-11] MEDS: MELATONIN 5 MG TABLETS PO PRN (22:17)
[2022-03-12] MEDS: ALBUTEROL SO4 2.5/IPRATROPIUM 0.5 INH SOL 3 ML VIAL.NEB. NEB PRN ×2 (09:44→18:12)
[2022-03-12] MEDS: POLYETHYLENE GLYCOL (HEALTHYLAX) 3350 17 GM PACKET PO SCH ×2 (09:57→21:50)
[2022-03-12] MEDS: SERTRALINE HCL 50 MG TABLET (FP) PO SCH (09:58)
[2022-03-12] MEDS: TORSEMIDE 20 MG TABLET (FP) PO SCH (09:58)
[2022-03-12] MEDS: SENNOSIDES 8.6MG TABLET (FP) PO SCH (09:58)
[2022-03-12] MEDS: predniSONE 10 MG TABLET (UD) PO SCH ×2 (09:58→21:50)
[2022-03-12] MEDS: SPIRONOLACTONE 25 MG TABLET PO SCH (09:58)
[2022-03-12] MEDS: APIXABAN 5 MG TABLET PO SCH ×2 (09:58→21:50)
[2022-03-12] MEDS: metoPROLOL SUCCINATE 25 MG TAB.SR.24H (FP) PO SCH ×2 (09:58→21:50)
[2022-03-12] MEDS: BUDESONIDE/FORMETEROL FUMARATE 160/4.5 mcg INHALER IH SCH ×2 (09:59→21:58)
[2022-03-12] MEDS: TIOTROPIUM BROMIDE 2.5 MCG (SPIRIVA) RESPIMAT INHALER IH SCH (10:20)
[2022-03-12 11:56] LABS: HEMATOCRIT 43.2 % (32.4-45.2); HEMOGLOBIN 13.6 GM/dL (10.7-15.3); MCHC 31.4 g/dl (32.0-36.0); MEAN CELL VOLUME 79.7 fl (80-96); MEAN PLT VOLUME 10.8 fl (7.5-11.1); PLATELET COUNT 280 10^3/uL (134-434); RBC 5.42 M/mm3 (3.60-5.2); RDW 18.4 % (11.6-15.6); WHITE BLOOD COUNT 25.1 K/mm3 (4.0-10.0)
[2022-03-12 12:24] LABS: ALBUMIN 2.8 g/dl (3.4-5.0); BLOOD UREA NITROGEN 57.8 mg/dL (7-18)
[2022-03-12 12:27] LABS: CREATININE 0.8 mg/dL (0.55-1.3)
[2022-03-12 12:28] LABS: BILIRUBIN,TOTAL 0.6 mg/dL (0.2-1); TOT PROT 6.4 g/dl (6.4-8.2)
[2022-03-12 13:16] LABS: ANISOCYTOSIS 3+; MACROCYTOSIS 0
[2022-03-12] MEDS ORDERED: BISACODYL 5 MG TABLET.DR (FP) PO ONE (14:36)
[2022-03-12] MEDS: ACETAMINOPHEN 325 MG TABLET (FP) PO PRN (21:49)
[2022-03-12] MEDS: clonazePAM 0.5 MG TABLET PO PRN (21:50)
[2022-03-13] MEDS: ALBUTEROL SO4 2.5/IPRATROPIUM 0.5 INH SOL 3 ML VIAL.NEB. NEB PRN (01:15)
[2022-03-13] MEDS: ACETAMINOPHEN 325 MG TABLET (FP) PO PRN (04:00)
[2022-03-13] MEDS: TORSEMIDE 20 MG TABLET (FP) PO SCH (09:50)
[2022-03-13] MEDS: SENNOSIDES 8.6MG TABLET (FP) PO SCH (09:50)
[2022-03-13] MEDS: metoPROLOL SUCCINATE 25 MG TAB.SR.24H (FP) PO SCH ×2 (09:51→21:54)
[2022-03-13] MEDS: SPIRONOLACTONE 25 MG TABLET PO SCH (09:51)
[2022-03-13] MEDS: BUDESONIDE/FORMETEROL FUMARATE 160/4.5 mcg INHALER IH SCH ×2 (09:51→21:54)
[2022-03-13] MEDS: APIXABAN 5 MG TABLET PO SCH ×2 (09:51→21:54)
[2022-03-13] MEDS: SERTRALINE HCL 50 MG TABLET (FP) PO SCH (09:51)
[2022-03-13] MEDS: predniSONE 10 MG TABLET (UD) PO SCH ×2 (09:51→21:54)
[2022-03-13] MEDS: clonazePAM 0.5 MG TABLET PO PRN ×2 (09:51→21:54)
[2022-03-13] MEDS: POLYETHYLENE GLYCOL (HEALTHYLAX) 3350 17 GM PACKET PO SCH ×2 (09:51→21:54)
[2022-03-13] MEDS: TIOTROPIUM BROMIDE 2.5 MCG (SPIRIVA) RESPIMAT INHALER IH SCH (09:52)
[2022-03-13 13:19] LABS: BASO % 0.3 % (0-2.0); EOS % 2.8 % (0-4.5); HEMATOCRIT 42.8 % (32.4-45.2); HEMOGLOBIN 13.4 GM/dL (10.7-15.3); LYMPH % 5.4 % (8-40); MCHC 31.4 g/dl (32.0-36.0); MEAN CELL VOLUME 79.6 fl (80-96); MEAN PLT VOLUME 11.2 fl (7.5-11.1); MONO % 5.3 % (3.8-10.2); NEUT % 86.2 % (42.8-82.8); PLATELET COUNT 290 10^3/uL (134-434); RBC 5.38 M/mm3 (3.60-5.2); RDW 17.9 % (11.6-15.6); WHITE BLOOD COUNT 25.5 K/mm3 (4.0-10.0)
[2022-03-13 13:53] LABS: ANISOCYTOSIS 2+; MACROCYTOSIS 0
[2022-03-13] MEDS: ALBUTEROL SO4 2.5/IPRATROPIUM 0.5 INH SOL 3 ML VIAL.NEB. NEB SCH ×2 (16:14→20:41)
[2022-03-13] MEDS: MELATONIN 5 MG TABLETS PO PRN (21:54)
[2022-03-14] MEDS: ALBUTEROL SO4 2.5/IPRATROPIUM 0.5 INH SOL 3 ML VIAL.NEB. NEB SCH ×5 (01:37→19:27)
[2022-03-14] MEDS: predniSONE 10 MG TABLET (UD) PO SCH ×2 (10:14→21:14)
[2022-03-14] MEDS: SPIRONOLACTONE 25 MG TABLET PO SCH (10:14)
[2022-03-14] MEDS: TIOTROPIUM BROMIDE 2.5 MCG (SPIRIVA) RESPIMAT INHALER IH SCH (10:14)
[2022-03-14] MEDS: SERTRALINE HCL 50 MG TABLET (FP) PO SCH (10:14)
[2022-03-14] MEDS: SENNOSIDES 8.6MG TABLET (FP) PO SCH (10:14)
[2022-03-14] MEDS: TORSEMIDE 20 MG TABLET (FP) PO SCH (10:14)
[2022-03-14] MEDS: POLYETHYLENE GLYCOL (HEALTHYLAX) 3350 17 GM PACKET PO SCH ×2 (10:14→21:15)
[2022-03-14] MEDS: APIXABAN 5 MG TABLET PO SCH ×2 (10:14→21:14)
[2022-03-14] MEDS: BUDESONIDE/FORMETEROL FUMARATE 160/4.5 mcg INHALER IH SCH ×2 (10:15→21:14)
[2022-03-14] MEDS: metoPROLOL SUCCINATE 25 MG TAB.SR.24H (FP) PO SCH ×2 (10:15→21:14)
[2022-03-14] MEDS: clonazePAM 0.5 MG TABLET PO PRN (20:10)
[2022-03-14] MEDS: MELATONIN 5 MG TABLETS PO PRN (21:14)
[2022-03-15] MEDS: clonazePAM 0.5 MG TABLET PO PRN ×3 (07:35→22:16)
[2022-03-15] MEDS: ALBUTEROL SO4 2.5/IPRATROPIUM 0.5 INH SOL 3 ML VIAL.NEB. NEB SCH ×4 (07:45→20:27)
[2022-03-15] MEDS: TORSEMIDE 20 MG TABLET (FP) PO SCH (10:13)
[2022-03-15] MEDS: APIXABAN 5 MG TABLET PO SCH ×2 (10:13→22:16)
[2022-03-15] MEDS: predniSONE 10 MG TABLET (UD) PO SCH ×2 (10:14→22:16)
[2022-03-15] MEDS: POLYETHYLENE GLYCOL (HEALTHYLAX) 3350 17 GM PACKET PO SCH ×2 (10:14→22:17)
[2022-03-15] MEDS: metoPROLOL SUCCINATE 25 MG TAB.SR.24H (FP) PO SCH ×2 (10:14→22:16)
[2022-03-15] MEDS: BUDESONIDE/FORMETEROL FUMARATE 160/4.5 mcg INHALER IH SCH ×2 (10:14→22:16)
[2022-03-15] MEDS: SERTRALINE HCL 50 MG TABLET (FP) PO SCH (10:14)
[2022-03-15] MEDS: SPIRONOLACTONE 25 MG TABLET PO SCH (10:14)
[2022-03-15] MEDS: TIOTROPIUM BROMIDE 2.5 MCG (SPIRIVA) RESPIMAT INHALER IH SCH (10:14)
[2022-03-15] MEDS: SENNOSIDES 8.6MG TABLET (FP) PO SCH (10:14)
[2022-03-16] MEDS: MELATONIN 5 MG TABLETS PO PRN ×2 (00:19→22:46)
[2022-03-16] MEDS: ALBUTEROL SO4 2.5/IPRATROPIUM 0.5 INH SOL 3 ML VIAL.NEB. NEB SCH ×4 (07:50→20:14)
[2022-03-16] MEDS: POLYETHYLENE GLYCOL (HEALTHYLAX) 3350 17 GM PACKET PO SCH ×2 (09:11→22:46)
[2022-03-16] MEDS: APIXABAN 5 MG TABLET PO SCH ×2 (09:11→22:46)
[2022-03-16] MEDS: predniSONE 10 MG TABLET (UD) PO SCH ×2 (09:11→22:46)
[2022-03-16] MEDS: SERTRALINE HCL 50 MG TABLET (FP) PO SCH (09:12)
[2022-03-16] MEDS: TORSEMIDE 20 MG TABLET (FP) PO SCH (09:12)
[2022-03-16] MEDS: SENNOSIDES 8.6MG TABLET (FP) PO SCH (09:12)
[2022-03-16] MEDS: metoPROLOL SUCCINATE 25 MG TAB.SR.24H (FP) PO SCH ×2 (09:12→22:46)
[2022-03-16] MEDS: SPIRONOLACTONE 25 MG TABLET PO SCH (09:12)
[2022-03-16] MEDS: TIOTROPIUM BROMIDE 2.5 MCG (SPIRIVA) RESPIMAT INHALER IH SCH (10:38)
[2022-03-16] MEDS: BUDESONIDE/FORMETEROL FUMARATE 160/4.5 mcg INHALER IH SCH ×2 (10:39→22:49)
[2022-03-16 10:47] LABS: CALCIUM 9.6 mg/dL (8.5-10.1)
[2022-03-16 10:48] LABS: ALBUMIN 2.8 g/dl (3.4-5.0); BLOOD UREA NITROGEN 49.1 mg/dL (7-18)
[2022-03-16 10:51] LABS: CREATININE 0.7 mg/dL (0.55-1.3)
[2022-03-16 10:53] LABS: TOT PROT 6.4 g/dl (6.4-8.2)
[2022-03-16] MEDS: clonazePAM 0.5 MG TABLET PO PRN ×2 (13:28→22:46)
[2022-03-16 19:02] LABS: HEMATOCRIT 42.3 % (32.4-45.2); HEMOGLOBIN 13.5 GM/dL (10.7-15.3); MCH 25.2 pg (25.7-33.7); MCHC 31.9 g/dl (32.0-36.0); MEAN PLT VOLUME 10.2 fl (7.5-11.1); PLATELET COUNT 221 10^3/uL (134-434); RBC 5.36 M/mm3 (3.60-5.2); RDW 18.4 % (11.6-15.6)
[2022-03-16 20:49] LABS: ANISOCYTOSIS 1+; MACROCYTOSIS 0; PLATELET ESTIMATE NORMAL
[2022-03-17] MEDS: BUDESONIDE/FORMETEROL FUMARATE 160/4.5 mcg INHALER IH SCH (09:04)
[2022-03-17] MEDS: TIOTROPIUM BROMIDE 2.5 MCG (SPIRIVA) RESPIMAT INHALER IH SCH (09:04)
[2022-03-17] MEDS: SERTRALINE HCL 50 MG TABLET (FP) PO SCH (09:04)
[2022-03-17] MEDS: clonazePAM 0.5 MG TABLET PO PRN (09:04)
[2022-03-17] MEDS: metoPROLOL SUCCINATE 25 MG TAB.SR.24H (FP) PO SCH (09:04)
[2022-03-17] MEDS: SPIRONOLACTONE 25 MG TABLET PO SCH (09:04)
[2022-03-17] MEDS: SENNOSIDES 8.6MG TABLET (FP) PO SCH (09:04)
[2022-03-17] MEDS: predniSONE 10 MG TABLET (UD) PO SCH (09:04)
[2022-03-17] MEDS: POLYETHYLENE GLYCOL (HEALTHYLAX) 3350 17 GM PACKET PO SCH (09:04)
[2022-03-17] MEDS: APIXABAN 5 MG TABLET PO SCH (09:04)
[2022-03-17] MEDS: TORSEMIDE 20 MG TABLET (FP) PO SCH (09:04)
[2022-03-17 09:18] VITALS: BP 111/76; PULSE 76; RESP 20; TEMP 98.5
[2022-03-17] MEDS: ALBUTEROL SO4 2.5/IPRATROPIUM 0.5 INH SOL 3 ML VIAL.NEB. NEB SCH (09:30)
== END 2022-03-17 12:34 | DRG 193 ==
LOC: JER 13:01 → JERBED 17:07 → J4W 23:18 → J2W 02-20 13:47 → J6S 03-10 23:07
PROVIDERS: ADMIT Internal Medicine; ATTEND Family Medicine
DX: J18.9 Pneumonia, unspecified organism (principal); I50.33 Acute on chronic diastolic (congestive) heart failure; J96.21 Acute and chronic respiratory failure with hypoxia; J96.22 Acute and chronic respiratory failure with hypercapnia; L03.115 Cellulitis of right lower limb; L03.116 Cellulitis of left lower limb; I13.0 Hypertensive heart and chronic kidney disease with heart failure and stage 1 through stage 4 chronic kidney disease, or unspecified chronic kidney disease; N17.9 Acute kidney failure, unspecified; N39.0 Urinary tract infection, site not specified; E87.70 Fluid overload, unspecified; J44.9 Chronic obstructive pulmonary disease, unspecified; E87.6 Hypokalemia; E87.5 Hyperkalemia; I48.0 Paroxysmal atrial fibrillation; D72.829 Elevated white blood cell count, unspecified; K59.00 Constipation, unspecified; F41.8 Other specified anxiety disorders; E83.42 Hypomagnesemia; N18.2 Chronic kidney disease, stage 2 (mild); K21.9 Gastro-esophageal reflux disease without esophagitis; E78.00 Pure hypercholesterolemia, unspecified; B35.1 Tinea unguium
CPT/HCPCS: 0241U-QW; 36415; 36600; 71045-TC-FY; 71275-TC; 74019-TC-FY; 80048; 80053; 81003; 82803; 83735; 83880; 84100; 84484; 85025; 85027; 85610; 85730; 86850; 86900; 86901; 87040; 87081; 87086; 87899; 93005; 93010; 93970-TC; 94010; 94640; 94660; 97116-GP; 97162-GP; 99291; C9803-CS; Q9967; U0003; U0005